=== PATIENT | female | born 2000 | race Caucasian/White ===

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

== ENCOUNTER 2021-07-06 13:29 | Emergency (ER) | payer MEDICAID ==
[2021-07-06 13:40] VITALS: BP 142/86
[2021-07-06 13:57] LABS: RAPID STREP SCREEN Negative (Negative)
--- OUTSIDE RECORDS SUMMARY | 2021-07-06 14:34 | EXTERNAL MEDICAL SUMMARY RPT | Continuity of Care Document ---
:2000 Author Organization [facility] Address [address] [place] [address] Phone Care Team Providers Name Role Phone Lanker Unavailable Unavailable Botnick Unavailable Unavailable Anushka Unavailable Unavailable Crew Unavailable Unavailable Allergies No information. Encounters No information. Medications date description facility 20210420 Metronidazole 500 MG Oral Tablet [facility] 20210420 Sulfamethoxazole 800 MG / Trimethoprim 160 MG [facility] Tablet 20210420 Metronidazole 500 MG Oral Tablet [facility] 20210420 Sulfamethoxazole 800 MG / Trimethoprim 160 MG [facility] Tablet 20210420 Metronidazole 500 MG Oral Tablet [facility] 20210420 Sulfamethoxazole 800 MG / Trimethoprim 160 MG [facility] Tablet [id number] Metronidazole 500 MG Oral Tablet [facility] [id number] Sulfamethoxazole 800 MG / Trimethoprim 160 MG Oral [facility] Tablet Problems Procedures date description facility [id number] [facility] [id number] [facility] [id number] [facility] [id number] [facility] [id number] [facility] [id number] [facility] [id number] [facility] [id number] [facility] [id number] [facility] [id number] [facility] [id number] [facility] [id number] [facility] [id number] [facility] Results No information. Vital Signs date measurement value source 20210420 BP_systolic 165 mm[Hg] 20210420 BP_diastolic 106 mm[Hg] 20210420 weight_standard 113.4 lb 20210420 weight_metric 51.44 kg 20210420 temperature_standard 98.3 F 20210420 temperature_metric 36.83 C 20210420 respiration_rate 16 /min 20210420 height_standard 66 in 20210420 height_metric 167.64 cm 20210420 heart_rate 72 /min 20210420 BP_systolic 165 mm[Hg] 20210420 BP_diastolic 106 mm[Hg] 20210420 BMI 40.3 kg/m2 20210529 weight_standard 108.86 lb 20210529 weight_metric 49.38 kg 20210529 temperature_standard 97.6 F 20210529 temperature_metric 36.44 C 20210529 respiration_rate 24 /min 20210529 height_standard 66 in 20210529 height_metric 167.64 cm 20210529 heart_rate 90 /min 20210529 BMI 38.7 kg/m2 20210619 weight_standard 113.4 lb 20210619 weight_metric 51.44 kg 20210619 temperature_standard 100 F 20210619 temperature_metric 37.78 C 20210619 respiration_rate 16 /min 20210619 height_standard 66 in 20210619 height_metric 167.64 cm 20210619 heart_rate 110 /min 20210619 BP_systolic 195 mm[Hg] 20210619 BP_diastolic 87 mm[Hg] 20210619 BMI 40.3 kg/m2 20210621 weight_standard 113.4 lb 20210621 weight_metric 51.44 kg 20210621 temperature_standard 98.1 F 20210621 temperature_metric 36.72 C 20210621 respiration_rate 20 /min 20210621 height_standard 66 in 20210621 height_metric 167.64 cm 20210621 heart_rate 110 /min 20210621 BP_systolic 155 mm[Hg] 20210621 BP_diastolic 94 mm[Hg] 20210621 BMI 40.3 kg/m2 20210628 weight_standard 113.4 lb 20210628 weight_metric 51.44 kg 20210628 temperature_standard 97 F 20210628 temperature_metric 36.11 C 20210628 respiration_rate 18 /min 20210628 height_standard 66 in 20210628 height_metric 167.64 cm 20210628 heart_rate 70 /min 20210628 BP_systolic 161 mm[Hg] 20210628 BP_diastolic 89 mm[Hg] 20210628 BMI 40.3 kg/m2
--- NOTE | 2021-07-06 16:05 | ED Physician Documentation ---
PD HPI HEENT - Stated complaint Stated Complaint: white spots in mouth - Chief complaint Chief Complaint: Heent - History obtained from History obtained from: Patient - Additional information Additional information: The patient comes to the emergency department chief complaint of sores in her mouth. They have been going on for about the last 3 days with no obvious trigger. The patient states she is had issues with development of these previously. She denies any recent URI. She had COVID about 3 weeks ago and states she has a very slight residual cough from this but otherwise, has no symptoms. The patient has no other complaints at this time. Review of Systems Ten Systems: 10 systems reviewed and negative Constitutional: reports: Reviewed and negative Eyes: reports: Reviewed and negative Ears: reports: Reviewed and negative Nose: reports: Reviewed and negative Throat: reports: Oral lesions / sores Cardiac: reports: Reviewed and negative Respiratory: reports: Reviewed and negative GI: reports: Reviewed and negative : reports: Reviewed and negative Skin: reports: Reviewed and negative Musculoskeletal: reports: Reviewed and negative Neurologic: reports: Reviewed and negative Psychiatric: reports: Reviewed and negative Endocrine: reports: Reviewed and negative Immunocompromised: reports: Reviewed and negative PD PAST MEDICAL HISTORY - Past Medical History Cardiovascular: None Respiratory: None Neuro: None - Past Surgical History Past Surgical History: No - Present Medications Home Medications: Ambulatory Orders Medication Instructions Recorded Confirmed Albuterol Sulfate [Proair Hfa 1 - 2 puffs INH Q4H PRN 07/06/21 07/06/21 Inhaler] Chlorhexidine [Peridex] 15 ml PO BID #150 ml 07/06/21 - Allergies Allergies/Adverse Reactions: Allergies Allergy/AdvReac Type Severity Reaction Status Date / Time Penicillins Allergy Respiratory Verified 07/06/21 13:36 - Social History Does the pt smoke?: No Smoking Status: Never smoker Does the pt drink ETOH?: No Does the pt have substance abuse?: No - Immunizations Immunizations are current?: Yes - POLST Patient has POLST: No PD ED PE NORMAL - Vitals Vital signs reviewed: Yes - General General: Alert and oriented X 3, No acute distress, Well developed/nourished - HEENT HEENT: Atraumatic, PERRL, EOMI, Moist mucous membranes, Other (Multiple aphthous ulcers on upper and lower lip mucosa, as well as bilateral buccal mucosa. No swelling. No drainage.) - Neck Neck: Supple, no meningeal sign - Respiratory Respiratory: No respiratory distress - Derm Derm: Warm and dry - Extremities Extremities: No deformity - Neuro Neuro: Alert and oriented X 3 - Psych Psych: Normal mood, Normal affect Results - Vitals Vitals: Vital Signs - 24 hr 07/06/21 13:37 Temperature 37.1 C Heart Rate 81 Respiratory 16 Rate Blood Pressure 142/86 H O2 Saturation 97 Oxygen O2 Source Room air - Labs Labs: Laboratory Tests 07/06/21 13:40 Group A Strep Rapid Negative PD MEDICAL DECISION MAKING - ED course Complexity details: considered differential, d/w patient ED course: We have discussed symptomatic management of aphthous ulcers at home. We discussed the usual indications for return. Departure - Departure Disposition: Home, Self Care Clinical Impression: Aphthous stomatitis Condition: Stable Instructions: ED Canker Sore Prescriptions: Chlorhexidine [Peridex] 15 ml PO BID #150 ml Comments: You may ask the pharmacy to direct you to Orajel, and [id number] numbing gel that can be applied to the sores in your mouth just before eating, to decrease the level of discomfort. This should not be used in between meals, as he is in too much can be harmful. You may just put a little on a Q-tip and apply it to the painful sore areas. In general, aphthous ulcers or "canker sores" will go away on their own, given time. Please avoid any substances that are irritating to the mouth, such as anything very acidic or spicy, or any hard or rough foods that might further traumatize the inside your mouth.
--- NOTE | 2021-07-09 05:59 | ED Physician Documentation ---
ED Addendum - Addendum Addendum: 07/09/21 05:57 Throat culture results reviewed which is positive for group G strep. Given patient's symptoms, I am inclined to treat. Patient has allergy listed to penicillin with respiratory Effects. We will avoid penicillin and cephalosporins. I have prescribed azithromycin and send the prescription to [facility] in [place]. Will have charge nurse and morning call patient to notify of results and prescription.
== END 2021-07-06 16:12 | disposition home or self-care (01) ==
LOC: ED 13:29
DX: K12.0 Recurrent oral aphthae (principal)
CPT/HCPCS: 87070; 87077; 87430; 99282; 99283

== ENCOUNTER 2021-08-31 20:47 | Emergency (ER) | payer MEDICAID ==
--- OUTSIDE RECORDS SUMMARY | 2021-08-31 20:56 | EXTERNAL MEDICAL SUMMARY RPT | Continuity of Care Document ---
:2000 Author Organization [place] Address [address] [place] [address] Phone Allergies and Intolerances date description facility type (no date) [facility] (unknown) Encounters No information. Functional Status No information. Immunizations No information. Medications No information. Problems No information. Procedures date description facility [id number] [facility] [id number] [facility] [id number] [facility] [id number] [facility] [id number] [facility] [id number] [facility] Results/Labs test date author facility value unit interpret ation Result panel 1 (unknown) (no (unknown) (unknown) (no value) (units (unk nown) date) unknown) (unknown) (no (unknown) (unknown) Date of Service: (units (unknown) date) 06/19/21 unknown) (unknown) (no (unknown) (unknown) (no value) (units (unk nown) date) unknown) (unknown) (no (unknown) (unknown) 100 mg PO BID (units ( unknown) date) Qty: 14 0RF unknown) (unknown) (no (unknown) (unknown) 4 mg PO Q6-8H (units ( unknown) date) Qty: 7 0RF unknown) (unknown) (no (unknown) (unknown) Allergies (units (unkn own) date) unknown) (unknown) (no (unknown) (unknown) Documented by: (units (unknown) date) KBRYERS unknown) (unknown) (no (unknown) (unknown) ED Orders (units (unkn own) date) unknown) (unknown) (no (unknown) (unknown) Emergency Report (units (unknown) date) unknown) (unknown) (no (unknown) (unknown) Merged With [facility] (units (unknown) date) [address] unknown) [place] [address] (unknown) (no (unknown) (unknown) Last Admin: (units (un known) date) 06/19/21 09:01 unknown) Dose: 1,000 mls/hr (unknown) (no (unknown) (unknown) Point of Care (units ( unknown) date) Testing unknown) (unknown) (no (unknown) (unknown) Previous Rx's (units ( unknown) date) unknown) (unknown) (no (unknown) (unknown) Rx Instructions: (units (unknown) date) unknown) (unknown) (no (unknown) (unknown) Stop: 06/19/21 (units (unknown) date) 09:09 unknown) (unknown) (no (unknown) (unknown) Stop: 06/19/21 (units (unknown) date) 09:51 unknown) (unknown) (no (unknown) (unknown) Urine Dip (units (unkn own) date) unknown) (unknown) (no (unknown) (unknown) Vital Signs - 8 (units (unknown) date) hr unknown) (unknown) (no (unknown) (unknown) must administer (units (unknown) date) with a meal/food unknown) (unknown) (no (unknown) (unknown) (no value) (units (unk nown) date) unknown) (unknown) (no (unknown) (unknown) nitrofurantoin (units (unknown) date) monohyd/m-cryst unknown) [Macrobid] 100 mg capsule (unknown) (no (unknown) (unknown) ondansetron HCl (units (unknown) date) [Zofran] 4 mg unknown) tablet (unknown) (no (unknown) (unknown) 06/19/21 (units (unkno wn) date) unknown) (unknown) (no (unknown) (unknown) Medication (units (unk nown) date) Instructions unknown) Recorded (unknown) (no (unknown) (unknown) 'CILLINS' Allergy (units (unknown) date) Unknown Cough unknown) Uncoded 03/01/21 02:28 (unknown) (no (unknown) (unknown) (Zofran) (units (unkno wn) date) unknown) (unknown) (no (unknown) (unknown) 06/19/21 08:31 (units (unknown) date) unknown) (unknown) (no (unknown) (unknown) 06/19/21 08:51 (units (unknown) date) unknown) (unknown) (no (unknown) (unknown) 06/19/21 09:07 (units (unknown) date) unknown) (unknown) (no (unknown) (unknown) 08:20 (units (unkno wn) date) unknown) (unknown) (no (unknown) (unknown) [id number] (units (unkno wn) date) unknown) (unknown) (no (unknown) (unknown) Age/Sex: 21 / F (units (unknown) date) unknown) (unknown) (no (unknown) (unknown) Allergy/AdvReac (units (unknown) date) Type Severity unknown) Reaction Status Date / Time (unknown) (no (unknown) (unknown) Bedside Urine (units ( unknown) date) Bilirubin - unknown) Negative (unknown) (no (unknown) (unknown) Bedside Urine (units ( unknown) date) Glucose unknown) Negative (unknown) (no (unknown) (unknown) Bedside Urine (units ( unknown) date) Ketone - unknown) Negative (unknown) (no (unknown) (unknown) Bedside Urine (units ( unknown) date) Leukocytes + unknown) 70 (unknown) (no (unknown) (unknown) Bedside Urine (units ( unknown) date) Nitrite - unknown) Negative (unknown) (no (unknown) (unknown) Bedside Urine (units ( unknown) date) Occult Blood - unknown) Negative (unknown) (no (unknown) (unknown) Bedside Urine (units ( unknown) date) Protein - unknown) Negative (unknown) (no (unknown) (unknown) Bedside Urine (units ( unknown) date) Urobilinogen - unknown) Negative (unknown) (no (unknown) (unknown) Bedside Urine pH (units (unknown) date) 6 unknown) (unknown) (no (unknown) (unknown) Blood Pressure (units (unknown) date) 181/107 H unknown) 06/19/21 08:20 (unknown) (no (unknown) (unknown) Blood Pressure (units (unknown) date) 181/107 H unknown) (unknown) (no (unknown) (unknown) COVID19 -Nasal (units (unknown) date) RAPID/Pre-Proc unknown) Stat (unknown) (no (unknown) (unknown) Chief complaint: (units (unknown) date) Upper Respiratory unknown) Symptoms (unknown) (no (unknown) (unknown) Course (units (unkno wn) date) unknown) (unknown) (no (unknown) (unknown) : 2000 (units (unknown) date) Acct:[id number] unknown) (unknown) (no (unknown) (unknown) Departure (units (unkn own) date) unknown) (unknown) (no (unknown) (unknown) Discharge Plan (units (unknown) date) unknown) (unknown) (no (unknown) (unknown) Discontinued (units (u nknown) date) Medications unknown) (unknown) (no (unknown) (unknown) ER Physician: (units ( unknown) date) Manjit Dale unknown) D.O. (unknown) (no (unknown) (unknown) Esterase (units (unkno wn) date) unknown) (unknown) (no (unknown) (unknown) Exam (units (unkno wn) date) unknown) (unknown) (no (unknown) (unknown) General (units (unkno wn) date) unknown) (unknown) (no (unknown) (unknown) HPI - General (units ( unknown) date) Adult unknown) (unknown) (no (unknown) (unknown) Healthy (units (unkno wn) date) adolescent unknown) (unknown) (no (unknown) (unknown) Initial Vital (units ( unknown) date) Signs unknown) (unknown) (no (unknown) (unknown) Initial Vital (units ( unknown) date) Signs: unknown) (unknown) (no (unknown) (unknown) Lab Data (units (unkno wn) date) unknown) (unknown) (no (unknown) (unknown) Labs: (units (unkno wn) date) unknown) (unknown) (no (unknown) (unknown) Medical Decision (units (unknown) date) Making unknown) (unknown) (no (unknown) (unknown) Medical History (units (unknown) date) (Updated 06/14/21 unknown) @ 00:01 by ) (unknown) (no (unknown) (unknown) Mode of arrival: (units (unknown) date) Ambulatory unknown) (unknown) (no (unknown) (unknown) Nephrolithiasis (units (unknown) date) unknown) (unknown) (no (unknown) (unknown) No Action (units (unkn own) date) unknown) (unknown) (no (unknown) (unknown) No history of (units ( unknown) date) previous surgery unknown) (unknown) (no (unknown) (unknown) Ondansetron HCl (units (unknown) date) (Ondansetron 4 unknown) Mg/2 Ml Inj) 4 mg IV NOW ONE (unknown) (no (unknown) (unknown) Ordered: (units (unkno wn) date) unknown) (unknown) (no (unknown) (unknown) Orders (units (unkno wn) date) unknown) (unknown) (no (unknown) (unknown) Patient History (units (unknown) date) unknown) (unknown) (no (unknown) (unknown) Patient: (units (unkno wn) date) Jenny Cobb unknown) MR#: [id number] (unknown) (no (unknown) (unknown) Penicillins (units (un known) date) [PENICILLINS] unknown) Allergy Unknown Anaphylaxis Verified 03/18/21 19:10 (unknown) (no (unknown) (unknown) Point of care (units ( unknown) date) testing: unknown) (unknown) (no (unknown) (unknown) Test (units (unknown) date) Results unknown) Negative (unknown) (no (unknown) (unknown) Prescriptions: (units (unknown) date) unknown) (unknown) (no (unknown) (unknown) Pulse Oximetry (units (unknown) date) 100 06/19/21 unknown) 08:20 (unknown) (no (unknown) (unknown) Pulse Oximetry (units (unknown) date) 100 unknown) (unknown) (no (unknown) (unknown) Pulse Rate 109 H (units (unknown) date) 06/19/21 08:20 unknown) (unknown) (no (unknown) (unknown) Pulse Rate 109 H (units (unknown) date) unknown) (unknown) (no (unknown) (unknown) Rapid Strep A (units ( unknown) date) Negative unknown) (unknown) (no (unknown) (unknown) Related Data (units (u nknown) date) unknown) (unknown) (no (unknown) (unknown) Respiratory Panel (units (unknown) date) (Film Array) Stat unknown) (unknown) (no (unknown) (unknown) Respiratory Rate (units (unknown) date) 18 06/19/21 unknown) 08:20 (unknown) (no (unknown) (unknown) Respiratory Rate (units (unknown) date) 18 unknown) (unknown) (no (unknown) (unknown) Signed By: (units (unk nown) date) unknown) (unknown) (no (unknown) (unknown) Smoking Status: (units (unknown) date) Current every day unknown) smoker (unknown) (no (unknown) (unknown) Smoking Status: (units (unknown) date) Current every day unknown) smoker (unknown) (no (unknown) (unknown) Social History (units (unknown) date) (Reviewed 05/30/21 unknown) @ 04:48 by Manjit Dale DO) (unknown) (no (unknown) (unknown) Sodium Chloride (units (unknown) date) (Normal Saline unknown) 0.9%) 1,000 mls @ 1,000 mls/hr IV BOLUS ONE (unknown) (no (unknown) (unknown) Source: patient (units (unknown) date) unknown) (unknown) (no (unknown) (unknown) Stated complaint: (units (unknown) date) severe headache, unknown) fever, throwing up (unknown) (no (unknown) (unknown) Substance Use (units ( unknown) date) Type: does not use unknown) (unknown) (no (unknown) (unknown) Surgical History (units (unknown) date) (Reviewed 04/20/21 unknown) @ 20:49 by Leesa Gonzales [facility]) (unknown) (no (unknown) (unknown) Temperature 100 (units (unknown) date) F H 06/19/21 unknown) 08:20 (unknown) (no (unknown) (unknown) Temperature 100 F (units (unknown) date) H unknown) (unknown) (no (unknown) (unknown) Time Seen by (units (u nknown) date) Provider: 06/19/21 unknown) 09:04 (unknown) (no (unknown) (unknown) Urine Microscopic (units (unknown) date) Stat unknown) (unknown) (no (unknown) (unknown) Urine Specific (units (unknown) date) [place] 1.01 unknown) (unknown) (no (unknown) (unknown) Vital Signs (units (un known) date) unknown) (unknown) (no (unknown) (unknown) Vital signs: (units (u nknown) date) unknown) (unknown) (no (unknown) (unknown) alcohol intake (units (unknown) date) frequency: unknown) holidays/special occasions only (unknown) (no (unknown) (unknown) capsule (units (unkno wn) date) (Macrobid) unknown) (unknown) (no (unknown) (unknown) monohydrate/macro (units (unknown) date) crystals 100 mg unknown) (unknown) (no (unknown) (unknown) nitrofurantoin (units (unknown) date) 100 mg PO BID #14 unknown) cap 01/27/21 (unknown) (no (unknown) (unknown) ondansetron HCl 4 (units (unknown) date) mg tablet 4 mg PO unknown) Q6-8H #7 tab 11/08/20 (unknown) (no (unknown) (unknown) tobacco type: (units ( unknown) date) cigarettes and unknown) vaping Result panel 2 (unknown) (no date) (unknown) (unknown) POSITIVE (units (unkn own) unknown) Result panel 3 (unknown) (no (unknown) (unknown) (no value) (units (unk nown) date) unknown) (unknown) (no (unknown) (unknown) Date of Service: (units (unknown) date) 06/19/21 unknown) (unknown) (no (unknown) (unknown) (no value) (units (unk nown) date) unknown) (unknown) (no (unknown) (unknown) 100 mg PO BID Qty: (units (unknown) date) 14 0RF unknown) (unknown) (no (unknown) (unknown) 4 mg PO Q6-8H Qty: (units (unknown) date) 7 0RF unknown) (unknown) (no (unknown) (unknown) Allergies (units (unkn own) date) unknown) (unknown) (no (unknown) (unknown) Documented by: (units (unknown) date) KBRYERS unknown) (unknown) (no (unknown) (unknown) ED Orders (units (unkn own) date) unknown) (unknown) (no (unknown) (unknown) Emergency Report (units (unknown) date) unknown) (unknown) (no (unknown) (unknown) Merged With [facility] (units (unknown) date) [address] unknown) [place] [address] (unknown) (no (unknown) (unknown) Last Admin: (units (un known) date) 06/19/21 09:01 unknown) Dose: 1,000 mls/hr (unknown) (no (unknown) (unknown) Point of Care (units ( unknown) date) Testing unknown) (unknown) (no (unknown) (unknown) Previous Rx's (units ( unknown) date) unknown) (unknown) (no (unknown) (unknown) Rx Instructions: (units (unknown) date) unknown) (unknown) (no (unknown) (unknown) Stop: 06/19/21 (units (unknown) date) 09:09 unknown) (unknown) (no (unknown) (unknown) Stop: 06/19/21 (units (unknown) date) 09:51 unknown) (unknown) (no (unknown) (unknown) Urine Dip (units (unkn own) date) unknown) (unknown) (no (unknown) (unknown) Vital Signs - 8 hr (units (unknown) date) unknown) (unknown) (no (unknown) (unknown) must administer (units (unknown) date) with a meal/food unknown) (unknown) (no (unknown) (unknown) (no value) (units (unk nown) date) unknown) (unknown) (no (unknown) (unknown) nitrofurantoin (units (unknown) date) monohyd/m-cryst unknown) [Macrobid] 100 mg capsule (unknown) (no (unknown) (unknown) ondansetron HCl (units (unknown) date) [Zofran] 4 mg unknown) tablet (unknown) (no (unknown) (unknown) 06/19/21 (units (unkno wn) date) unknown) (unknown) (no (unknown) (unknown) Medication (units (unk nown) date) Instructions unknown) Recorded (unknown) (no (unknown) (unknown) No rashes. No (units (unknown) date) abdominal pain. No unknown) urinary symptoms. No cough. (unknown) (no (unknown) (unknown) 'CILLINS' Allergy (units (unknown) date) Unknown Cough unknown) Uncoded 03/01/21 02:28 (unknown) (no (unknown) (unknown) (Zofran) (units (unkno wn) date) unknown) (unknown) (no (unknown) (unknown) 06/19/21 08:31 (units (unknown) date) unknown) (unknown) (no (unknown) (unknown) 06/19/21 08:51 (units (unknown) date) unknown) (unknown) (no (unknown) (unknown) 06/19/21 09:07 (units (unknown) date) unknown) (unknown) (no (unknown) (unknown) 08:20 (units (unkno wn) date) unknown) (unknown) (no (unknown) (unknown) [id number] (units (unkno wn) date) unknown) (unknown) (no (unknown) (unknown) Age/Sex: 21 / F (units (unknown) date) unknown) (unknown) (no (unknown) (unknown) Allergy/AdvReac (units (unknown) date) Type Severity unknown) Reaction Status Date / Time (unknown) (no (unknown) (unknown) Appearance: (units (un known) date) grossly normal and unknown) well kempt (unknown) (no (unknown) (unknown) Auscultation: (units ( unknown) date) clear to unknown) auscultation bilaterally (unknown) (no (unknown) (unknown) Bedside Urine (units ( unknown) date) Bilirubin - unknown) Negative (unknown) (no (unknown) (unknown) Bedside Urine (units ( unknown) date) Glucose Negative unknown) (unknown) (no (unknown) (unknown) Bedside Urine (units ( unknown) date) Ketone - unknown) Negative (unknown) (no (unknown) (unknown) Bedside Urine (units ( unknown) date) Leukocytes + unknown) 70 (unknown) (no (unknown) (unknown) Bedside Urine (units ( unknown) date) Nitrite - unknown) Negative (unknown) (no (unknown) (unknown) Bedside Urine (units ( unknown) date) Occult Blood - unknown) Negative (unknown) (no (unknown) (unknown) Bedside Urine (units ( unknown) date) Protein - unknown) Negative (unknown) (no (unknown) (unknown) Bedside Urine (units ( unknown) date) Urobilinogen - unknown) Negative (unknown) (no (unknown) (unknown) Bedside Urine pH (units (unknown) date) 6 unknown) (unknown) (no (unknown) (unknown) Blood Pressure (units (unknown) date) 181/107 H 06/19/21 unknown) 08:20 (unknown) (no (unknown) (unknown) Blood Pressure (units (unknown) date) 181/107 H unknown) (unknown) (no (unknown) (unknown) COVID19 -Nasal (units (unknown) date) RAPID/Pre-Proc Stat unknown) (unknown) (no (unknown) (unknown) Cardio (units (unkno wn) date) unknown) (unknown) (no (unknown) (unknown) Cardiovascular (units (unknown) date) unknown) (unknown) (no (unknown) (unknown) Cardiovascular: (units (unknown) date) Reports system unknown) reviewed and no additional complaints, except as (unknown) (no (unknown) (unknown) Chief complaint: (units (unknown) date) Upper Respiratory unknown) Symptoms (unknown) (no (unknown) (unknown) Constitutional (units (unknown) date) unknown) (unknown) (no (unknown) (unknown) Constitutional: (units (unknown) date) Reports system unknown) reviewed and no additional complaints, except as (unknown) (no (unknown) (unknown) Course (units (unkno wn) date) unknown) (unknown) (no (unknown) (unknown) : 2000 (units (unknown) date) Acct:[id number] unknown) (unknown) (no (unknown) (unknown) Departure (units (unkn own) date) unknown) (unknown) (no (unknown) (unknown) Discharge Plan (units (unknown) date) unknown) (unknown) (no (unknown) (unknown) Discontinued (units (u nknown) date) Medications unknown) (unknown) (no (unknown) (unknown) ENT (units (unkno wn) date) unknown) (unknown) (no (unknown) (unknown) ER Physician: (units ( unknown) date) Manjit Dale D.O. unknown) (unknown) (no (unknown) (unknown) Ears, Nose, Mouth, (units (unknown) date) and Throat: Reports unknown) system reviewed and no additional (unknown) (no (unknown) (unknown) Ears: TM's normal (units (unknown) date) bilaterally unknown) (unknown) (no (unknown) (unknown) Effort + (units (unkno wn) date) Inspection: normal unknown) respiratory effort (unknown) (no (unknown) (unknown) Esterase (units (unkno wn) date) unknown) (unknown) (no (unknown) (unknown) Exam (units (unkno wn) date) unknown) (unknown) (no (unknown) (unknown) Extrem (units (unkno wn) date) unknown) (unknown) (no (unknown) (unknown) GI (units (unkno wn) date) unknown) (unknown) (no (unknown) (unknown) Gastrointestinal (units (unknown) date) unknown) (unknown) (no (unknown) (unknown) Gastrointestinal: (units (unknown) date) Reports system unknown) reviewed and no additional complaints, except (unknown) (no (unknown) (unknown) General (units (unkno wn) date) unknown) (unknown) (no (unknown) (unknown) General: no rashes (units (unknown) date) or lesions noted unknown) (unknown) (no (unknown) (unknown) General: normal to (units (unknown) date) inspection and unknown) capillary refill normal (unknown) (no (unknown) (unknown) General: patient (units (unknown) date) alert, patient unknown) awake, patient oriented x3 and moves all (unknown) (no (unknown) (unknown) HENMT (units (unkno wn) date) unknown) (unknown) (no (unknown) (unknown) HPI - General (units ( unknown) date) Adult unknown) (unknown) (no (unknown) (unknown) HPI narrative: (units (unknown) date) unknown) (unknown) (no (unknown) (unknown) Head: normal to (units (unknown) date) inspection and unknown) normocephalic (unknown) (no (unknown) (unknown) Healthy adolescent (units (unknown) date) unknown) (unknown) (no (unknown) (unknown) Hematologic/Lympha (units (unknown) date) tic unknown) (unknown) (no (unknown) (unknown) History of Present (units (unknown) date) Illness unknown) (unknown) (no (unknown) (unknown) Initial Vital (units ( unknown) date) Signs unknown) (unknown) (no (unknown) (unknown) Initial Vital (units ( unknown) date) Signs: unknown) (unknown) (no (unknown) (unknown) Inspection: normal (units (unknown) date) to inspection unknown) (unknown) (no (unknown) (unknown) Integumentary/Leticia (units (unknown) date) sts unknown) (unknown) (no (unknown) (unknown) Lab Data (units (unkno wn) date) unknown) (unknown) (no (unknown) (unknown) Labs: (units (unkno wn) date) unknown) (unknown) (no (unknown) (unknown) Medical Decision (units (unknown) date) Making unknown) (unknown) (no (unknown) (unknown) Medical History (units (unknown) date) (Reviewed 06/19/21 unknown) @ 09:14 by Manjit Dale DO) (unknown) (no (unknown) (unknown) Mode of arrival: (units (unknown) date) Ambulatory unknown) (unknown) (no (unknown) (unknown) Nephrolithiasis (units (unknown) date) unknown) (unknown) (no (unknown) (unknown) Neuro (units (unkno wn) date) unknown) (unknown) (no (unknown) (unknown) Neurologic (units (unk nown) date) unknown) (unknown) (no (unknown) (unknown) Neurologic: (units (un known) date) Reports system unknown) reviewed and no additional complaints, except as (unknown) (no (unknown) (unknown) No Action (units (unkn own) date) unknown) (unknown) (no (unknown) (unknown) No history of (units ( unknown) date) previous surgery unknown) (unknown) (no (unknown) (unknown) On Anticoagulants: (units (unknown) date) No unknown) (unknown) (no (unknown) (unknown) Ondansetron HCl (units (unknown) date) (Ondansetron 4 Mg/2 unknown) Ml Inj) 4 mg IV NOW ONE (unknown) (no (unknown) (unknown) Ordered: (units (unkno wn) date) unknown) (unknown) (no (unknown) (unknown) Orders (units (unkno wn) date) unknown) (unknown) (no (unknown) (unknown) Patient History (units (unknown) date) unknown) (unknown) (no (unknown) (unknown) Patient is an (units ( unknown) date) otherwise healthy unknown) 21-year-old female who is here for multiple (unknown) (no (unknown) (unknown) Patient: (units (unkno wn) date) Jenny Cobb E unknown) MR#: [id number] (unknown) (no (unknown) (unknown) Penicillins (units (un known) date) [PENICILLINS] unknown) Allergy Unknown Anaphylaxis Verified 03/18/21 19:10 (unknown) (no (unknown) (unknown) Point of care (units ( unknown) date) testing: unknown) (unknown) (no (unknown) (unknown) Test (units (unknown) date) Results Negative unknown) (unknown) (no (unknown) (unknown) Prescriptions: (units (unknown) date) unknown) (unknown) (no (unknown) (unknown) Psych (units (unkno wn) date) unknown) (unknown) (no (unknown) (unknown) Pulse Oximetry (units (unknown) date) 100 06/19/21 unknown) 08:20 (unknown) (no (unknown) (unknown) Pulse Oximetry 100 (units (unknown) date) unknown) (unknown) (no (unknown) (unknown) Pulse Rate 109 H (units (unknown) date) 06/19/21 08:20 unknown) (unknown) (no (unknown) (unknown) Pulse Rate 109 H (units (unknown) date) unknown) (unknown) (no (unknown) (unknown) Rapid Strep A (units ( unknown) date) Negative unknown) (unknown) (no (unknown) (unknown) Rate: regular rate (units (unknown) date) unknown) (unknown) (no (unknown) (unknown) Related Data (units (u nknown) date) unknown) (unknown) (no (unknown) (unknown) Resp (units (unkno wn) date) unknown) (unknown) (no (unknown) (unknown) Respiratory (units (un known) date) unknown) (unknown) (no (unknown) (unknown) Respiratory Panel (units (unknown) date) (Film Array) Stat unknown) (unknown) (no (unknown) (unknown) Respiratory Rate (units (unknown) date) 18 06/19/21 08:20 unknown) (unknown) (no (unknown) (unknown) Respiratory Rate (units (unknown) date) 18 unknown) (unknown) (no (unknown) (unknown) Respiratory: (units (u nknown) date) Reports system unknown) reviewed and no additional complaints, except as (unknown) (no (unknown) (unknown) Review of Systems (units (unknown) date) unknown) (unknown) (no (unknown) (unknown) Rhythm: regular (units (unknown) date) rhythm unknown) (unknown) (no (unknown) (unknown) Signed By: (units (unk nown) date) unknown) (unknown) (no (unknown) (unknown) Skin (units (unkno wn) date) unknown) (unknown) (no (unknown) (unknown) Skin/Breast: (units (u nknown) date) Reports system unknown) reviewed and no additional complaints, except as (unknown) (no (unknown) (unknown) Smoking Status: (units (unknown) date) Current every day unknown) smoker (unknown) (no (unknown) (unknown) Smoking Status: (units (unknown) date) Current every day unknown) smoker (unknown) (no (unknown) (unknown) Social History (units (unknown) date) (Reviewed 06/19/21 unknown) @ 09:14 by Manjit Dale DO) (unknown) (no (unknown) (unknown) Sodium Chloride (units (unknown) date) (Normal Saline unknown) 0.9%) 1,000 mls @ 1,000 mls/hr IV BOLUS ONE (unknown) (no (unknown) (unknown) Source: patient (units (unknown) date) unknown) (unknown) (no (unknown) (unknown) Stated complaint: (units (unknown) date) severe headache, unknown) fever, throwing up (unknown) (no (unknown) (unknown) Substance Use (units ( unknown) date) Type: does not use unknown) (unknown) (no (unknown) (unknown) Surgical History (units (unknown) date) (Reviewed 04/20/21 unknown) @ 20:[address]) (unknown) (no (unknown) (unknown) Temperature 100 F (units (unknown) date) H 06/19/21 08:20 unknown) (unknown) (no (unknown) (unknown) Temperature 100 F (units (unknown) date) H unknown) (unknown) (no (unknown) (unknown) Throat: posterior (units (unknown) date) oropharynx normal unknown) (unknown) (no (unknown) (unknown) Time Seen by (units (u nknown) date) Provider: 06/19/21 unknown) 09:04 (unknown) (no (unknown) (unknown) Urine Microscopic (units (unknown) date) Stat unknown) (unknown) (no (unknown) (unknown) Urine Specific (units (unknown) date) [place] 1.01 unknown) (unknown) (no (unknown) (unknown) Vital Signs (units (un known) date) unknown) (unknown) (no (unknown) (unknown) Vital signs: (units (u nknown) date) unknown) (unknown) (no (unknown) (unknown) alcohol intake (units (unknown) date) frequency: unknown) holidays/special occasions only (unknown) (no (unknown) (unknown) as documented (units ( unknown) date) unknown) (unknown) (no (unknown) (unknown) capsule (Macrobid) (units (unknown) date) unknown) (unknown) (no (unknown) (unknown) complaints, except (units (unknown) date) as documented and unknown) Reports as per HPI (unknown) (no (unknown) (unknown) documented (units (unk nown) date) unknown) (unknown) (no (unknown) (unknown) extremities (units (un known) date) unknown) (unknown) (no (unknown) (unknown) injury several (units (unknown) date) weeks ago but has unknown) had no symptoms until now. The body aches (unknown) (no (unknown) (unknown) monohydrate/macroc (units (unknown) date) rystals 100 mg unknown) (unknown) (no (unknown) (unknown) nitrofurantoin 100 (units (unknown) date) mg PO BID #14 cap unknown) 01/27/21 (unknown) (no (unknown) (unknown) not feeling very (units (unknown) date) well. States her unknown) symptoms started last evening. She did try (unknown) (no (unknown) (unknown) ondansetron HCl 4 (units (unknown) date) mg tablet 4 mg PO unknown) Q6-8H #7 tab 11/08/20 (unknown) (no (unknown) (unknown) reasons to include (units (unknown) date) headache and nausea unknown) and vomiting and body aches and generally (unknown) (no (unknown) (unknown) some ibuprofen (units (unknown) date) last night without unknown) much improvement. She did sustain a head (unknown) (no (unknown) (unknown) started in route to (units (unknown) date) the emergency unknown) department. She is also having a sore throat. (unknown) (no (unknown) (unknown) tobacco type: (units ( unknown) date) cigarettes and unknown) vaping Result panel 4 (unknown) (no date) (unknown) (unknown) 0-1/HPF (units (unkn own) unknown) (unknown) (no date) (unknown) (unknown) 1-5 /HPF (units (unkn own) unknown) (unknown) (no date) (unknown) (unknown) 5-10/HPF (units (unkn own) unknown) (unknown) (no date) (unknown) (unknown) Few (2-10) (units (un known) unknown) (unknown) (no date) (unknown) (unknown) Specimen (units (unkn own) Cultured unknown) Result panel 5 (unknown) (no date) (unknown) (unknown) Detected (units (unkn own) unknown) (unknown) (no date) (unknown) (unknown) Not Detected (units ( unknown) unknown) Result panel 6 (unknown) (no (unknown) (unknown) (no value) (units (unk nown) date) unknown) (unknown) (no (unknown) (unknown) Date of Service: (units (unknown) date) 06/19/21 unknown) (unknown) (no (unknown) (unknown) (no value) (units (unk nown) date) unknown) (unknown) (no (unknown) (unknown) <Electronically (units (unknown) date) signed by Manjit Dale D.O.> (unknown) (no (unknown) (unknown) 06/19/21 1018 (units ( unknown) date) unknown) (unknown) (no (unknown) (unknown) 100 mg PO BID Qty: (units (unknown) date) 14 0RF unknown) (unknown) (no (unknown) (unknown) 4 mg PO Q6-8H Qty: (units (unknown) date) 7 0RF unknown) (unknown) (no (unknown) (unknown) Allergies (units (unkn own) date) unknown) (unknown) (no (unknown) (unknown) ED Orders (units (unkn own) date) unknown) (unknown) (no (unknown) (unknown) Emergency Report (units (unknown) date) unknown) (unknown) (no (unknown) (unknown) Merged With [facility] (units (unknown) date) [address] unknown) [place] [address] (unknown) (no (unknown) (unknown) Lab Results (units (un known) date) unknown) (unknown) (no (unknown) (unknown) Point of Care (units ( unknown) date) Testing unknown) (unknown) (no (unknown) (unknown) Previous Rx's (units ( unknown) date) unknown) (unknown) (no (unknown) (unknown) Rx Instructions: (units (unknown) date) unknown) (unknown) (no (unknown) (unknown) Stop: 06/19/21 (units (unknown) date) 09:09 unknown) (unknown) (no (unknown) (unknown) Stop: 06/19/21 (units (unknown) date) 09:51 unknown) (unknown) (no (unknown) (unknown) Urine Dip (units (unkn own) date) unknown) (unknown) (no (unknown) (unknown) Vital Signs - 8 hr (units (unknown) date) unknown) (unknown) (no (unknown) (unknown) must administer (units (unknown) date) with a meal/food unknown) (unknown) (no (unknown) (unknown) (no value) (units (unk nown) date) unknown) (unknown) (no (unknown) (unknown) 06/19/21 06/19/21 (units (unknown) date) 06/19/21 unknown) Range/Units (unknown) (no (unknown) (unknown) 08:31 08:52 09:02 (units (unknown) date) unknown) (unknown) (no (unknown) (unknown) nitrofurantoin (units (unknown) date) monohyd/m-cryst unknown) [Macrobid] 100 mg capsule (unknown) (no (unknown) (unknown) ondansetron HCl (units (unknown) date) [Zofran] 4 mg unknown) tablet (unknown) (no (unknown) (unknown) 06/19/21 (units (unkno wn) date) unknown) (unknown) (no (unknown) (unknown) COVID-19 (units (unkno wn) date) unknown) (unknown) (no (unknown) (unknown) Medication (units (unk nown) date) Instructions unknown) Recorded (unknown) (no (unknown) (unknown) No rashes. No (units (unknown) date) abdominal pain. No unknown) urinary symptoms. No cough. (unknown) (no (unknown) (unknown) vaccine with the (units (unknown) date) 2nd 1 being unknown) approximately 6 months ago. She has not had (unknown) (no (unknown) (unknown) was informed of (units (unknown) date) this. We did unknown) discuss quarantine. She expressed understanding (unknown) (no (unknown) (unknown) 'CILLINS' Allergy (units (unknown) date) Unknown Cough unknown) Uncoded 03/01/21 02:28 (unknown) (no (unknown) (unknown) (Zofran) (units (unkno wn) date) unknown) (unknown) (no (unknown) (unknown) 06/19/21 08:31 (units (unknown) date) unknown) (unknown) (no (unknown) (unknown) 06/19/21 08:52 (units (unknown) date) unknown) (unknown) (no (unknown) (unknown) 06/19/21 09:02 (units (unknown) date) unknown) (unknown) (no (unknown) (unknown) 08:20 06/19/21 (units (unknown) date) unknown) (unknown) (no (unknown) (unknown) 08:33 06/19/21 (units (unknown) date) unknown) (unknown) (no (unknown) (unknown) 08:34 (units (unkno wn) date) unknown) (unknown) (no (unknown) (unknown) [id number] (units (unkno wn) date) unknown) (unknown) (no (unknown) (unknown) Activity (units (unkno wn) date) Restrictions/Additi unknown) onal Instructions: (unknown) (no (unknown) (unknown) Adenovirus (PCR) (units (unknown) date) Not detected (Not unknown) Detect) (unknown) (no (unknown) (unknown) Age/Sex: 21 / F (units (unknown) date) unknown) (unknown) (no (unknown) (unknown) Allergy/AdvReac (units (unknown) date) Type Severity unknown) Reaction Status Date / Time (unknown) (no (unknown) (unknown) Appearance: (units (un known) date) grossly normal and unknown) well kempt (unknown) (no (unknown) (unknown) Auscultation: (units ( unknown) date) clear to unknown) auscultation bilaterally (unknown) (no (unknown) (unknown) B. pertussis DNA (units (unknown) date) (PCR) Not unknown) detected (Not Detecte) (unknown) (no (unknown) (unknown) B.parapertussis (units (unknown) date) DNA PCR Not unknown) detected (Not Detecte) (unknown) (no (unknown) (unknown) Bedside Urine (units ( unknown) date) Bilirubin - unknown) Negative (unknown) (no (unknown) (unknown) Bedside Urine (units ( unknown) date) Glucose Negative unknown) (unknown) (no (unknown) (unknown) Bedside Urine (units ( unknown) date) Ketone - unknown) Negative (unknown) (no (unknown) (unknown) Bedside Urine (units ( unknown) date) Leukocytes + unknown) 70 (unknown) (no (unknown) (unknown) Bedside Urine (units ( unknown) date) Nitrite - unknown) Negative (unknown) (no (unknown) (unknown) Bedside Urine (units ( unknown) date) Occult Blood - unknown) Negative (unknown) (no (unknown) (unknown) Bedside Urine (units ( unknown) date) Protein - unknown) Negative (unknown) (no (unknown) (unknown) Bedside Urine (units ( unknown) date) Urobilinogen - unknown) Negative (unknown) (no (unknown) (unknown) Bedside Urine pH (units (unknown) date) 6 unknown) (unknown) (no (unknown) (unknown) Blood Pressure (units (unknown) date) 181/107 H 06/19/21 unknown) 08:20 (unknown) (no (unknown) (unknown) Blood Pressure (units (unknown) date) 181/107 H 181/107 H unknown) 186/112 H (unknown) (no (unknown) (unknown) COVID19 -Nasal (units (unknown) date) RAPID/Pre-Proc Stat unknown) (unknown) (no (unknown) (unknown) Cardio (units (unkno wn) date) unknown) (unknown) (no (unknown) (unknown) Cardiovascular (units (unknown) date) unknown) (unknown) (no (unknown) (unknown) Cardiovascular: (units (unknown) date) Reports system unknown) reviewed and no additional complaints, except as (unknown) (no (unknown) (unknown) Chief complaint: (units (unknown) date) Upper Respiratory unknown) Symptoms (unknown) (no (unknown) (unknown) Chlamy pneumoniae (units (unknown) date) PCR Not detected unknown) (Not Detect) (unknown) (no (unknown) (unknown) Clinical (units (unkno wn) date) Impression: unknown) (unknown) (no (unknown) (unknown) Constitutional (units (unknown) date) unknown) (unknown) (no (unknown) (unknown) Constitutional: (units (unknown) date) Reports system unknown) reviewed and no additional complaints, except as (unknown) (no (unknown) (unknown) Coronavirus 229E (units (unknown) date) (PCR) Not unknown) detected (Not Detect) (unknown) (no (unknown) (unknown) Coronavirus HKU1 (units (unknown) date) (PCR) Not unknown) detected (Not Detect) (unknown) (no (unknown) (unknown) Coronavirus NL63 (units (unknown) date) (PCR) Not unknown) detected (Not Detect) (unknown) (no (unknown) (unknown) Coronavirus OC43 (units (unknown) date) (PCR) Not unknown) detected (Not Detect) (unknown) (no (unknown) (unknown) Course (units (unkno wn) date) unknown) (unknown) (no (unknown) (unknown) : 2000 (units (unknown) date) Acct:[id number] unknown) (unknown) (no (unknown) (unknown) Departure (units (unkn own) date) unknown) (unknown) (no (unknown) (unknown) Discharge Plan (units (unknown) date) unknown) (unknown) (no (unknown) (unknown) Discontinued (units (u nknown) date) Medications unknown) (unknown) (no (unknown) (unknown) ENT (units (unkno wn) date) unknown) (unknown) (no (unknown) (unknown) ER Physician: (units ( unknown) date) Manjit Dale D.O. unknown) (unknown) (no (unknown) (unknown) Ears, Nose, Mouth, (units (unknown) date) and Throat: Reports unknown) system reviewed and no additional (unknown) (no (unknown) (unknown) Ears: TM's normal (units (unknown) date) bilaterally unknown) (unknown) (no (unknown) (unknown) Effort + (units (unkno wn) date) Inspection: normal unknown) respiratory effort (unknown) (no (unknown) (unknown) Entero/Rhino (PCR) (units (unknown) date) Not detected unknown) (Not Detect) (unknown) (no (unknown) (unknown) Esterase (units (unkno wn) date) unknown) (unknown) (no (unknown) (unknown) Exam (units (unkno wn) date) unknown) (unknown) (no (unknown) (unknown) Extrem (units (unkno wn) date) unknown) (unknown) (no (unknown) (unknown) GI (units (unkno wn) date) unknown) (unknown) (no (unknown) (unknown) Gastrointestinal (units (unknown) date) unknown) (unknown) (no (unknown) (unknown) Gastrointestinal: (units (unknown) date) Reports system unknown) reviewed and no additional complaints, except (unknown) (no (unknown) (unknown) General (units (unkno wn) date) unknown) (unknown) (no (unknown) (unknown) General: no rashes (units (unknown) date) or lesions noted unknown) (unknown) (no (unknown) (unknown) General: normal to (units (unknown) date) inspection and unknown) capillary refill normal (unknown) (no (unknown) (unknown) General: patient (units (unknown) date) alert, patient unknown) awake, patient oriented x3 and moves all (unknown) (no (unknown) (unknown) HENMT (units (unkno wn) date) unknown) (unknown) (no (unknown) (unknown) HPI - General (units ( unknown) date) Adult unknown) (unknown) (no (unknown) (unknown) HPI narrative: (units (unknown) date) unknown) (unknown) (no (unknown) (unknown) Head: normal to (units (unknown) date) inspection and unknown) normocephalic (unknown) (no (unknown) (unknown) Healthy adolescent (units (unknown) date) unknown) (unknown) (no (unknown) (unknown) Hematologic/Lympha (units (unknown) date) tic unknown) (unknown) (no (unknown) (unknown) History of Present (units (unknown) date) Illness unknown) (unknown) (no (unknown) (unknown) Human (units (unkno wn) date) Metapneumovir PCR unknown) Not detected (Not Detect) (unknown) (no (unknown) (unknown) Influenza Type A (units (unknown) date) (PCR) Not unknown) detected (Not Detect) (unknown) (no (unknown) (unknown) Influenza Type B (units (unknown) date) (PCR) Not unknown) detected (Not Detect) (unknown) (no (unknown) (unknown) Initial Vital (units ( unknown) date) Signs unknown) (unknown) (no (unknown) (unknown) Initial Vital (units ( unknown) date) Signs: unknown) (unknown) (no (unknown) (unknown) Inspection: normal (units (unknown) date) to inspection unknown) (unknown) (no (unknown) (unknown) Instructions: DI (units (unknown) date) for COVID-19 unknown) (Suspected or Confirmed ) (unknown) (no (unknown) (unknown) Integumentary/[place] (units (unknown) date) sts unknown) (unknown) (no (unknown) (unknown) Lab Data (units (unkno wn) date) unknown) (unknown) (no (unknown) (unknown) Labs: (units (unkno wn) date) unknown) (unknown) (no (unknown) (unknown) M. pneumoniae (units ( unknown) date) (PCR) Not unknown) detected (Not Detect) (unknown) (no (unknown) (unknown) MDM Narrative (units ( unknown) date) unknown) (unknown) (no (unknown) (unknown) Medical Decision (units (unknown) date) Making unknown) (unknown) (no (unknown) (unknown) Medical History (units (unknown) date) (Updated 06/19/21 @ unknown) 10:17 by Manjit Dale DO) (unknown) (no (unknown) (unknown) Medical decision (units (unknown) date) making narrative: unknown) (unknown) (no (unknown) (unknown) Mode of arrival: (units (unknown) date) Ambulatory unknown) (unknown) (no (unknown) (unknown) Nephrolithiasis (units (unknown) date) unknown) (unknown) (no (unknown) (unknown) Neuro (units (unkno wn) date) unknown) (unknown) (no (unknown) (unknown) Neurologic (units (unk nown) date) unknown) (unknown) (no (unknown) (unknown) Neurologic: (units (un known) date) Reports system unknown) reviewed and no additional complaints, except as (unknown) (no (unknown) (unknown) No Action (units (unkn own) date) unknown) (unknown) (no (unknown) (unknown) No history of (units ( unknown) date) previous surgery unknown) (unknown) (no (unknown) (unknown) No respiratory (units ( unknown) date) distress. COVID is unknown) positive. She is vaccinated with the Moderna (unknown) (no (unknown) (unknown) On Anticoagulants: (units (unknown) date) No unknown) (unknown) (no (unknown) (unknown) Ondansetron HCl (units (unknown) date) (Ondansetron 4 Mg/2 unknown) Ml Inj) 4 mg IV NOW ONE (unknown) (no (unknown) (unknown) Ordered: (units (unkno wn) date) unknown) (unknown) (no (unknown) (unknown) Orders (units (unkno wn) date) unknown) (unknown) (no (unknown) (unknown) Parainfluenza 1 (units (unknown) date) (PCR) Not unknown) detected (Not Detect) (unknown) (no (unknown) (unknown) Parainfluenza 2 (units (unknown) date) (PCR) Not unknown) detected (Not Detect) (unknown) (no (unknown) (unknown) Parainfluenza 3 (units (unknown) date) (PCR) Not unknown) detected (Not Detect) (unknown) (no (unknown) (unknown) Parainfluenza 4 (units (unknown) date) (PCR) Not unknown) detected (Not Detect) (unknown) (no (unknown) (unknown) Patient (units (unkno wn) date) Disposition: Home unknown) (unknown) (no (unknown) (unknown) Patient History (units (unknown) date) unknown) (unknown) (no (unknown) (unknown) Patient is an (units ( unknown) date) otherwise healthy unknown) 21-year-old female who is here for multiple (unknown) (no (unknown) (unknown) Patient: (units (unkno wn) date) Jenny Cobb unknown) MR#: [id number] (unknown) (no (unknown) (unknown) Penicillins (units (un known) date) [PENICILLINS] unknown) Allergy Unknown Anaphylaxis Verified 03/18/21 19:10 (unknown) (no (unknown) (unknown) Point of care (units ( unknown) date) testing: unknown) (unknown) (no (unknown) (unknown) Test (units (unknown) date) Results Negative unknown) (unknown) (no (unknown) (unknown) Prescriptions: (units (unknown) date) unknown) (unknown) (no (unknown) (unknown) Psych (units (unkno wn) date) unknown) (unknown) (no (unknown) (unknown) Pulse Oximetry (units (unknown) date) 100 06/19/21 unknown) 08:20 (unknown) (no (unknown) (unknown) Pulse Oximetry 100 (units (unknown) date) 100 unknown) (unknown) (no (unknown) (unknown) Pulse Rate 109 H (units (unknown) date) 06/19/21 08:20 unknown) (unknown) (no (unknown) (unknown) Pulse Rate 109 H (units (unknown) date) 108 H unknown) (unknown) (no (unknown) (unknown) RSV (PCR) Not (units (unknown) date) detected (Not unknown) Detect) (unknown) (no (unknown) (unknown) Rapid Strep A (units ( unknown) date) Negative unknown) (unknown) (no (unknown) (unknown) Rate: regular rate (units (unknown) date) unknown) (unknown) (no (unknown) (unknown) Related Data (units (u nknown) date) unknown) (unknown) (no (unknown) (unknown) Resp (units (unkno wn) date) unknown) (unknown) (no (unknown) (unknown) Respiratory (units (un known) date) unknown) (unknown) (no (unknown) (unknown) Respiratory Panel (units (unknown) date) (Film Array) Stat unknown) (unknown) (no (unknown) (unknown) Respiratory Rate (units (unknown) date) 18 06/19/21 08:20 unknown) (unknown) (no (unknown) (unknown) Respiratory Rate (units (unknown) date) 18 unknown) (unknown) (no (unknown) (unknown) Respiratory: (units (u nknown) date) Reports system unknown) reviewed and no additional complaints, except as (unknown) (no (unknown) (unknown) Review of Systems (units (unknown) date) unknown) (unknown) (no (unknown) (unknown) Rhythm: regular (units (unknown) date) rhythm unknown) (unknown) (no (unknown) (unknown) SARS-CoV-2 (PCR) (units (unknown) date) Positive H unknown) Detected H (Negative) (unknown) (no (unknown) (unknown) Signed By: (units (unk nown) date) unknown) (unknown) (no (unknown) (unknown) Skin (units (unkno wn) date) unknown) (unknown) (no (unknown) (unknown) Skin/Breast: (units (u nknown) date) Reports system unknown) reviewed and no additional complaints, except as (unknown) (no (unknown) (unknown) Smoking Status: (units (unknown) date) Current every day unknown) smoker (unknown) (no (unknown) (unknown) Smoking Status: (units (unknown) date) Current every day unknown) smoker (unknown) (no (unknown) (unknown) Social History (units (unknown) date) (Reviewed 06/19/21 unknown) @ 09:14 by Manjit Dale DO) (unknown) (no (unknown) (unknown) Sodium Chloride (units (unknown) date) (Normal Saline unknown) 0.9%) 1,000 mls @ 1,000 mls/hr IV BOLUS ONE (unknown) (no (unknown) (unknown) Source: patient (units (unknown) date) unknown) (unknown) (no (unknown) (unknown) Stated complaint: (units (unknown) date) severe headache, unknown) fever, throwing up (unknown) (no (unknown) (unknown) Substance Use (units ( unknown) date) Type: does not use unknown) (unknown) (no (unknown) (unknown) Surgical History (units (unknown) date) (Reviewed 04/20/21 unknown) @ 20:49 by Leesa Gonzales [facility]) (unknown) (no (unknown) (unknown) Temperature 100 F (units (unknown) date) H 06/19/21 08:20 unknown) (unknown) (no (unknown) (unknown) Temperature 100 F (units (unknown) date) H unknown) (unknown) (no (unknown) (unknown) Throat: posterior (units (unknown) date) oropharynx normal unknown) (unknown) (no (unknown) (unknown) Time Seen by (units (u nknown) date) Provider: 06/19/21 unknown) 09:04 (unknown) (no (unknown) (unknown) Ur Culture (units (unk nown) date) Indicated? unknown) Specimen cultured (unknown) (no (unknown) (unknown) Ur Squamous Epith (units (unknown) date) Cells 1-5 /hpf unknown) (0-5/HPF) (unknown) (no (unknown) (unknown) Urine Bacteria (units (unknown) date) Few (2-10) H unknown) (None) (unknown) (no (unknown) (unknown) Urine Culture Stat (units (unknown) date) unknown) (unknown) (no (unknown) (unknown) Urine Microscopic (units (unknown) date) Stat unknown) (unknown) (no (unknown) (unknown) Urine RBC (units (unkn own) date) 0-1/hpf (0-5/HPF) unknown) (unknown) (no (unknown) (unknown) Urine Specific (units (unknown) date) [place] 1.01 unknown) (unknown) (no (unknown) (unknown) Urine WBC (units (unkn own) date) 5-10/hpf H unknown) (0-5/HPF) (unknown) (no (unknown) (unknown) Vital Signs (units (un known) date) unknown) (unknown) (no (unknown) (unknown) Vital signs: (units (u nknown) date) unknown) (unknown) (no (unknown) (unknown) Your testing today (units (unknown) date) was positive for unknown) COVID-19. Please follow all CDC guidelines (unknown) (no (unknown) (unknown) agreement with (units (unknown) date) plan and return unknown) precautions. (unknown) (no (unknown) (unknown) alcohol intake (units (unknown) date) frequency: unknown) holidays/special occasions only (unknown) (no (unknown) (unknown) as documented (units ( unknown) date) unknown) (unknown) (no (unknown) (unknown) body aches. Be (units (unknown) date) sure to increase unknown) your fluid intake. Return to the emergency (unknown) (no (unknown) (unknown) booster shot. (units (u nknown) date) Patient is not unknown) hypoxic. COVID-19 does explain her symptoms. She (unknown) (no (unknown) (unknown) capsule (Macrobid) (units (unknown) date) unknown) (unknown) (no (unknown) (unknown) complaints, except (units (unknown) date) as documented and unknown) Reports as per HPI (unknown) (no (unknown) (unknown) department for any (units (unknown) date) new or worsening unknown) symptoms. (unknown) (no (unknown) (unknown) documented (units (unk nown) date) unknown) (unknown) (no (unknown) (unknown) extremities (units (un known) date) unknown) (unknown) (no (unknown) (unknown) injury several (units (unknown) date) weeks ago but has unknown) had no symptoms until now. The body aches (unknown) (no (unknown) (unknown) monohydrate/macroc (units (unknown) date) rystals 100 mg unknown) (unknown) (no (unknown) (unknown) nitrofurantoin 100 (units (unknown) date) mg PO BID #14 cap unknown) 01/27/21 (unknown) (no (unknown) (unknown) not feeling very (units (unknown) date) well. States her unknown) symptoms started last evening. She did try (unknown) (no (unknown) (unknown) ondansetron HCl 4 (units (unknown) date) mg tablet 4 mg PO unknown) Q6-8H #7 tab 11/08/20 (unknown) (no (unknown) (unknown) reasons to include (units (unknown) date) headache and nausea unknown) and vomiting and body aches and generally (unknown) (no (unknown) (unknown) some ibuprofen (units (unknown) date) last night without unknown) much improvement. She did sustain a head (unknown) (no (unknown) (unknown) started in route to (units (unknown) date) the emergency unknown) department. She is also having a sore throat. (unknown) (no (unknown) (unknown) tobacco type: (units ( unknown) date) cigarettes and unknown) vaping (unknown) (no (unknown) (unknown) with regard to (units (unknown) date) quarantine. You unknown) can take Tylenol for headaches and fevers and Result panel 7 (unknown) (no date) (unknown) (unknown) No growth. 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 Deemed unknown) unsuitable for further studies. Result panel 9 (unknown) (no (unknown) (unknown) (no value) (units (unk nown) date) unknown) (unknown) (no (unknown) (unknown) Date of Service: (units (unknown) date) 06/21/21 unknown) (unknown) (no (unknown) (unknown) (no value) (units (unk nown) date) unknown) (unknown) (no (unknown) (unknown) 100 mg PO BID (units ( unknown) date) Qty: 14 0RF unknown) (unknown) (no (unknown) (unknown) 4 mg PO Q6-8H (units ( unknown) date) Qty: 7 0RF unknown) (unknown) (no (unknown) (unknown) Allergies (units (unkn own) date) unknown) (unknown) (no (unknown) (unknown) Emergency Report (units (unknown) date) unknown) (unknown) (no (unknown) (unknown) Merged With [facility] (units (unknown) date) [address] unknown) [place] [address] (unknown) (no (unknown) (unknown) Previous Rx's (units ( unknown) date) unknown) (unknown) (no (unknown) (unknown) Rx Instructions: (units (unknown) date) unknown) (unknown) (no (unknown) (unknown) Stop: 06/21/21 (units (unknown) date) 11:23 unknown) (unknown) (no (unknown) (unknown) Vital Signs - 8 (units (unknown) date) hr unknown) (unknown) (no (unknown) (unknown) must administer (units (unknown) date) with a meal/food unknown) (unknown) (no (unknown) (unknown) (no value) (units (unk nown) date) unknown) (unknown) (no (unknown) (unknown) nitrofurantoin (units (unknown) date) monohyd/m-cryst unknown) [Macrobid] 100 mg capsule (unknown) (no (unknown) (unknown) ondansetron HCl (units (unknown) date) [Zofran] 4 mg unknown) tablet (unknown) (no (unknown) (unknown) 06/21/21 (units (unkno wn) date) unknown) (unknown) (no (unknown) (unknown) COVID-19 (units (unkno wn) date) unknown) (unknown) (no (unknown) (unknown) Medication (units (unk nown) date) Instructions unknown) Recorded (unknown) (no (unknown) (unknown) pain. (units (unkno wn) date) unknown) (unknown) (no (unknown) (unknown) (Zofran) (units (unkno wn) date) unknown) (unknown) (no (unknown) (unknown) *Continue to take (units (unknown) date) medications as unknown) directed (unknown) (no (unknown) (unknown) *Follow up with (units (unknown) date) your primary care unknown) provider in 2-3 days or call [phone] (unknown) (no (unknown) (unknown) *Return to ER if (units (unknown) date) you should have unknown) increasing shortness of breath, worsening (unknown) (no (unknown) (unknown) *What to do: (units (u nknown) date) Monitor oxygen at. unknown) If oxygen decreases did not 89 or 90% please (unknown) (no (unknown) (unknown) *You have been (units (unknown) date) diagnosed with unknown) COVID-19 (unknown) (no (unknown) (unknown) 10:20 06/21/21 (units (unknown) date) unknown) (unknown) (no (unknown) (unknown) 10:23 06/21/21 (units (unknown) date) unknown) (unknown) (no (unknown) (unknown) 10:30 (units (unkno wn) date) unknown) (unknown) (no (unknown) (unknown) 11:00 (units (unkno wn) date) unknown) (unknown) (no (unknown) (unknown) 12 point review (units (unknown) date) of systems is unknown) negative except for those stated above and HPI (unknown) (no (unknown) (unknown) 1st day she had a (units (unknown) date) severe headache he unknown) took Tylenol ibuprofen for. She has had (unknown) (no (unknown) (unknown) [id number] (units (unkno wn) date) unknown) (unknown) (no (unknown) (unknown) ABDOMEN: Soft, (units (unknown) date) nontender. unknown) Normoactive bowel sounds all 4 quadrants. No (unknown) (no (unknown) (unknown) Activity (units (unkno wn) date) Restrictions/Addit unknown) ional Instructions: (unknown) (no (unknown) (unknown) Age/Sex: 21 / F (units (unknown) date) unknown) (unknown) (no (unknown) (unknown) Albuterol (units (unkn own) date) (Albuterol 2.5 unknown) Mg/3 Ml Neb (Adult)) 2.5 mg INH NOW ONE (unknown) (no (unknown) (unknown) Albuterol inhaler (units (unknown) date) 1-2 puffs every 4 unknown) hours if needed for shortness of breath or (unknown) (no (unknown) (unknown) Allergy/AdvReac (units (unknown) date) Type Severity unknown) Reaction Status Date / Time (unknown) (no (unknown) (unknown) Blood Pressure (units (unknown) date) unknown) (unknown) (no (unknown) (unknown) Blood Pressure (units (unknown) date) 151/89 H 06/21/21 unknown) 10:20 (unknown) (no (unknown) (unknown) Blood Pressure (units (unknown) date) 151/89 H 151/89 H unknown) 163/74 H (unknown) (no (unknown) (unknown) CARDIOVASCULAR: (units (unknown) date) Denies chest pain, unknown) palpitations, orthopnea, edema (unknown) (no (unknown) (unknown) CARDIOVASCULAR: (units (unknown) date) Regular rate and unknown) rhythm without murmurs, rubs or gallops. (unknown) (no (unknown) (unknown) Chief Complaint: (units (unknown) date) Upper Respiratory unknown) Symptoms (unknown) (no (unknown) (unknown) Clinical (units (unkno wn) date) Impression: unknown) (unknown) (no (unknown) (unknown) Course (units (unkno wn) date) unknown) (unknown) (no (unknown) (unknown) : 2000 (units (unknown) date) Acct:[id number] unknown) (unknown) (no (unknown) (unknown) Departure (units (unkn own) date) unknown) (unknown) (no (unknown) (unknown) Discharge Plan (units (unknown) date) unknown) (unknown) (no (unknown) (unknown) Discontinued (units (u nknown) date) Medications unknown) (unknown) (no (unknown) (unknown) ER Physician: (units ( unknown) date) Lissett Layne unknown) D.O. (unknown) (no (unknown) (unknown) EXTREMITIES: (units (u nknown) date) Normal range of unknown) motion, no clubbing or edema. Neurovascularly (unknown) (no (unknown) (unknown) Exam (units (unkno wn) date) unknown) (unknown) (no (unknown) (unknown) GASTROINTESTINAL: (units (unknown) date) Denies nausea, unknown) vomiting, abdominal pain, diarrhea, (unknown) (no (unknown) (unknown) GENERAL: Alert (units (unknown) date) 21-year-old female unknown) appears to not feel well (unknown) (no (unknown) (unknown) GENERAL: See HPI (units (unknown) date) unknown) (unknown) (no (unknown) (unknown) : Denies (units (unkn own) date) dysuria, unknown) frequency, incontinence, hematuria, urinary retention, flank (unknown) (no (unknown) (unknown) General (units (unkno wn) date) unknown) (unknown) (no (unknown) (unknown) HEENT: Denies (units ( unknown) date) sinus pain, ear unknown) pain, sore throat, difficulty swallowing, neck (unknown) (no (unknown) (unknown) HEENT: Head (units (un known) date) atraumatic,EOMI, unknown) pupils reactive, face symmetric, moist mucous (unknown) (no (unknown) (unknown) HPI - URI/Sore (units (unknown) date) Throat unknown) (unknown) (no (unknown) (unknown) HPI Narrative: (units (unknown) date) unknown) (unknown) (no (unknown) (unknown) Healthy (units (unkno wn) date) adolescent unknown) (unknown) (no (unknown) (unknown) History of (units (unk nown) date) Present Illness unknown) (unknown) (no (unknown) (unknown) Initial Vital (units ( unknown) date) Signs unknown) (unknown) (no (unknown) (unknown) Initial Vital (units ( unknown) date) Signs: unknown) (unknown) (no (unknown) (unknown) Instructions: DI (units (unknown) date) for COVID-19 unknown) (Suspected or Confirmed ) (unknown) (no (unknown) (unknown) MDM - URI/Sore (units (unknown) date) Throat unknown) (unknown) (no (unknown) (unknown) MDM Narrative (units ( unknown) date) unknown) (unknown) (no (unknown) (unknown) MUSCULOSKELETAL: (units (unknown) date) Denies weakness, unknown) joint pain, or bony pain (unknown) (no (unknown) (unknown) Medical History (units (unknown) date) (Updated 06/21/21 unknown) @ 11:31 by Lissett Layne DO) (unknown) (no (unknown) (unknown) Medical decision (units (unknown) date) making narrative: unknown) (unknown) (no (unknown) (unknown) Mode of arrival: (units (unknown) date) Ambulatory unknown) (unknown) (no (unknown) (unknown) NEUROLOGIC: (units (un known) date) Denies weakness, unknown) dizziness, headache, numbness, change in speech, (unknown) (no (unknown) (unknown) NEUROLOGICAL: (units ( unknown) date) Alert and oriented unknown) x4.Normal gait and speech. (unknown) (no (unknown) (unknown) Narrative: (units (unk nown) date) unknown) (unknown) (no (unknown) (unknown) Nephrolithiasis (units (unknown) date) unknown) (unknown) (no (unknown) (unknown) No Action (units (unkn own) date) unknown) (unknown) (no (unknown) (unknown) No history of (units ( unknown) date) previous surgery unknown) (unknown) (no (unknown) (unknown) Ordered: (units (unkno wn) date) unknown) (unknown) (no (unknown) (unknown) Orders (units (unkno wn) date) unknown) (unknown) (no (unknown) (unknown) PSYCHIATRIC: No (units (unknown) date) concerning unknown) psychosocial issues. (unknown) (no (unknown) (unknown) Patient (units (unkno wn) date) Disposition: Home unknown) (unknown) (no (unknown) (unknown) Patient History (units (unknown) date) unknown) (unknown) (no (unknown) (unknown) Patient diagnosis (units (unknown) date) of COVID she has unknown) clear breath sounds oxygenating (unknown) (no (unknown) (unknown) Patient is a (units (u nknown) date) 21-year-old unknown) healthy female who was diagnosed with COVID 3 days ago (unknown) (no (unknown) (unknown) Patient: (units (unkno wn) date) Jenny Cobb unknown) MR#: [id number] (unknown) (no (unknown) (unknown) Penicillins (units (un known) date) [PENICILLINS] unknown) Allergy Unknown Anaphylaxis Verified 06/21/21 10:30 (unknown) (no (unknown) (unknown) Prescriptions: (units (unknown) date) unknown) (unknown) (no (unknown) (unknown) Pulse Oximetry (units (unknown) date) 99 06/21/21 unknown) 10:20 (unknown) (no (unknown) (unknown) Pulse Oximetry 97 (units (unknown) date) unknown) (unknown) (no (unknown) (unknown) Pulse Oximetry 99 (units (unknown) date) 97 98 unknown) (unknown) (no (unknown) (unknown) Pulse Rate (units (unk nown) date) unknown) (unknown) (no (unknown) (unknown) Pulse Rate 96 H (units (unknown) date) 06/21/21 10:20 unknown) (unknown) (no (unknown) (unknown) Pulse Rate 96 H (units (unknown) date) 95 H 84 unknown) (unknown) (no (unknown) (unknown) RESPIRATORY: See (units (unknown) date) HPI unknown) (unknown) (no (unknown) (unknown) RESPIRATORY: (units (u nknown) date) Breath sounds unknown) equal bilaterally, no wheezes rales or rhonchi. (unknown) (no (unknown) (unknown) Related Data (units (u nknown) date) unknown) (unknown) (no (unknown) (unknown) Respiratory Rate (units (unknown) date) unknown) (unknown) (no (unknown) (unknown) Respiratory Rate (units (unknown) date) 22 06/21/21 unknown) 10:20 (unknown) (no (unknown) (unknown) Respiratory Rate (units (unknown) date) 22 unknown) (unknown) (no (unknown) (unknown) Review of Systems (units (unknown) date) unknown) (unknown) (no (unknown) (unknown) SKIN: No rash, no (units (unknown) date) erythema, no unknown) pruritus (unknown) (no (unknown) (unknown) SKIN: Warm, dry, (units (unknown) date) no laceration, no unknown) petechiae, no rashes or lesions. (unknown) (no (unknown) (unknown) Signed By: (units (unk nown) date) unknown) (unknown) (no (unknown) (unknown) Smoking Status: (units (unknown) date) Current every day unknown) smoker (unknown) (no (unknown) (unknown) Smoking Status: (units (unknown) date) Current every day unknown) smoker (unknown) (no (unknown) (unknown) Social History (units (unknown) date) (Reviewed 06/21/21 unknown) @ 11:28 by Lissett Layne DO) (unknown) (no (unknown) (unknown) Source: patient (units (unknown) date) unknown) (unknown) (no (unknown) (unknown) Stated Complaint: (units (unknown) date) covid + sob unknown) (unknown) (no (unknown) (unknown) Substance Use (units ( unknown) date) Type: does not use unknown) (unknown) (no (unknown) (unknown) Surgical History (units (unknown) date) (Reviewed 06/21/21 unknown) @ 11:28 by Lissett Layne DO) (unknown) (no (unknown) (unknown) Temperature (units (un known) date) unknown) (unknown) (no (unknown) (unknown) Temperature 98.1 (units (unknown) date) F 06/21/21 10:20 unknown) (unknown) (no (unknown) (unknown) Temperature 98.1 (units (unknown) date) F unknown) (unknown) (no (unknown) (unknown) Time Seen by (units (u nknown) date) Provider: 06/21/21 unknown) 11:15 (unknown) (no (unknown) (unknown) Tylenol 1000 mg (units (unknown) date) every 6 hours if unknown) needed for [id number] (unknown) (no (unknown) (unknown) Vital Signs (units (un known) date) unknown) (unknown) (no (unknown) (unknown) Vital signs: (units (u nknown) date) unknown) (unknown) (no (unknown) (unknown) albuterol here in (units (unknown) date) the ED. Recommend unknown) supportive care at home. (unknown) (no (unknown) (unknown) alcohol intake (units (unknown) date) frequency: unknown) holidays/special occasions only (unknown) (no (unknown) (unknown) appropriately. (units (unknown) date) She has a tight unknown) nonproductive is the cough. She is given (unknown) (no (unknown) (unknown) body aches (units (unk nown) date) fevers. Now she unknown) has a nonproductive cough with some worsening (unknown) (no (unknown) (unknown) capsule (units (unkno wn) date) (Macrobid) unknown) (unknown) (no (unknown) (unknown) confusion (units (unkn own) date) unknown) (unknown) (no (unknown) (unknown) constipation, (units ( unknown) date) melena. unknown) (unknown) (no (unknown) (unknown) cough (units (unkno wn) date) unknown) (unknown) (no (unknown) (unknown) guarding or (units (un known) date) rebound. unknown) (unknown) (no (unknown) (unknown) headaches despite (units (unknown) date) medicines or any unknown) new, worsening or concerning symptoms (unknown) (no (unknown) (unknown) intact (units (unkno wn) date) unknown) (unknown) (no (unknown) (unknown) membranes, no (units ( unknown) date) meningeal signs unknown) (unknown) (no (unknown) (unknown) monohydrate/macro (units (unknown) date) crystals 100 mg unknown) (unknown) (no (unknown) (unknown) nitrofurantoin (units (unknown) date) 100 mg PO BID #14 unknown) cap 01/27/21 (unknown) (no (unknown) (unknown) on room air. She (units (unknown) date) is vaccinated for unknown) COVID. She was taking Tylenol and ibuprofen (unknown) (no (unknown) (unknown) ondansetron HCl 4 (units (unknown) date) mg tablet 4 mg PO unknown) Q6-8H #7 tab 11/08/20 (unknown) (no (unknown) (unknown) pain (units (unkno wn) date) unknown) (unknown) (no (unknown) (unknown) presenting today (units (unknown) date) with cough and unknown) increasing shortness of breath. She says the (unknown) (no (unknown) (unknown) return to (units (unkn own) date) emergency unknown) department. Increase fluid intake as tolerated (unknown) (no (unknown) (unknown) she was going to (units (unknown) date) start NyQuil and unknown) DayQuil today but has not taken anything yet (unknown) (no (unknown) (unknown) shortness of (units (u nknown) date) breath. In the ED unknown) she is afebrile with an oxygen level of 97-99% (unknown) (no (unknown) (unknown) so far. (units (unkno wn) date) unknown) (unknown) (no (unknown) (unknown) tobacco type: (units ( unknown) date) cigarettes and unknown) vaping Result panel 10 (unknown) (no (unknown) (unknown) (no value) (units (unk nown) date) unknown) (unknown) (no (unknown) (unknown) Date of Service: (units (unknown) date) 06/21/21 unknown) (unknown) (no (unknown) (unknown) (no value) (units (unk nown) date) unknown) (unknown) (no (unknown) (unknown) <Electronically (units (unknown) date) signed by Lissett Layne D.O.> (unknown) (no (unknown) (unknown) 06/21/21 1243 (units ( unknown) date) unknown) (unknown) (no (unknown) (unknown) 100 mg PO BID (units ( unknown) date) Qty: 14 0RF unknown) (unknown) (no (unknown) (unknown) 2 puff INHALATION (units (unknown) date) Q4-6H PRN (Reason: unknown) shortness of breath or wheezing) Qty: (unknown) (no (unknown) (unknown) 4 mg PO Q6-8H (units ( unknown) date) Qty: 7 0RF unknown) (unknown) (no (unknown) (unknown) Allergies (units (unkn own) date) unknown) (unknown) (no (unknown) (unknown) Documented by: (units (unknown) date) STHOM unknown) (unknown) (no (unknown) (unknown) Emergency Report (units (unknown) date) unknown) (unknown) (no (unknown) (unknown) Merged With [facility] (units (unknown) date) [address] unknown) [place] [address] (unknown) (no (unknown) (unknown) Last Admin: (units (un known) date) 06/21/21 11:44 unknown) Dose: 2.5 mg (unknown) (no (unknown) (unknown) Previous Rx's (units ( unknown) date) unknown) (unknown) (no (unknown) (unknown) Rx Instructions: (units (unknown) date) unknown) (unknown) (no (unknown) (unknown) Stop: 06/21/21 (units (unknown) date) 11:23 unknown) (unknown) (no (unknown) (unknown) Vital Signs - 8 (units (unknown) date) hr unknown) (unknown) (no (unknown) (unknown) must administer (units (unknown) date) with a meal/food unknown) (unknown) (no (unknown) (unknown) (no value) (units (unk nown) date) unknown) (unknown) (no (unknown) (unknown) albuterol sulfate (units (unknown) date) 90 mcg/actuation unknown) HFA aerosol inhaler (unknown) (no (unknown) (unknown) nitrofurantoin (units (unknown) date) monohyd/m-cryst unknown) [Macrobid] 100 mg capsule (unknown) (no (unknown) (unknown) ondansetron HCl (units (unknown) date) [Zofran] 4 mg unknown) tablet (unknown) (no (unknown) (unknown) 06/21/21 (units (unkno wn) date) unknown) (unknown) (no (unknown) (unknown) COVID-19 (units (unkno wn) date) unknown) (unknown) (no (unknown) (unknown) Medication (units (unk nown) date) Instructions unknown) Recorded (unknown) (no (unknown) (unknown) pain. (units (unkno wn) date) unknown) (unknown) (no (unknown) (unknown) (Zofran) (units (unkno wn) date) unknown) (unknown) (no (unknown) (unknown) *Continue to take (units (unknown) date) medications as unknown) directed (unknown) (no (unknown) (unknown) *Follow up with (units (unknown) date) your primary care unknown) provider in 2-3 days or call [phone] (unknown) (no (unknown) (unknown) *Return to ER if (units (unknown) date) you should have unknown) increasing shortness of breath, worsening (unknown) (no (unknown) (unknown) *What to do: (units (u nknown) date) Monitor oxygen at. unknown) If oxygen decreases did not 89 or 90% please (unknown) (no (unknown) (unknown) *You have been (units (unknown) date) diagnosed with unknown) COVID-19 (unknown) (no (unknown) (unknown) 10:20 06/21/21 (units (unknown) date) unknown) (unknown) (no (unknown) (unknown) 10:23 06/21/21 (units (unknown) date) unknown) (unknown) (no (unknown) (unknown) 10:30 (units (unkno wn) date) unknown) (unknown) (no (unknown) (unknown) 11:00 06/21/21 (units (unknown) date) unknown) (unknown) (no (unknown) (unknown) 11:30 06/21/21 (units (unknown) date) unknown) (unknown) (no (unknown) (unknown) 11:57 (units (unkno wn) date) unknown) (unknown) (no (unknown) (unknown) 12 point review (units (unknown) date) of systems is unknown) negative except for those stated above and HPI (unknown) (no (unknown) (unknown) 12:00 (units (unkno wn) date) unknown) (unknown) (no (unknown) (unknown) 1st day she had a (units (unknown) date) severe headache he unknown) took Tylenol ibuprofen for. She has had (unknown) (no (unknown) (unknown) [id number] (units (unkno wn) date) unknown) (unknown) (no (unknown) (unknown) 8.5 0RF (units (unkno wn) date) unknown) (unknown) (no (unknown) (unknown) ABDOMEN: Soft, (units (unknown) date) nontender. unknown) Normoactive bowel sounds all 4 quadrants. No (unknown) (no (unknown) (unknown) Activity (units (unkno wn) date) Restrictions/Addit unknown) ional Instructions: (unknown) (no (unknown) (unknown) Age/Sex: 21 / F (units (unknown) date) unknown) (unknown) (no (unknown) (unknown) Albuterol (units (unkn own) date) (Albuterol 2.5 unknown) Mg/3 Ml Neb (Adult)) 2.5 mg INH NOW ONE (unknown) (no (unknown) (unknown) Albuterol inhaler (units (unknown) date) 1-2 puffs every 4 unknown) hours if needed for shortness of breath or (unknown) (no (unknown) (unknown) Allergy/AdvReac (units (unknown) date) Type Severity unknown) Reaction Status Date / Time (unknown) (no (unknown) (unknown) Blood Pressure (units (unknown) date) 138/94 H unknown) (unknown) (no (unknown) (unknown) Blood Pressure (units (unknown) date) 151/89 H 06/21/21 unknown) 10:20 (unknown) (no (unknown) (unknown) Blood Pressure (units (unknown) date) 151/89 H 151/89 H unknown) 163/74 H (unknown) (no (unknown) (unknown) Blood Pressure (units (unknown) date) 155/94 H unknown) (unknown) (no (unknown) (unknown) CARDIOVASCULAR: (units (unknown) date) Denies chest pain, unknown) palpitations, orthopnea, edema (unknown) (no (unknown) (unknown) CARDIOVASCULAR: (units (unknown) date) Regular rate and unknown) rhythm without murmurs, rubs or gallops. (unknown) (no (unknown) (unknown) Chief Complaint: (units (unknown) date) Upper Respiratory unknown) Symptoms (unknown) (no (unknown) (unknown) Clinical (units (unkno wn) date) Impression: unknown) (unknown) (no (unknown) (unknown) Course (units (unkno wn) date) unknown) (unknown) (no (unknown) (unknown) : 2000 (units (unknown) date) Acct:[id number] unknown) (unknown) (no (unknown) (unknown) Departure (units (unkn own) date) unknown) (unknown) (no (unknown) (unknown) Discharge Plan (units (unknown) date) unknown) (unknown) (no (unknown) (unknown) Discontinued (units (u nknown) date) Medications unknown) (unknown) (no (unknown) (unknown) ER Physician: (units ( unknown) date) Lissett Layne unknown) D.O. (unknown) (no (unknown) (unknown) EXTREMITIES: (units (u nknown) date) Normal range of unknown) motion, no clubbing or edema. Neurovascularly (unknown) (no (unknown) (unknown) Exam (units (unkno wn) date) unknown) (unknown) (no (unknown) (unknown) GASTROINTESTINAL: (units (unknown) date) Denies nausea, unknown) vomiting, abdominal pain, diarrhea, (unknown) (no (unknown) (unknown) GENERAL: Alert (units (unknown) date) 21-year-old female unknown) appears to not feel well (unknown) (no (unknown) (unknown) GENERAL: See HPI (units (unknown) date) unknown) (unknown) (no (unknown) (unknown) : Denies (units (unkn own) date) dysuria, unknown) frequency, incontinence, hematuria, urinary retention, flank (unknown) (no (unknown) (unknown) General (units (unkno wn) date) unknown) (unknown) (no (unknown) (unknown) HEENT: Denies (units ( unknown) date) sinus pain, ear unknown) pain, sore throat, difficulty swallowing, neck (unknown) (no (unknown) (unknown) HEENT: Head (units (un known) date) atraumatic,EOMI, unknown) pupils reactive, face symmetric, moist mucous (unknown) (no (unknown) (unknown) HPI - URI/Sore (units (unknown) date) Throat unknown) (unknown) (no (unknown) (unknown) HPI Narrative: (units (unknown) date) unknown) (unknown) (no (unknown) (unknown) Healthy (units (unkno wn) date) adolescent unknown) (unknown) (no (unknown) (unknown) History of (units (unk nown) date) Present Illness unknown) (unknown) (no (unknown) (unknown) Initial Vital (units ( unknown) date) Signs unknown) (unknown) (no (unknown) (unknown) Initial Vital (units ( unknown) date) Signs: unknown) (unknown) (no (unknown) (unknown) Instructions: DI (units (unknown) date) for COVID-19 unknown) (Suspected or Confirmed ) (unknown) (no (unknown) (unknown) MDM - URI/Sore (units (unknown) date) Throat unknown) (unknown) (no (unknown) (unknown) MDM Narrative (units ( unknown) date) unknown) (unknown) (no (unknown) (unknown) MUSCULOSKELETAL: (units (unknown) date) Denies weakness, unknown) joint pain, or bony pain (unknown) (no (unknown) (unknown) Medical History (units (unknown) date) (Updated 06/21/21 unknown) @ 11:31 by Lissett Layne DO) (unknown) (no (unknown) (unknown) Medical decision (units (unknown) date) making narrative: unknown) (unknown) (no (unknown) (unknown) Mode of arrival: (units (unknown) date) Ambulatory unknown) (unknown) (no (unknown) (unknown) NEUROLOGIC: (units (un known) date) Denies weakness, unknown) dizziness, headache, numbness, change in speech, (unknown) (no (unknown) (unknown) NEUROLOGICAL: (units ( unknown) date) Alert and oriented unknown) x4.Normal gait and speech. (unknown) (no (unknown) (unknown) Narrative: (units (unk nown) date) unknown) (unknown) (no (unknown) (unknown) Nephrolithiasis (units (unknown) date) unknown) (unknown) (no (unknown) (unknown) New (units (unkno wn) date) unknown) (unknown) (no (unknown) (unknown) No Action (units (unkn own) date) unknown) (unknown) (no (unknown) (unknown) No history of (units ( unknown) date) previous surgery unknown) (unknown) (no (unknown) (unknown) Ordered: (units (unkno wn) date) unknown) (unknown) (no (unknown) (unknown) Orders (units (unkno wn) date) unknown) (unknown) (no (unknown) (unknown) PSYCHIATRIC: No (units (unknown) date) concerning unknown) psychosocial issues. (unknown) (no (unknown) (unknown) Patient (units (unkno wn) date) Disposition: Home unknown) (unknown) (no (unknown) (unknown) Patient History (units (unknown) date) unknown) (unknown) (no (unknown) (unknown) Patient diagnosis (units (unknown) date) of COVID she has unknown) clear breath sounds oxygenating (unknown) (no (unknown) (unknown) Patient is a (units (u nknown) date) 21-year-old unknown) healthy female who was diagnosed with COVID 3 days ago (unknown) (no (unknown) (unknown) Patient: (units (unkno wn) date) Jenny Cobb E unknown) MR#: [id number] (unknown) (no (unknown) (unknown) Penicillins (units (un known) date) [PENICILLINS] unknown) Allergy Unknown Anaphylaxis Verified 06/21/21 10:30 (unknown) (no (unknown) (unknown) Prescriptions: (units (unknown) date) unknown) (unknown) (no (unknown) (unknown) Pulse Oximetry (units (unknown) date) 99 06/21/21 unknown) 10:20 (unknown) (no (unknown) (unknown) Pulse Oximetry 97 (units (unknown) date) unknown) (unknown) (no (unknown) (unknown) Pulse Oximetry 97 (units (unknown) date) 97 98 unknown) (unknown) (no (unknown) (unknown) Pulse Oximetry 99 (units (unknown) date) 97 98 unknown) (unknown) (no (unknown) (unknown) Pulse Rate (units (unk nown) date) unknown) (unknown) (no (unknown) (unknown) Pulse Rate 96 H (units (unknown) date) 06/21/21 10:20 unknown) (unknown) (no (unknown) (unknown) Pulse Rate 97 H (units (unknown) date) 110 H unknown) (unknown) (no (unknown) (unknown) Pulse Rate 96 H (units (unknown) date) 95 H 84 unknown) (unknown) (no (unknown) (unknown) RESPIRATORY: See (units (unknown) date) HPI unknown) (unknown) (no (unknown) (unknown) RESPIRATORY: (units (u nknown) date) Breath sounds unknown) equal bilaterally, no wheezes rales or rhonchi. (unknown) (no (unknown) (unknown) Related Data (units (u nknown) date) unknown) (unknown) (no (unknown) (unknown) Respiratory Rate (units (unknown) date) unknown) (unknown) (no (unknown) (unknown) Respiratory Rate (units (unknown) date) 20 unknown) (unknown) (no (unknown) (unknown) Respiratory Rate (units (unknown) date) 22 06/21/21 unknown) 10:20 (unknown) (no (unknown) (unknown) Respiratory Rate (units (unknown) date) 22 unknown) (unknown) (no (unknown) (unknown) Review of Systems (units (unknown) date) unknown) (unknown) (no (unknown) (unknown) SKIN: No rash, no (units (unknown) date) erythema, no unknown) pruritus (unknown) (no (unknown) (unknown) SKIN: Warm, dry, (units (unknown) date) no laceration, no unknown) petechiae, no rashes or lesions. (unknown) (no (unknown) (unknown) Signed By: (units (unk nown) date) unknown) (unknown) (no (unknown) (unknown) Smoking Status: (units (unknown) date) Current every day unknown) smoker (unknown) (no (unknown) (unknown) Smoking Status: (units (unknown) date) Current every day unknown) smoker (unknown) (no (unknown) (unknown) Social History (units (unknown) date) (Reviewed 06/21/21 unknown) @ 11:28 by Lissett Layne DO) (unknown) (no (unknown) (unknown) Source: patient (units (unknown) date) unknown) (unknown) (no (unknown) (unknown) Stated Complaint: (units (unknown) date) covid + sob unknown) (unknown) (no (unknown) (unknown) Substance Use (units ( unknown) date) Type: does not use unknown) (unknown) (no (unknown) (unknown) Surgical History (units (unknown) date) (Reviewed 06/21/21 unknown) @ 11:28 by Lissett Layne DO) (unknown) (no (unknown) (unknown) Temperature (units (un known) date) unknown) (unknown) (no (unknown) (unknown) Temperature (units (un known) date) unknown) (unknown) (no (unknown) (unknown) Temperature 98.1 (units (unknown) date) F 06/21/21 10:20 unknown) (unknown) (no (unknown) (unknown) Temperature 98.1 (units (unknown) date) F unknown) (unknown) (no (unknown) (unknown) Time Seen by (units (u nknown) date) Provider: 06/21/21 unknown) 11:15 (unknown) (no (unknown) (unknown) Tylenol 1000 mg (units (unknown) date) every 6 hours if unknown) needed for [id number] (unknown) (no (unknown) (unknown) Vital Signs (units (un known) date) unknown) (unknown) (no (unknown) (unknown) Vital signs: (units (u nknown) date) unknown) (unknown) (no (unknown) (unknown) aerosol inhaler (units (unknown) date) gram unknown) (unknown) (no (unknown) (unknown) albuterol here in (units (unknown) date) the ED. Recommend unknown) supportive care at home. (unknown) (no (unknown) (unknown) albuterol sulfate (units (unknown) date) 90 mcg/actuation 2 unknown) puff INHALATION Q4-6H PRN #8.5 06/21/21 (unknown) (no (unknown) (unknown) alcohol intake (units (unknown) date) frequency: unknown) holidays/special occasions only (unknown) (no (unknown) (unknown) appropriately. (units (unknown) date) She has a tight unknown) nonproductive is the cough. She is given (unknown) (no (unknown) (unknown) body aches (units (unk nown) date) fevers. Now she unknown) has a nonproductive cough with some worsening (unknown) (no (unknown) (unknown) capsule (units (unkno wn) date) (Macrobid) unknown) (unknown) (no (unknown) (unknown) confusion (units (unkn own) date) unknown) (unknown) (no (unknown) (unknown) constipation, (units ( unknown) date) melena. unknown) (unknown) (no (unknown) (unknown) cough (units (unkno wn) date) unknown) (unknown) (no (unknown) (unknown) guarding or (units (un known) date) rebound. unknown) (unknown) (no (unknown) (unknown) headaches despite (units (unknown) date) medicines or any unknown) new, worsening or concerning symptoms (unknown) (no (unknown) (unknown) intact (units (unkno wn) date) unknown) (unknown) (no (unknown) (unknown) membranes, no (units ( unknown) date) meningeal signs unknown) (unknown) (no (unknown) (unknown) monohydrate/macro (units (unknown) date) crystals 100 mg unknown) (unknown) (no (unknown) (unknown) nitrofurantoin (units (unknown) date) 100 mg PO BID #14 unknown) cap 01/27/21 (unknown) (no (unknown) (unknown) on room air. She (units (unknown) date) is vaccinated for unknown) COVID. She was taking Tylenol and ibuprofen (unknown) (no (unknown) (unknown) ondansetron HCl 4 (units (unknown) date) mg tablet 4 mg PO unknown) Q6-8H #7 tab 11/08/20 (unknown) (no (unknown) (unknown) pain (units (unkno wn) date) unknown) (unknown) (no (unknown) (unknown) presenting today (units (unknown) date) with cough and unknown) increasing shortness of breath. She says the (unknown) (no (unknown) (unknown) return to (units (unkn own) date) emergency unknown) department. Increase fluid intake as tolerated (unknown) (no (unknown) (unknown) she was going to (units (unknown) date) start NyQuil and unknown) DayQuil today but has not taken anything yet (unknown) (no (unknown) (unknown) shortness of (units (u nknown) date) breath. In the ED unknown) she is afebrile with an oxygen level of 97-99% (unknown) (no (unknown) (unknown) so far. (units (unkno wn) date) unknown) (unknown) (no (unknown) (unknown) tobacco type: (units ( unknown) date) cigarettes and unknown) vaping Result panel 11 (unknown) (no date) (unknown) (unknown) (no value) (units (un known) unknown) (unknown) (no date) (unknown) (unknown) [address]units ([address] n[address]) [address] unknown) (unknown) (no date) (unknown) (unknown) [place]units (unknown) [address] unknown) (unknown) (no date) (unknown) (unknown) [facility]) (unknown) (no date) (unknown) (unknown) Signed (units (unkn own) unknown) (unknown) (no date) (unknown) (unknown) XRay Report (units (u nknown) unknown) (unknown) (no date) (unknown) (unknown) (no value) (units (un known) unknown) (unknown) (no date) (unknown) (unknown) 06/28/21 (units (unkn own) unknown) (unknown) (no date) (unknown) (unknown) Approved by: (units ( unknown) monique Castillo) [place] on 06/28/2021 at 10:57 (unknown) (no date) (unknown) (unknown) Bones and (units (unk nown) chest wall: No unknown) suspicious bony abnormalities. Soft tissues appear (unknown) (no date) (unknown) (unknown) [facility], [facility], XR CHEST 2V, 03/03/2021, 15:32. (unknown) (no date) (unknown) (unknown) FINDINGS: (units (unk nown) unknown) (unknown) (no date) (unknown) (unknown) IMPRESSION: (units (u nknown) Normal two view unknown) chest x-ray (unknown) (no date) (unknown) (unknown) INDICATIONS: (units ( unknown) SOB, chest pain unknown) COVID 1.5weeks ago (unknown) (no date) (unknown) (unknown) Lungs and (units (unk nown) pleura: Lungs unknown) are clear. No pleural effusions or pneumothorax. (unknown) (no date) (unknown) (unknown) Mediastinum: (units ( unknown) Mediastinal unknown) contours are normal. Heart size is normal. (unknown) (no date) (unknown) (unknown) Surgical (units (unkn own) changes and unknown) devices: None. (unknown) (no date) (unknown) (unknown) TECHNIQUE: 2 (units (unknown) views of the unknown) chest were acquired. (unknown) (no date) (unknown) (unknown) unremarkable. (units (unknown) unknown) (unknown) (no date) (unknown) (unknown) [id number] (units (unkn own) unknown) (unknown) (no date) (unknown) (unknown) Accession (units (unk nown) Number: unknown) [id number] (unknown) (no date) (unknown) (unknown) Age/Sex: 21 (units (unknown) F Date of unknown) Service: (unknown) (no date) (unknown) (unknown) : (units (unkn own) 2000 unknown) Acct:[id number] (unknown) (no date) (unknown) (unknown) Loc: ED (units (unkn own) unknown) (unknown) (no date) (unknown) (unknown) Ordering (units (unkn own) Provider: unknown) Lissett Layne D.O. (unknown) (no date) (unknown) (unknown) PROCEDURE: XR (units (unknown) CHEST 2V unknown) (unknown) (no date) (unknown) (unknown) Patient: (units (unkn own) Jenny Cobb unknown) MR#: [id number] (unknown) (no date) (unknown) (unknown) Procedure: XR (units (unknown) chest 2V unknown) Result panel 12 (unknown) (no (unknown) (unknown) (no value) (units (unk nown) date) unknown) (unknown) (no (unknown) (unknown) *Please continue (units (unknown) date) to take your unknown) regular medications as directed. (unknown) (no (unknown) (unknown) Date of Service: (units (unknown) date) 06/28/21 unknown) (unknown) (no (unknown) (unknown) (no value) (units (unk nown) date) unknown) (unknown) (no (unknown) (unknown) 100 mg PO BID (units ( unknown) date) Qty: 14 0RF unknown) (unknown) (no (unknown) (unknown) 2 puff INHALATION (units (unknown) date) Q4-6H PRN (Reason: unknown) shortness of breath or wheezing) Qty: (unknown) (no (unknown) (unknown) 4 mg PO Q6-8H (units ( unknown) date) Qty: 7 0RF unknown) (unknown) (no (unknown) (unknown) Allergies (units (unkn own) date) unknown) (unknown) (no (unknown) (unknown) ED Orders (units (unkn own) date) unknown) (unknown) (no (unknown) (unknown) Emergency Report (units (unknown) date) unknown) (unknown) (no (unknown) (unknown) Merged With [facility] (units (unknown) date) [address] [place] [address] unknown) [place] [address] (unknown) (no (unknown) (unknown) Previous Rx's (units ( unknown) date) unknown) (unknown) (no (unknown) (unknown) Rx Instructions: (units (unknown) date) unknown) (unknown) (no (unknown) (unknown) Vital Signs - 8 (units (unknown) date) hr unknown) (unknown) (no (unknown) (unknown) [ ] New (units (unkno wn) date) medication unknown) prescriptions sent to your pharmacy: [ ] (unknown) (no (unknown) (unknown) [ ] New (units (unkno wn) date) medication written unknown) as a paper prescription (unknown) (no (unknown) (unknown) [X] No new (units (unk nown) date) medications given unknown) (unknown) (no (unknown) (unknown) must administer (units (unknown) date) with a meal/food unknown) (unknown) (no (unknown) (unknown) (no value) (units (unk nown) date) unknown) (unknown) (no (unknown) (unknown) albuterol sulfate (units (unknown) date) 90 mcg/actuation unknown) HFA aerosol inhaler (unknown) (no (unknown) (unknown) nitrofurantoin (units (unknown) date) monohyd/m-cryst unknown) [Macrobid] 100 mg capsule (unknown) (no (unknown) (unknown) ondansetron HCl (units (unknown) date) [Zofran] 4 mg unknown) tablet (unknown) (no (unknown) (unknown) 06/28/21 (units (unkno wn) date) unknown) (unknown) (no (unknown) (unknown) COVID-19 (units (unkno wn) date) unknown) (unknown) (no (unknown) (unknown) Medication (units (unk n) date) Instructions unknown) Recorded (unknown) (no (unknown) (unknown) You should drink (units (unknown) date) plenty of fluids, unknown) use a humidifier or steam shower, and (unknown) (no (unknown) (unknown) bilateral breath (units (unknown) date) sounds with no unknown) wheezing present and moves air well. Based on (unknown) (no (unknown) (unknown) chest pain or (units ( unknown) date) shortness of unknown) breath please return back to the ER. I hope you (unknown) (no (unknown) (unknown) rales, or (units (unkn own) date) rhonchi. unknown) (unknown) (no (unknown) (unknown) (Zofran) (units (unkno wn) date) unknown) (unknown) (no (unknown) (unknown) *If you do not (units (unknown) date) have a primary unknown) care provider please contact the Merged With [facility] (unknown) (no (unknown) (unknown) *Return to (units (unk nown) date) Emergency unknown) Department if you should have any new, worsening or (unknown) (no (unknown) (unknown) *What to do: (units (u nknown) date) unknown) (unknown) (no (unknown) (unknown) *You have been (units (unknown) date) diagnosed with unknown) COVID-19 viral illness. You should continue to (unknown) (no (unknown) (unknown) 06/28/21 11:17 (units (unknown) date) unknown) (unknown) (no (unknown) (unknown) 11:14 (units (unkno wn) date) unknown) (unknown) (no (unknown) (unknown) [id number] (units (unkno wn) date) unknown) (unknown) (no (unknown) (unknown) 8.5 0RF (units (unkno wn) date) unknown) (unknown) (no (unknown) (unknown) Activity (units (unkno wn) date) Restrictions/Addit unknown) ional Instructions: (unknown) (no (unknown) (unknown) Age/Sex: 21 / F (units (unknown) date) unknown) (unknown) (no (unknown) (unknown) Allergy/AdvReac (units (unknown) date) Type Severity unknown) Reaction Status Date / Time (unknown) (no (unknown) (unknown) BACK: Nontender (units (unknown) date) without deformity unknown) or crepitance. No flank tenderness. (unknown) (no (unknown) (unknown) Blood Pressure (units (unknown) date) 161/89 H 06/28/21 unknown) 11:14 (unknown) (no (unknown) (unknown) Blood Pressure (units (unknown) date) 161/89 H unknown) (unknown) (no (unknown) (unknown) CARDIOVASCULAR: (units (unknown) date) Regular rate and unknown) rhythm without murmurs, gallops, or rubs. (unknown) (no (unknown) (unknown) Call Center at (units (unknown) date) [phone] and unknown) they can help get you set up with a doctor in (unknown) (no (unknown) (unknown) Chief Complaint: (units (unknown) date) Upper Respiratory unknown) Symptoms (unknown) (no (unknown) (unknown) Clinical (units (unkno wn) date) Impression: unknown) (unknown) (no (unknown) (unknown) Course (units (unkno wn) date) unknown) (unknown) (no (unknown) (unknown) : 2000 (units (unknown) date) Acct:[id number] unknown) (unknown) (no (unknown) (unknown) Departure (units (unkn own) date) unknown) (unknown) (no (unknown) (unknown) Discharge Plan (units (unknown) date) unknown) (unknown) (no (unknown) (unknown) ENT: Nose without (units (unknown) date) bleeding, purulent unknown) drainage. Throat without erythema, (unknown) (no (unknown) (unknown) ER Physician: (units ( unknown) date) Anabel Reveles unknown) PYoan (unknown) (no (unknown) (unknown) EXTREMITIES: No (units (unknown) date) edema or joint unknown) tenderness. (unknown) (no (unknown) (unknown) EYES: Pupils (units (u nknown) date) equal round and unknown) reactive. Extraocular motions intact. No scleral (unknown) (no (unknown) (unknown) Exam (units (unkno wn) date) unknown) (unknown) (no (unknown) (unknown) Exam Narrative: (units (unknown) date) unknown) (unknown) (no (unknown) (unknown) Findings and (units (u nknown) date) discharge unknown) diagnosis discussed with patient/family followed by (unknown) (no (unknown) (unknown) GASTROINTESTINAL: (units (unknown) date) Abdomen soft, unknown) non-tender, nondistended. (unknown) (no (unknown) (unknown) GENERAL: 21 year (units (unknown) date) old patient unknown) appears stated age. Well-developed patient, in no (unknown) (no (unknown) (unknown) General (units (unkno wn) date) unknown) (unknown) (no (unknown) (unknown) HEAD: Atraumatic. (units (unknown) date) Normocephalic. unknown) (unknown) (no (unknown) (unknown) HPI - URI/Sore (units (unknown) date) Throat unknown) (unknown) (no (unknown) (unknown) HPI Narrative: (units (unknown) date) unknown) (unknown) (no (unknown) (unknown) Healthy (units (unkno wn) date) adolescent unknown) (unknown) (no (unknown) (unknown) History of (units (unk nown) date) Present Illness unknown) (unknown) (no (unknown) (unknown) Initial Vital (units ( unknown) date) Signs unknown) (unknown) (no (unknown) (unknown) Initial Vital (units ( unknown) date) Signs: unknown) (unknown) (no (unknown) (unknown) Instructions: DI (units (unknown) date) for Viral unknown) Syndrome, DI for COVID-19 (Suspected or Confirmed ) (unknown) (no (unknown) (unknown) MDM - URI/Sore (units (unknown) date) Throat unknown) (unknown) (no (unknown) (unknown) MDM Narrative (units ( unknown) date) unknown) (unknown) (no (unknown) (unknown) Medical History (units (unknown) date) (Updated 06/28/21 unknown) @ 12:43 by Anabel Reveles PA-C) (unknown) (no (unknown) (unknown) Medical decision (units (unknown) date) making narrative: unknown) (unknown) (no (unknown) (unknown) NECK: Trachea (units ( unknown) date) midline. Non unknown) tender (unknown) (no (unknown) (unknown) NEURO: AOx3. (units (u nknown) date) unknown) (unknown) (no (unknown) (unknown) Narrative (units (unkn own) date) unknown) (unknown) (no (unknown) (unknown) Nephrolithiasis (units (unknown) date) unknown) (unknown) (no (unknown) (unknown) No Action (units (unkn own) date) unknown) (unknown) (no (unknown) (unknown) No history of (units ( unknown) date) previous surgery unknown) (unknown) (no (unknown) (unknown) Ordered: (units (unkno wn) date) unknown) (unknown) (no (unknown) (unknown) Orders (units (unkno wn) date) unknown) (unknown) (no (unknown) (unknown) Patient (units (unkno wn) date) Disposition: Home unknown) (unknown) (no (unknown) (unknown) Patient History (units (unknown) date) unknown) (unknown) (no (unknown) (unknown) Patient is a (units (u nknown) date) 21-year-old female unknown) presenting today with persistent shortness of (unknown) (no (unknown) (unknown) Patient: (units (unkno wn) date) Jenny Cobb E unknown) MR#: [id number] (unknown) (no (unknown) (unknown) Penicillins (units (un known) date) [PENICILLINS] unknown) Allergy Unknown Anaphylaxis Verified 06/28/21 11:17 (unknown) (no (unknown) (unknown) Prescriptions: (units (unknown) date) unknown) (unknown) (no (unknown) (unknown) Pulse Oximetry (units (unknown) date) 100 06/28/21 unknown) 11:14 (unknown) (no (unknown) (unknown) Pulse Oximetry (units (unknown) date) 100 unknown) (unknown) (no (unknown) (unknown) Pulse Rate 70 (units (unknown) date) 06/28/21 11:14 unknown) (unknown) (no (unknown) (unknown) Pulse Rate 70 (units ( unknown) date) unknown) (unknown) (no (unknown) (unknown) RESPIRATORY: Clear (units (unknown) date) to auscultation. unknown) Breath sounds equal bilaterally. No wheezes, (unknown) (no (unknown) (unknown) Related Data (units (u nknown) date) unknown) (unknown) (no (unknown) (unknown) Respiratory Rate (units (unknown) date) 18 06/28/21 unknown) 11:14 (unknown) (no (unknown) (unknown) Respiratory Rate (units (unknown) date) 18 unknown) (unknown) (no (unknown) (unknown) Return (units (unkno wn) date) precautions unknown) discussed with patient/family whom verbalize understanding. (unknown) (no (unknown) (unknown) SKIN: No rash or (units (unknown) date) erythema of unknown) visible areas (unknown) (no (unknown) (unknown) Signed By: (units (unk nown) date) unknown) (unknown) (no (unknown) (unknown) Smoking Status: (units (unknown) date) Current every day unknown) smoker (unknown) (no (unknown) (unknown) Smoking Status: (units (unknown) date) Current every day unknown) smoker (unknown) (no (unknown) (unknown) Social History (units (unknown) date) (Reviewed 06/21/21 unknown) @ 11:28 by Lissett Layne DO) (unknown) (no (unknown) (unknown) Stated Complaint: (units (unknown) date) SOB, chest heavy unknown) post COVID (unknown) (no (unknown) (unknown) Substance Use (units ( unknown) date) Type: does not use unknown) (unknown) (no (unknown) (unknown) Surgical History (units (unknown) date) (Reviewed 06/21/21 unknown) @ 11:28 by Lissett Layne DO) (unknown) (no (unknown) (unknown) Temperature 97.0 (units (unknown) date) F L 06/28/21 unknown) 11:14 (unknown) (no (unknown) (unknown) Temperature 97.0 (units (unknown) date) F L unknown) (unknown) (no (unknown) (unknown) Time Seen by (units (u nknown) date) Provider: 06/28/21 unknown) 12:04 (unknown) (no (unknown) (unknown) Vital Signs (units (un known) date) unknown) (unknown) (no (unknown) (unknown) Vital signs: (units (u nknown) date) unknown) (unknown) (no (unknown) (unknown) XR chest 2V Stat (units (unknown) date) unknown) (unknown) (no (unknown) (unknown) aerosol inhaler (units (unknown) date) gram unknown) (unknown) (no (unknown) (unknown) albuterol sulfate (units (unknown) date) 90 mcg/actuation 2 unknown) puff INHALATION Q4-6H PRN #8.5 06/21/21 (unknown) (no (unknown) (unknown) alcohol intake (units (unknown) date) frequency: unknown) holidays/special occasions only (unknown) (no (unknown) (unknown) and her oxygen (units ( unknown) date) saturation is 100 unknown) on room air. Upon physical exam, she has clear (unknown) (no (unknown) (unknown) and should (units (unk nown) date) continue to get unknown) better as her body continues to heal. I also (unknown) (no (unknown) (unknown) breath and chest (units (unknown) date) pain following a unknown) COVID-19 diagnosis 1.5 weeks ago. She reports (unknown) (no (unknown) (unknown) breath and chest (units (unknown) date) pain following a unknown) COVID-19 diagnosis 1.5 weeks ago. We (unknown) (no (unknown) (unknown) capsule (units (unkno wn) date) (Macrobid) unknown) (unknown) (no (unknown) (unknown) concerning (units (unk nown) date) symptoms, such as unknown) [fever greater than 101 F, shaking chills, (unknown) (no (unknown) (unknown) distress. (units (unkn own) date) unknown) (unknown) (no (unknown) (unknown) encouraged her to (units (unknown) date) take her albuterol unknown) inhaler regularly every 4-6 hours as the (unknown) (no (unknown) (unknown) feel better soon! (units (unknown) date) unknown) (unknown) (no (unknown) (unknown) feels like she has (units (unknown) date) difficulty taking unknown) a full deep breath. She feels that all her (unknown) (no (unknown) (unknown) headache, ear (units ( unknown) date) pain, fever, unknown) nausea, or vomiting. She does report an occasional (unknown) (no (unknown) (unknown) ibuprofen as (units (u nknown) date) needed. unknown) (unknown) (no (unknown) (unknown) icterus. No (units (un known) date) injection or unknown) drainage. (unknown) (no (unknown) (unknown) loosen up any (units ( unknown) date) lingering phlegm unknown) as needed. I also told her she can take (unknown) (no (unknown) (unknown) minutes after (units ( unknown) date) taking an inhaler unknown) but then will reappear a few hours later. She (unknown) (no (unknown) (unknown) monohydrate/macro (units (unknown) date) crystals 100 mg unknown) (unknown) (no (unknown) (unknown) nitrofurantoin (units (unknown) date) 100 mg PO BID #14 unknown) cap 01/27/21 (unknown) (no (unknown) (unknown) once throughout (units (unknown) date) the day if she unknown) feels she needs it. She denies any dizziness, (unknown) (no (unknown) (unknown) ondansetron HCl 4 (units (unknown) date) mg tablet 4 mg PO unknown) Q6-8H #7 tab 11/08/20 (unknown) (no (unknown) (unknown) other COVID-19 (units (unknown) date) symptoms have unknown) gotten better but her shortness of breath has (unknown) (no (unknown) (unknown) performed a chest (units (unknown) date) x-ray today which unknown) came back as normal. Her vitals are stable (unknown) (no (unknown) (unknown) persisted. She (units (unknown) date) was prescribed an unknown) albuterol inhaler during her prior visit when (unknown) (no (unknown) (unknown) productive cough (units (unknown) date) that she did not unknown) originally have when she was first diagnosed (unknown) (no (unknown) (unknown) refrain from (units (u nknown) date) smoking whenever unknown) possible as your body continues to heal from the (unknown) (no (unknown) (unknown) says that she (units ( unknown) date) takes her inhaler unknown) upon waking up, before going to bed, and maybe (unknown) (no (unknown) (unknown) she was diagnosed (units (unknown) date) with COVID-19, and unknown) states that her symptoms resolve about 30 (unknown) (no (unknown) (unknown) shortness of (units (u nknown) date) breath persists, unknown) and to use a humidifier or a steam shower to help (unknown) (no (unknown) (unknown) take 2 puffs of (units (unknown) date) your albuterol unknown) inhaler every 4-6 hours as needed to help with (unknown) (no (unknown) (unknown) that her (units (unkno wn) date) shortness of unknown) breath primarily occurs when waking up in the morning and (unknown) (no (unknown) (unknown) the community. (units (unknown) date) unknown) (unknown) (no (unknown) (unknown) the following, it (units (unknown) date) is likely her unknown) symptoms are persisting from her COVID-19 virus (unknown) (no (unknown) (unknown) tobacco type: (units ( unknown) date) cigarettes and unknown) vaping (unknown) (no (unknown) (unknown) tonsillar (units (unkn own) date) hypertrophy or unknown) exudate. Airway patent. (unknown) (no (unknown) (unknown) verbalization of (units (unknown) date) understanding unknown) (unknown) (no (unknown) (unknown) virus. If you (units ( unknown) date) develop a high unknown) fever, chills, or continue to experience worsening (unknown) (no (unknown) (unknown) with COVID-19. (units (unknown) date) unknown) (unknown) (no (unknown) (unknown) worsening pain, (units (unknown) date) persistent unknown) vomiting or other bothersome symptoms] (unknown) (no (unknown) (unknown) your shortness of (units (unknown) date) breath. You can unknown) also take Tylenol or ibuprofen as necessary. Result panel 13 (unknown) (no (unknown) (unknown) (no value) (units (unk nown) date) unknown) (unknown) (no (unknown) (unknown) *Please continue (units (unknown) date) to take your unknown) regular medications as directed. (unknown) (no (unknown) (unknown) Date of Service: (units (unknown) date) 06/28/21 unknown) (unknown) (no (unknown) (unknown) (no value) (units (unk nown) date) unknown) (unknown) (no (unknown) (unknown) 100 mg PO BID Qty: (units (unknown) date) 14 0RF unknown) (unknown) (no (unknown) (unknown) 2 puff INHALATION (units (unknown) date) Q4-6H PRN (Reason: unknown) shortness of breath or wheezing) Qty: (unknown) (no (unknown) (unknown) 4 mg PO Q6-8H Qty: (units (unknown) date) 7 0RF unknown) (unknown) (no (unknown) (unknown) Allergies (units (unkn own) date) unknown) (unknown) (no (unknown) (unknown) ED Orders (units (unkn own) date) unknown) (unknown) (no (unknown) (unknown) Emergency Report (units (unknown) date) unknown) (unknown) (no (unknown) (unknown) Merged With [facility] (units (unknown) date) [address] unknown) [place] [address] (unknown) (no (unknown) (unknown) Previous Rx's (units ( unknown) date) unknown) (unknown) (no (unknown) (unknown) Rx Instructions: (units (unknown) date) unknown) (unknown) (no (unknown) (unknown) Vital Signs - 8 hr (units (unknown) date) unknown) (unknown) (no (unknown) (unknown) [ ] New medication (units (unknown) date) prescriptions sent unknown) to your pharmacy: [ ] (unknown) (no (unknown) (unknown) [ ] New medication (units (unknown) date) written as a paper unknown) prescription (unknown) (no (unknown) (unknown) [X] No new (units (unk nown) date) medications given unknown) (unknown) (no (unknown) (unknown) must administer (units (unknown) date) with a meal/food unknown) (unknown) (no (unknown) (unknown) (no value) (units (unk nown) date) unknown) (unknown) (no (unknown) (unknown) albuterol sulfate (units (unknown) date) 90 mcg/actuation unknown) HFA aerosol inhaler (unknown) (no (unknown) (unknown) nitrofurantoin (units (unknown) date) monohyd/m-cryst unknown) [Macrobid] 100 mg capsule (unknown) (no (unknown) (unknown) ondansetron HCl (units (unknown) date) [Zofran] 4 mg unknown) tablet (unknown) (no (unknown) (unknown) 06/28/21 (units (unkno wn) date) unknown) (unknown) (no (unknown) (unknown) COVID-19 (units (unkno wn) date) unknown) (unknown) (no (unknown) (unknown) Medication (units (unk nown) date) Instructions unknown) Recorded (unknown) (no (unknown) (unknown) You should drink (units (unknown) date) plenty of fluids, unknown) use a humidifier or steam shower, and (unknown) (no (unknown) (unknown) bilateral breath (units (unknown) date) sounds with no unknown) wheezing present and moves air well. Based on (unknown) (no (unknown) (unknown) chest pain or (units ( unknown) date) shortness of breath unknown) please return back to the ER. I hope you (unknown) (no (unknown) (unknown) documented, Denies (units (unknown) date) myalgias, Denies unknown) numbness and Denies tingling (unknown) (no (unknown) (unknown) rales, or rhonchi. (units (unknown) date) unknown) (unknown) (no (unknown) (unknown) vomiting (units (unkno wn) date) unknown) (unknown) (no (unknown) (unknown) (Zofran) (units (unkno wn) date) unknown) (unknown) (no (unknown) (unknown) *If you do not (units (unknown) date) have a primary care unknown) provider please contact the Merged With [facility] (unknown) (no (unknown) (unknown) *Return to (units (unk nown) date) Emergency unknown) Department if you should have any new, worsening or (unknown) (no (unknown) (unknown) *What to do: (units (u nknown) date) unknown) (unknown) (no (unknown) (unknown) *You have been (units (unknown) date) diagnosed with unknown) COVID-19 viral illness. You should continue to (unknown) (no (unknown) (unknown) 06/28/21 11:17 (units (unknown) date) unknown) (unknown) (no (unknown) (unknown) 11:14 (units (unkno wn) date) unknown) (unknown) (no (unknown) (unknown) [id number] (units (unkno wn) date) unknown) (unknown) (no (unknown) (unknown) 8.5 0RF (units (unkno wn) date) unknown) (unknown) (no (unknown) (unknown) Activity (units (unkno wn) date) Restrictions/Additi unknown) onal Instructions: (unknown) (no (unknown) (unknown) Age/Sex: 21 / F (units (unknown) date) unknown) (unknown) (no (unknown) (unknown) Allergic/Immunolog (units (unknown) date) ic unknown) (unknown) (no (unknown) (unknown) Allergic/Immunolog (units (unknown) date) ic: Reports system unknown) reviewed and no additional complaints, (unknown) (no (unknown) (unknown) Allergy/AdvReac (units (unknown) date) Type Severity unknown) Reaction Status Date / Time (unknown) (no (unknown) (unknown) BACK: Nontender (units (unknown) date) without deformity unknown) or crepitance. No flank tenderness. (unknown) (no (unknown) (unknown) Blood Pressure (units (unknown) date) 161/89 H 06/28/21 unknown) 11:14 (unknown) (no (unknown) (unknown) Blood Pressure (units (unknown) date) 161/89 H unknown) (unknown) (no (unknown) (unknown) CARDIOVASCULAR: (units (unknown) date) Regular rate and unknown) rhythm without murmurs, gallops, or rubs. (unknown) (no (unknown) (unknown) Call Center at (units (unknown) date) [phone] and unknown) they can help get you set up with a doctor in (unknown) (no (unknown) (unknown) Cardiovascular (units (unknown) date) unknown) (unknown) (no (unknown) (unknown) Cardiovascular: (units (unknown) date) Reports chest pain, unknown) Denies chest pain at rest, Denies syncope, (unknown) (no (unknown) (unknown) Chief Complaint: (units (unknown) date) Upper Respiratory unknown) Symptoms (unknown) (no (unknown) (unknown) Clinical (units (unkno wn) date) Impression: unknown) (unknown) (no (unknown) (unknown) Constitutional (units (unknown) date) unknown) (unknown) (no (unknown) (unknown) Constitutional: (units (unknown) date) Denies chills, unknown) Reports difficulty sleeping, Denies fatigue, (unknown) (no (unknown) (unknown) Course (units (unkno wn) date) unknown) (unknown) (no (unknown) (unknown) : 2000 (units (unknown) date) Acct:[id number] unknown) (unknown) (no (unknown) (unknown) Denies fever(s), (units (unknown) date) Denies headache(s) unknown) and Denies weakness (unknown) (no (unknown) (unknown) Denies (units (unkno wn) date) palpitations, unknown) Reports dyspnea and Reports dyspnea on exertion (unknown) (no (unknown) (unknown) Denies sinus (units (u nknown) date) pressure unknown) (unknown) (no (unknown) (unknown) Departure (units (unkn own) date) unknown) (unknown) (no (unknown) (unknown) Discharge Plan (units (unknown) date) unknown) (unknown) (no (unknown) (unknown) ENT (units (unkno wn) date) unknown) (unknown) (no (unknown) (unknown) ENT: Nose without (units (unknown) date) bleeding, purulent unknown) drainage. Throat without erythema, (unknown) (no (unknown) (unknown) ER Physician: (units ( unknown) date) Anabel Reveles unknown) P.A-C (unknown) (no (unknown) (unknown) EXTREMITIES: No (units (unknown) date) edema or joint unknown) tenderness. (unknown) (no (unknown) (unknown) EYES: Pupils equal (units (unknown) date) round and reactive. unknown) Extraocular motions intact. No scleral (unknown) (no (unknown) (unknown) Ears, Nose, Mouth, (units (unknown) date) and Throat: Denies unknown) dizziness, Denies otalgia, Denies facial (unknown) (no (unknown) (unknown) Endocrine (units (unkn own) date) unknown) (unknown) (no (unknown) (unknown) Endocrine: Reports (units (unknown) date) system reviewed and unknown) no additional complaints, except as (unknown) (no (unknown) (unknown) Exam (units (unkno wn) date) unknown) (unknown) (no (unknown) (unknown) Exam Narrative: (units (unknown) date) unknown) (unknown) (no (unknown) (unknown) Eyes (units (unkno wn) date) unknown) (unknown) (no (unknown) (unknown) Eyes: Denies (units (u nknown) date) change in vision, unknown) Denies itchy eyes and Denies eye pain (unknown) (no (unknown) (unknown) Findings and (units (u nknown) date) discharge diagnosis unknown) discussed with patient/family followed by (unknown) (no (unknown) (unknown) GASTROINTESTINAL: (units (unknown) date) Abdomen soft, unknown) non-tender, nondistended. (unknown) (no (unknown) (unknown) GENERAL: 21 year (units (unknown) date) old patient appears unknown) stated age. Well-developed patient, in no (unknown) (no (unknown) (unknown) Gastrointestinal (units (unknown) date) unknown) (unknown) (no (unknown) (unknown) Gastrointestinal: (units (unknown) date) Denies unknown) constipation, Denies diarrhea, Denies nausea and Denies (unknown) (no (unknown) (unknown) General (units (unkno wn) date) unknown) (unknown) (no (unknown) (unknown) Genitourinary (units ( unknown) date) unknown) (unknown) (no (unknown) (unknown) Genitourinary: (units (unknown) date) Reports system unknown) reviewed and no additional complaints, except as (unknown) (no (unknown) (unknown) HEAD: Atraumatic. (units (unknown) date) Normocephalic. unknown) (unknown) (no (unknown) (unknown) HPI - URI/Sore (units (unknown) date) Throat unknown) (unknown) (no (unknown) (unknown) HPI Narrative: (units (unknown) date) unknown) (unknown) (no (unknown) (unknown) Healthy adolescent (units (unknown) date) unknown) (unknown) (no (unknown) (unknown) Hematologic/Lympha (units (unknown) date) tic unknown) (unknown) (no (unknown) (unknown) Hematologic/Lympha (units (unknown) date) tic: Reports system unknown) reviewed and no additional complaints, (unknown) (no (unknown) (unknown) History of Present (units (unknown) date) Illness unknown) (unknown) (no (unknown) (unknown) Initial Vital (units ( unknown) date) Signs unknown) (unknown) (no (unknown) (unknown) Initial Vital (units ( unknown) date) Signs: unknown) (unknown) (no (unknown) (unknown) Instructions: DI (units (unknown) date) for Viral Syndrome, unknown) DI for COVID-19 (Suspected or Confirmed ) (unknown) (no (unknown) (unknown) Integumentary/Leticia (units (unknown) date) sts unknown) (unknown) (no (unknown) (unknown) MDM - URI/Sore (units (unknown) date) Throat unknown) (unknown) (no (unknown) (unknown) MDM Narrative (units ( unknown) date) unknown) (unknown) (no (unknown) (unknown) Medical History (units (unknown) date) (Updated 06/28/21 @ unknown) 12:43 by Anabel Reveles PA-C) (unknown) (no (unknown) (unknown) Medical decision (units (unknown) date) making narrative: unknown) (unknown) (no (unknown) (unknown) Musculoskeletal (units (unknown) date) unknown) (unknown) (no (unknown) (unknown) Musculoskeletal: (units (unknown) date) Reports system unknown) reviewed and no additional complaints, except as (unknown) (no (unknown) (unknown) NECK: Trachea (units ( unknown) date) midline. Non tender unknown) (unknown) (no (unknown) (unknown) NEURO: AOx3. (units (u nknown) date) unknown) (unknown) (no (unknown) (unknown) Narrative (units (unkn own) date) unknown) (unknown) (no (unknown) (unknown) Nephrolithiasis (units (unknown) date) unknown) (unknown) (no (unknown) (unknown) Neurologic (units (unk nown) date) unknown) (unknown) (no (unknown) (unknown) Neurologic: (units (un known) date) Reports system unknown) reviewed and no additional complaints, except as (unknown) (no (unknown) (unknown) No Action (units (unkn own) date) unknown) (unknown) (no (unknown) (unknown) No history of (units ( unknown) date) previous surgery unknown) (unknown) (no (unknown) (unknown) Ordered: (units (unkno wn) date) unknown) (unknown) (no (unknown) (unknown) Orders (units (unkno wn) date) unknown) (unknown) (no (unknown) (unknown) Patient (units (unkno wn) date) Disposition: Home unknown) (unknown) (no (unknown) (unknown) Patient History (units (unknown) date) unknown) (unknown) (no (unknown) (unknown) Patient is a (units (u nknown) date) 21-year-old female unknown) presenting today with persistent shortness of (unknown) (no (unknown) (unknown) Patient: (units (unkno wn) date) Jenny Cobb E unknown) MR#: [id number] (unknown) (no (unknown) (unknown) Penicillins (units (un known) date) [PENICILLINS] unknown) Allergy Unknown Anaphylaxis Verified 06/28/21 11:17 (unknown) (no (unknown) (unknown) Prescriptions: (units (unknown) date) unknown) (unknown) (no (unknown) (unknown) Psychiatric (units (un known) date) unknown) (unknown) (no (unknown) (unknown) Psychiatric: (units (u nknown) date) Reports system unknown) reviewed and no additional complaints, except as (unknown) (no (unknown) (unknown) Pulse Oximetry (units (unknown) date) 100 06/28/21 unknown) 11:14 (unknown) (no (unknown) (unknown) Pulse Oximetry 100 (units (unknown) date) unknown) (unknown) (no (unknown) (unknown) Pulse Rate 70 (units (unknown) date) 06/28/21 11:14 unknown) (unknown) (no (unknown) (unknown) Pulse Rate 70 (units ( unknown) date) unknown) (unknown) (no (unknown) (unknown) RESPIRATORY: Clear (units (unknown) date) to auscultation. unknown) Breath sounds equal bilaterally. No wheezes, (unknown) (no (unknown) (unknown) Related Data (units (u nknown) date) unknown) (unknown) (no (unknown) (unknown) Reports dyspnea (units (unknown) date) and Reports dyspnea unknown) on exertion (unknown) (no (unknown) (unknown) Respiratory (units (un known) date) unknown) (unknown) (no (unknown) (unknown) Respiratory Rate (units (unknown) date) 18 06/28/21 11:14 unknown) (unknown) (no (unknown) (unknown) Respiratory Rate (units (unknown) date) 18 unknown) (unknown) (no (unknown) (unknown) Respiratory: (units (u nknown) date) Reports change in unknown) phlegm color, Reports cough, Denies hemoptysis, (unknown) (no (unknown) (unknown) Return precautions (units (unknown) date) discussed with unknown) patient/family whom verbalize understanding. (unknown) (no (unknown) (unknown) Review of Systems (units (unknown) date) unknown) (unknown) (no (unknown) (unknown) SKIN: No rash or (units (unknown) date) erythema of visible unknown) areas (unknown) (no (unknown) (unknown) Signed By: (units (unk nown) date) unknown) (unknown) (no (unknown) (unknown) Skin/Breast: (units (u nknown) date) Reports system unknown) reviewed and no additional complaints, except as (unknown) (no (unknown) (unknown) Smoking Status: (units (unknown) date) Current every day unknown) smoker (unknown) (no (unknown) (unknown) Smoking Status: (units (unknown) date) Current every day unknown) smoker (unknown) (no (unknown) (unknown) Social History (units (unknown) date) (Reviewed 06/21/21 unknown) @ 11:28 by Lissett Layne DO) (unknown) (no (unknown) (unknown) Stated Complaint: (units (unknown) date) SOB, chest heavy unknown) post COVID (unknown) (no (unknown) (unknown) Substance Use (units ( unknown) date) Type: does not use unknown) (unknown) (no (unknown) (unknown) Surgical History (units (unknown) date) (Reviewed 06/21/21 unknown) @ 11:28 by Lissett Layne DO) (unknown) (no (unknown) (unknown) Temperature 97.0 (units (unknown) date) F L 06/28/21 11:14 unknown) (unknown) (no (unknown) (unknown) Temperature 97.0 F (units (unknown) date) L unknown) (unknown) (no (unknown) (unknown) Time Seen by (units (u nknown) date) Provider: 06/28/21 unknown) 12:04 (unknown) (no (unknown) (unknown) Vital Signs (units (un known) date) unknown) (unknown) (no (unknown) (unknown) Vital signs: (units (u nknown) date) unknown) (unknown) (no (unknown) (unknown) XR chest 2V Stat (units (unknown) date) unknown) (unknown) (no (unknown) (unknown) aerosol inhaler (units (unknown) date) gram unknown) (unknown) (no (unknown) (unknown) albuterol sulfate (units (unknown) date) 90 mcg/actuation 2 unknown) puff INHALATION Q4-6H PRN #8.5 06/21/21 (unknown) (no (unknown) (unknown) alcohol intake (units (unknown) date) frequency: unknown) holidays/special occasions only (unknown) (no (unknown) (unknown) and her oxygen (units ( unknown) date) saturation is 100 unknown) on room air. Upon physical exam, she has clear (unknown) (no (unknown) (unknown) and should (units (unk nown) date) continue to get unknown) better as her body continues to heal. I also (unknown) (no (unknown) (unknown) breath and chest (units (unknown) date) pain following a unknown) COVID-19 diagnosis 1.5 weeks ago. She reports (unknown) (no (unknown) (unknown) breath and chest (units (unknown) date) pain following a unknown) COVID-19 diagnosis 1.5 weeks ago. We (unknown) (no (unknown) (unknown) capsule (Macrobid) (units (unknown) date) unknown) (unknown) (no (unknown) (unknown) concerning (units (unk nown) date) symptoms, such as unknown) [fever greater than 101 F, shaking chills, (unknown) (no (unknown) (unknown) distress. (units (unkn own) date) unknown) (unknown) (no (unknown) (unknown) documented (units (unk nown) date) unknown) (unknown) (no (unknown) (unknown) documented, Denies (units (unknown) date) dizziness, Denies unknown) syncope, Denies headache(s), Denies (unknown) (no (unknown) (unknown) documented, Denies (units (unknown) date) fatigue and Denies unknown) palpitations (unknown) (no (unknown) (unknown) documented, Denies (units (unknown) date) pruritus, Denies unknown) erythema and Denies rash (unknown) (no (unknown) (unknown) encouraged her to (units (unknown) date) take her albuterol unknown) inhaler regularly every 4-6 hours as the (unknown) (no (unknown) (unknown) except as (units (unkn own) date) documented unknown) (unknown) (no (unknown) (unknown) except as (units (unkn own) date) documented and unknown) Denies itchy eyes (unknown) (no (unknown) (unknown) feel better soon! (units (unknown) date) unknown) (unknown) (no (unknown) (unknown) feels like she has (units (unknown) date) difficulty taking a unknown) full deep breath. She feels that all her (unknown) (no (unknown) (unknown) headache, ear (units ( unknown) date) pain, fever, unknown) nausea, or vomiting. She does report an occasional (unknown) (no (unknown) (unknown) ibuprofen as (units (u nknown) date) needed. unknown) (unknown) (no (unknown) (unknown) icterus. No (units (un known) date) injection or unknown) drainage. (unknown) (no (unknown) (unknown) loosen up any (units ( unknown) date) lingering phlegm as unknown) needed. I also told her she can take (unknown) (no (unknown) (unknown) minutes after (units ( unknown) date) taking an inhaler unknown) but then will reappear a few hours later. She (unknown) (no (unknown) (unknown) monohydrate/macroc (units (unknown) date) rystals 100 mg unknown) (unknown) (no (unknown) (unknown) nitrofurantoin 100 (units (unknown) date) mg PO BID #14 cap unknown) 01/27/21 (unknown) (no (unknown) (unknown) numbness, Denies (units (unknown) date) tingling and Denies unknown) weakness (unknown) (no (unknown) (unknown) once throughout (units (unknown) date) the day if she unknown) feels she needs it. She denies any dizziness, (unknown) (no (unknown) (unknown) ondansetron HCl 4 (units (unknown) date) mg tablet 4 mg PO unknown) Q6-8H #7 tab 11/08/20 (unknown) (no (unknown) (unknown) other COVID-19 (units (unknown) date) symptoms have unknown) gotten better but her shortness of breath has (unknown) (no (unknown) (unknown) pain, Denies (units (u nknown) date) headache(s), Denies unknown) nasal congestion, Reports nasal discharge and (unknown) (no (unknown) (unknown) performed a chest (units (unknown) date) x-ray today which unknown) came back as normal. Her vitals are stable (unknown) (no (unknown) (unknown) persisted. She (units (unknown) date) was prescribed an unknown) albuterol inhaler during her prior visit when (unknown) (no (unknown) (unknown) productive cough (units (unknown) date) that she did not unknown) originally have when she was first diagnosed (unknown) (no (unknown) (unknown) refrain from (units (u nknown) date) smoking whenever unknown) possible as your body continues to heal from the (unknown) (no (unknown) (unknown) says that she (units ( unknown) date) takes her inhaler unknown) upon waking up, before going to bed, and maybe (unknown) (no (unknown) (unknown) she was diagnosed (units (unknown) date) with COVID-19, and unknown) states that her symptoms resolve about 30 (unknown) (no (unknown) (unknown) shortness of (units (u nknown) date) breath persists, unknown) and to use a humidifier or a steam shower to help (unknown) (no (unknown) (unknown) take 2 puffs of (units (unknown) date) your albuterol unknown) inhaler every 4-6 hours as needed to help with (unknown) (no (unknown) (unknown) that her shortness (units (unknown) date) of breath primarily unknown) occurs when waking up in the morning and (unknown) (no (unknown) (unknown) the community. (units (unknown) date) unknown) (unknown) (no (unknown) (unknown) the following, it (units (unknown) date) is likely her unknown) symptoms are persisting from her COVID-19 virus (unknown) (no (unknown) (unknown) tobacco type: (units ( unknown) date) cigarettes and unknown) vaping (unknown) (no (unknown) (unknown) tonsillar (units (unkn own) date) hypertrophy or unknown) exudate. Airway patent. (unknown) (no (unknown) (unknown) verbalization of (units (unknown) date) understanding unknown) (unknown) (no (unknown) (unknown) virus. If you (units ( unknown) date) develop a high unknown) fever, chills, or continue to experience worsening (unknown) (no (unknown) (unknown) with COVID-19. (units (unknown) date) unknown) (unknown) (no (unknown) (unknown) worsening pain, (units (unknown) date) persistent vomiting unknown) or other bothersome symptoms] (unknown) (no (unknown) (unknown) your shortness of (units (unknown) date) breath. You can unknown) also take Tylenol or ibuprofen as necessary. Result panel 14 (unknown) (no (unknown) (unknown) (no value) (units (unk nown) date) unknown) (unknown) (no (unknown) (unknown) Radiologist's (units ( unknown) date) Impression: unknown) (unknown) (no (unknown) (unknown) (no value) (units (unk nown) date) unknown) (unknown) (no (unknown) (unknown) *Please continue (units (unknown) date) to take your unknown) regular medications as directed. (unknown) (no (unknown) (unknown) Date of Service: (units (unknown) date) 06/28/21 unknown) (unknown) (no (unknown) (unknown) (no value) (units (unk nown) date) unknown) (unknown) (no (unknown) (unknown) <Electronically (units (unknown) date) signed by Anabel Mayorga unknown) Liliane Reveles> (unknown) (no (unknown) (unknown) 06/28/21 1310 (units ( unknown) date) unknown) (unknown) (no (unknown) (unknown) 100 mg PO BID Qty: (units (unknown) date) 14 0RF unknown) (unknown) (no (unknown) (unknown) [address] [place] [place] [address] (units (unknown) date) unknown) (unknown) (no (unknown) (unknown) 2 puff INHALATION (units (unknown) date) Q4-6H PRN (Reason: unknown) shortness of breath or wheezing) Qty: (unknown) (no (unknown) (unknown) 4 mg PO Q6-8H Qty: (units (unknown) date) 7 0RF unknown) (unknown) (no (unknown) (unknown) Allergies (units (unkn own) date) unknown) (unknown) (no (unknown) (unknown) [place], [place] (units ( unknown) date) [id number] unknown) (unknown) (no (unknown) (unknown) ED Orders (units (unkn own) date) unknown) (unknown) (no (unknown) (unknown) Emergency Report (units (unknown) date) unknown) (unknown) (no (unknown) (unknown) Merged With [facility] (units (unknown) date) unknown) (unknown) (no (unknown) (unknown) Merged With [facility] (units (unknown) date) [address] unknown) [place] [address] (unknown) (no (unknown) (unknown) Previous Rx's (units ( unknown) date) unknown) (unknown) (no (unknown) (unknown) Rx Instructions: (units (unknown) date) unknown) (unknown) (no (unknown) (unknown) Signed (units (unkno wn) date) unknown) (unknown) (no (unknown) (unknown) Vital Signs - 8 hr (units (unknown) date) unknown) (unknown) (no (unknown) (unknown) XRay Report (units (un known) date) unknown) (unknown) (no (unknown) (unknown) [ ] New medication (units (unknown) date) prescriptions sent unknown) to your pharmacy: [ ] (unknown) (no (unknown) (unknown) [ ] New medication (units (unknown) date) written as a paper unknown) prescription (unknown) (no (unknown) (unknown) [X] No new (units (unk nown) date) medications given unknown) (unknown) (no (unknown) (unknown) must administer (units (unknown) date) with a meal/food unknown) (unknown) (no (unknown) (unknown) (no value) (units (unk nown) date) unknown) (unknown) (no (unknown) (unknown) albuterol sulfate (units (unknown) date) 90 mcg/actuation unknown) HFA aerosol inhaler (unknown) (no (unknown) (unknown) nitrofurantoin (units (unknown) date) monohyd/m-cryst unknown) [Macrobid] 100 mg capsule (unknown) (no (unknown) (unknown) ondansetron HCl (units (unknown) date) [Zofran] 4 mg unknown) tablet (unknown) (no (unknown) (unknown) 06/28/21 (units (unkno wn) date) unknown) (unknown) (no (unknown) (unknown) COVID-19 (units (o wn) date) unknown) (unknown) (no (unknown) (unknown) Medication (units (unk n) date) Instructions unknown) Recorded (unknown) (no (unknown) (unknown) You should drink (units (unknown) date) plenty of fluids, unknown) use a humidifier or steam shower, and (unknown) (no (unknown) (unknown) bilateral breath (units (unknown) date) sounds with no unknown) wheezing present and moves air well. Based on (unknown) (no (unknown) (unknown) chest pain or (units ( unknown) date) shortness of breath unknown) please return back to the ER. I hope you (unknown) (no (unknown) (unknown) documented, Denies (units (unknown) date) myalgias, Denies unknown) numbness and Denies tingling (unknown) (no (unknown) (unknown) her COVID-19 virus (units (unknown) date) and should continue unknown) to get better as her body continues to (unknown) (no (unknown) (unknown) rales, or rhonchi. (units (unknown) date) unknown) (unknown) (no (unknown) (unknown) vomiting (units (unkno wn) date) unknown) (unknown) (no (unknown) (unknown) (Zofran) (units (o wn) date) unknown) (unknown) (no (unknown) (unknown) *If you do not (units (unknown) date) have a primary care unknown) provider please contact the Merged With [facility] (unknown) (no (unknown) (unknown) *Return to (units (k n) date) Emergency unknown) Department if you should have any new, worsening or (unknown) (no (unknown) (unknown) *What to do: (units (u nknown) date) unknown) (unknown) (no (unknown) (unknown) *You have been (units (unknown) date) diagnosed with unknown) COVID-19 viral illness. You should continue to (unknown) (no (unknown) (unknown) 06/28/21 11:17 (units (unknown) date) unknown) (unknown) (no (unknown) (unknown) 11:14 (units (unkno wn) date) unknown) (unknown) (no (unknown) (unknown) [id number] (units (unkno wn) date) unknown) (unknown) (no (unknown) (unknown) 8.5 0RF (units (unkno wn) date) unknown) (unknown) (no (unknown) (unknown) ? (units (unkno wn) date) unknown) (unknown) (no (unknown) (unknown) Accession Number: (units (unknown) date) [id number] ?? unknown) (unknown) (no (unknown) (unknown) Acct:[id number] (units (unknown) date) unknown) (unknown) (no (unknown) (unknown) Activity (units (unkno wn) date) Restrictions/Additi unknown) onal Instructions: (unknown) (no (unknown) (unknown) Age/Sex: 21 / F (units (unknown) date) unknown) (unknown) (no (unknown) (unknown) Age/Sex: 21 / F (units (unknown) date) unknown) (unknown) (no (unknown) (unknown) Allergic/Immunolog (units (unknown) date) ic unknown) (unknown) (no (unknown) (unknown) Allergic/Immunolog (units (unknown) date) ic: Reports system unknown) reviewed and no additional complaints, (unknown) (no (unknown) (unknown) Allergy/AdvReac (units (unknown) date) Type Severity unknown) Reaction Status Date / Time (unknown) (no (unknown) (unknown) Approved by: Conrado (units (unknown) date) Marbella Rodarte on unknown) 06/28/2021 at 10:57? (unknown) (no (unknown) (unknown) BACK: Nontender (units (unknown) date) without deformity unknown) or crepitance. No flank tenderness. (unknown) (no (unknown) (unknown) Blood Pressure (units (unknown) date) 161/89 H 06/28/21 unknown) 11:14 (unknown) (no (unknown) (unknown) Blood Pressure (units (unknown) date) 161/89 H unknown) (unknown) (no (unknown) (unknown) Bones and chest (units (unknown) date) wall:? No unknown) suspicious bony abnormalities.? Soft tissues appear (unknown) (no (unknown) (unknown) CARDIOVASCULAR: (units (unknown) date) Regular rate and unknown) rhythm without murmurs, gallops, or rubs. (unknown) (no (unknown) (unknown) COMPARISON:? (units (u nknown) date) Merged With [facility], unknown) CR, XR CHEST 2V, 03/03/2021, 15:32. (unknown) (no (unknown) (unknown) Call Center at (units (unknown) date) [phone] and unknown) they can help get you set up with a doctor in (unknown) (no (unknown) (unknown) Cardiovascular (units (unknown) date) unknown) (unknown) (no (unknown) (unknown) Cardiovascular: (units (unknown) date) Reports chest pain, unknown) Denies chest pain at rest, Denies syncope, (unknown) (no (unknown) (unknown) Chest x-ray: (units (u nknown) date) unknown) (unknown) (no (unknown) (unknown) Chief Complaint: (units (unknown) date) Upper Respiratory unknown) Symptoms (unknown) (no (unknown) (unknown) Clinical (units (unkno wn) date) Impression: unknown) (unknown) (no (unknown) (unknown) Constitutional (units (unknown) date) unknown) (unknown) (no (unknown) (unknown) Constitutional: (units (unknown) date) Denies chills, unknown) Reports difficulty sleeping, Denies fatigue, (unknown) (no (unknown) (unknown) Course (units (unkno wn) date) unknown) (unknown) (no (unknown) (unknown) : 2000 (units (unknown) date) Acct:[id number] unknown) (unknown) (no (unknown) (unknown) : 2000 (units (unknown) date) unknown) (unknown) (no (unknown) (unknown) Date of Service: (units (unknown) date) 06/28/21 unknown) (unknown) (no (unknown) (unknown) Denies fever(s), (units (unknown) date) Denies headache(s) unknown) and Denies weakness (unknown) (no (unknown) (unknown) Denies (units (unkno wn) date) palpitations, unknown) Reports dyspnea and Reports dyspnea on exertion (unknown) (no (unknown) (unknown) Denies sinus (units (u nknown) date) pressure unknown) (unknown) (no (unknown) (unknown) Departure (units (unkn own) date) unknown) (unknown) (no (unknown) (unknown) Discharge Plan (units (unknown) date) unknown) (unknown) (no (unknown) (unknown) ENT (units (unkno wn) date) unknown) (unknown) (no (unknown) (unknown) ENT: Nose without (units (unknown) date) bleeding, purulent unknown) drainage. Throat without erythema, (unknown) (no (unknown) (unknown) ER Physician: (units ( unknown) date) Anabel Reveles unknown) P.A-C (unknown) (no (unknown) (unknown) EXTREMITIES: No (units (unknown) date) edema or joint unknown) tenderness. (unknown) (no (unknown) (unknown) EYES: Pupils equal (units (unknown) date) round and reactive. unknown) Extraocular motions intact. No scleral (unknown) (no (unknown) (unknown) Ears, Nose, Mouth, (units (unknown) date) and Throat: Denies unknown) dizziness, Denies otalgia, Denies facial (unknown) (no (unknown) (unknown) Endocrine (units (unkn own) date) unknown) (unknown) (no (unknown) (unknown) Endocrine: Reports (units (unknown) date) system reviewed and unknown) no additional complaints, except as (unknown) (no (unknown) (unknown) Exam (units (unkno wn) date) unknown) (unknown) (no (unknown) (unknown) Exam Narrative: (units (unknown) date) unknown) (unknown) (no (unknown) (unknown) Eyes (units (unkno wn) date) unknown) (unknown) (no (unknown) (unknown) Eyes: Denies (units (u nknown) date) change in vision, unknown) Denies itchy eyes and Denies eye pain (unknown) (no (unknown) (unknown) FINDINGS:? (units (unk nown) date) unknown) (unknown) (no (unknown) (unknown) Findings and (units (u nknown) date) discharge diagnosis unknown) discussed with patient/family followed by (unknown) (no (unknown) (unknown) GASTROINTESTINAL: (units (unknown) date) Abdomen soft, unknown) non-tender, nondistended. (unknown) (no (unknown) (unknown) GENERAL: 21 year (units (unknown) date) old patient appears unknown) stated age. Well-developed patient, in no (unknown) (no (unknown) (unknown) Gastrointestinal (units (unknown) date) unknown) (unknown) (no (unknown) (unknown) Gastrointestinal: (units (unknown) date) Denies unknown) constipation, Denies diarrhea, Denies nausea and Denies (unknown) (no (unknown) (unknown) General (units (unkno wn) date) unknown) (unknown) (no (unknown) (unknown) Genitourinary (units ( unknown) date) unknown) (unknown) (no (unknown) (unknown) Genitourinary: (units (unknown) date) Reports system unknown) reviewed and no additional complaints, except as (unknown) (no (unknown) (unknown) HEAD: Atraumatic. (units (unknown) date) Normocephalic. unknown) (unknown) (no (unknown) (unknown) HPI - URI/Sore (units (unknown) date) Throat unknown) (unknown) (no (unknown) (unknown) HPI Narrative: (units (unknown) date) unknown) (unknown) (no (unknown) (unknown) Healthy adolescent (units (unknown) date) unknown) (unknown) (no (unknown) (unknown) Hematologic/Lympha (units (unknown) date) tic unknown) (unknown) (no (unknown) (unknown) Hematologic/Lympha (units (unknown) date) tic: Reports system unknown) reviewed and no additional complaints, (unknown) (no (unknown) (unknown) History of Present (units (unknown) date) Illness unknown) (unknown) (no (unknown) (unknown) IMPRESSION:? (units (u nknown) date) Normal two view unknown) chest x-ray (unknown) (no (unknown) (unknown) INDICATIONS:? SOB, (units (unknown) date) chest pain COVID unknown) 1.5weeks ago (unknown) (no (unknown) (unknown) Imaging Data (units (u nknown) date) unknown) (unknown) (no (unknown) (unknown) Initial Vital (units ( unknown) date) Signs unknown) (unknown) (no (unknown) (unknown) Initial Vital (units ( unknown) date) Signs: unknown) (unknown) (no (unknown) (unknown) Instructions: DI (units (unknown) date) for Viral Syndrome, unknown) DI for COVID-19 (Suspected or Confirmed ) (unknown) (no (unknown) (unknown) Integumentary/[place] (units (unknown) date) sts unknown) (unknown) (no (unknown) (unknown) Loc: ED (units (unkno wn) date) unknown) (unknown) (no (unknown) (unknown) Lungs and pleura:? (units (unknown) date) Lungs are clear.? unknown) No pleural effusions or pneumothorax.? (unknown) (no (unknown) (unknown) MDM - URI/Sore (units (unknown) date) Throat unknown) (unknown) (no (unknown) (unknown) MDM Narrative (units ( unknown) date) unknown) (unknown) (no (unknown) (unknown) MR#: [id number] (units (unknown) date) unknown) (unknown) (no (unknown) (unknown) Mediastinum:? (units ( unknown) date) Mediastinal unknown) contours are normal.? Heart size is normal.? (unknown) (no (unknown) (unknown) Medical History (units (unknown) date) (Reviewed 06/28/21 unknown) @ 13:06 by Anabel Reveles PA-C) (unknown) (no (unknown) (unknown) Medical decision (units (unknown) date) making narrative: unknown) (unknown) (no (unknown) (unknown) Musculoskeletal (units (unknown) date) unknown) (unknown) (no (unknown) (unknown) Musculoskeletal: (units (unknown) date) Reports system unknown) reviewed and no additional complaints, except as (unknown) (no (unknown) (unknown) NECK: Trachea (units ( unknown) date) midline. Non tender unknown) (unknown) (no (unknown) (unknown) NEURO: AOx3. (units (u nknown) date) unknown) (unknown) (no (unknown) (unknown) Narrative (units (unkn own) date) unknown) (unknown) (no (unknown) (unknown) Nephrolithiasis (units (unknown) date) unknown) (unknown) (no (unknown) (unknown) Neurologic (units (unk nown) date) unknown) (unknown) (no (unknown) (unknown) Neurologic: (units (un known) date) Reports system unknown) reviewed and no additional complaints, except as (unknown) (no (unknown) (unknown) No Action (units (unkn own) date) unknown) (unknown) (no (unknown) (unknown) No history of (units ( unknown) date) previous surgery unknown) (unknown) (no (unknown) (unknown) Ordered: (units (unkno wn) date) unknown) (unknown) (no (unknown) (unknown) Ordering Provider: (units (unknown) date) Lissett Layne D.O. unknown) (unknown) (no (unknown) (unknown) Orders (units (unkno wn) date) unknown) (unknown) (no (unknown) (unknown) PROCEDURE:? XR (units (unknown) date) CHEST 2V unknown) (unknown) (no (unknown) (unknown) Patient (units (unkno wn) date) Disposition: Home unknown) (unknown) (no (unknown) (unknown) Patient History (units (unknown) date) unknown) (unknown) (no (unknown) (unknown) Patient is a (units (u nknown) date) 21-year-old female unknown) presenting today with persistent shortness of (unknown) (no (unknown) (unknown) Patient: (units (unkno wn) date) Jenny Cobb unknown) MR#: [id number] (unknown) (no (unknown) (unknown) Patient: (units (unkno wn) date) Jenny Cobb unknown) (unknown) (no (unknown) (unknown) Penicillins (units (un known) date) [PENICILLINS] unknown) Allergy Unknown Anaphylaxis Verified 05/22/22 11:17 (unknown) (no (unknown) (unknown) Prescriptions: (units (unknown) date) unknown) (unknown) (no (unknown) (unknown) Procedure: XR (units ( unknown) date) chest 2V unknown) (unknown) (no (unknown) (unknown) Psychiatric (units (un known) date) unknown) (unknown) (no (unknown) (unknown) Psychiatric: (units (u nknown) date) Reports system unknown) reviewed and no additional complaints, except as (unknown) (no (unknown) (unknown) Pulse Oximetry (units (unknown) date) 100 06/28/21 unknown) 11:14 (unknown) (no (unknown) (unknown) Pulse Oximetry 100 (units (unknown) date) unknown) (unknown) (no (unknown) (unknown) Pulse Rate 70 (units (unknown) date) 06/28/21 11:14 unknown) (unknown) (no (unknown) (unknown) Pulse Rate 70 (units ( unknown) date) unknown) (unknown) (no (unknown) (unknown) RESPIRATORY: Clear (units (unknown) date) to auscultation. unknown) Breath sounds equal bilaterally. No wheezes, (unknown) (no (unknown) (unknown) Related Data (units (u nknown) date) unknown) (unknown) (no (unknown) (unknown) Reports dyspnea (units (unknown) date) and Reports dyspnea unknown) on exertion (unknown) (no (unknown) (unknown) Respiratory (units (un known) date) unknown) (unknown) (no (unknown) (unknown) Respiratory Rate (units (unknown) date) 18 06/28/21 11:14 unknown) (unknown) (no (unknown) (unknown) Respiratory Rate (units (unknown) date) 18 unknown) (unknown) (no (unknown) (unknown) Respiratory: (units (u nknown) date) Reports change in unknown) phlegm color, Reports cough, Denies hemoptysis, (unknown) (no (unknown) (unknown) Return precautions (units (unknown) date) discussed with unknown) patient/family whom verbalize understanding. (unknown) (no (unknown) (unknown) Review of Systems (units (unknown) date) unknown) (unknown) (no (unknown) (unknown) SKIN: No rash or (units (unknown) date) erythema of visible unknown) areas (unknown) (no (unknown) (unknown) Signed By: (units (unk nown) date) unknown) (unknown) (no (unknown) (unknown) Skin/Breast: (units (u nknown) date) Reports system unknown) reviewed and no additional complaints, except as (unknown) (no (unknown) (unknown) Smoking Status: (units (unknown) date) Current every day unknown) smoker (unknown) (no (unknown) (unknown) Smoking Status: (units (unknown) date) Current every day unknown) smoker (unknown) (no (unknown) (unknown) Social History (units (unknown) date) (Reviewed 06/28/21 unknown) @ 13:06 by Anabel Reveles PA-C) (unknown) (no (unknown) (unknown) Stated Complaint: (units (unknown) date) SOB, chest heavy unknown) post COVID (unknown) (no (unknown) (unknown) Substance Use (units ( unknown) date) Type: does not use unknown) (unknown) (no (unknown) (unknown) Surgical History (units (unknown) date) (Reviewed 06/28/21 unknown) @ 13:06 by Anabel Reveles PA-C) (unknown) (no (unknown) (unknown) Surgical changes (units (unknown) date) and devices:? unknown) None.? (unknown) (no (unknown) (unknown) TECHNIQUE:? 2 (units ( unknown) date) views of the chest unknown) were acquired.? (unknown) (no (unknown) (unknown) Temperature 97.0 (units (unknown) date) F L 06/28/21 11:14 unknown) (unknown) (no (unknown) (unknown) Temperature 97.0 F (units (unknown) date) L unknown) (unknown) (no (unknown) (unknown) Time Seen by (units (u nknown) date) Provider: 06/28/21 unknown) 12:04 (unknown) (no (unknown) (unknown) Vital Signs (units (un known) date) unknown) (unknown) (no (unknown) (unknown) Vital signs: (units (u nknown) date) unknown) (unknown) (no (unknown) (unknown) XR chest 2V Stat (units (unknown) date) unknown) (unknown) (no (unknown) (unknown) aerosol inhaler (units (unknown) date) gram unknown) (unknown) (no (unknown) (unknown) albuterol sulfate (units (unknown) date) 90 mcg/actuation 2 unknown) puff INHALATION Q4-6H PRN #8.5 06/21/21 (unknown) (no (unknown) (unknown) alcohol intake (units (unknown) date) frequency: unknown) holidays/special occasions only (unknown) (no (unknown) (unknown) and her oxygen (units ( unknown) date) saturation is 100 unknown) on room air. Upon physical exam, she has clear (unknown) (no (unknown) (unknown) breath and chest (units (unknown) date) pain following a unknown) COVID-19 diagnosis 1.5 weeks ago. She reports (unknown) (no (unknown) (unknown) breath and chest (units (unknown) date) pain following a unknown) COVID-19 diagnosis 1.5 weeks ago. We (unknown) (no (unknown) (unknown) can take ibuprofen (units (unknown) date) as needed. unknown) (unknown) (no (unknown) (unknown) capsule (Macrobid) (units (unknown) date) unknown) (unknown) (no (unknown) (unknown) concerning (units (unk nown) date) symptoms, such as unknown) [fever greater than 101 F, shaking chills, (unknown) (no (unknown) (unknown) distress. (units (unkn own) date) unknown) (unknown) (no (unknown) (unknown) documented (units (unk nown) date) unknown) (unknown) (no (unknown) (unknown) documented, Denies (units (unknown) date) dizziness, Denies unknown) syncope, Denies headache(s), Denies (unknown) (no (unknown) (unknown) documented, Denies (units (unknown) date) fatigue and Denies unknown) palpitations (unknown) (no (unknown) (unknown) documented, Denies (units (unknown) date) pruritus, Denies unknown) erythema and Denies rash (unknown) (no (unknown) (unknown) except as (units (unkn own) date) documented unknown) (unknown) (no (unknown) (unknown) except as (units (unkn own) date) documented and unknown) Denies itchy eyes (unknown) (no (unknown) (unknown) feel better soon! (units (unknown) date) unknown) (unknown) (no (unknown) (unknown) feels like she has (units (unknown) date) difficulty taking a unknown) full deep breath. She feels that all her (unknown) (no (unknown) (unknown) headache, ear (units ( unknown) date) pain, fever, unknown) nausea, or vomiting. She does report an occasional (unknown) (no (unknown) (unknown) heal. I also (units ( unknown) date) encouraged her to unknown) take her albuterol inhaler regularly every 4-6 (unknown) (no (unknown) (unknown) hours as the (units (u nknown) date) shortness of breath unknown) persists, and to use a humidifier or a steam (unknown) (no (unknown) (unknown) icterus. No (units (un known) date) injection or unknown) drainage. (unknown) (no (unknown) (unknown) minutes after (units ( unknown) date) taking an inhaler unknown) but then will reappear a few hours later. She (unknown) (no (unknown) (unknown) monohydrate/macroc (units (unknown) date) rystals 100 mg unknown) (unknown) (no (unknown) (unknown) nitrofurantoin 100 (units (unknown) date) mg PO BID #14 cap unknown) 01/27/21 (unknown) (no (unknown) (unknown) numbness, Denies (units (unknown) date) tingling and Denies unknown) weakness (unknown) (no (unknown) (unknown) once throughout (units (unknown) date) the day if she unknown) feels she needs it. She denies any dizziness, (unknown) (no (unknown) (unknown) ondansetron HCl 4 (units (unknown) date) mg tablet 4 mg PO unknown) Q6-8H #7 tab 11/08/20 (unknown) (no (unknown) (unknown) other COVID-19 (units (unknown) date) symptoms have unknown) gotten better but her shortness of breath has (unknown) (no (unknown) (unknown) pain, Denies (units (u nknown) date) headache(s), Denies unknown) nasal congestion, Reports nasal discharge and (unknown) (no (unknown) (unknown) performed a chest (units (unknown) date) x-ray today which unknown) came back as normal. Her vitals are stable (unknown) (no (unknown) (unknown) persisted. She (units (unknown) date) was prescribed an unknown) albuterol inhaler during her prior visit when (unknown) (no (unknown) (unknown) productive cough (units (unknown) date) that she did not unknown) originally have when she was first diagnosed (unknown) (no (unknown) (unknown) refrain from (units (u nknown) date) smoking whenever unknown) possible as your body continues to heal from the (unknown) (no (unknown) (unknown) says that she (units ( unknown) date) takes her inhaler unknown) upon waking up, before going to bed, and maybe (unknown) (no (unknown) (unknown) she was diagnosed (units (unknown) date) with COVID-19, and unknown) states that her symptoms resolve about 30 (unknown) (no (unknown) (unknown) shower to help (units (unknown) date) loosen up any unknown) lingering phlegm as needed. I also told her she (unknown) (no (unknown) (unknown) take 2 puffs of (units (unknown) date) your albuterol unknown) inhaler every 4-6 hours as needed to help with (unknown) (no (unknown) (unknown) that her shortness (units (unknown) date) of breath primarily unknown) occurs when waking up in the morning and (unknown) (no (unknown) (unknown) the community. (units (unknown) date) unknown) (unknown) (no (unknown) (unknown) the following, it (units (unknown) date) is likely her unknown) symptoms are due to inflammation persisting from (unknown) (no (unknown) (unknown) tobacco type: (units ( unknown) date) cigarettes and unknown) vaping (unknown) (no (unknown) (unknown) tonsillar (units (unkn own) date) hypertrophy or unknown) exudate. Airway patent. (unknown) (no (unknown) (unknown) unremarkable.? (units (unknown) date) unknown) (unknown) (no (unknown) (unknown) verbalization of (units (unknown) date) understanding unknown) (unknown) (no (unknown) (unknown) virus. If you (units ( unknown) date) develop a high unknown) fever, chills, or continue to experience worsening (unknown) (no (unknown) (unknown) with COVID-19. (units (unknown) date) unknown) (unknown) (no (unknown) (unknown) worsening pain, (units (unknown) date) persistent vomiting unknown) or other bothersome symptoms] (unknown) (no (unknown) (unknown) your shortness of (units (unknown) date) breath. You can unknown) also take Tylenol or ibuprofen as necessary. Result panel 15 (unknown) (no (unknown) (unknown) (no value) (units (unk nown) date) unknown) (unknown) (no (unknown) (unknown) Radiologist's (units ( unknown) date) Impression: unknown) (unknown) (no (unknown) (unknown) (no value) (units (unk nown) date) unknown) (unknown) (no (unknown) (unknown) *Please continue (units (unknown) date) to take your unknown) regular medications as directed. (unknown) (no (unknown) (unknown) Date of Service: (units (unknown) date) 06/28/21 unknown) (unknown) (no (unknown) (unknown) (no value) (units (unk nown) date) unknown) (unknown) (no (unknown) (unknown) <Electronically (units (unknown) date) signed by Lissett unknown) Roverto Bhakta.OJoyce> (unknown) (no (unknown) (unknown) <Electronically (units (unknown) date) signed by Lissett unknown) Js LayneOJoyce> (unknown) (no (unknown) (unknown) <Electronically (units (unknown) date) signed by Anabel Mayorga unknown) Liliane eRveles> (unknown) (no (unknown) (unknown) 06/28/21 1310 (units ( unknown) date) unknown) (unknown) (no (unknown) (unknown) 07/10/21 0159 (units ( unknown) date) unknown) (unknown) (no (unknown) (unknown) 100 mg PO BID Qty: (units (unknown) date) 14 0RF unknown) (unknown) (no (unknown) (unknown) [address] [place] [address] (units (unknown) date) unknown) (unknown) (no (unknown) (unknown) 2 puff INHALATION (units (unknown) date) Q4-6H PRN (Reason: unknown) shortness of breath or wheezing) Qty: (unknown) (no (unknown) (unknown) 4 mg PO Q6-8H Qty: (units (unknown) date) 7 0RF unknown) (unknown) (no (unknown) (unknown) Allergies (units (unkn own) date) unknown) (unknown) (no (unknown) (unknown) [place] (units ( unknown) date) [id number] unknown) (unknown) (no (unknown) (unknown) ED Orders (units (unkn own) date) unknown) (unknown) (no (unknown) (unknown) Emergency Report (units (unknown) date) unknown) (unknown) (no (unknown) (unknown) Merged With [facility] (units (unknown) date) unknown) (unknown) (no (unknown) (unknown) Merged With [facility] (units (unknown) date) [address] [place] [address] unknown) [place] [address] (unknown) (no (unknown) (unknown) Previous Rx's (units ( unknown) date) unknown) (unknown) (no (unknown) (unknown) Rx Instructions: (units (unknown) date) unknown) (unknown) (no (unknown) (unknown) Signed (units (unkno wn) date) unknown) (unknown) (no (unknown) (unknown) Vital Signs - 8 hr (units (unknown) date) unknown) (unknown) (no (unknown) (unknown) XRay Report (units (un known) date) unknown) (unknown) (no (unknown) (unknown) [ ] New medication (units (unknown) date) prescriptions sent unknown) to your pharmacy: [ ] (unknown) (no (unknown) (unknown) [ ] New medication (units (unknown) date) written as a paper unknown) prescription (unknown) (no (unknown) (unknown) [X] No new (units (unk nown) date) medications given unknown) (unknown) (no (unknown) (unknown) must administer (units (unknown) date) with a meal/food unknown) (unknown) (no (unknown) (unknown) (no value) (units (unk nown) date) unknown) (unknown) (no (unknown) (unknown) albuterol sulfate (units (unknown) date) 90 mcg/actuation unknown) HFA aerosol inhaler (unknown) (no (unknown) (unknown) nitrofurantoin (units (unknown) date) monohyd/m-cryst unknown) [Macrobid] 100 mg capsule (unknown) (no (unknown) (unknown) ondansetron HCl (units (unknown) date) [Zofran] 4 mg unknown) tablet (unknown) (no (unknown) (unknown) 06/28/21 (units (unkno wn) date) unknown) (unknown) (no (unknown) (unknown) COVID-19 (units (unkno wn) date) unknown) (unknown) (no (unknown) (unknown) Medication (units (unk nown) date) Instructions unknown) Recorded (unknown) (no (unknown) (unknown) You should drink (units (unknown) date) plenty of fluids, unknown) use a humidifier or steam shower, and (unknown) (no (unknown) (unknown) bilateral breath (units (unknown) date) sounds with no unknown) wheezing present and moves air well. Based on (unknown) (no (unknown) (unknown) chest pain or (units ( unknown) date) shortness of breath unknown) please return back to the ER. I hope you (unknown) (no (unknown) (unknown) documented, Denies (units (unknown) date) myalgias, Denies unknown) numbness and Denies tingling (unknown) (no (unknown) (unknown) her COVID-19 virus (units (unknown) date) and should continue unknown) to get better as her body continues to (unknown) (no (unknown) (unknown) rales, or rhonchi. (units (unknown) date) unknown) (unknown) (no (unknown) (unknown) vomiting (units (unkno wn) date) unknown) (unknown) (no (unknown) (unknown) <Lissett Layne, (units (unknown) date) DO - Last Filed: unknown) 07/10/21 01:59> (unknown) (no (unknown) (unknown) <Anabel L (units (unkno wn) date) KIANNA Reveles - unknown) Last Filed: 06/28/21 13:10> (unknown) (no (unknown) (unknown) <cosigner> (units (unk nown) date) unknown) (unknown) (no (unknown) (unknown) (Zofran) (units (unkno wn) date) unknown) (unknown) (no (unknown) (unknown) *If you do not (units (unknown) date) have a primary care unknown) provider please contact the Merged With [facility] (unknown) (no (unknown) (unknown) *Return to (units (unk nown) date) Emergency unknown) Department if you should have any new, worsening or (unknown) (no (unknown) (unknown) *What to do: (units (u nknown) date) unknown) (unknown) (no (unknown) (unknown) *You have been (units (unknown) date) diagnosed with unknown) COVID-19 viral illness. You should continue to (unknown) (no (unknown) (unknown) 06/28/21 11:17 (units (unknown) date) unknown) (unknown) (no (unknown) (unknown) 11:14 (units (unkno wn) date) unknown) (unknown) (no (unknown) (unknown) [id number] (units (unkno wn) date) unknown) (unknown) (no (unknown) (unknown) 8.5 0RF (units (unkno wn) date) unknown) (unknown) (no (unknown) (unknown) ? (units (unkno wn) date) unknown) (unknown) (no (unknown) (unknown) Accession Number: (units (unknown) date) [id number] ?? unknown) (unknown) (no (unknown) (unknown) Acct:[id number] (units (unknown) date) unknown) (unknown) (no (unknown) (unknown) Activity (units (unkno wn) date) Restrictions/Additi unknown) onal Instructions: (unknown) (no (unknown) (unknown) Age/Sex: 21 / F (units (unknown) date) unknown) (unknown) (no (unknown) (unknown) Age/Sex: 21 / F (units (unknown) date) unknown) (unknown) (no (unknown) (unknown) Allergic/Immunolog (units (unknown) date) ic unknown) (unknown) (no (unknown) (unknown) Allergic/Immunolog (units (unknown) date) ic: Reports system unknown) reviewed and no additional complaints, (unknown) (no (unknown) (unknown) Allergy/AdvReac (units (unknown) date) Type Severity unknown) Reaction Status Date / Time (unknown) (no (unknown) (unknown) Approved by: Conrado (units (unknown) date) Marbella Rodarte on unknown) 06/28/2021 at 10:57? (unknown) (no (unknown) (unknown) BACK: Nontender (units (unknown) date) without deformity unknown) or crepitance. No flank tenderness. (unknown) (no (unknown) (unknown) Blood Pressure (units (unknown) date) 161/89 H 06/28/21 unknown) 11:14 (unknown) (no (unknown) (unknown) Blood Pressure (units (unknown) date) 161/89 H unknown) (unknown) (no (unknown) (unknown) Bones and chest (units (unknown) date) wall:? No unknown) suspicious bony abnormalities.? Soft tissues appear (unknown) (no (unknown) (unknown) CARDIOVASCULAR: (units (unknown) date) Regular rate and unknown) rhythm without murmurs, gallops, or rubs. (unknown) (no (unknown) (unknown) COMPARISON:? (units (u nknown) date) Merged With [facility], unknown) CR, XR CHEST 2V, 03/03/2021, 15:32. (unknown) (no (unknown) (unknown) Call Center at (units (unknown) date) [phone] and unknown) they can help get you set up with a doctor in (unknown) (no (unknown) (unknown) Cardiovascular (units (unknown) date) unknown) (unknown) (no (unknown) (unknown) Cardiovascular: (units (unknown) date) Reports chest pain, unknown) Denies chest pain at rest, Denies syncope, (unknown) (no (unknown) (unknown) Chest x-ray: (units (u nknown) date) unknown) (unknown) (no (unknown) (unknown) Chief Complaint: (units (unknown) date) Upper Respiratory unknown) Symptoms (unknown) (no (unknown) (unknown) Clinical (units (unkno wn) date) Impression: unknown) (unknown) (no (unknown) (unknown) Constitutional (units (unknown) date) unknown) (unknown) (no (unknown) (unknown) Constitutional: (units (unknown) date) Denies chills, unknown) Reports difficulty sleeping, Denies fatigue, (unknown) (no (unknown) (unknown) Cosign (units (unkno wn) date) unknown) (unknown) (no (unknown) (unknown) Course (units (unkno wn) date) unknown) (unknown) (no (unknown) (unknown) : 2000 (units (unknown) date) Acct:[id number] unknown) (unknown) (no (unknown) (unknown) : 2000 (units (unknown) date) unknown) (unknown) (no (unknown) (unknown) Date of Service: (units (unknown) date) 06/28/21 unknown) (unknown) (no (unknown) (unknown) Denies fever(s), (units (unknown) date) Denies headache(s) unknown) and Denies weakness (unknown) (no (unknown) (unknown) Denies (units (unkno wn) date) palpitations, unknown) Reports dyspnea and Reports dyspnea on exertion (unknown) (no (unknown) (unknown) Denies sinus (units (u nknown) date) pressure unknown) (unknown) (no (unknown) (unknown) Departure (units (unkn own) date) unknown) (unknown) (no (unknown) (unknown) Discharge Plan (units (unknown) date) unknown) (unknown) (no (unknown) (unknown) ED Attending (units (u nknown) date) Cosignature unknown) Attestation: (unknown) (no (unknown) (unknown) ENT (units (unkno wn) date) unknown) (unknown) (no (unknown) (unknown) ENT: Nose without (units (unknown) date) bleeding, purulent unknown) drainage. Throat without erythema, (unknown) (no (unknown) (unknown) ER Physician: (units ( unknown) date) Anushka,Anabel L unknown) P.A-C (unknown) (no (unknown) (unknown) EXTREMITIES: No (units (unknown) date) edema or joint unknown) tenderness. (unknown) (no (unknown) (unknown) EYES: Pupils equal (units (unknown) date) round and reactive. unknown) Extraocular motions intact. No scleral (unknown) (no (unknown) (unknown) Ears, Nose, Mouth, (units (unknown) date) and Throat: Denies unknown) dizziness, Denies otalgia, Denies facial (unknown) (no (unknown) (unknown) Endocrine (units (unkn own) date) unknown) (unknown) (no (unknown) (unknown) Endocrine: Reports (units (unknown) date) system reviewed and unknown) no additional complaints, except as (unknown) (no (unknown) (unknown) Exam (units (unkno wn) date) unknown) (unknown) (no (unknown) (unknown) Exam Narrative: (units (unknown) date) unknown) (unknown) (no (unknown) (unknown) Eyes (units (unkno wn) date) unknown) (unknown) (no (unknown) (unknown) Eyes: Denies (units (u nknown) date) change in vision, unknown) Denies itchy eyes and Denies eye pain (unknown) (no (unknown) (unknown) FINDINGS:? (units (unk nown) date) unknown) (unknown) (no (unknown) (unknown) Findings and (units (u nknown) date) discharge diagnosis unknown) discussed with patient/family followed by (unknown) (no (unknown) (unknown) GASTROINTESTINAL: (units (unknown) date) Abdomen soft, unknown) non-tender, nondistended. (unknown) (no (unknown) (unknown) GENERAL: 21 year (units (unknown) date) old patient appears unknown) stated age. Well-developed patient, in no (unknown) (no (unknown) (unknown) Gastrointestinal (units (unknown) date) unknown) (unknown) (no (unknown) (unknown) Gastrointestinal: (units (unknown) date) Denies unknown) constipation, Denies diarrhea, Denies nausea and Denies (unknown) (no (unknown) (unknown) General (units (unkno wn) date) unknown) (unknown) (no (unknown) (unknown) Genitourinary (units ( unknown) date) unknown) (unknown) (no (unknown) (unknown) Genitourinary: (units (unknown) date) Reports system unknown) reviewed and no additional complaints, except as (unknown) (no (unknown) (unknown) HEAD: Atraumatic. (units (unknown) date) Normocephalic. unknown) (unknown) (no (unknown) (unknown) HPI - URI/Sore (units (unknown) date) Throat unknown) (unknown) (no (unknown) (unknown) HPI Narrative: (units (unknown) date) unknown) (unknown) (no (unknown) (unknown) Healthy adolescent (units (unknown) date) unknown) (unknown) (no (unknown) (unknown) Hematologic/Lympha (units (unknown) date) tic unknown) (unknown) (no (unknown) (unknown) Hematologic/Lympha (units (unknown) date) tic: Reports system unknown) reviewed and no additional complaints, (unknown) (no (unknown) (unknown) History of Present (units (unknown) date) Illness unknown) (unknown) (no (unknown) (unknown) I was immediately (units (unknown) date) available in the unknown) department for consultation. Documentation (unknown) (no (unknown) (unknown) IMPRESSION:? (units (u nknown) date) Normal two view unknown) chest x-ray (unknown) (no (unknown) (unknown) INDICATIONS:? SOB, (units (unknown) date) chest pain COVID unknown) 1.5weeks ago (unknown) (no (unknown) (unknown) Imaging Data (units (u nknown) date) unknown) (unknown) (no (unknown) (unknown) Initial Vital (units ( unknown) date) Signs unknown) (unknown) (no (unknown) (unknown) Initial Vital (units ( unknown) date) Signs: unknown) (unknown) (no (unknown) (unknown) Instructions: DI (units (unknown) date) for Viral Syndrome, unknown) DI for COVID-19 (Suspected or Confirmed ) (unknown) (no (unknown) (unknown) Integumentary/Leticia (units (unknown) date) sts unknown) (unknown) (no (unknown) (unknown) Loc: ED (units (unkno wn) date) unknown) (unknown) (no (unknown) (unknown) Lungs and pleura:? (units (unknown) date) Lungs are clear.? unknown) No pleural effusions or pneumothorax.? (unknown) (no (unknown) (unknown) MDM - URI/Sore (units (unknown) date) Throat unknown) (unknown) (no (unknown) (unknown) MDM Narrative (units ( unknown) date) unknown) (unknown) (no (unknown) (unknown) MR#: [id number] (units (unknown) date) unknown) (unknown) (no (unknown) (unknown) Mediastinum:? (units ( unknown) date) Mediastinal unknown) contours are normal.? Heart size is normal.? (unknown) (no (unknown) (unknown) Medical History (units (unknown) date) (Updated 07/04/21 @ unknown) 00:01 by ) (unknown) (no (unknown) (unknown) Medical decision (units (unknown) date) making narrative: unknown) (unknown) (no (unknown) (unknown) Musculoskeletal (units (unknown) date) unknown) (unknown) (no (unknown) (unknown) Musculoskeletal: (units (unknown) date) Reports system unknown) reviewed and no additional complaints, except as (unknown) (no (unknown) (unknown) NECK: Trachea (units ( unknown) date) midline. Non tender unknown) (unknown) (no (unknown) (unknown) NEURO: AOx3. (units (u nknown) date) unknown) (unknown) (no (unknown) (unknown) Narrative (units (unkn own) date) unknown) (unknown) (no (unknown) (unknown) Nephrolithiasis (units (unknown) date) unknown) (unknown) (no (unknown) (unknown) Neurologic (units (unk nown) date) unknown) (unknown) (no (unknown) (unknown) Neurologic: (units (un known) date) Reports system unknown) reviewed and no additional complaints, except as (unknown) (no (unknown) (unknown) No Action (units (unkn own) date) unknown) (unknown) (no (unknown) (unknown) No history of (units ( unknown) date) previous surgery unknown) (unknown) (no (unknown) (unknown) Ordered: (units (unkno wn) date) unknown) (unknown) (no (unknown) (unknown) Ordering Provider: (units (unknown) date) Lissett Layne D.O. unknown) (unknown) (no (unknown) (unknown) Orders (units (unkno wn) date) unknown) (unknown) (no (unknown) (unknown) PROCEDURE:? XR (units (unknown) date) CHEST 2V unknown) (unknown) (no (unknown) (unknown) Patient (units (unkno wn) date) Disposition: Home unknown) (unknown) (no (unknown) (unknown) Patient History (units (unknown) date) unknown) (unknown) (no (unknown) (unknown) Patient is a (units (u nknown) date) 21-year-old female unknown) presenting today with persistent shortness of (unknown) (no (unknown) (unknown) Patient: (units (unkno wn) date) Jenny Cobb unknown) MR#: [id number] (unknown) (no (unknown) (unknown) Patient: (units (unkno wn) date) Jenny Cobb unknown) (unknown) (no (unknown) (unknown) Penicillins (units (un known) date) [PENICILLINS] unknown) Allergy Unknown Anaphylaxis Verified 06/28/21 11:17 (unknown) (no (unknown) (unknown) Prescriptions: (units (unknown) date) unknown) (unknown) (no (unknown) (unknown) Procedure: XR (units ( unknown) date) chest 2V unknown) (unknown) (no (unknown) (unknown) Psychiatric (units (un known) date) unknown) (unknown) (no (unknown) (unknown) Psychiatric: (units (u nknown) date) Reports system unknown) reviewed and no additional complaints, except as (unknown) (no (unknown) (unknown) Pulse Oximetry (units (unknown) date) 100 06/28/21 unknown) 11:14 (unknown) (no (unknown) (unknown) Pulse Oximetry 100 (units (unknown) date) unknown) (unknown) (no (unknown) (unknown) Pulse Rate 70 (units (unknown) date) 06/28/21 11:14 unknown) (unknown) (no (unknown) (unknown) Pulse Rate 70 (units ( unknown) date) unknown) (unknown) (no (unknown) (unknown) RESPIRATORY: Clear (units (unknown) date) to auscultation. unknown) Breath sounds equal bilaterally. No wheezes, (unknown) (no (unknown) (unknown) Related Data (units (u nknown) date) unknown) (unknown) (no (unknown) (unknown) Reports dyspnea (units (unknown) date) and Reports dyspnea unknown) on exertion (unknown) (no (unknown) (unknown) Respiratory (units (un known) date) unknown) (unknown) (no (unknown) (unknown) Respiratory Rate (units (unknown) date) 18 06/28/21 11:14 unknown) (unknown) (no (unknown) (unknown) Respiratory Rate (units (unknown) date) 18 unknown) (unknown) (no (unknown) (unknown) Respiratory: (units (u nknown) date) Reports change in unknown) phlegm color, Reports cough, Denies hemoptysis, (unknown) (no (unknown) (unknown) Return precautions (units (unknown) date) discussed with unknown) patient/family whom verbalize understanding. (unknown) (no (unknown) (unknown) Review of Systems (units (unknown) date) unknown) (unknown) (no (unknown) (unknown) SKIN: No rash or (units (unknown) date) erythema of visible unknown) areas (unknown) (no (unknown) (unknown) Signed By: (units (unk nown) date) unknown) (unknown) (no (unknown) (unknown) Skin/Breast: (units (u nknown) date) Reports system unknown) reviewed and no additional complaints, except as (unknown) (no (unknown) (unknown) Smoking Status: (units (unknown) date) Current every day unknown) smoker (unknown) (no (unknown) (unknown) Smoking Status: (units (unknown) date) Current every day unknown) smoker (unknown) (no (unknown) (unknown) Social History (units (unknown) date) (Reviewed 06/28/21 unknown) @ 13:06 by Anabel Reveles PA-C) (unknown) (no (unknown) (unknown) Stated Complaint: (units (unknown) date) SOB, chest heavy unknown) post COVID (unknown) (no (unknown) (unknown) Substance Use (units ( unknown) date) Type: does not use unknown) (unknown) (no (unknown) (unknown) Surgical History (units (unknown) date) (Reviewed 06/28/21 unknown) @ 13:06 by Anabel Reveles PA-C) (unknown) (no (unknown) (unknown) Surgical changes (units (unknown) date) and devices:? unknown) None.? (unknown) (no (unknown) (unknown) TECHNIQUE:? 2 (units ( unknown) date) views of the chest unknown) were acquired.? (unknown) (no (unknown) (unknown) Temperature 97.0 (units (unknown) date) F L 06/28/21 11:14 unknown) (unknown) (no (unknown) (unknown) Temperature 97.0 F (units (unknown) date) L unknown) (unknown) (no (unknown) (unknown) Time Seen by (units (u nknown) date) Provider: 06/28/21 unknown) 12:04 (unknown) (no (unknown) (unknown) Vital Signs (units (un known) date) unknown) (unknown) (no (unknown) (unknown) Vital signs: (units (u nknown) date) unknown) (unknown) (no (unknown) (unknown) XR chest 2V Stat (units (unknown) date) unknown) (unknown) (no (unknown) (unknown) aerosol inhaler (units (unknown) date) gram unknown) (unknown) (no (unknown) (unknown) albuterol sulfate (units (unknown) date) 90 mcg/actuation 2 unknown) puff INHALATION Q4-6H PRN #8.5 06/21/21 (unknown) (no (unknown) (unknown) alcohol intake (units (unknown) date) frequency: unknown) holidays/special occasions only (unknown) (no (unknown) (unknown) and her oxygen (units ( unknown) date) saturation is 100 unknown) on room air. Upon physical exam, she has clear (unknown) (no (unknown) (unknown) breath and chest (units (unknown) date) pain following a unknown) COVID-19 diagnosis 1.5 weeks ago. She reports (unknown) (no (unknown) (unknown) breath and chest (units (unknown) date) pain following a unknown) COVID-19 diagnosis 1.5 weeks ago. We (unknown) (no (unknown) (unknown) can take ibuprofen (units (unknown) date) as needed. unknown) (unknown) (no (unknown) (unknown) capsule (Macrobid) (units (unknown) date) unknown) (unknown) (no (unknown) (unknown) concerning (units (unk nown) date) symptoms, such as unknown) [fever greater than 101 F, shaking chills, (unknown) (no (unknown) (unknown) distress. (units (unkn own) date) unknown) (unknown) (no (unknown) (unknown) documented (units (unk nown) date) unknown) (unknown) (no (unknown) (unknown) documented, Denies (units (unknown) date) dizziness, Denies unknown) syncope, Denies headache(s), Denies (unknown) (no (unknown) (unknown) documented, Denies (units (unknown) date) fatigue and Denies unknown) palpitations (unknown) (no (unknown) (unknown) documented, Denies (units (unknown) date) pruritus, Denies unknown) erythema and Denies rash (unknown) (no (unknown) (unknown) except as (units (unkn own) date) documented unknown) (unknown) (no (unknown) (unknown) except as (units (unkn own) date) documented and unknown) Denies itchy eyes (unknown) (no (unknown) (unknown) feel better soon! (units (unknown) date) unknown) (unknown) (no (unknown) (unknown) feels like she has (units (unknown) date) difficulty taking a unknown) full deep breath. She feels that all her (unknown) (no (unknown) (unknown) has been reviewed. (units (unknown) date) I agree with unknown) assessment and plan. (unknown) (no (unknown) (unknown) headache, ear (units ( unknown) date) pain, fever, unknown) nausea, or vomiting. She does report an occasional (unknown) (no (unknown) (unknown) heal. I also (units ( unknown) date) encouraged her to unknown) take her albuterol inhaler regularly every 4-6 (unknown) (no (unknown) (unknown) hours as the (units (u nknown) date) shortness of breath unknown) persists, and to use a humidifier or a steam (unknown) (no (unknown) (unknown) icterus. No (units (un known) date) injection or unknown) drainage. (unknown) (no (unknown) (unknown) minutes after (units ( unknown) date) taking an inhaler unknown) but then will reappear a few hours later. She (unknown) (no (unknown) (unknown) monohydrate/macroc (units (unknown) date) rystals 100 mg unknown) (unknown) (no (unknown) (unknown) nitrofurantoin 100 (units (unknown) date) mg PO BID #14 cap unknown) 01/27/21 (unknown) (no (unknown) (unknown) numbness, Denies (units (unknown) date) tingling and Denies unknown) weakness (unknown) (no (unknown) (unknown) once throughout (units (unknown) date) the day if she unknown) feels she needs it. She denies any dizziness, (unknown) (no (unknown) (unknown) ondansetron HCl 4 (units (unknown) date) mg tablet 4 mg PO unknown) Q6-8H #7 tab 11/08/20 (unknown) (no (unknown) (unknown) other COVID-19 (units (unknown) date) symptoms have unknown) gotten better but her shortness of breath has (unknown) (no (unknown) (unknown) pain, Denies (units (u nknown) date) headache(s), Denies unknown) nasal congestion, Reports nasal discharge and (unknown) (no (unknown) (unknown) performed a chest (units (unknown) date) x-ray today which unknown) came back as normal. Her vitals are stable (unknown) (no (unknown) (unknown) persisted. She (units (unknown) date) was prescribed an unknown) albuterol inhaler during her prior visit when (unknown) (no (unknown) (unknown) productive cough (units (unknown) date) that she did not unknown) originally have when she was first diagnosed (unknown) (no (unknown) (unknown) refrain from (units (u nknown) date) smoking whenever unknown) possible as your body continues to heal from the (unknown) (no (unknown) (unknown) says that she (units ( unknown) date) takes her inhaler unknown) upon waking up, before going to bed, and maybe (unknown) (no (unknown) (unknown) she was diagnosed (units (unknown) date) with COVID-19, and unknown) states that her symptoms resolve about 30 (unknown) (no (unknown) (unknown) shower to help (units (unknown) date) loosen up any unknown) lingering phlegm as needed. I also told her she (unknown) (no (unknown) (unknown) take 2 puffs of (units (unknown) date) your albuterol unknown) inhaler every 4-6 hours as needed to help with (unknown) (no (unknown) (unknown) that her shortness (units (unknown) date) of breath primarily unknown) occurs when waking up in the morning and (unknown) (no (unknown) (unknown) the community. (units (unknown) date) unknown) (unknown) (no (unknown) (unknown) the following, it (units (unknown) date) is likely her unknown) symptoms are due to inflammation persisting from (unknown) (no (unknown) (unknown) tobacco type: (units ( unknown) date) cigarettes and unknown) vaping (unknown) (no (unknown) (unknown) tonsillar (units (unkn own) date) hypertrophy or unknown) exudate. Airway patent. (unknown) (no (unknown) (unknown) unremarkable.? (units (unknown) date) unknown) (unknown) (no (unknown) (unknown) verbalization of (units (unknown) date) understanding unknown) (unknown) (no (unknown) (unknown) virus. If you (units ( unknown) date) develop a high unknown) fever, chills, or continue to experience worsening (unknown) (no (unknown) (unknown) with COVID-19. (units (unknown) date) unknown) (unknown) (no (unknown) (unknown) worsening pain, (units (unknown) date) persistent vomiting unknown) or other bothersome symptoms] (unknown) (no (unknown) (unknown) your shortness of (units (unknown) date) breath. You can unknown) also take Tylenol or ibuprofen as necessary. Result panel 16 (unknown) (no (unknown) (unknown) (no value) (units (unk nown) date) unknown) (unknown) (no (unknown) (unknown) [address] [place] [address] (units (unknown) date) unknown) (unknown) (no (unknown) (unknown) [place], [place] (units ( unknown) date) [address] unknown) (unknown) (no (unknown) (unknown) Merged With [facility] (units (unknown) date) unknown) (unknown) (no (unknown) (unknown) Signed (units (unkno wn) date) unknown) (unknown) (no (unknown) (unknown) XRay Report (units (un known) date) unknown) (unknown) (no (unknown) (unknown) (no value) (units (unk nown) date) unknown) (unknown) (no (unknown) (unknown) 07/24/21 (units (unkno wn) date) unknown) (unknown) (no (unknown) (unknown) Approved by: Reece (units (unknown) date) Marbella Martinez on unknown) 07/24/2021 at 8:19 (unknown) (no (unknown) (unknown) Bones and chest (units (unknown) date) wall: No unknown) suspicious bony lesions. Overlying soft tissues (unknown) (no (unknown) (unknown) COMPARISON: (units (un known) date) Merged With [facility], unknown) CR, XR CHEST 2V, 06/28/2021, 11:09. (unknown) (no (unknown) (unknown) Dictated by: Reece (units (unknown) date) Marbella Martinez on unknown) 07/24/2021 at 8:18 (unknown) (no (unknown) (unknown) FINDINGS: (units (unkn own) date) unknown) (unknown) (no (unknown) (unknown) IMPRESSION: No (units (unknown) date) acute unknown) cardiopulmonary pathology. (unknown) (no (unknown) (unknown) INDICATIONS: (units (u nknown) date) chest pain, s/p unknown) covid infection (unknown) (no (unknown) (unknown) Lungs and pleura: (units (unknown) date) Lungs are clear. unknown) No pleural effusions or pneumothorax. (unknown) (no (unknown) (unknown) Mediastinum: (units (u nknown) date) Mediastinal unknown) contours appear normal. Heart size is normal. (unknown) (no (unknown) (unknown) Surgical changes (units (unknown) date) and devices: unknown) None. (unknown) (no (unknown) (unknown) TECHNIQUE: One (units (unknown) date) view of the chest unknown) was acquired. (unknown) (no (unknown) (unknown) unremarkable. (units ( unknown) date) unknown) (unknown) (no (unknown) (unknown) [id number] (units (unkno wn) date) unknown) (unknown) (no (unknown) (unknown) Accession Number: (units (unknown) date) [id number] unknown) (unknown) (no (unknown) (unknown) Age/Sex: 21 / F (units (unknown) date) Date of Service: unknown) (unknown) (no (unknown) (unknown) : 2000 (units (unknown) date) Acct:[id number] unknown) (unknown) (no (unknown) (unknown) Loc: ED (units (unkno wn) date) unknown) (unknown) (no (unknown) (unknown) Ordering (units (unkno wn) date) Provider: unknown) Noris Edwards D.O. (unknown) (no (unknown) (unknown) PROCEDURE: XR (units (unknown) date) CHEST 1V unknown) (unknown) (no (unknown) (unknown) Patient: (units (unkno wn) date) Jenny Cobb E unknown) MR#: [id number] (unknown) (no (unknown) (unknown) Procedure: XR (units ( unknown) date) chest 1V unknown) (unknown) (no (unknown) (unknown) appear (units (unkno wn) date) unknown) Result panel 17 (unknown) (no (unknown) (unknown) (no value) (units (unk nown) date) unknown) (unknown) (no (unknown) (unknown) Date of Service: (units (unknown) date) 07/24/21 unknown) (unknown) (no (unknown) (unknown) (no value) (units (unk nown) date) unknown) (unknown) (no (unknown) (unknown) 100 mg PO BID (units ( unknown) date) Qty: 14 0RF unknown) (unknown) (no (unknown) (unknown) 2 puff INHALATION (units (unknown) date) Q4-6H PRN (Reason: unknown) shortness of breath or wheezing) Qty: (unknown) (no (unknown) (unknown) 4 mg PO Q6-8H (units ( unknown) date) Qty: 7 0RF unknown) (unknown) (no (unknown) (unknown) Allergies (units (unkn own) date) unknown) (unknown) (no (unknown) (unknown) Emergency Report (units (unknown) date) unknown) (unknown) (no (unknown) (unknown) Merged With [facility] (units (unknown) date) [address] [place] [address] unknown) [place] [address] (unknown) (no (unknown) (unknown) Previous Rx's (units ( unknown) date) unknown) (unknown) (no (unknown) (unknown) Rx Instructions: (units (unknown) date) unknown) (unknown) (no (unknown) (unknown) Vital Signs - 8 (units (unknown) date) hr unknown) (unknown) (no (unknown) (unknown) must administer (units (unknown) date) with a meal/food unknown) (unknown) (no (unknown) (unknown) (no value) (units (unk nown) date) unknown) (unknown) (no (unknown) (unknown) albuterol sulfate (units (unknown) date) 90 mcg/actuation unknown) HFA aerosol inhaler (unknown) (no (unknown) (unknown) nitrofurantoin (units (unknown) date) monohyd/m-cryst unknown) [Macrobid] 100 mg capsule (unknown) (no (unknown) (unknown) ondansetron HCl (units (unknown) date) [Zofran] 4 mg unknown) tablet (unknown) (no (unknown) (unknown) #8.5 grams (units (unk nown) date) unknown) (unknown) (no (unknown) (unknown) 07/24/21 (units (unkno wn) date) unknown) (unknown) (no (unknown) (unknown) Medication (units (unk nown) date) Instructions unknown) Recorded (unknown) (no (unknown) (unknown) and below (units (unkn own) date) unknown) (unknown) (no (unknown) (unknown) (Zofran) (units (unkno wn) date) unknown) (unknown) (no (unknown) (unknown) 07:41 (units (unkno wn) date) unknown) (unknown) (no (unknown) (unknown) [id number] (units (unkno wn) date) unknown) (unknown) (no (unknown) (unknown) 8.5 0RF (units (unkno wn) date) unknown) (unknown) (no (unknown) (unknown) Age/Sex: 21 / F (units (unknown) date) unknown) (unknown) (no (unknown) (unknown) Allergy/AdvReac (units (unknown) date) Type Severity unknown) Reaction Status Date / Time (unknown) (no (unknown) (unknown) Blood Pressure (units (unknown) date) 163/90 H 07/24/21 unknown) 07:41 (unknown) (no (unknown) (unknown) Blood Pressure (units (unknown) date) 163/90 H unknown) (unknown) (no (unknown) (unknown) Chief Complaint: (units (unknown) date) Chest Pain unknown) (unknown) (no (unknown) (unknown) Course (units (unkno wn) date) unknown) (unknown) (no (unknown) (unknown) : 2000 (units (unknown) date) Acct:[id number] unknown) (unknown) (no (unknown) (unknown) Departure (units (unkn own) date) unknown) (unknown) (no (unknown) (unknown) Discharge Plan (units (unknown) date) unknown) (unknown) (no (unknown) (unknown) ER Physician: (units ( unknown) date) *Temp,ED* unknown) (unknown) (no (unknown) (unknown) Exam (units (unkno wn) date) unknown) (unknown) (no (unknown) (unknown) General (units (unkno wn) date) unknown) (unknown) (no (unknown) (unknown) HPI - Chest Pain (units (unknown) date) unknown) (unknown) (no (unknown) (unknown) Healthy (units (unkno wn) date) adolescent unknown) (unknown) (no (unknown) (unknown) Initial Vital (units ( unknown) date) Signs unknown) (unknown) (no (unknown) (unknown) Initial Vital (units ( unknown) date) Signs: unknown) (unknown) (no (unknown) (unknown) Limitations: no (units (unknown) date) limitations unknown) (unknown) (no (unknown) (unknown) Medical History (units (unknown) date) (Reviewed 07/24/21 unknown) @ 07:51 by Noris Edwards DO) (unknown) (no (unknown) (unknown) Mode of arrival: (units (unknown) date) Ambulatory unknown) (unknown) (no (unknown) (unknown) Nephrolithiasis (units (unknown) date) unknown) (unknown) (no (unknown) (unknown) No Action (units (unkn own) date) unknown) (unknown) (no (unknown) (unknown) No history of (units ( unknown) date) previous surgery unknown) (unknown) (no (unknown) (unknown) Oxygen Delivery (units (unknown) date) Method 07/24/21 unknown) 07:41 (unknown) (no (unknown) (unknown) Oxygen Delivery (units (unknown) date) Method Room Air unknown) (unknown) (no (unknown) (unknown) Patient History (units (unknown) date) unknown) (unknown) (no (unknown) (unknown) Patient: (units (unkno wn) date) Jenny Cobb unknown) MR#: [id number] (unknown) (no (unknown) (unknown) Penicillins (units (un known) date) [PENICILLINS] unknown) Allergy Unknown Anaphylaxis Verified 06/28/21 11:17 (unknown) (no (unknown) (unknown) Prescriptions: (units (unknown) date) unknown) (unknown) (no (unknown) (unknown) Pulse Oximetry (units (unknown) date) 99 07/24/21 unknown) 07:41 (unknown) (no (unknown) (unknown) Pulse Oximetry 99 (units (unknown) date) unknown) (unknown) (no (unknown) (unknown) Pulse Rate 85 (units (unknown) date) 07/24/21 07:41 unknown) (unknown) (no (unknown) (unknown) Pulse Rate 85 (units ( unknown) date) unknown) (unknown) (no (unknown) (unknown) ROS Unobtainable: (units (unknown) date) All systems unknown) reviewed + are unremarkable except as noted in HPI (unknown) (no (unknown) (unknown) Related Data (units (u nknown) date) unknown) (unknown) (no (unknown) (unknown) Respiratory Rate (units (unknown) date) 18 07/24/21 unknown) 07:41 (unknown) (no (unknown) (unknown) Respiratory Rate (units (unknown) date) 18 unknown) (unknown) (no (unknown) (unknown) Review of Systems (units (unknown) date) unknown) (unknown) (no (unknown) (unknown) Signed By: (units (unk nown) date) unknown) (unknown) (no (unknown) (unknown) Smoking Status: (units (unknown) date) Current every day unknown) smoker (unknown) (no (unknown) (unknown) Smoking Status: (units (unknown) date) Current every day unknown) smoker (unknown) (no (unknown) (unknown) Social History (units (unknown) date) (Reviewed 07/24/21 unknown) @ 07:51 by Noris Edwards DO) (unknown) (no (unknown) (unknown) Source: patient (units (unknown) date) unknown) (unknown) (no (unknown) (unknown) Stated Complaint: (units (unknown) date) chest pain right unknown) side (unknown) (no (unknown) (unknown) Substance Use (units ( unknown) date) Type: does not use unknown) (unknown) (no (unknown) (unknown) Surgical History (units (unknown) date) (Reviewed 07/24/21 unknown) @ 07:51 by Noris Edwards DO) (unknown) (no (unknown) (unknown) Temperature 98 F (units (unknown) date) 07/24/21 07:41 unknown) (unknown) (no (unknown) (unknown) Temperature 98 F (units (unknown) date) unknown) (unknown) (no (unknown) (unknown) Time Seen by (units (u nknown) date) Provider: 07/24/21 unknown) 07:51 (unknown) (no (unknown) (unknown) Vital Signs (units (un known) date) unknown) (unknown) (no (unknown) (unknown) Vital signs: (units (u nknown) date) unknown) (unknown) (no (unknown) (unknown) aerosol inhaler (units (unknown) date) shortness of unknown) breath or wheezing (unknown) (no (unknown) (unknown) albuterol sulfate (units (unknown) date) 90 mcg/actuation 2 unknown) puff inhalation Q4-6H PRN 06/21/21 (unknown) (no (unknown) (unknown) alcohol intake (units (unknown) date) frequency: unknown) holidays/special occasions only (unknown) (no (unknown) (unknown) capsule (units (unkno wn) date) (Macrobid) unknown) (unknown) (no (unknown) (unknown) monohydrate/macro (units (unknown) date) crystals 100 mg unknown) (unknown) (no (unknown) (unknown) nitrofurantoin (units (unknown) date) 100 mg PO BID #14 unknown) caps 01/27/21 (unknown) (no (unknown) (unknown) ondansetron HCl 4 (units (unknown) date) mg tablet 4 mg PO unknown) Q6-8H nausea #7 tabs 11/08/20 (unknown) (no (unknown) (unknown) tobacco type: (units ( unknown) date) cigarettes and unknown) vaping Result panel 18 (unknown) (no (unknown) (unknown) (no value) (units (unk nown) date) unknown) (unknown) (no (unknown) (unknown) My Impression: (units (unknown) date) unknown) (unknown) (no (unknown) (unknown) Date of Service: (units (unknown) date) 07/24/21 unknown) (unknown) (no (unknown) (unknown) (no value) (units (unk nown) date) unknown) (unknown) (no (unknown) (unknown) 100 mg PO BID (units ( unknown) date) Qty: 14 0RF unknown) (unknown) (no (unknown) (unknown) 2 puff INHALATION (units (unknown) date) Q4-6H PRN (Reason: unknown) shortness of breath or wheezing) Qty: (unknown) (no (unknown) (unknown) 4 mg PO Q6-8H (units ( unknown) date) Qty: 7 0RF unknown) (unknown) (no (unknown) (unknown) Allergies (units (unkn own) date) unknown) (unknown) (no (unknown) (unknown) ED Orders (units (unkn own) date) unknown) (unknown) (no (unknown) (unknown) Emergency Report (units (unknown) date) unknown) (unknown) (no (unknown) (unknown) Merged With [facility] (units (unknown) date) [address] unknown) [place] [address] (unknown) (no (unknown) (unknown) Previous Rx's (units ( unknown) date) unknown) (unknown) (no (unknown) (unknown) Rx Instructions: (units (unknown) date) unknown) (unknown) (no (unknown) (unknown) Vital Signs - 8 (units (unknown) date) hr unknown) (unknown) (no (unknown) (unknown) must administer (units (unknown) date) with a meal/food unknown) (unknown) (no (unknown) (unknown) (no value) (units (unk nown) date) unknown) (unknown) (no (unknown) (unknown) albuterol sulfate (units (unknown) date) 90 mcg/actuation unknown) HFA aerosol inhaler (unknown) (no (unknown) (unknown) nitrofurantoin (units (unknown) date) monohyd/m-cryst unknown) [Macrobid] 100 mg capsule (unknown) (no (unknown) (unknown) ondansetron HCl (units (unknown) date) [Zofran] 4 mg unknown) tablet (unknown) (no (unknown) (unknown) #8.5 grams (units (unk nown) date) unknown) (unknown) (no (unknown) (unknown) 07/24/21 (units (unkno wn) date) unknown) (unknown) (no (unknown) (unknown) Medication (units (unk nown) date) Instructions unknown) Recorded (unknown) (no (unknown) (unknown) and below (units (unkn own) date) unknown) (unknown) (no (unknown) (unknown) (Zofran) (units (unkno wn) date) unknown) (unknown) (no (unknown) (unknown) 07/24/21 07:53 (units (unknown) date) unknown) (unknown) (no (unknown) (unknown) 07:41 (units (unkno wn) date) unknown) (unknown) (no (unknown) (unknown) [id number] (units (unkno wn) date) unknown) (unknown) (no (unknown) (unknown) 8.5 0RF (units (unkno wn) date) unknown) (unknown) (no (unknown) (unknown) Age/Sex: 21 / F (units (unknown) date) unknown) (unknown) (no (unknown) (unknown) Allergy/AdvReac (units (unknown) date) Type Severity unknown) Reaction Status Date / Time (unknown) (no (unknown) (unknown) Attestation: I (units (unknown) date) personally unknown) reviewed and interpreted this ECG as follows: (unknown) (no (unknown) (unknown) Blood Pressure (units (unknown) date) 163/90 H 07/24/21 unknown) 07:41 (unknown) (no (unknown) (unknown) Blood Pressure (units (unknown) date) 163/90 H unknown) (unknown) (no (unknown) (unknown) Chest [XR chest (units (unknown) date) 1V] Stat unknown) (unknown) (no (unknown) (unknown) Chest x-ray: (units (u nknown) date) unknown) (unknown) (no (unknown) (unknown) Chief Complaint: (units (unknown) date) Chest Pain unknown) (unknown) (no (unknown) (unknown) Course (units (unkno wn) date) unknown) (unknown) (no (unknown) (unknown) : 2000 (units (unknown) date) Acct:[id number] unknown) (unknown) (no (unknown) (unknown) Departure (units (unkn own) date) unknown) (unknown) (no (unknown) (unknown) Discharge Plan (units (unknown) date) unknown) (unknown) (no (unknown) (unknown) ECG Data (units (unkno wn) date) unknown) (unknown) (no (unknown) (unknown) EKG-12 Lead Stat (units (unknown) date) unknown) (unknown) (no (unknown) (unknown) ER Physician: (units ( unknown) date) Noris Edwards D.O. unknown) (unknown) (no (unknown) (unknown) Exam (units (unkno wn) date) unknown) (unknown) (no (unknown) (unknown) General (units (unkno wn) date) unknown) (unknown) (no (unknown) (unknown) HPI - Chest Pain (units (unknown) date) unknown) (unknown) (no (unknown) (unknown) Healthy (units (unkno wn) date) adolescent unknown) (unknown) (no (unknown) (unknown) Imaging Data (units (u nknown) date) unknown) (unknown) (no (unknown) (unknown) Initial Vital (units ( unknown) date) Signs unknown) (unknown) (no (unknown) (unknown) Initial Vital (units ( unknown) date) Signs: unknown) (unknown) (no (unknown) (unknown) Limitations: no (units (unknown) date) limitations unknown) (unknown) (no (unknown) (unknown) MDM - Chest Pain (units (unknown) date) unknown) (unknown) (no (unknown) (unknown) Medical History (units (unknown) date) (Reviewed 07/24/21 unknown) @ 07:51 by oNris Edwards DO) (unknown) (no (unknown) (unknown) Mode of arrival: (units (unknown) date) Ambulatory unknown) (unknown) (no (unknown) (unknown) Nephrolithiasis (units (unknown) date) unknown) (unknown) (no (unknown) (unknown) No Action (units (unkn own) date) unknown) (unknown) (no (unknown) (unknown) No history of (units ( unknown) date) previous surgery unknown) (unknown) (no (unknown) (unknown) Ordered: (units (unkno wn) date) unknown) (unknown) (no (unknown) (unknown) Orders (units (unkno wn) date) unknown) (unknown) (no (unknown) (unknown) Oxygen Delivery (units (unknown) date) Method 07/24/21 unknown) 07:41 (unknown) (no (unknown) (unknown) Oxygen Delivery (units (unknown) date) Method Room Air unknown) (unknown) (no (unknown) (unknown) Patient History (units (unknown) date) unknown) (unknown) (no (unknown) (unknown) Patient: (units (unkno wn) date) Jenny Cobb unknown) MR#: [id number] (unknown) (no (unknown) (unknown) Penicillins (units (un known) date) [PENICILLINS] unknown) Allergy Unknown Anaphylaxis Verified 06/28/21 11:17 (unknown) (no (unknown) (unknown) Prescriptions: (units (unknown) date) unknown) (unknown) (no (unknown) (unknown) Pulse Oximetry (units (unknown) date) 99 07/24/21 unknown) 07:41 (unknown) (no (unknown) (unknown) Pulse Oximetry 99 (units (unknown) date) unknown) (unknown) (no (unknown) (unknown) Pulse Rate 85 (units (unknown) date) 07/24/21 07:41 unknown) (unknown) (no (unknown) (unknown) Pulse Rate 85 (units ( unknown) date) unknown) (unknown) (no (unknown) (unknown) ROS Unobtainable: (units (unknown) date) All systems unknown) reviewed + are unremarkable except as noted in HPI (unknown) (no (unknown) (unknown) Related Data (units (u nknown) date) unknown) (unknown) (no (unknown) (unknown) Respiratory Rate (units (unknown) date) 18 07/24/21 unknown) 07:41 (unknown) (no (unknown) (unknown) Respiratory Rate (units (unknown) date) 18 unknown) (unknown) (no (unknown) (unknown) Review of Systems (units (unknown) date) unknown) (unknown) (no (unknown) (unknown) Signed By: (units (unk nown) date) unknown) (unknown) (no (unknown) (unknown) Smoking Status: (units (unknown) date) Current every day unknown) smoker (unknown) (no (unknown) (unknown) Smoking Status: (units (unknown) date) Current every day unknown) smoker (unknown) (no (unknown) (unknown) Social History (units (unknown) date) (Reviewed 07/24/21 unknown) @ 07:51 by Noris Edwards DO) (unknown) (no (unknown) (unknown) Source: patient (units (unknown) date) unknown) (unknown) (no (unknown) (unknown) Stated Complaint: (units (unknown) date) chest pain right unknown) side (unknown) (no (unknown) (unknown) Substance Use (units ( unknown) date) Type: does not use unknown) (unknown) (no (unknown) (unknown) Surgical History (units (unknown) date) (Reviewed 07/24/21 unknown) @ 07:51 by Noris Edwards DO) (unknown) (no (unknown) (unknown) Temperature 98 F (units (unknown) date) 07/24/21 07:41 unknown) (unknown) (no (unknown) (unknown) Temperature 98 F (units (unknown) date) unknown) (unknown) (no (unknown) (unknown) Time Seen by (units (u nknown) date) Provider: 07/24/21 unknown) 07:51 (unknown) (no (unknown) (unknown) Vital Signs (units (un known) date) unknown) (unknown) (no (unknown) (unknown) Vital signs: (units (u nknown) date) unknown) (unknown) (no (unknown) (unknown) aerosol inhaler (units (unknown) date) shortness of unknown) breath or wheezing (unknown) (no (unknown) (unknown) albuterol sulfate (units (unknown) date) 90 mcg/actuation 2 unknown) puff inhalation Q4-6H PRN 06/21/21 (unknown) (no (unknown) (unknown) alcohol intake (units (unknown) date) frequency: unknown) holidays/special occasions only (unknown) (no (unknown) (unknown) capsule (units (unkno wn) date) (Macrobid) unknown) (unknown) (no (unknown) (unknown) monohydrate/macro (units (unknown) date) crystals 100 mg unknown) (unknown) (no (unknown) (unknown) nitrofurantoin (units (unknown) date) 100 mg PO BID #14 unknown) caps 01/27/21 (unknown) (no (unknown) (unknown) ondansetron HCl 4 (units (unknown) date) mg tablet 4 mg PO unknown) Q6-8H nausea #7 tabs 11/08/20 (unknown) (no (unknown) (unknown) tobacco type: (units ( unknown) date) cigarettes and unknown) vaping (unknown) (no (unknown) (unknown) wnl (units (unkno wn) date) unknown) Result panel 19 (unknown) (no (unknown) (unknown) (no value) (units (unk nown) date) unknown) (unknown) (no (unknown) (unknown) My Impression: (units (unknown) date) unknown) (unknown) (no (unknown) (unknown) Radiologist's (units ( unknown) date) Impression: unknown) (unknown) (no (unknown) (unknown) Date of Service: (units (unknown) date) 07/24/21 unknown) (unknown) (no (unknown) (unknown) (no value) (units (unk nown) date) unknown) (unknown) (no (unknown) (unknown) 100 mg PO BID (units ( unknown) date) Qty: 14 0RF unknown) (unknown) (no (unknown) (unknown) [address] [place] [address] (units (unknown) date) unknown) (unknown) (no (unknown) (unknown) 2 inh inhalation (units (unknown) date) Q4-6H PRN (Reason: unknown) shortness of breath or wheezing) Qty: 1 (unknown) (no (unknown) (unknown) 2 puff INHALATION (units (unknown) date) Q4-6H PRN (Reason: unknown) shortness of breath or wheezing) Qty: (unknown) (no (unknown) (unknown) 4 mg PO Q6-8H (units ( unknown) date) Qty: 7 0RF unknown) (unknown) (no (unknown) (unknown) Allergies (units (unkn own) date) unknown) (unknown) (no (unknown) (unknown) [place] (units ( unknown) date) [id number] unknown) (unknown) (no (unknown) (unknown) Close (units (unkno wn) date) unknown) (unknown) (no (unknown) (unknown) ED Orders (units (unkn own) date) unknown) (unknown) (no (unknown) (unknown) Emergency Report (units (unknown) date) unknown) (unknown) (no (unknown) (unknown) Merged With [facility] (units (unknown) date) unknown) (unknown) (no (unknown) (unknown) Merged With [facility] (units (unknown) date) [address] [facility] [address] unknown) [place] [address] (unknown) (no (unknown) (unknown) Launch?Image (units (u nknown) date) unknown) (unknown) (no (unknown) (unknown) Previous Rx's (units ( unknown) date) unknown) (unknown) (no (unknown) (unknown) Rx Instructions: (units (unknown) date) unknown) (unknown) (no (unknown) (unknown) Signed (units (unkno wn) date) unknown) (unknown) (no (unknown) (unknown) Vital Signs - 8 (units (unknown) date) hr unknown) (unknown) (no (unknown) (unknown) XRay Report (units (un known) date) unknown) (unknown) (no (unknown) (unknown) must administer (units (unknown) date) with a meal/food unknown) (unknown) (no (unknown) (unknown) (no value) (units (unk nown) date) unknown) (unknown) (no (unknown) (unknown) albuterol sulfate (units (unknown) date) 90 mcg/actuation unknown) HFA aerosol inhaler (unknown) (no (unknown) (unknown) albuterol sulfate (units (unknown) date) 90 mcg/actuation unknown) aerosol powdr breath activated (unknown) (no (unknown) (unknown) nitrofurantoin (units (unknown) date) monohyd/m-cryst unknown) [Macrobid] 100 mg capsule (unknown) (no (unknown) (unknown) ondansetron HCl (units (unknown) date) [Zofran] 4 mg unknown) tablet (unknown) (no (unknown) (unknown) #8.5 grams (units (unk nown) date) unknown) (unknown) (no (unknown) (unknown) 07/24/21 (units (unkno wn) date) unknown) (unknown) (no (unknown) (unknown) Acute (units (unkno wn) date) costochondritis unknown) (unknown) (no (unknown) (unknown) Medication (units (unk nown) date) Instructions unknown) Recorded (unknown) (no (unknown) (unknown) and below (units (unkn own) date) unknown) (unknown) (no (unknown) (unknown) ea (units (unkno wn) date) unknown) (unknown) (no (unknown) (unknown) (Zofran) (units (unkno wn) date) unknown) (unknown) (no (unknown) (unknown) - (units (unkno wn) date) unknown) (unknown) (no (unknown) (unknown) 02/08/21 (units (unkno wn) date) unknown) (unknown) (no (unknown) (unknown) 03/01/21 (units (unkno wn) date) unknown) (unknown) (no (unknown) (unknown) 03/03/21 (units (unkno wn) date) unknown) (unknown) (no (unknown) (unknown) 06/28/21 (units (unkno wn) date) unknown) (unknown) (no (unknown) (unknown) 07/24/21 (units (unkno wn) date) unknown) (unknown) (no (unknown) (unknown) 07/24/21 07:53 (units (unknown) date) unknown) (unknown) (no (unknown) (unknown) 08/10/19 (units (unkno wn) date) unknown) (unknown) (no (unknown) (unknown) 08/16/17 (units (unkno wn) date) unknown) (unknown) (no (unknown) (unknown) 07:41 07/24/21 (units (unknown) date) unknown) (unknown) (no (unknown) (unknown) 09/10/19 (units (unkno wn) date) unknown) (unknown) (no (unknown) (unknown) 08:00 07/24/21 (units (unknown) date) unknown) (unknown) (no (unknown) (unknown) 08:01 (units (unkno wn) date) unknown) (unknown) (no (unknown) (unknown) 08:01 07/24/21 (units (unknown) date) unknown) (unknown) (no (unknown) (unknown) 08:21 (units (unkno wn) date) unknown) (unknown) (no (unknown) (unknown) 08:21 07/24/21 (units (unknown) date) unknown) (unknown) (no (unknown) (unknown) 08:30 07/24/21 (units (unknown) date) unknown) (unknown) (no (unknown) (unknown) 08:31 (units (unkno wn) date) unknown) (unknown) (no (unknown) (unknown) 08:31 07/24/21 (units (unknown) date) unknown) (unknown) (no (unknown) (unknown) 0RF (units (unkno wn) date) unknown) (unknown) (no (unknown) (unknown) 11/21/19 (units (unkno wn) date) unknown) (unknown) (no (unknown) (unknown) 11/23/19 (units (unkno wn) date) unknown) (unknown) (no (unknown) (unknown) 12/20/17 (units (unkno wn) date) unknown) (unknown) (no (unknown) (unknown) [id number] (units (unkno wn) date) unknown) (unknown) (no (unknown) (unknown) 8.5 0RF (units (unkno wn) date) unknown) (unknown) (no (unknown) (unknown) ? (units (unkno wn) date) unknown) (unknown) (no (unknown) (unknown) ? (units (unkno wn) date) unknown) (unknown) (no (unknown) (unknown) ABDOMEN: Soft, (units (unknown) date) nontender. unknown) Normoactive bowel sounds all 4 quadrants. No (unknown) (no (unknown) (unknown) Abdomen/Pelvis CT (units (unknown) date) (Signed) unknown) (unknown) (no (unknown) (unknown) Accession Number: (units (unknown) date) [id number] ?? unknown) (unknown) (no (unknown) (unknown) Acct:[id number] (units (unknown) date) unknown) (unknown) (no (unknown) (unknown) Activity (units (unkno wn) date) Restrictions/Addit unknown) ional Instructions: (unknown) (no (unknown) (unknown) Age/Sex: 21 / F (units (unknown) date) unknown) (unknown) (no (unknown) (unknown) Age/Sex: 21 / F (units (unknown) date) unknown) (unknown) (no (unknown) (unknown) Albuterol inhaler (units (unknown) date) prescription was unknown) sent to [facility]. (unknown) (no (unknown) (unknown) Allergy/Adv: (units (u nknown) date) Penicillins unknown) (unknown) (no (unknown) (unknown) Allergy/AdvReac (units (unknown) date) Type Severity unknown) Reaction Status Date / Time (unknown) (no (unknown) (unknown) Approved by: Reece (units (unknown) date) Marbella Martinez on unknown) 07/24/2021 at 8:19?? (unknown) (no (unknown) (unknown) Attestation: I (units (unknown) date) personally unknown) reviewed and interpreted this ECG as follows: (unknown) (no (unknown) (unknown) Blood Pressure (units (unknown) date) 152/90 H unknown) (unknown) (no (unknown) (unknown) Blood Pressure (units (unknown) date) 155/95 H unknown) (unknown) (no (unknown) (unknown) Blood Pressure (units (unknown) date) 163/90 H 07/24/21 unknown) 07:41 (unknown) (no (unknown) (unknown) Blood Pressure (units (unknown) date) 163/90 H 149/89 H unknown) (unknown) (no (unknown) (unknown) Bones and chest (units (unknown) date) wall:? No unknown) suspicious bony lesions.? Overlying soft tissues (unknown) (no (unknown) (unknown) CARDIOVASCULAR: (units (unknown) date) Regular rate and unknown) rhythm without murmurs, rubs or gallops. No (unknown) (no (unknown) (unknown) COMPARISON:? (units (u nknown) date) Merged With [facility], unknown) CR, XR CHEST 2V, 06/28/2021, 11:09. (unknown) (no (unknown) (unknown) Aundrea Schafer (units (unknown) date) unknown) (unknown) (no (unknown) (unknown) Chest X-Ray (units (un known) date) (Signed) unknown) (unknown) (no (unknown) (unknown) Chest [XR chest (units (unknown) date) 1V] Stat unknown) (unknown) (no (unknown) (unknown) Chest x-ray: (units (u nknown) date) unknown) (unknown) (no (unknown) (unknown) Chest/Abdomen (units ( unknown) date) X-ray (Signed) unknown) (unknown) (no (unknown) (unknown) Chief Complaint: (units (unknown) date) Chest Pain unknown) (unknown) (no (unknown) (unknown) Clinical (units (unkno wn) date) Impression: unknown) (unknown) (no (unknown) (unknown) Course (units (unkno wn) date) unknown) (unknown) (no (unknown) (unknown) : 2000 (units (unknown) date) Acct:[id number] unknown) (unknown) (no (unknown) (unknown) : 2000 (units (unknown) date) unknown) (unknown) (no (unknown) (unknown) Date of Service: (units (unknown) date) 07/24/21 unknown) (unknown) (no (unknown) (unknown) Departure (units (unkn own) date) unknown) (unknown) (no (unknown) (unknown) Dictated by: Reece (units (unknown) date) Marbella Martinez on unknown) 07/24/2021 at 8:18 ? ? (unknown) (no (unknown) (unknown) Discharge Plan (units (unknown) date) unknown) (unknown) (no (unknown) (unknown) ECG Data (units (unkno wn) date) unknown) (unknown) (no (unknown) (unknown) EKG-12 Lead Stat (units (unknown) date) unknown) (unknown) (no (unknown) (unknown) ER Physician: (units ( unknown) date) Noris Edwards D.O. unknown) (unknown) (no (unknown) (unknown) EXTREMITIES: (units (u nknown) date) Normal range of unknown) motion, no clubbing or edema. Neurovascularly (unknown) (no (unknown) (unknown) Exam (units (unkno wn) date) unknown) (unknown) (no (unknown) (unknown) Exam Narrative: (units (unknown) date) unknown) (unknown) (no (unknown) (unknown) FINDINGS:? (units (unk nown) date) unknown) (unknown) (no (unknown) (unknown) GENERAL: Alert (units (unknown) date) and oriented x unknown) three, female with BMI of 43 (unknown) (no (unknown) (unknown) : No CVA (units (unk nown) date) tenderness unknown) (unknown) (no (unknown) (unknown) General (units (unkno wn) date) unknown) (unknown) (no (unknown) (unknown) HEENT: Head (units (un known) date) normocephalic, unknown) atraumatic, EOMI, pupils reactive, face symmetric, (unknown) (no (unknown) (unknown) HPI - Chest Pain (units (unknown) date) unknown) (unknown) (no (unknown) (unknown) HPI narrative: (units (unknown) date) unknown) (unknown) (no (unknown) (unknown) Orestes Ladd (units (unknown) date) unknown) (unknown) (no (unknown) (unknown) Jenny Cobb (units (u nknown) date) E??21??F??[birth year]19 unknown) 02 (unknown) (no (unknown) (unknown) Healthy (units (unkno wn) date) adolescent unknown) (unknown) (no (unknown) (unknown) History of (units (unk nown) date) Present Illness unknown) (unknown) (no (unknown) (unknown) I suspect that you (units (unknown) date) have unknown) costochondritis or inflammation of the cartilage between (unknown) (no (unknown) (unknown) IMPRESSION:? No (units (unknown) date) acute unknown) cardiopulmonary pathology. (unknown) (no (unknown) (unknown) INDICATIONS:? (units ( unknown) date) chest pain, s/p unknown) covid infection (unknown) (no (unknown) (unknown) Imaging Data (units (u nknown) date) unknown) (unknown) (no (unknown) (unknown) Initial Vital (units ( unknown) date) Signs unknown) (unknown) (no (unknown) (unknown) Initial Vital (units ( unknown) date) Signs: unknown) (unknown) (no (unknown) (unknown) Instructions: DI (units (unknown) date) for unknown) Costochondritis (unknown) (no (unknown) (unknown) Interpretation: (units (unknown) date) unknown) (unknown) (no (unknown) (unknown) JVD. Patient has (units (unknown) date) reproduce unknown) localized pain over the right sternal border at the (unknown) (no (unknown) (unknown) Tommy Hairston (units ( unknown) date) unknown) (unknown) (no (unknown) (unknown) Knee X-Ray (units (unk nown) date) (Signed) unknown) (unknown) (no (unknown) (unknown) Limitations: no (units (unknown) date) limitations unknown) (unknown) (no (unknown) (unknown) Reece Martinez (units (unkno wn) date) unknown) (unknown) (no (unknown) (unknown) Loc: ED (units (unkno wn) date) unknown) (unknown) (no (unknown) (unknown) Lungs and (units (unkn own) date) pleura:? Lungs are unknown) clear.? No pleural effusions or pneumothorax.? (unknown) (no (unknown) (unknown) MDM - Chest Pain (units (unknown) date) unknown) (unknown) (no (unknown) (unknown) MDM Narrative (units ( unknown) date) unknown) (unknown) (no (unknown) (unknown) MR#: [id number] (units (unknown) date) unknown) (unknown) (no (unknown) (unknown) Mediastinum:? (units ( unknown) date) Mediastinal unknown) contours appear normal.? Heart size is normal.? (unknown) (no (unknown) (unknown) Medical History (units (unknown) date) (Updated 07/24/21 unknown) @ 08:37 by Noris Edwards DO) (unknown) (no (unknown) (unknown) Medical decision (units (unknown) date) making narrative: unknown) (unknown) (no (unknown) (unknown) Mode of arrival: (units (unknown) date) Ambulatory unknown) (unknown) (no (unknown) (unknown) NECK: Supple, (units ( unknown) date) full range of unknown) motion (unknown) (no (unknown) (unknown) NEUROLOGICAL: (units ( unknown) date) Cranial nerves II unknown) through XII grossly intact. Moving all (unknown) (no (unknown) (unknown) Narrative (units (unkn own) date) unknown) (unknown) (no (unknown) (unknown) Nephrolithiasis (units (unknown) date) unknown) (unknown) (no (unknown) (unknown) New (units (unkno wn) date) unknown) (unknown) (no (unknown) (unknown) No Action (units (unkn own) date) unknown) (unknown) (no (unknown) (unknown) No history of (units ( unknown) date) previous surgery unknown) (unknown) (no (unknown) (unknown) Ordered: (units (unkno wn) date) unknown) (unknown) (no (unknown) (unknown) Ordering (units (unkno wn) date) Provider: unknown) Mank,Noris C D.O. (unknown) (no (unknown) (unknown) Orders (units (unkno wn) date) unknown) (unknown) (no (unknown) (unknown) Oxygen Delivery (units (unknown) date) Method unknown) (unknown) (no (unknown) (unknown) Oxygen Delivery (units (unknown) date) Method 07/24/21 unknown) 07:41 (unknown) (no (unknown) (unknown) Oxygen Delivery (units (unknown) date) Method Room Air unknown) (unknown) (no (unknown) (unknown) PROCEDURE:? XR (units (unknown) date) CHEST 1V unknown) (unknown) (no (unknown) (unknown) Patient (units (unkno wn) date) Disposition: Home unknown) (unknown) (no (unknown) (unknown) Patient History (units (unknown) date) unknown) (unknown) (no (unknown) (unknown) Patient: (units (unkno wn) date) Jenny Cobb unknown) MR#: [id number] (unknown) (no (unknown) (unknown) Patient: (units (unkno wn) date) Jenny Cobb unknown) (unknown) (no (unknown) (unknown) Penicillins (units (un known) date) [PENICILLINS] unknown) Allergy Unknown Anaphylaxis Verified 06/28/21 11:17 (unknown) (no (unknown) (unknown) Michael Gonzalez (units (un known) date) unknown) (unknown) (no (unknown) (unknown) Please return for (units (unknown) date) fevers, new unknown) changing pain, increasing or changing location of (unknown) (no (unknown) (unknown) Prescriptions: (units (unknown) date) unknown) (unknown) (no (unknown) (unknown) Prior ECG (units (unkn own) date) tracings: unknown) available for review (unknown) (no (unknown) (unknown) Procedure: XR (units ( unknown) date) chest 1V unknown) (unknown) (no (unknown) (unknown) Pulse Oximetry (units (unknown) date) 99 07/24/21 unknown) 07:41 (unknown) (no (unknown) (unknown) Pulse Oximetry (units (unknown) date) 100 99 unknown) (unknown) (no (unknown) (unknown) Pulse Oximetry 99 (units (unknown) date) 100 unknown) (unknown) (no (unknown) (unknown) Pulse Oximetry 99 (units (unknown) date) 99 unknown) (unknown) (no (unknown) (unknown) Pulse Rate 85 (units (unknown) date) 07/24/21 07:41 unknown) (unknown) (no (unknown) (unknown) Pulse Rate 71 84 (units (unknown) date) unknown) (unknown) (no (unknown) (unknown) Pulse Rate 78 86 (units (unknown) date) unknown) (unknown) (no (unknown) (unknown) Pulse Rate 85 (units ( unknown) date) unknown) (unknown) (no (unknown) (unknown) RESPIRATORY: (units (u nknown) date) Breath sounds unknown) equal bilaterally, no wheezes rales or rhonchi. No (unknown) (no (unknown) (unknown) ROS Unobtainable: (units (unknown) date) All systems unknown) reviewed + are unremarkable except as noted in HPI (unknown) (no (unknown) (unknown) Related Data (units (u nknown) date) unknown) (unknown) (no (unknown) (unknown) Renal Ultrasound (units (unknown) date) (Signed) unknown) (unknown) (no (unknown) (unknown) Respiratory Rate (units (unknown) date) unknown) (unknown) (no (unknown) (unknown) Respiratory Rate (units (unknown) date) 18 07/24/21 unknown) 07:41 (unknown) (no (unknown) (unknown) Respiratory Rate (units (unknown) date) 18 unknown) (unknown) (no (unknown) (unknown) Review of Systems (units (unknown) date) unknown) (unknown) (no (unknown) (unknown) Cesario Mcmahon (units (u nknown) date) unknown) (unknown) (no (unknown) (unknown) SKIN: Warm, dry, (units (unknown) date) no petechiae, no unknown) rashes or lesions. (unknown) (no (unknown) (unknown) Signed By: (units (unk nown) date) unknown) (unknown) (no (unknown) (unknown) Sinus rhythm rate (units (unknown) date) of 77 AR 140 QRS unknown) 84 and QTC of 414. No acute ST changes (unknown) (no (unknown) (unknown) Smoking Status: (units (unknown) date) Current every day unknown) smoker (unknown) (no (unknown) (unknown) Smoking Status: (units (unknown) date) Current every day unknown) smoker (unknown) (no (unknown) (unknown) Social History (units (unknown) date) (Reviewed 07/24/21 unknown) @ 08:30 by Noris Edwards DO) (unknown) (no (unknown) (unknown) Source: patient (units (unknown) date) unknown) (unknown) (no (unknown) (unknown) Stated Complaint: (units (unknown) date) chest pain right unknown) side (unknown) (no (unknown) (unknown) Substance Use (units ( unknown) date) Type: does not use unknown) (unknown) (no (unknown) (unknown) Surgical History (units (unknown) date) (Reviewed 07/24/21 unknown) @ 08:30 by Noris Edwards DO) (unknown) (no (unknown) (unknown) Surgical changes (units (unknown) date) and devices:? unknown) None.? (unknown) (no (unknown) (unknown) TECHNIQUE:? One (units (unknown) date) view of the chest unknown) was acquired.? (unknown) (no (unknown) (unknown) Temperature (units (un known) date) unknown) (unknown) (no (unknown) (unknown) Temperature 98 F (units (unknown) date) 07/24/21 07:41 unknown) (unknown) (no (unknown) (unknown) Temperature 98 F (units (unknown) date) unknown) (unknown) (no (unknown) (unknown) This is a (units (unkn own) date) 21-year-old female unknown) who comes emergency department with complaint of (unknown) (no (unknown) (unknown) This is a (units (unkn own) date) 21-year-old female unknown) with at right-sided chest pain which is (unknown) (no (unknown) (unknown) Time Seen by (units (u nknown) date) Provider: 07/24/21 unknown) 07:51 (unknown) (no (unknown) (unknown) Vital Signs (units (un known) date) unknown) (unknown) (no (unknown) (unknown) Vital signs: (units (u nknown) date) unknown) (unknown) (no (unknown) (unknown) Conrado Rodarte (units (u nknown) date) unknown) (unknown) (no (unknown) (unknown) Josue Reece (units (unk nown) date) unknown) (unknown) (no (unknown) (unknown) You can contact (units (unknown) date) [phone] at unknown) the call center to help you find a primary care (unknown) (no (unknown) (unknown) You can take (units (un known) date) ibuprofen up to unknown) 600 mg every 6 hours and/or Tylenol up to a 1000 mg (unknown) (no (unknown) (unknown) Elver Damon (units (unkno wn) date) unknown) (unknown) (no (unknown) (unknown) aerosol inhaler (units (unknown) date) shortness of unknown) breath or wheezing (unknown) (no (unknown) (unknown) albuterol inhaler (units (unknown) date) and takes unknown) ibuprofen as needed is her only medications. She (unknown) (no (unknown) (unknown) albuterol sulfate (units (unknown) date) 90 mcg/actuation 2 unknown) inh inhalation Q4-6H PRN 07/24/21 (unknown) (no (unknown) (unknown) albuterol sulfate (units (unknown) date) 90 mcg/actuation 2 unknown) puff inhalation Q4-6H PRN 06/21/21 (unknown) (no (unknown) (unknown) alcohol intake (units (unknown) date) frequency: unknown) holidays/special occasions only (unknown) (no (unknown) (unknown) appear (units (unkno wn) date) unknown) (unknown) (no (unknown) (unknown) appreciated. (units (u nknown) date) Patient has prior unknown) from 03/01/21 no acute changes. (unknown) (no (unknown) (unknown) become (units (unkno wn) date) asymptomatic since unknown) then. Occasional use of inhaler but has clear lungs (unknown) (no (unknown) (unknown) breath activated (units (unknown) date) powder inhaler unknown) shortness of breath or wheezing #1 (unknown) (no (unknown) (unknown) capsule (units (unkno wn) date) (Macrobid) unknown) (unknown) (no (unknown) (unknown) changes. (units (unkno wn) date) unknown) (unknown) (no (unknown) (unknown) chest pain, (units (un known) date) shortness of unknown) breath, coughing up blood, passing out, persistent (unknown) (no (unknown) (unknown) chills recently, (units (unknown) date) she has not had unknown) any cold cough or congestion this week. She (unknown) (no (unknown) (unknown) cillin in it.'She (units (unknown) date) quit using tobacco unknown) about a month ago, no alcohol, she stop (unknown) (no (unknown) (unknown) continued to use (units (unknown) date) at occasionally unknown) but states she ran out. She is not having (unknown) (no (unknown) (unknown) costochondral (units ( unknown) date) joint. Patient unknown) does not have any warmth, erythema or other skin (unknown) (no (unknown) (unknown) discuss return (units (unknown) date) precautions all unknown) questions answered. Patient does note she has (unknown) (no (unknown) (unknown) does have an (units (u nknown) date) elevated BMI she unknown) has not any estrogens, EKG and chest x-ray do not (unknown) (no (unknown) (unknown) encouraged to try (units (unknown) date) ibuprofen which unknown) she has not, Tylenol she prefers. We did (unknown) (no (unknown) (unknown) every 6 hours as (units (unknown) date) needed for pain. unknown) (unknown) (no (unknown) (unknown) extremities (units (un known) date) unknown) (unknown) (no (unknown) (unknown) guarding or (units (un known) date) rebound, rigidity, unknown) no mass (unknown) (no (unknown) (unknown) has been more (units ( unknown) date) persistent for the unknown) last 3 days every morning when she awakens and (unknown) (no (unknown) (unknown) has not had any (units (unknown) date) today. No prior unknown) surgeries. She is allergic 'to anything with (unknown) (no (unknown) (unknown) increasing (units (unk nown) date) shortness of unknown) breath. No new swelling in her extremities. She uses (unknown) (no (unknown) (unknown) infection she was (units (unknown) date) given an inhaler unknown) which she said was were helpful. She has (unknown) (no (unknown) (unknown) intact. (units (unkno wn) date) unknown) (unknown) (no (unknown) (unknown) is present (units (unkn own) date) currently. She unknown) had headache yesterday, she has not had any fevers or (unknown) (no (unknown) (unknown) long. She states (units (unknown) date) that typically it unknown) will come on in the morning when she wakes (unknown) (no (unknown) (unknown) moist mucous (units (u nknown) date) membranes unknown) (unknown) (no (unknown) (unknown) monohydrate/macro (units (unknown) date) crystals 100 mg unknown) (unknown) (no (unknown) (unknown) nitrofurantoin (units (unknown) date) 100 mg PO BID #14 unknown) caps 01/27/21 (unknown) (no (unknown) (unknown) on exam in today (units (unknown) date) findings and unknown) additional workup was deferred. Patient was (unknown) (no (unknown) (unknown) ondansetron HCl 4 (units (unknown) date) mg tablet 4 mg PO unknown) Q6-8H nausea #7 tabs 11/08/20 (unknown) (no (unknown) (unknown) physician to (units (u nknown) date) establish with. unknown) (unknown) (no (unknown) (unknown) prescription was (units (unknown) date) sent today. unknown) (unknown) (no (unknown) (unknown) reproduce it when (units (unknown) date) she pushes on it. unknown) Movement of her arm or deep breath makes it (unknown) (no (unknown) (unknown) reproducible on (units (unknown) date) exam. Patient has unknown) had intermittently on and off in the past but (unknown) (no (unknown) (unknown) right-sided chest (units (unknown) date) discomfort that unknown) started Tuesday and has been persistent for (unknown) (no (unknown) (unknown) run out of her (units (unknown) date) albuterol inhaler unknown) and does not have a primary care physician so (unknown) (no (unknown) (unknown) show any acute (units (unknown) date) changes. Patient unknown) patient was COVID positive last month but has (unknown) (no (unknown) (unknown) tachypnea, no (units ( unknown) date) accessory muscle unknown) use. Normal speech. (unknown) (no (unknown) (unknown) the joint of the (units (unknown) date) sternum and the unknown) rib. This can be quite painful at times. (unknown) (no (unknown) (unknown) the past 3 days (units (unknown) date) it is at the right unknown) sternal border very localized she can (unknown) (no (unknown) (unknown) then resolved (units ( unknown) date) over several unknown) hours. It is somewhat pleuritic but also worsened (unknown) (no (unknown) (unknown) tobacco type: (units ( unknown) date) cigarettes and unknown) vaping (unknown) (no (unknown) (unknown) today. My (units (unk nown) date) suspicion for unknown) cardiac or embolic cause is significantly lower based (unknown) (no (unknown) (unknown) unremarkable.? (units (unknown) date) unknown) (unknown) (no (unknown) (unknown) up last 3 or 4 (units (unknown) date) hours and it goes unknown) away throughout the day. Patient states that (unknown) (no (unknown) (unknown) using marijuana (units (unknown) date) about 6 months ago unknown) no other recreational drugs. (unknown) (no (unknown) (unknown) vomiting or new (units (unknown) date) swelling in your unknown) extremities. (unknown) (no (unknown) (unknown) vomiting. No (units (u nknown) date) diarrhea unknown) constipation. She had shortness of breath with her COVID (unknown) (no (unknown) (unknown) was positive for (units (unknown) date) COVID a month ago. unknown) She has had nausea occasionally but no (unknown) (no (unknown) (unknown) with movement and (units (unknown) date) is very localized unknown) there is no signs of infection. Patient (unknown) (no (unknown) (unknown) wnl (units (unkno wn) date) unknown) (unknown) (no (unknown) (unknown) worse. She has (units (unknown) date) had this unknown) occasionally in the past but has not lasted for as Result panel 20 (unknown) (no (unknown) (unknown) (no value) (units (unk nown) date) unknown) (unknown) (no (unknown) (unknown) My Impression: (units (unknown) date) unknown) (unknown) (no (unknown) (unknown) Radiologist's (units ( unknown) date) Impression: unknown) (unknown) (no (unknown) (unknown) Date of Service: (units (unknown) date) 07/24/21 unknown) (unknown) (no (unknown) (unknown) (no value) (units (unk nown) date) unknown) (unknown) (no (unknown) (unknown) <Electronically (units (unknown) date) signed by Noris Dash unknown) April Edwards> (unknown) (no (unknown) (unknown) 07/25/21 2141 (units ( unknown) date) unknown) (unknown) (no (unknown) (unknown) 100 mg PO BID (units ( unknown) date) Qty: 14 0RF unknown) (unknown) (no (unknown) (unknown) [address] [place] [address] (units (unknown) date) unknown) (unknown) (no (unknown) (unknown) 2 inh inhalation (units (unknown) date) Q4-6H PRN (Reason: unknown) shortness of breath or wheezing) Qty: 1 (unknown) (no (unknown) (unknown) 2 puff INHALATION (units (unknown) date) Q4-6H PRN (Reason: unknown) shortness of breath or wheezing) Qty: (unknown) (no (unknown) (unknown) 4 mg PO Q6-8H (units ( unknown) date) Qty: 7 0RF unknown) (unknown) (no (unknown) (unknown) Allergies (units (unkn own) date) unknown) (unknown) (no (unknown) (unknown) [place], [place] (units ( unknown) date) [address] unknown) (unknown) (no (unknown) (unknown) Close (units (unkno wn) date) unknown) (unknown) (no (unknown) (unknown) ED Orders (units (unkn own) date) unknown) (unknown) (no (unknown) (unknown) Emergency Report (units (unknown) date) unknown) (unknown) (no (unknown) (unknown) Merged With [facility] (units (unknown) date) unknown) (unknown) (no (unknown) (unknown) Merged With [facility] (units (unknown) date) [address] unknown) [place] [address] (unknown) (no (unknown) (unknown) Launch?Image (units (u nknown) date) unknown) (unknown) (no (unknown) (unknown) Previous Rx's (units ( unknown) date) unknown) (unknown) (no (unknown) (unknown) Rx Instructions: (units (unknown) date) unknown) (unknown) (no (unknown) (unknown) Signed (units (unkno wn) date) unknown) (unknown) (no (unknown) (unknown) Vital Signs - 8 (units (unknown) date) hr unknown) (unknown) (no (unknown) (unknown) XRay Report (units (un known) date) unknown) (unknown) (no (unknown) (unknown) must administer (units (unknown) date) with a meal/food unknown) (unknown) (no (unknown) (unknown) (no value) (units (unk nown) date) unknown) (unknown) (no (unknown) (unknown) albuterol sulfate (units (unknown) date) 90 mcg/actuation unknown) HFA aerosol inhaler (unknown) (no (unknown) (unknown) albuterol sulfate (units (unknown) date) 90 mcg/actuation unknown) aerosol powdr breath activated (unknown) (no (unknown) (unknown) nitrofurantoin (units (unknown) date) monohyd/m-cryst unknown) [Macrobid] 100 mg capsule (unknown) (no (unknown) (unknown) ondansetron HCl (units (unknown) date) [Zofran] 4 mg unknown) tablet (unknown) (no (unknown) (unknown) #8.5 grams (units (unk nown) date) unknown) (unknown) (no (unknown) (unknown) 07/24/21 (units (unkno wn) date) unknown) (unknown) (no (unknown) (unknown) Acute (units (unkno wn) date) costochondritis unknown) (unknown) (no (unknown) (unknown) Medication (units (unk nown) date) Instructions unknown) Recorded (unknown) (no (unknown) (unknown) and below (units (unkn own) date) unknown) (unknown) (no (unknown) (unknown) ea (units (unkno wn) date) unknown) (unknown) (no (unknown) (unknown) (Zofran) (units (unkno wn) date) unknown) (unknown) (no (unknown) (unknown) - (units (unkno wn) date) unknown) (unknown) (no (unknown) (unknown) 02/08/21 (units (unkno wn) date) unknown) (unknown) (no (unknown) (unknown) 03/01/21 (units (unkno wn) date) unknown) (unknown) (no (unknown) (unknown) 03/03/21 (units (unkno wn) date) unknown) (unknown) (no (unknown) (unknown) 06/28/21 (units (unkno wn) date) unknown) (unknown) (no (unknown) (unknown) 07/24/21 (units (unkno wn) date) unknown) (unknown) (no (unknown) (unknown) 07/24/21 07:53 (units (unknown) date) unknown) (unknown) (no (unknown) (unknown) 08/10/19 (units (unkno wn) date) unknown) (unknown) (no (unknown) (unknown) 08/16/17 (units (unkno wn) date) unknown) (unknown) (no (unknown) (unknown) 07:41 07/24/21 (units (unknown) date) unknown) (unknown) (no (unknown) (unknown) 09/10/19 (units (unkno wn) date) unknown) (unknown) (no (unknown) (unknown) 08:00 07/24/21 (units (unknown) date) unknown) (unknown) (no (unknown) (unknown) 08:01 (units (unkno wn) date) unknown) (unknown) (no (unknown) (unknown) 08:01 07/24/21 (units (unknown) date) unknown) (unknown) (no (unknown) (unknown) 08:21 (units (unkno wn) date) unknown) (unknown) (no (unknown) (unknown) 08:21 07/24/21 (units (unknown) date) unknown) (unknown) (no (unknown) (unknown) 08:30 07/24/21 (units (unknown) date) unknown) (unknown) (no (unknown) (unknown) 08:31 (units (unkno wn) date) unknown) (unknown) (no (unknown) (unknown) 08:31 07/24/21 (units (unknown) date) unknown) (unknown) (no (unknown) (unknown) 0RF (units (unkno wn) date) unknown) (unknown) (no (unknown) (unknown) 11/21/19 (units (unkno wn) date) unknown) (unknown) (no (unknown) (unknown) 11/23/19 (units (unkno wn) date) unknown) (unknown) (no (unknown) (unknown) 12/20/17 (units (unkno wn) date) unknown) (unknown) (no (unknown) (unknown) [id number] (units (unkno wn) date) unknown) (unknown) (no (unknown) (unknown) 8.5 0RF (units (unkno wn) date) unknown) (unknown) (no (unknown) (unknown) ? (units (unkno wn) date) unknown) (unknown) (no (unknown) (unknown) ? (units (unkno wn) date) unknown) (unknown) (no (unknown) (unknown) ABDOMEN: Soft, (units (unknown) date) nontender. unknown) Normoactive bowel sounds all 4 quadrants. No (unknown) (no (unknown) (unknown) Abdomen/Pelvis CT (units (unknown) date) (Signed) unknown) (unknown) (no (unknown) (unknown) Accession Number: (units (unknown) date) [id number] ?? unknown) (unknown) (no (unknown) (unknown) Acct:[id number] (units (unknown) date) unknown) (unknown) (no (unknown) (unknown) Activity (units (unkno wn) date) Restrictions/Addit unknown) ional Instructions: (unknown) (no (unknown) (unknown) Age/Sex: 21 / F (units (unknown) date) unknown) (unknown) (no (unknown) (unknown) Age/Sex: 21 / F (units (unknown) date) unknown) (unknown) (no (unknown) (unknown) Albuterol inhaler (units (unknown) date) prescription was unknown) sent to [facility] in [place]. (unknown) (no (unknown) (unknown) Allergy/Adv: (units (u nknown) date) Penicillins unknown) (unknown) (no (unknown) (unknown) Allergy/AdvReac (units (unknown) date) Type Severity unknown) Reaction Status Date / Time (unknown) (no (unknown) (unknown) Approved by: Reece (units (unknown) date) Marbella Martinez on unknown) 07/24/2021 at 8:19?? (unknown) (no (unknown) (unknown) Attestation: I (units (unknown) date) personally unknown) reviewed and interpreted this ECG as follows: (unknown) (no (unknown) (unknown) Blood Pressure (units (unknown) date) 152/90 H unknown) (unknown) (no (unknown) (unknown) Blood Pressure (units (unknown) date) 155/95 H unknown) (unknown) (no (unknown) (unknown) Blood Pressure (units (unknown) date) 163/90 H 07/24/21 unknown) 07:41 (unknown) (no (unknown) (unknown) Blood Pressure (units (unknown) date) 163/90 H 149/89 H unknown) (unknown) (no (unknown) (unknown) Bones and chest (units (unknown) date) wall:? No unknown) suspicious bony lesions.? Overlying soft tissues (unknown) (no (unknown) (unknown) CARDIOVASCULAR: (units (unknown) date) Regular rate and unknown) rhythm without murmurs, rubs or gallops. No (unknown) (no (unknown) (unknown) COMPARISON:? (units (u nknown) date) Merged With [facility], unknown) CR, XR CHEST 2V, 06/28/2021, 11:09. (unknown) (no (unknown) (unknown) Aundrea Schafer (units (unknown) date) unknown) (unknown) (no (unknown) (unknown) Chest X-Ray (units (un known) date) (Signed) unknown) (unknown) (no (unknown) (unknown) Chest [XR chest (units (unknown) date) 1V] Stat unknown) (unknown) (no (unknown) (unknown) Chest x-ray: (units (u nknown) date) unknown) (unknown) (no (unknown) (unknown) Chest/Abdomen (units ( unknown) date) X-ray (Signed) unknown) (unknown) (no (unknown) (unknown) Chief Complaint: (units (unknown) date) Chest Pain unknown) (unknown) (no (unknown) (unknown) Clinical (units (unkno wn) date) Impression: unknown) (unknown) (no (unknown) (unknown) Course (units (unkno wn) date) unknown) (unknown) (no (unknown) (unknown) : 2000 (units (unknown) date) Acct:[id number] unknown) (unknown) (no (unknown) (unknown) : 2000 (units (unknown) date) unknown) (unknown) (no (unknown) (unknown) Date of Service: (units (unknown) date) 07/24/21 unknown) (unknown) (no (unknown) (unknown) Departure (units (unkn own) date) unknown) (unknown) (no (unknown) (unknown) Dictated by: Reece (units (unknown) date) Marbella Matrinez on unknown) 07/24/2021 at 8:18 ? ? (unknown) (no (unknown) (unknown) Discharge Plan (units (unknown) date) unknown) (unknown) (no (unknown) (unknown) ECG Data (units (unkno wn) date) unknown) (unknown) (no (unknown) (unknown) EKG-12 Lead Stat (units (unknown) date) unknown) (unknown) (no (unknown) (unknown) ER Physician: (units ( unknown) date) Noris Edwards D.O. unknown) (unknown) (no (unknown) (unknown) EXTREMITIES: (units (u nknown) date) Normal range of unknown) motion, no clubbing or edema. Neurovascularly (unknown) (no (unknown) (unknown) Exam (units (unkno wn) date) unknown) (unknown) (no (unknown) (unknown) Exam Narrative: (units (unknown) date) unknown) (unknown) (no (unknown) (unknown) FINDINGS:? (units (unk nown) date) unknown) (unknown) (no (unknown) (unknown) GENERAL: Alert (units (unknown) date) and oriented x unknown) three, female with BMI of 43 (unknown) (no (unknown) (unknown) : No CVA (units (unk nown) date) tenderness unknown) (unknown) (no (unknown) (unknown) General (units (unkno wn) date) unknown) (unknown) (no (unknown) (unknown) HEENT: Head (units (un known) date) normocephalic, unknown) atraumatic, EOMI, pupils reactive, face symmetric, (unknown) (no (unknown) (unknown) HPI - Chest Pain (units (unknown) date) unknown) (unknown) (no (unknown) (unknown) HPI narrative: (units (unknown) date) unknown) (unknown) (no (unknown) (unknown) Orestes Ladd (units (unknown) date) unknown) (unknown) (no (unknown) (unknown) Jenny Cobb (units (u nknown) date) E??21??F??[birth year]27/19 unknown) 02 (unknown) (no (unknown) (unknown) Healthy (units (unkno wn) date) adolescent unknown) (unknown) (no (unknown) (unknown) History of (units (unk nown) date) Present Illness unknown) (unknown) (no (unknown) (unknown) I suspect that you (units (unknown) date) have unknown) costochondritis or inflammation of the cartilage between (unknown) (no (unknown) (unknown) IMPRESSION:? No (units (unknown) date) acute unknown) cardiopulmonary pathology. (unknown) (no (unknown) (unknown) INDICATIONS:? (units ( unknown) date) chest pain, s/p unknown) covid infection (unknown) (no (unknown) (unknown) Imaging Data (units (u nknown) date) unknown) (unknown) (no (unknown) (unknown) Initial Vital (units ( unknown) date) Signs unknown) (unknown) (no (unknown) (unknown) Initial Vital (units ( unknown) date) Signs: unknown) (unknown) (no (unknown) (unknown) Instructions: DI (units (unknown) date) for unknown) Costochondritis (unknown) (no (unknown) (unknown) Interpretation: (units (unknown) date) unknown) (unknown) (no (unknown) (unknown) JVD. Patient has (units (unknown) date) reproduce unknown) localized pain over the right sternal border at the (unknown) (no (unknown) (unknown) Houston,Tommy (units ( unknown) date) unknown) (unknown) (no (unknown) (unknown) Knee X-Ray (units (unk nown) date) (Signed) unknown) (unknown) (no (unknown) (unknown) Limitations: no (units (unknown) date) limitations unknown) (unknown) (no (unknown) (unknown) Reece Martinez (units (unkno wn) date) unknown) (unknown) (no (unknown) (unknown) Loc: ED (units (unkno wn) date) unknown) (unknown) (no (unknown) (unknown) Lungs and (units (unkn own) date) pleura:? Lungs are unknown) clear.? No pleural effusions or pneumothorax.? (unknown) (no (unknown) (unknown) MDM - Chest Pain (units (unknown) date) unknown) (unknown) (no (unknown) (unknown) MDM Narrative (units ( unknown) date) unknown) (unknown) (no (unknown) (unknown) MR#: [id number] (units (unknown) date) unknown) (unknown) (no (unknown) (unknown) Mediastinum:? (units ( unknown) date) Mediastinal unknown) contours appear normal.? Heart size is normal.? (unknown) (no (unknown) (unknown) Medical History (units (unknown) date) (Updated 07/24/21 unknown) @ 08:37 by Noris Edwards DO) (unknown) (no (unknown) (unknown) Medical decision (units (unknown) date) making narrative: unknown) (unknown) (no (unknown) (unknown) Mode of arrival: (units (unknown) date) Ambulatory unknown) (unknown) (no (unknown) (unknown) NECK: Supple, (units ( unknown) date) full range of unknown) motion (unknown) (no (unknown) (unknown) NEUROLOGICAL: (units ( unknown) date) Cranial nerves II unknown) through XII grossly intact. Moving all (unknown) (no (unknown) (unknown) Narrative (units (unkn own) date) unknown) (unknown) (no (unknown) (unknown) Nephrolithiasis (units (unknown) date) unknown) (unknown) (no (unknown) (unknown) New (units (unkno wn) date) unknown) (unknown) (no (unknown) (unknown) No Action (units (unkn own) date) unknown) (unknown) (no (unknown) (unknown) No history of (units ( unknown) date) previous surgery unknown) (unknown) (no (unknown) (unknown) Ordered: (units (unkno wn) date) unknown) (unknown) (no (unknown) (unknown) Ordering (units (unkno wn) date) Provider: unknown) Noris Edwards D.O. (unknown) (no (unknown) (unknown) Orders (units (unkno wn) date) unknown) (unknown) (no (unknown) (unknown) Oxygen Delivery (units (unknown) date) Method unknown) (unknown) (no (unknown) (unknown) Oxygen Delivery (units (unknown) date) Method 07/24/21 unknown) 07:41 (unknown) (no (unknown) (unknown) Oxygen Delivery (units (unknown) date) Method Room Air unknown) (unknown) (no (unknown) (unknown) PROCEDURE:? XR (units (unknown) date) CHEST 1V unknown) (unknown) (no (unknown) (unknown) Patient (units (unkno wn) date) Disposition: Home unknown) (unknown) (no (unknown) (unknown) Patient History (units (unknown) date) unknown) (unknown) (no (unknown) (unknown) Patient: (units (unkno wn) date) Jenny Cobb unknown) MR#: [id number] (unknown) (no (unknown) (unknown) Patient: (units (unkno wn) date) Jenny Cobb unknown) (unknown) (no (unknown) (unknown) Penicillins (units (un known) date) [PENICILLINS] unknown) Allergy Unknown Anaphylaxis Verified 06/28/21 11:17 (unknown) (no (unknown) (unknown) Gonzalez,Michael (units (un known) date) unknown) (unknown) (no (unknown) (unknown) Please return for (units (unknown) date) fevers, new unknown) changing pain, increasing or changing location of (unknown) (no (unknown) (unknown) Prescriptions: (units (unknown) date) unknown) (unknown) (no (unknown) (unknown) Prior ECG (units (unkn own) date) tracings: unknown) available for review (unknown) (no (unknown) (unknown) Procedure: XR (units ( unknown) date) chest 1V unknown) (unknown) (no (unknown) (unknown) Pulse Oximetry (units (unknown) date) 99 07/24/21 unknown) 07:41 (unknown) (no (unknown) (unknown) Pulse Oximetry (units (unknown) date) 100 99 unknown) (unknown) (no (unknown) (unknown) Pulse Oximetry 99 (units (unknown) date) 100 unknown) (unknown) (no (unknown) (unknown) Pulse Oximetry 99 (units (unknown) date) 99 unknown) (unknown) (no (unknown) (unknown) Pulse Rate 85 (units (unknown) date) 07/24/21 07:41 unknown) (unknown) (no (unknown) (unknown) Pulse Rate 71 84 (units (unknown) date) unknown) (unknown) (no (unknown) (unknown) Pulse Rate 78 86 (units (unknown) date) unknown) (unknown) (no (unknown) (unknown) Pulse Rate 85 (units ( unknown) date) unknown) (unknown) (no (unknown) (unknown) RESPIRATORY: (units (u nknown) date) Breath sounds unknown) equal bilaterally, no wheezes rales or rhonchi. No (unknown) (no (unknown) (unknown) ROS Unobtainable: (units (unknown) date) All systems unknown) reviewed + are unremarkable except as noted in HPI (unknown) (no (unknown) (unknown) Related Data (units (u nknown) date) unknown) (unknown) (no (unknown) (unknown) Renal Ultrasound (units (unknown) date) (Signed) unknown) (unknown) (no (unknown) (unknown) Respiratory Rate (units (unknown) date) unknown) (unknown) (no (unknown) (unknown) Respiratory Rate (units (unknown) date) 18 07/24/21 unknown) 07:41 (unknown) (no (unknown) (unknown) Respiratory Rate (units (unknown) date) 18 unknown) (unknown) (no (unknown) (unknown) Review of Systems (units (unknown) date) unknown) (unknown) (no (unknown) (unknown) Cesario Mcmahon (units (u nknown) date) unknown) (unknown) (no (unknown) (unknown) SKIN: Warm, dry, (units (unknown) date) no petechiae, no unknown) rashes or lesions. (unknown) (no (unknown) (unknown) Signed By: (units (unk nown) date) unknown) (unknown) (no (unknown) (unknown) Sinus rhythm rate (units (unknown) date) of 77 AR 140 QRS unknown) 84 and QTC of 414. No acute ST changes (unknown) (no (unknown) (unknown) Smoking Status: (units (unknown) date) Current every day unknown) smoker (unknown) (no (unknown) (unknown) Smoking Status: (units (unknown) date) Current every day unknown) smoker (unknown) (no (unknown) (unknown) Social History (units (unknown) date) (Reviewed 07/24/21 unknown) @ 08:30 by Noris Edwards DO) (unknown) (no (unknown) (unknown) Source: patient (units (unknown) date) unknown) (unknown) (no (unknown) (unknown) Stated Complaint: (units (unknown) date) chest pain right unknown) side (unknown) (no (unknown) (unknown) Substance Use (units ( unknown) date) Type: does not use unknown) (unknown) (no (unknown) (unknown) Surgical History (units (unknown) date) (Reviewed 07/24/21 unknown) @ 08:30 by Noris Edwards DO) (unknown) (no (unknown) (unknown) Surgical changes (units (unknown) date) and devices:? unknown) None.? (unknown) (no (unknown) (unknown) TECHNIQUE:? One (units (unknown) date) view of the chest unknown) was acquired.? (unknown) (no (unknown) (unknown) Temperature (units (un known) date) unknown) (unknown) (no (unknown) (unknown) Temperature 98 F (units (unknown) date) 07/24/21 07:41 unknown) (unknown) (no (unknown) (unknown) Temperature 98 F (units (unknown) date) unknown) (unknown) (no (unknown) (unknown) This is a (units (unkn own) date) 21-year-old female unknown) who comes emergency department with complaint of (unknown) (no (unknown) (unknown) This is a (units (unkn own) date) 21-year-old female unknown) with at right-sided chest pain which is (unknown) (no (unknown) (unknown) Time Seen by (units (u nknown) date) Provider: 07/24/21 unknown) 07:51 (unknown) (no (unknown) (unknown) Visit Report (units (u nknown) date) Forms: Patient unknown) Portal/API (unknown) (no (unknown) (unknown) Vital Signs (units (un known) date) unknown) (unknown) (no (unknown) (unknown) Vital signs: (units (u nknown) date) unknown) (unknown) (no (unknown) (unknown) Conrado Rodarte (units (u nknown) date) unknown) (unknown) (no (unknown) (unknown) Josue Reece (units (unk nown) date) unknown) (unknown) (no (unknown) (unknown) You can contact (units (unknown) date) [phone] at unknown) the call center to help you find a primary care (unknown) (no (unknown) (unknown) You can take (units (un known) date) ibuprofen up to unknown) 600 mg every 6 hours and/or Tylenol up to a 1000 mg (unknown) (no (unknown) (unknown) Elver Damon (units (unkno wn) date) unknown) (unknown) (no (unknown) (unknown) aerosol inhaler (units (unknown) date) shortness of unknown) breath or wheezing (unknown) (no (unknown) (unknown) albuterol inhaler (units (unknown) date) and takes unknown) ibuprofen as needed is her only medications. She (unknown) (no (unknown) (unknown) albuterol sulfate (units (unknown) date) 90 mcg/actuation 2 unknown) inh inhalation Q4-6H PRN 07/24/21 (unknown) (no (unknown) (unknown) albuterol sulfate (units (unknown) date) 90 mcg/actuation 2 unknown) puff inhalation Q4-6H PRN 06/21/21 (unknown) (no (unknown) (unknown) alcohol intake (units (unknown) date) frequency: unknown) holidays/special occasions only (unknown) (no (unknown) (unknown) appear (units (unkno wn) date) unknown) (unknown) (no (unknown) (unknown) appreciated. (units (u nknown) date) Patient has prior unknown) from 03/01/21 no acute changes. (unknown) (no (unknown) (unknown) become (units (unkno wn) date) asymptomatic since unknown) then. Occasional use of inhaler but has clear lungs (unknown) (no (unknown) (unknown) breath activated (units (unknown) date) powder inhaler unknown) shortness of breath or wheezing #1 (unknown) (no (unknown) (unknown) capsule (units (unkno wn) date) (Macrobid) unknown) (unknown) (no (unknown) (unknown) changes. (units (unkno wn) date) unknown) (unknown) (no (unknown) (unknown) chest pain, (units (un known) date) shortness of unknown) breath, coughing up blood, passing out, persistent (unknown) (no (unknown) (unknown) chills recently, (units (unknown) date) she has not had unknown) any cold cough or congestion this week. She (unknown) (no (unknown) (unknown) cillin in it.'She (units (unknown) date) quit using tobacco unknown) about a month ago, no alcohol, she stop (unknown) (no (unknown) (unknown) continued to use (units (unknown) date) at occasionally unknown) but states she ran out. She is not having (unknown) (no (unknown) (unknown) costochondral (units ( unknown) date) joint. Patient unknown) does not have any warmth, erythema or other skin (unknown) (no (unknown) (unknown) discuss return (units (unknown) date) precautions all unknown) questions answered. Patient does note she has (unknown) (no (unknown) (unknown) does have an (units (u nknown) date) elevated BMI she unknown) has not any estrogens, EKG and chest x-ray do not (unknown) (no (unknown) (unknown) encouraged to try (units (unknown) date) ibuprofen which unknown) she has not, Tylenol she prefers. We did (unknown) (no (unknown) (unknown) every 6 hours as (units (unknown) date) needed for pain. unknown) (unknown) (no (unknown) (unknown) extremities (units (un known) date) unknown) (unknown) (no (unknown) (unknown) guarding or (units (un known) date) rebound, rigidity, unknown) no mass (unknown) (no (unknown) (unknown) has been more (units ( unknown) date) persistent for the unknown) last 3 days every morning when she awakens and (unknown) (no (unknown) (unknown) has not had any (units (unknown) date) today. No prior unknown) surgeries. She is allergic 'to anything with (unknown) (no (unknown) (unknown) increasing (units (unk nown) date) shortness of unknown) breath. No new swelling in her extremities. She uses (unknown) (no (unknown) (unknown) infection she was (units (unknown) date) given an inhaler unknown) which she said was were helpful. She has (unknown) (no (unknown) (unknown) intact. (units (unkno wn) date) unknown) (unknown) (no (unknown) (unknown) is present (units (unkn own) date) currently. She unknown) had headache yesterday, she has not had any fevers or (unknown) (no (unknown) (unknown) long. She states (units (unknown) date) that typically it unknown) will come on in the morning when she wakes (unknown) (no (unknown) (unknown) moist mucous (units (u nknown) date) membranes unknown) (unknown) (no (unknown) (unknown) monohydrate/macro (units (unknown) date) crystals 100 mg unknown) (unknown) (no (unknown) (unknown) nitrofurantoin (units (unknown) date) 100 mg PO BID #14 unknown) caps 01/27/21 (unknown) (no (unknown) (unknown) on exam in today (units (unknown) date) findings and unknown) additional workup was deferred. Patient was (unknown) (no (unknown) (unknown) ondansetron HCl 4 (units (unknown) date) mg tablet 4 mg PO unknown) Q6-8H nausea #7 tabs 11/08/20 (unknown) (no (unknown) (unknown) physician to (units (u nknown) date) establish with. unknown) (unknown) (no (unknown) (unknown) prescription was (units (unknown) date) sent today. unknown) (unknown) (no (unknown) (unknown) reproduce it when (units (unknown) date) she pushes on it. unknown) Movement of her arm or deep breath makes it (unknown) (no (unknown) (unknown) reproducible on (units (unknown) date) exam. Patient has unknown) had intermittently on and off in the past but (unknown) (no (unknown) (unknown) right-sided chest (units (unknown) date) discomfort that unknown) started Tuesday and has been persistent for (unknown) (no (unknown) (unknown) run out of her (units (unknown) date) albuterol inhaler unknown) and does not have a primary care physician so (unknown) (no (unknown) (unknown) show any acute (units (unknown) date) changes. Patient unknown) patient was COVID positive last month but has (unknown) (no (unknown) (unknown) tachypnea, no (units ( unknown) date) accessory muscle unknown) use. Normal speech. (unknown) (no (unknown) (unknown) the joint of the (units (unknown) date) sternum and the unknown) rib. This can be quite painful at times. (unknown) (no (unknown) (unknown) the past 3 days (units (unknown) date) it is at the right unknown) sternal border very localized she can (unknown) (no (unknown) (unknown) then resolved (units ( unknown) date) over several unknown) hours. It is somewhat pleuritic but also worsened (unknown) (no (unknown) (unknown) tobacco type: (units ( unknown) date) cigarettes and unknown) vaping (unknown) (no (unknown) (unknown) today. My (units (unk nown) date) suspicion for unknown) cardiac or embolic cause is significantly lower based (unknown) (no (unknown) (unknown) unremarkable.? (units (unknown) date) unknown) (unknown) (no (unknown) (unknown) up last 3 or 4 (units (unknown) date) hours and it goes unknown) away throughout the day. Patient states that (unknown) (no (unknown) (unknown) using marijuana (units (unknown) date) about 6 months ago unknown) no other recreational drugs. (unknown) (no (unknown) (unknown) vomiting or new (units (unknown) date) swelling in your unknown) extremities. (unknown) (no (unknown) (unknown) vomiting. No (units (u nknown) date) diarrhea unknown) constipation. She had shortness of breath with her COVID (unknown) (no (unknown) (unknown) was positive for (units (unknown) date) COVID a month ago. unknown) She has had nausea occasionally but no (unknown) (no (unknown) (unknown) with movement and (units (unknown) date) is very localized unknown) there is no signs of infection. Patient (unknown) (no (unknown) (unknown) wnl (units (unkno wn) date) unknown) (unknown) (no (unknown) (unknown) worse. She has (units (unknown) date) had this unknown) occasionally in the past but has not lasted for as Result panel 21 (unknown) (no (unknown) (unknown) (no value) (units (unk nown) date) unknown) (unknown) (no (unknown) (unknown) [address] [place] [address] (units (unknown) date) unknown) (unknown) (no (unknown) (unknown) [place], [place] (units ( unknown) date) [id number] unknown) (unknown) (no (unknown) (unknown) Merged With [facility] (units (unknown) date) unknown) (unknown) (no (unknown) (unknown) Signed (units (unkno wn) date) unknown) (unknown) (no (unknown) (unknown) XRay Report (units (un known) date) unknown) (unknown) (no (unknown) (unknown) (no value) (units (unk nown) date) unknown) (unknown) (no (unknown) (unknown) 07/28/21 (units (unkno wn) date) unknown) (unknown) (no (unknown) (unknown) Approved by: (units (u nknown) date) Cesario Mcmahon M.D. unknown) on 07/28/2021 at 14:19 (unknown) (no (unknown) (unknown) Bones and chest (units (unknown) date) wall: No unknown) suspicious bony lesions. Overlying soft tissues (unknown) (no (unknown) (unknown) COMPARISON: (units (un known) date) Merged With [facility], unknown) CR, XR CHEST 1V, 07/24/2021, 7:54. (unknown) (no (unknown) (unknown) Dictated by: (units (u nknown) date) Cesario Mcmahon M.D. unknown) on 07/28/2021 at 14:02 (unknown) (no (unknown) (unknown) FINDINGS: (units (unkn own) date) unknown) (unknown) (no (unknown) (unknown) IMPRESSION: No (units (unknown) date) acute unknown) cardiopulmonary process demonstrated. (unknown) (no (unknown) (unknown) INDICATIONS: (units (u nknown) date) Shortness of unknown) breath (unknown) (no (unknown) (unknown) Lungs and pleura: (units (unknown) date) Lungs are clear. unknown) No pleural effusions or pneumothorax. (unknown) (no (unknown) (unknown) Mediastinum: (units (u nknown) date) Mediastinal unknown) contours appear normal. Heart size is normal. (unknown) (no (unknown) (unknown) Surgical changes (units (unknown) date) and devices: unknown) None. (unknown) (no (unknown) (unknown) TECHNIQUE: One (units (unknown) date) view of the chest unknown) was acquired. (unknown) (no (unknown) (unknown) unremarkable. (units ( unknown) date) unknown) (unknown) (no (unknown) (unknown) [id number] (units (unkno wn) date) unknown) (unknown) (no (unknown) (unknown) Accession Number: (units (unknown) date) [id number] unknown) (unknown) (no (unknown) (unknown) Age/Sex: 21 / F (units (unknown) date) Date of Service: unknown) (unknown) (no (unknown) (unknown) : 2000 (units (unknown) date) Acct:[id number] unknown) (unknown) (no (unknown) (unknown) Loc: ED (units (unkno wn) date) unknown) (unknown) (no (unknown) (unknown) Ordering (units (unkno wn) date) Provider: unknown) Devan Cotton P.A-C (unknown) (no (unknown) (unknown) PROCEDURE: XR (units (unknown) date) CHEST 1V unknown) (unknown) (no (unknown) (unknown) Patient: (units (unkno wn) date) Jenny Cobb unknown) MR#: [id number] (unknown) (no (unknown) (unknown) Procedure: XR (units ( unknown) date) chest 1V unknown) (unknown) (no (unknown) (unknown) appear (units (unkno wn) date) unknown) Result panel 22 (unknown) (no (unknown) (unknown) (no value) (units (unk nown) date) unknown) (unknown) (no (unknown) (unknown) Date of Service: (units (unknown) date) 07/28/21 unknown) (unknown) (no (unknown) (unknown) (no value) (units (unk nown) date) unknown) (unknown) (no (unknown) (unknown) 100 mg PO BID Qty: (units (unknown) date) 14 0RF unknown) (unknown) (no (unknown) (unknown) 2 inh inhalation (units (unknown) date) Q4-6H PRN (Reason: unknown) shortness of breath or wheezing) Qty: 1 (unknown) (no (unknown) (unknown) 2 puff INHALATION (units (unknown) date) Q4-6H PRN (Reason: unknown) shortness of breath or wheezing) Qty: (unknown) (no (unknown) (unknown) 4 mg PO Q6-8H Qty: (units (unknown) date) 7 0RF unknown) (unknown) (no (unknown) (unknown) Allergies (units (unkn own) date) unknown) (unknown) (no (unknown) (unknown) Emergency Report (units (unknown) date) unknown) (unknown) (no (unknown) (unknown) Merged With [facility] (units (unknown) date) [address] [place] [address] unknown) [place] [address] (unknown) (no (unknown) (unknown) Previous Rx's (units ( unknown) date) unknown) (unknown) (no (unknown) (unknown) Rx Instructions: (units (unknown) date) unknown) (unknown) (no (unknown) (unknown) Vital Signs - 8 hr (units (unknown) date) unknown) (unknown) (no (unknown) (unknown) must administer (units (unknown) date) with a meal/food unknown) (unknown) (no (unknown) (unknown) (no value) (units (unk nown) date) unknown) (unknown) (no (unknown) (unknown) albuterol sulfate (units (unknown) date) 90 mcg/actuation HFA unknown) aerosol inhaler (unknown) (no (unknown) (unknown) albuterol sulfate (units (unknown) date) 90 mcg/actuation unknown) aerosol powdr breath activated (unknown) (no (unknown) (unknown) nitrofurantoin (units (unknown) date) monohyd/m-cryst unknown) [Macrobid] 100 mg capsule (unknown) (no (unknown) (unknown) ondansetron HCl (units (unknown) date) [Zofran] 4 mg tablet unknown) (unknown) (no (unknown) (unknown) #8.5 grams (units (unk nown) date) unknown) (unknown) (no (unknown) (unknown) 07/28/21 (units (unkno wn) date) unknown) (unknown) (no (unknown) (unknown) Medication (units (unk nown) date) Instructions unknown) Recorded (unknown) (no (unknown) (unknown) and below (units (unkn own) date) unknown) (unknown) (no (unknown) (unknown) depression, Denies (units (unknown) date) homicidal ideation unknown) and Denies suicidal ideation (unknown) (no (unknown) (unknown) ea (units (unkno wn) date) unknown) (unknown) (no (unknown) (unknown) (Zofran) (units (unkno wn) date) unknown) (unknown) (no (unknown) (unknown) 0RF (units (unkno wn) date) unknown) (unknown) (no (unknown) (unknown) 11:06 (units (unkno wn) date) unknown) (unknown) (no (unknown) (unknown) [id number] (units (unkno wn) date) unknown) (unknown) (no (unknown) (unknown) 8.5 0RF (units (unkno wn) date) unknown) (unknown) (no (unknown) (unknown) Age/Sex: 21 / F (units (unknown) date) unknown) (unknown) (no (unknown) (unknown) Allergic/Immunologi (unit s (unknown) date) c unknown) (unknown) (no (unknown) (unknown) Allergic/Immunologi (unit s (unknown) date) c: Denies urticaria, unknown) Denies throat swelling and Denies (unknown) (no (unknown) (unknown) Allergy/AdvReac (units (unknown) date) Type Severity unknown) Reaction Status Date / Time (unknown) (no (unknown) (unknown) Auscultation: clear (unit s (unknown) date) to auscultation unknown) bilaterally (unknown) (no (unknown) (unknown) Auscultation: (units ( unknown) date) normal bowel sounds unknown) (unknown) (no (unknown) (unknown) Blood Pressure (units (unknown) date) 161/102 H 07/28/21 unknown) 11:06 (unknown) (no (unknown) (unknown) Blood Pressure (units (unknown) date) 161/102 H unknown) (unknown) (no (unknown) (unknown) Cardio (units (unkno wn) date) unknown) (unknown) (no (unknown) (unknown) Cardiovascular (units (unknown) date) unknown) (unknown) (no (unknown) (unknown) Cardiovascular: (units (unknown) date) Denies chest pain, unknown) Denies irregular heart rhythm, Denies (unknown) (no (unknown) (unknown) Chest (units (unkno wn) date) unknown) (unknown) (no (unknown) (unknown) Chest: tenderness (units (unknown) date) unknown) (unknown) (no (unknown) (unknown) Chief Complaint: (units (unknown) date) Upper Respiratory unknown) Symptoms (unknown) (no (unknown) (unknown) Const (units (unkno wn) date) unknown) (unknown) (no (unknown) (unknown) Constitutional (units (unknown) date) unknown) (unknown) (no (unknown) (unknown) Constitutional: (units (unknown) date) Denies chills, unknown) Denies fatigue, Denies fever(s), Denies frequent (unknown) (no (unknown) (unknown) Course (units (unkno wn) date) unknown) (unknown) (no (unknown) (unknown) : 2000 (units (unknown) date) Acct:[id number] unknown) (unknown) (no (unknown) (unknown) Denies frequent (units (unknown) date) falls, Denies loss unknown) of vision, Denies numbness, Denies tingling (unknown) (no (unknown) (unknown) Denies loss of (units (unknown) date) vision unknown) (unknown) (no (unknown) (unknown) Denies numbness and (unit s (unknown) date) Denies tingling unknown) (unknown) (no (unknown) (unknown) Departure (units (unkn own) date) unknown) (unknown) (no (unknown) (unknown) Discharge Plan (units (unknown) date) unknown) (unknown) (no (unknown) (unknown) ENT (units (unkno wn) date) unknown) (unknown) (no (unknown) (unknown) ER Physician: (units ( unknown) date) Devan Cotton P.A-C unknown) (unknown) (no (unknown) (unknown) Ears, Nose, Mouth, (units (unknown) date) and Throat: Denies unknown) change in voice, Denies dizziness, Denies (unknown) (no (unknown) (unknown) Ears: hearing (units ( unknown) date) grossly normal unknown) bilaterally, external ears normal and TM's normal (unknown) (no (unknown) (unknown) Effort + (units (unkno wn) date) Inspection: normal unknown) respiratory effort and able to speak in complete (unknown) (no (unknown) (unknown) Endocrine (units (unkn own) date) unknown) (unknown) (no (unknown) (unknown) Endocrine: Denies (units (unknown) date) fatigue, Denies unknown) flushing and Denies palpitations (unknown) (no (unknown) (unknown) Exam (units (unkno wn) date) unknown) (unknown) (no (unknown) (unknown) Eyes (units (unkno wn) date) unknown) (unknown) (no (unknown) (unknown) Eyes: Denies change (unit s (unknown) date) in vision, Denies unknown) eye discharge, Denies irritation and (unknown) (no (unknown) (unknown) Face and sinus: (units (unknown) date) normal facial exam unknown) (unknown) (no (unknown) (unknown) GI (units (unkno wn) date) unknown) (unknown) (no (unknown) (unknown) Gastrointestinal (units (unknown) date) unknown) (unknown) (no (unknown) (unknown) Gastrointestinal: (units (unknown) date) Denies abdominal unknown) pain, Denies change in bowel habits, Denies (unknown) (no (unknown) (unknown) General (units (unkno wn) date) unknown) (unknown) (no (unknown) (unknown) General: (units (unkno wn) date) cooperative, healthy unknown) appearing and comfortable (unknown) (no (unknown) (unknown) Genitourinary (units ( unknown) date) unknown) (unknown) (no (unknown) (unknown) Genitourinary: (units (unknown) date) Denies hematuria, unknown) Denies flank pain, Denies urinary incontinence (unknown) (no (unknown) (unknown) HENMT (units (unkno wn) date) unknown) (unknown) (no (unknown) (unknown) HPI - URI/Sore (units (unknown) date) Throat unknown) (unknown) (no (unknown) (unknown) HPI Narrative: (units (unknown) date) unknown) (unknown) (no (unknown) (unknown) Head: normal to (units (unknown) date) inspection, unknown) normocephalic and atraumatic (unknown) (no (unknown) (unknown) Healthy adolescent (units (unknown) date) unknown) (unknown) (no (unknown) (unknown) Heart Sounds: S1 (units (unknown) date) normal and S2 normal unknown) (unknown) (no (unknown) (unknown) Hematologic/Lymphat (unit s (unknown) date) ic unknown) (unknown) (no (unknown) (unknown) Hematologic/Lymphat (unit s (unknown) date) ic: Denies easy unknown) bruising (unknown) (no (unknown) (unknown) History of Present (units (unknown) date) Illness unknown) (unknown) (no (unknown) (unknown) Initial Vital Signs (unit s (unknown) date) unknown) (unknown) (no (unknown) (unknown) Initial Vital (units ( unknown) date) Signs: unknown) (unknown) (no (unknown) (unknown) Inspection: normal (units (unknown) date) to inspection unknown) (unknown) (no (unknown) (unknown) Integumentary/Breas (unit s (unknown) date) ts unknown) (unknown) (no (unknown) (unknown) Medical History (units (unknown) date) (Reviewed 07/28/21 @ unknown) 13:06 by Devan Cotton PA-C) (unknown) (no (unknown) (unknown) Mouth: oral mucosae (unit s (unknown) date) normal unknown) (unknown) (no (unknown) (unknown) Musculoskeletal (units (unknown) date) unknown) (unknown) (no (unknown) (unknown) Musculoskeletal: (units (unknown) date) Denies back pain, unknown) Denies muscle weakness, Denies neck pain, (unknown) (no (unknown) (unknown) Nephrolithiasis (units (unknown) date) unknown) (unknown) (no (unknown) (unknown) Neurologic (units (unk nown) date) unknown) (unknown) (no (unknown) (unknown) Neurologic: Denies (units (unknown) date) behavioral changes, unknown) Denies confusion, Denies dizziness, (unknown) (no (unknown) (unknown) No Action (units (unkn own) date) unknown) (unknown) (no (unknown) (unknown) No history of (units ( unknown) date) previous surgery unknown) (unknown) (no (unknown) (unknown) Nose: external nose (unit s (unknown) date) normal and nasal unknown) mucous membranes and turbinates normal (unknown) (no (unknown) (unknown) Nutritional (units (un known) date) Appearance: average unknown) body habitus (unknown) (no (unknown) (unknown) Orientation: (units (u nknown) date) Orientation unknown) (unknown) (no (unknown) (unknown) Oxygen Delivery (units (unknown) date) Method 07/28/21 unknown) 11:06 (unknown) (no (unknown) (unknown) Oxygen Delivery (units (unknown) date) Method Room Air unknown) (unknown) (no (unknown) (unknown) Palpation: normal (units (unknown) date) PMI unknown) (unknown) (no (unknown) (unknown) Palpation: soft and (unit s (unknown) date) no unknown) hepatosplenomegaly (unknown) (no (unknown) (unknown) Patient History (units (unknown) date) unknown) (unknown) (no (unknown) (unknown) Patient is a (units (u nknown) date) 21-year-old female unknown) who presents to the ED complaining of shortness (unknown) (no (unknown) (unknown) Patient: (units (unkno wn) date) Jenny Cobb E unknown) MR#: [id number] (unknown) (no (unknown) (unknown) Penicillins (units (un known) date) [PENICILLINS] unknown) Allergy Unknown Anaphylaxis Verified 06/28/21 11:17 (unknown) (no (unknown) (unknown) Percussion: normal (units (unknown) date) to percussion unknown) (unknown) (no (unknown) (unknown) Prescriptions: (units (unknown) date) unknown) (unknown) (no (unknown) (unknown) Psychiatric (units (un known) date) unknown) (unknown) (no (unknown) (unknown) Psychiatric: Denies (units (unknown) date) anxiety, Denies unknown) behavioral changes, Denies confusion, Denies (unknown) (no (unknown) (unknown) Pulse Oximetry 99 (units (unknown) date) 07/28/21 11:06 unknown) (unknown) (no (unknown) (unknown) Pulse Oximetry 99 (units (unknown) date) unknown) (unknown) (no (unknown) (unknown) Pulse Rate 71 (units (unknown) date) 07/28/21 11:06 unknown) (unknown) (no (unknown) (unknown) Pulse Rate 71 (units ( unknown) date) unknown) (unknown) (no (unknown) (unknown) ROS Unobtainable: (units (unknown) date) All systems reviewed unknown) + are unremarkable except as noted in HPI (unknown) (no (unknown) (unknown) Rate: regular rate (units (unknown) date) unknown) (unknown) (no (unknown) (unknown) Related Data (units (u nknown) date) unknown) (unknown) (no (unknown) (unknown) Resp (units (unkno wn) date) unknown) (unknown) (no (unknown) (unknown) Respiratory (units (un known) date) unknown) (unknown) (no (unknown) (unknown) Respiratory Rate (units (unknown) date) 16 07/28/21 11:06 unknown) (unknown) (no (unknown) (unknown) Respiratory Rate 16 (unit s (unknown) date) unknown) (unknown) (no (unknown) (unknown) Respiratory: (units (u nknown) date) Reports cough, unknown) Reports excessive phlegm production, Reports (unknown) (no (unknown) (unknown) Review of Systems (units (unknown) date) unknown) (unknown) (no (unknown) (unknown) Rhythm: regular (units (unknown) date) rhythm unknown) (unknown) (no (unknown) (unknown) Signed By: (units (unk nown) date) unknown) (unknown) (no (unknown) (unknown) Skin/Breast: Denies (unit s (unknown) date) pruritus, Denies unknown) erythema, Denies rash and Denies wounds (unknown) (no (unknown) (unknown) Smoking Status: (units (unknown) date) Current every day unknown) smoker (unknown) (no (unknown) (unknown) Smoking Status: (units (unknown) date) Current every day unknown) smoker (unknown) (no (unknown) (unknown) Social History (units (unknown) date) (Reviewed 07/28/21 @ unknown) 13:06 by Devan Cotton PA-C) (unknown) (no (unknown) (unknown) Stated Complaint: (units (unknown) date) trouble breathing unknown) with chest pain/diff meds needed (unknown) (no (unknown) (unknown) Substance Use Type: (unit s (unknown) date) does not use unknown) (unknown) (no (unknown) (unknown) Surgical History (units (unknown) date) (Reviewed 07/28/21 @ unknown) 13:06 by Devan Cotton PA-C) (unknown) (no (unknown) (unknown) Teeth and gingiva: (units (unknown) date) dentition normal unknown) (unknown) (no (unknown) (unknown) Temperature 98.9 F (unit s (unknown) date) 07/28/21 11:06 unknown) (unknown) (no (unknown) (unknown) Temperature 98.9 F (units (unknown) date) unknown) (unknown) (no (unknown) (unknown) Throat: posterior (units (unknown) date) oropharynx normal unknown) and tonsils normal (unknown) (no (unknown) (unknown) Time Seen by (units (u nknown) date) Provider: 07/28/21 unknown) 12:50 (unknown) (no (unknown) (unknown) Vital Signs (units (un known) date) unknown) (unknown) (no (unknown) (unknown) Vital signs: (units (u nknown) date) unknown) (unknown) (no (unknown) (unknown) aerosol inhaler (units (unknown) date) shortness of breath unknown) or wheezing (unknown) (no (unknown) (unknown) ago and was (units (un known) date) diagnosed with unknown) costochondritis of which she did take her ibuprofen (unknown) (no (unknown) (unknown) albuterol sulfate (units (unknown) date) 90 mcg/actuation 2 unknown) inh inhalation Q4-6H PRN 07/24/21 (unknown) (no (unknown) (unknown) albuterol sulfate (units (unknown) date) 90 mcg/actuation 2 unknown) puff inhalation Q4-6H PRN 06/21/21 (unknown) (no (unknown) (unknown) alcohol intake (units (unknown) date) frequency: unknown) holidays/special occasions only (unknown) (no (unknown) (unknown) amount of phlegm (units (unknown) date) production over the unknown) last few days she has been taking (unknown) (no (unknown) (unknown) and Denies urinary (units (unknown) date) urgency unknown) (unknown) (no (unknown) (unknown) and Denies weakness (unit s (unknown) date) unknown) (unknown) (no (unknown) (unknown) and told that she (units (unknown) date) did have a strep unknown) infection however she was not treated with (unknown) (no (unknown) (unknown) any antibiotics at (units (unknown) date) that time. Patient unknown) is denying any complaints of sore throat. (unknown) (no (unknown) (unknown) as directed which (units (unknown) date) seemed to help with unknown) her chest pain however she continues to (unknown) (no (unknown) (unknown) bilaterally (units (un known) date) unknown) (unknown) (no (unknown) (unknown) breath activated (units (unknown) date) powder inhaler unknown) shortness of breath or wheezing #1 (unknown) (no (unknown) (unknown) capsule (Macrobid) (units (unknown) date) unknown) (unknown) (no (unknown) (unknown) denies any reported (unit s (unknown) date) fever body aches or unknown) chills. She did report that she was (unknown) (no (unknown) (unknown) diagnosed with (units (unknown) date) COVID approximately unknown) 1 month ago and since then has had ongoing (unknown) (no (unknown) (unknown) diarrhea, Denies (units (unknown) date) nausea and Denies unknown) vomiting (unknown) (no (unknown) (unknown) difficulty (units (unk nown) date) breathing than her unknown) chest pain. She reports that she is having (unknown) (no (unknown) (unknown) difficulty with a (units (unknown) date) sense of getting her unknown) air in. She is also reporting increased (unknown) (no (unknown) (unknown) dyspnea, Reports (units (unknown) date) dyspnea on exertion unknown) and Denies wheezing (unknown) (no (unknown) (unknown) establish herself (units (unknown) date) with a primary care unknown) physician and is having some delay in (unknown) (no (unknown) (unknown) exertion and Denies (unit s (unknown) date) orthopnea unknown) (unknown) (no (unknown) (unknown) falls, Denies (units ( unknown) date) lethargy and Denies unknown) weakness (unknown) (no (unknown) (unknown) filled at the (units ( unknown) date) pharmacy secondary unknown) to insurance denial. She is trying to (unknown) (no (unknown) (unknown) getting a new (units ( unknown) date) patient visit unknown) scheduled. Today her concerns are more about her (unknown) (no (unknown) (unknown) issues with (units (un known) date) perceived shortness unknown) of breath. She was seen in the ED couple days (unknown) (no (unknown) (unknown) lightheadedness, (units (unknown) date) Denies palpitations, unknown) Reports dyspnea, Reports dyspnea on (unknown) (no (unknown) (unknown) monohydrate/macrocr (unit s (unknown) date) ystals 100 mg unknown) (unknown) (no (unknown) (unknown) neck pain, Denies (units (unknown) date) sore throat and unknown) Denies throat swelling (unknown) (no (unknown) (unknown) nitrofurantoin 100 (units (unknown) date) mg PO BID #14 caps unknown) 01/27/21 (unknown) (no (unknown) (unknown) of breath and cough (unit s (unknown) date) and congestion. unknown) Patient reports that she previously was (unknown) (no (unknown) (unknown) ondansetron HCl 4 (units (unknown) date) mg tablet 4 mg PO unknown) Q6-8H nausea #7 tabs 11/08/20 (unknown) (no (unknown) (unknown) [id number] (units (unknown) date) Mucinex and NyQuil unknown) without any change in her symptoms. She (unknown) (no (unknown) (unknown) seen for an upper (units (unknown) date) respiratory unknown) infection a couple weeks back and was later called (unknown) (no (unknown) (unknown) sentences (units (unkn own) date) unknown) (unknown) (no (unknown) (unknown) still have some (units (unknown) date) ongoing shortness of unknown) breath. She was unable to get her inhaler (unknown) (no (unknown) (unknown) tobacco type: (units ( unknown) date) cigarettes and unknown) vaping (unknown) (no (unknown) (unknown) wheezing (units (unkno wn) date) unknown) Result panel 23 (unknown) (no date) (unknown) (unknown) Not Detected (units ( unknown) unknown) (unknown) (no date) (unknown) (unknown) Not Detected (units ( unknown) unknown) Result panel 24 (unknown) (no (unknown) (unknown) (no value) (units (unk nown) date) unknown) (unknown) (no (unknown) (unknown) Radiologist's (units ( unknown) date) Impression: unknown) (unknown) (no (unknown) (unknown) Date of Service: (units (unknown) date) 07/28/21 unknown) (unknown) (no (unknown) (unknown) (no value) (units (unk nown) date) unknown) (unknown) (no (unknown) (unknown) <Electronically (units (unknown) date) signed by Devan Momin unknown) Lula> (unknown) (no (unknown) (unknown) 07/28/21 1607 (units ( unknown) date) unknown) (unknown) (no (unknown) (unknown) 100 mg PO BID Qty: (units (unknown) date) 14 0RF unknown) (unknown) (no (unknown) (unknown) [address] (units (unknown) date) unknown) (unknown) (no (unknown) (unknown) 2 inh inhalation (units (unknown) date) Q4-6H PRN (Reason: unknown) shortness of breath or wheezing) Qty: 1 (unknown) (no (unknown) (unknown) 2 puff INHALATION (units (unknown) date) Q4-6H PRN (Reason: unknown) shortness of breath or wheezing) Qty: (unknown) (no (unknown) (unknown) 4 mg PO Q6-8H Qty: (units (unknown) date) 7 0RF unknown) (unknown) (no (unknown) (unknown) Allergies (units (unkn own) date) unknown) (unknown) (no (unknown) (unknown) [place] [address] (unit s (unknown) date) unknown) (unknown) (no (unknown) (unknown) ED Orders (units (unkn own) date) unknown) (unknown) (no (unknown) (unknown) Emergency Report (units (unknown) date) unknown) (unknown) (no (unknown) (unknown) Merged With [facility] (units (unknown) date) unknown) (unknown) (no (unknown) (unknown) Merged With [facility] (units (unknown) date) [address] unknown) [place] [address] (unknown) (no (unknown) (unknown) Lab Results (units (un known) date) unknown) (unknown) (no (unknown) (unknown) Previous Rx's (units ( unknown) date) unknown) (unknown) (no (unknown) (unknown) Rx Instructions: (units (unknown) date) unknown) (unknown) (no (unknown) (unknown) Signed (units (o wn) date) unknown) (unknown) (no (unknown) (unknown) Vital Signs - 8 hr (units (unknown) date) unknown) (unknown) (no (unknown) (unknown) XRay Report (units (un known) date) unknown) (unknown) (no (unknown) (unknown) must administer (units (unknown) date) with a meal/food unknown) (unknown) (no (unknown) (unknown) (no value) (units (k ) date) unknown) (unknown) (no (unknown) (unknown) 07/28/21 (units (o wn) date) Range/Units unknown) (unknown) (no (unknown) (unknown) 13:15 (units (o ) date) unknown) (unknown) (no (unknown) (unknown) albuterol sulfate (units (unknown) date) 90 mcg/actuation HFA unknown) aerosol inhaler (unknown) (no (unknown) (unknown) albuterol sulfate (units (unknown) date) 90 mcg/actuation unknown) aerosol powdr breath activated (unknown) (no (unknown) (unknown) nitrofurantoin (units (unknown) date) monohyd/m-cryst unknown) [Macrobid] 100 mg capsule (unknown) (no (unknown) (unknown) ondansetron HCl (units (unknown) date) [Zofran] 4 mg tablet unknown) (unknown) (no (unknown) (unknown) #8.5 grams (units (k n) date) unknown) (unknown) (no (unknown) (unknown) 07/28/21 (units (o wn) date) unknown) (unknown) (no (unknown) (unknown) Medication (units (k n) date) Instructions unknown) Recorded (unknown) (no (unknown) (unknown) Respiratory (units (un known) date) distress, Acute unknown) costochondritis (unknown) (no (unknown) (unknown) Thank you for the (units (unknown) date) opportunity to care unknown) for you today. (unknown) (no (unknown) (unknown) and below (units (unkn own) date) unknown) (unknown) (no (unknown) (unknown) depression, Denies (units (unknown) date) homicidal ideation unknown) and Denies suicidal ideation (unknown) (no (unknown) (unknown) ea (units (unkno wn) date) unknown) (unknown) (no (unknown) (unknown) (Zofran) (units (unkno wn) date) unknown) (unknown) (no (unknown) (unknown) 07/28/21 13:08 (units (unknown) date) unknown) (unknown) (no (unknown) (unknown) 07/28/21 13:15 (units (unknown) date) unknown) (unknown) (no (unknown) (unknown) 0RF (units (unkno wn) date) unknown) (unknown) (no (unknown) (unknown) 11:06 (units (unkno wn) date) unknown) (unknown) (no (unknown) (unknown) [id number] (units (unkno wn) date) unknown) (unknown) (no (unknown) (unknown) 8.5 0RF (units (unkno wn) date) unknown) (unknown) (no (unknown) (unknown) ? (units (unkno wn) date) unknown) (unknown) (no (unknown) (unknown) Accession Number: (units (unknown) date) [id number] ?? unknown) (unknown) (no (unknown) (unknown) Acct:[id number] (units (unknown) date) unknown) (unknown) (no (unknown) (unknown) Activity (units (unkno wn) date) Restrictions/Additio unknown) nal Instructions: (unknown) (no (unknown) (unknown) Adenovirus (PCR) (units (unknown) date) Not detected (Not unknown) Detect) (unknown) (no (unknown) (unknown) Age/Sex: 21 / F (units (unknown) date) unknown) (unknown) (no (unknown) (unknown) Age/Sex: 21 / F (units (unknown) date) unknown) (unknown) (no (unknown) (unknown) Allergic/Immunologi (unit s (unknown) date) c unknown) (unknown) (no (unknown) (unknown) Allergic/Immunologi (unit s (unknown) date) c: Denies urticaria, unknown) Denies throat swelling and Denies (unknown) (no (unknown) (unknown) Allergy/AdvReac (units (unknown) date) Type Severity unknown) Reaction Status Date / Time (unknown) (no (unknown) (unknown) Approved by: Cesario (units (unknown) date) Marbella Mcmahon on unknown) 07/28/2021 at 14:19?? (unknown) (no (unknown) (unknown) Auscultation: clear (unit s (unknown) date) to auscultation unknown) bilaterally (unknown) (no (unknown) (unknown) Auscultation: (units ( unknown) date) normal bowel sounds unknown) (unknown) (no (unknown) (unknown) B. pertussis DNA (units (unknown) date) (PCR) Not detected unknown) (Not Detecte) (unknown) (no (unknown) (unknown) B.parapertussis DNA (unit s (unknown) date) PCR Not detected unknown) (Not Detecte) (unknown) (no (unknown) (unknown) Blood Pressure (units (unknown) date) 161/102 H 07/28/21 unknown) 11:06 (unknown) (no (unknown) (unknown) Blood Pressure (units (unknown) date) 161/102 H unknown) (unknown) (no (unknown) (unknown) Bones and chest (units (unknown) date) wall:? No suspicious unknown) bony lesions.? Overlying soft tissues (unknown) (no (unknown) (unknown) COMPARISON:? [facility] (unit s (unknown) date) [facility], CR, XR unknown) CHEST 1V, 07/24/2021, 7:54. (unknown) (no (unknown) (unknown) CXR [XR chest 1V] (units (unknown) date) Stat unknown) (unknown) (no (unknown) (unknown) Cardio (units (unkno wn) date) unknown) (unknown) (no (unknown) (unknown) Cardiovascular (units (unknown) date) unknown) (unknown) (no (unknown) (unknown) Cardiovascular: (units (unknown) date) Denies chest pain, unknown) Denies irregular heart rhythm, Denies (unknown) (no (unknown) (unknown) Chest (units (unkno wn) date) unknown) (unknown) (no (unknown) (unknown) Chest x-ray: (units (u nknown) date) unknown) (unknown) (no (unknown) (unknown) Chest: tenderness (units (unknown) date) unknown) (unknown) (no (unknown) (unknown) Chief Complaint: (units (unknown) date) Upper Respiratory unknown) Symptoms (unknown) (no (unknown) (unknown) Chlamy pneumoniae (units (unknown) date) PCR Not detected unknown) (Not Detect) (unknown) (no (unknown) (unknown) Clinical (units (unkno wn) date) Impression: unknown) (unknown) (no (unknown) (unknown) Const (units (unkno wn) date) unknown) (unknown) (no (unknown) (unknown) Constitutional (units (unknown) date) unknown) (unknown) (no (unknown) (unknown) Constitutional: (units (unknown) date) Denies chills, unknown) Denies fatigue, Denies fever(s), Denies frequent (unknown) (no (unknown) (unknown) Coronavirus 229E (units (unknown) date) (PCR) Not detected unknown) (Not Detect) (unknown) (no (unknown) (unknown) Coronavirus HKU1 (units (unknown) date) (PCR) Not detected unknown) (Not Detect) (unknown) (no (unknown) (unknown) Coronavirus NL63 (units (unknown) date) (PCR) Not detected unknown) (Not Detect) (unknown) (no (unknown) (unknown) Coronavirus OC43 (units (unknown) date) (PCR) Not detected unknown) (Not Detect) (unknown) (no (unknown) (unknown) Course (units (unkno wn) date) unknown) (unknown) (no (unknown) (unknown) : 2000 (units (unknown) date) Acct:[id number] unknown) (unknown) (no (unknown) (unknown) : 2000 (units (unknown) date) unknown) (unknown) (no (unknown) (unknown) Date of Service: (units (unknown) date) 07/28/21 unknown) (unknown) (no (unknown) (unknown) Denies frequent (units (unknown) date) falls, Denies loss unknown) of vision, Denies numbness, Denies tingling (unknown) (no (unknown) (unknown) Denies loss of (units (unknown) date) vision unknown) (unknown) (no (unknown) (unknown) Denies numbness and (unit s (unknown) date) Denies tingling unknown) (unknown) (no (unknown) (unknown) Departure (units (unkn own) date) unknown) (unknown) (no (unknown) (unknown) Dictated by: Cesario (units (unknown) date) Marbella Mcmahon on unknown) 07/28/2021 at 14:02 ? ? (unknown) (no (unknown) (unknown) Differential (units (u nknown) date) Diagnosis unknown) (unknown) (no (unknown) (unknown) Differential (units (u nknown) date) diagnosis: Likely unknown) other (unknown) (no (unknown) (unknown) Discharge Plan (units (unknown) date) unknown) (unknown) (no (unknown) (unknown) ENT (units (unkno wn) date) unknown) (unknown) (no (unknown) (unknown) ER Physician: (units ( unknown) date) Devan Cotton P.A-C unknown) (unknown) (no (unknown) (unknown) Ears, Nose, Mouth, (units (unknown) date) and Throat: Denies unknown) change in voice, Denies dizziness, Denies (unknown) (no (unknown) (unknown) Ears: hearing (units ( unknown) date) grossly normal unknown) bilaterally, external ears normal and TM's normal (unknown) (no (unknown) (unknown) Effort + (units (unkno wn) date) Inspection: normal unknown) respiratory effort and able to speak in complete (unknown) (no (unknown) (unknown) Endocrine (units (unkn own) date) unknown) (unknown) (no (unknown) (unknown) Endocrine: Denies (units (unknown) date) fatigue, Denies unknown) flushing and Denies palpitations (unknown) (no (unknown) (unknown) Entero/Rhino (PCR) (units (unknown) date) Not detected (Not unknown) Detect) (unknown) (no (unknown) (unknown) Exam (units (unkno wn) date) unknown) (unknown) (no (unknown) (unknown) Eyes (units (unkno wn) date) unknown) (unknown) (no (unknown) (unknown) Eyes: Denies change (unit s (unknown) date) in vision, Denies unknown) eye discharge, Denies irritation and (unknown) (no (unknown) (unknown) FINDINGS:? (units (unk nown) date) unknown) (unknown) (no (unknown) (unknown) Face and sinus: (units (unknown) date) normal facial exam unknown) (unknown) (no (unknown) (unknown) GI (units (unkno wn) date) unknown) (unknown) (no (unknown) (unknown) Gastrointestinal (units (unknown) date) unknown) (unknown) (no (unknown) (unknown) Gastrointestinal: (units (unknown) date) Denies abdominal unknown) pain, Denies change in bowel habits, Denies (unknown) (no (unknown) (unknown) General (units (unkno wn) date) unknown) (unknown) (no (unknown) (unknown) General: (units (unkno wn) date) cooperative, healthy unknown) appearing and comfortable (unknown) (no (unknown) (unknown) Genitourinary (units ( unknown) date) unknown) (unknown) (no (unknown) (unknown) Genitourinary: (units (unknown) date) Denies hematuria, unknown) Denies flank pain, Denies urinary incontinence (unknown) (no (unknown) (unknown) HENMT (units (unkno wn) date) unknown) (unknown) (no (unknown) (unknown) HPI - URI/Sore (units (unknown) date) Throat unknown) (unknown) (no (unknown) (unknown) HPI Narrative: (units (unknown) date) unknown) (unknown) (no (unknown) (unknown) Head: normal to (units (unknown) date) inspection, unknown) normocephalic and atraumatic (unknown) (no (unknown) (unknown) Healthy adolescent (units (unknown) date) unknown) (unknown) (no (unknown) (unknown) Heart Sounds: S1 (units (unknown) date) normal and S2 normal unknown) (unknown) (no (unknown) (unknown) Hematologic/Lymphat (unit s (unknown) date) ic unknown) (unknown) (no (unknown) (unknown) Hematologic/Lymphat (unit s (unknown) date) ic: Denies easy unknown) bruising (unknown) (no (unknown) (unknown) History of Present (units (unknown) date) Illness unknown) (unknown) (no (unknown) (unknown) Human Metapneumovir (unit s (unknown) date) PCR Not detected unknown) (Not Detect) (unknown) (no (unknown) (unknown) IMPRESSION:? No (units (unknown) date) acute unknown) cardiopulmonary process demonstrated. (unknown) (no (unknown) (unknown) INDICATIONS:? (units ( unknown) date) Shortness of breath unknown) (unknown) (no (unknown) (unknown) Imaging Data (units (u nknown) date) unknown) (unknown) (no (unknown) (unknown) Influenza Type A (units (unknown) date) (PCR) Not detected unknown) (Not Detect) (unknown) (no (unknown) (unknown) Influenza Type B (units (unknown) date) (PCR) Not detected unknown) (Not Detect) (unknown) (no (unknown) (unknown) Initial Vital Signs (unit s (unknown) date) unknown) (unknown) (no (unknown) (unknown) Initial Vital (units ( unknown) date) Signs: unknown) (unknown) (no (unknown) (unknown) Inspection: normal (units (unknown) date) to inspection unknown) (unknown) (no (unknown) (unknown) Instructions: DI (units (unknown) date) for Shortness of unknown) Breath (unknown) (no (unknown) (unknown) Integumentary/Breas (unit s (unknown) date) ts unknown) (unknown) (no (unknown) (unknown) Lab Data (units (unkno wn) date) unknown) (unknown) (no (unknown) (unknown) Labs: (units (unkno wn) date) unknown) (unknown) (no (unknown) (unknown) Loc: ED (units (unkno wn) date) unknown) (unknown) (no (unknown) (unknown) Lungs and pleura:? (units (unknown) date) Lungs are clear.? No unknown) pleural effusions or pneumothorax.? (unknown) (no (unknown) (unknown) M. pneumoniae (PCR) (unit s (unknown) date) Not detected (Not unknown) Detect) (unknown) (no (unknown) (unknown) MDM - URI/Sore (units (unknown) date) Throat unknown) (unknown) (no (unknown) (unknown) MDM Narrative (units ( unknown) date) unknown) (unknown) (no (unknown) (unknown) MR#: [id number] (units (unknown) date) unknown) (unknown) (no (unknown) (unknown) Mediastinum:? (units ( unknown) date) Mediastinal contours unknown) appear normal.? Heart size is normal.? (unknown) (no (unknown) (unknown) Medical History (units (unknown) date) (Updated 07/28/21 @ unknown) 16:07 by Devan Cotton PA-C) (unknown) (no (unknown) (unknown) Medical decision (units (unknown) date) making narrative: unknown) (unknown) (no (unknown) (unknown) Mouth: oral mucosae (unit s (unknown) date) normal unknown) (unknown) (no (unknown) (unknown) Musculoskeletal (units (unknown) date) unknown) (unknown) (no (unknown) (unknown) Musculoskeletal: (units (unknown) date) Denies back pain, unknown) Denies muscle weakness, Denies neck pain, (unknown) (no (unknown) (unknown) Nephrolithiasis (units (unknown) date) unknown) (unknown) (no (unknown) (unknown) Neurologic (units (unk nown) date) unknown) (unknown) (no (unknown) (unknown) Neurologic: Denies (units (unknown) date) behavioral changes, unknown) Denies confusion, Denies dizziness, (unknown) (no (unknown) (unknown) No Action (units (unkn own) date) unknown) (unknown) (no (unknown) (unknown) No history of (units ( unknown) date) previous surgery unknown) (unknown) (no (unknown) (unknown) Nose: external nose (unit s (unknown) date) normal and nasal unknown) mucous membranes and turbinates normal (unknown) (no (unknown) (unknown) Nutritional (units (un known) date) Appearance: average unknown) body habitus (unknown) (no (unknown) (unknown) Ordered: (units (unkno wn) date) unknown) (unknown) (no (unknown) (unknown) Ordering Provider: (units (unknown) date) Devan Cotton P.A-C unknown) (unknown) (no (unknown) (unknown) Orders (units (unkno wn) date) unknown) (unknown) (no (unknown) (unknown) Orientation: (units (u nknown) date) Orientation unknown) (unknown) (no (unknown) (unknown) Oxygen Delivery (units (unknown) date) Method 07/28/21 unknown) 11:06 (unknown) (no (unknown) (unknown) Oxygen Delivery (units (unknown) date) Method Room Air unknown) (unknown) (no (unknown) (unknown) PROCEDURE:? XR (units (unknown) date) CHEST 1V unknown) (unknown) (no (unknown) (unknown) Palpation: normal (units (unknown) date) PMI unknown) (unknown) (no (unknown) (unknown) Palpation: soft and (unit s (unknown) date) no unknown) hepatosplenomegaly (unknown) (no (unknown) (unknown) Parainfluenza 1 (units (unknown) date) (PCR) Not detected unknown) (Not Detect) (unknown) (no (unknown) (unknown) Parainfluenza 2 (units (unknown) date) (PCR) Not detected unknown) (Not Detect) (unknown) (no (unknown) (unknown) Parainfluenza 3 (units (unknown) date) (PCR) Not detected unknown) (Not Detect) (unknown) (no (unknown) (unknown) Parainfluenza 4 (units (unknown) date) (PCR) Not detected unknown) (Not Detect) (unknown) (no (unknown) (unknown) Patient (units (unkno wn) date) Disposition: Home unknown) (unknown) (no (unknown) (unknown) Patient History (units (unknown) date) unknown) (unknown) (no (unknown) (unknown) Patient doing well (units (unknown) date) not having any unknown) significant complaints of shortness of breath (unknown) (no (unknown) (unknown) Patient is a (units (u nknown) date) 21-year-old female unknown) who presents to the ED complaining of shortness (unknown) (no (unknown) (unknown) Patient was seen (units (unknown) date) today for complaints unknown) of shortness of breath. Her previous (unknown) (no (unknown) (unknown) Patient: (units (unkno wn) date) Jenny Cobb unknown) MR#: [id number] (unknown) (no (unknown) (unknown) Patient: (units (unkno wn) date) Jenny Cobb unknown) (unknown) (no (unknown) (unknown) Penicillins (units (un known) date) [PENICILLINS] unknown) Allergy Unknown Anaphylaxis Verified 06/28/21 11:17 (unknown) (no (unknown) (unknown) Percussion: normal (units (unknown) date) to percussion unknown) (unknown) (no (unknown) (unknown) Prescriptions: (units (unknown) date) unknown) (unknown) (no (unknown) (unknown) Procedure: XR chest (unit s (unknown) date) 1V unknown) (unknown) (no (unknown) (unknown) Psychiatric (units (un known) date) unknown) (unknown) (no (unknown) (unknown) Psychiatric: Denies (units (unknown) date) anxiety, Denies unknown) behavioral changes, Denies confusion, Denies (unknown) (no (unknown) (unknown) Pulse Oximetry 99 (units (unknown) date) 07/28/21 11:06 unknown) (unknown) (no (unknown) (unknown) Pulse Oximetry 99 (units (unknown) date) unknown) (unknown) (no (unknown) (unknown) Pulse Rate 71 (units (unknown) date) 07/28/21 11:06 unknown) (unknown) (no (unknown) (unknown) Pulse Rate 71 (units ( unknown) date) unknown) (unknown) (no (unknown) (unknown) ROS Unobtainable: (units (unknown) date) All systems reviewed unknown) + are unremarkable except as noted in HPI (unknown) (no (unknown) (unknown) RSV (PCR) Not (units (unknown) date) detected (Not unknown) Detect) (unknown) (no (unknown) (unknown) Rate: regular rate (units (unknown) date) unknown) (unknown) (no (unknown) (unknown) Reevaluation #1: (units (unknown) date) unknown) (unknown) (no (unknown) (unknown) Reevaluation(s) (units (unknown) date) unknown) (unknown) (no (unknown) (unknown) Related Data (units (u nknown) date) unknown) (unknown) (no (unknown) (unknown) Resp (units (unkno wn) date) unknown) (unknown) (no (unknown) (unknown) Respiratory (units (un known) date) unknown) (unknown) (no (unknown) (unknown) Respiratory Panel (units (unknown) date) (Film Array) Stat unknown) (unknown) (no (unknown) (unknown) Respiratory Rate (units (unknown) date) 16 07/28/21 11:06 unknown) (unknown) (no (unknown) (unknown) Respiratory Rate 16 (unit s (unknown) date) unknown) (unknown) (no (unknown) (unknown) Respiratory: (units (u nknown) date) Reports cough, unknown) Reports excessive phlegm production, Reports (unknown) (no (unknown) (unknown) Review of Systems (units (unknown) date) unknown) (unknown) (no (unknown) (unknown) Rhythm: regular (units (unknown) date) rhythm unknown) (unknown) (no (unknown) (unknown) SARS-CoV-2 (PCR) (units (unknown) date) Not detected (Not unknown) Detecte) (unknown) (no (unknown) (unknown) Signed By: (units (unk nown) date) unknown) (unknown) (no (unknown) (unknown) Skin/Breast: Denies (unit s (unknown) date) pruritus, Denies unknown) erythema, Denies rash and Denies wounds (unknown) (no (unknown) (unknown) Smoking Status: (units (unknown) date) Current every day unknown) smoker (unknown) (no (unknown) (unknown) Smoking Status: (units (unknown) date) Current every day unknown) smoker (unknown) (no (unknown) (unknown) Social History (units (unknown) date) (Reviewed 07/28/21 @ unknown) 13:06 by Devan Cotton PA-C) (unknown) (no (unknown) (unknown) Stated Complaint: (units (unknown) date) trouble breathing unknown) with chest pain/diff meds needed (unknown) (no (unknown) (unknown) Substance Use Type: (unit s (unknown) date) does not use unknown) (unknown) (no (unknown) (unknown) Surgical History (units (unknown) date) (Reviewed 07/28/21 @ unknown) 13:06 by Devan Cotton PA-C) (unknown) (no (unknown) (unknown) Surgical changes (units (unknown) date) and devices:? None.? unknown) (unknown) (no (unknown) (unknown) TECHNIQUE:? One (units (unknown) date) view of the chest unknown) was acquired.? (unknown) (no (unknown) (unknown) Teeth and gingiva: (units (unknown) date) dentition normal unknown) (unknown) (no (unknown) (unknown) Temperature 98.9 F (unit s (unknown) date) 07/28/21 11:06 unknown) (unknown) (no (unknown) (unknown) Temperature 98.9 F (units (unknown) date) unknown) (unknown) (no (unknown) (unknown) Throat: posterior (units (unknown) date) oropharynx normal unknown) and tonsils normal (unknown) (no (unknown) (unknown) Time Seen by (units (u nknown) date) Provider: 07/28/21 unknown) 12:50 (unknown) (no (unknown) (unknown) Vital Signs (units (un known) date) unknown) (unknown) (no (unknown) (unknown) Vital signs: (units (u nknown) date) unknown) (unknown) (no (unknown) (unknown) You were seen today (unit s (unknown) date) for your shortness unknown) of breath. Her chest x-ray did not show (unknown) (no (unknown) (unknown) aerosol inhaler (units (unknown) date) shortness of breath unknown) or wheezing (unknown) (no (unknown) (unknown) ago and was (units (un known) date) diagnosed with unknown) costochondritis of which she did take her ibuprofen (unknown) (no (unknown) (unknown) albuterol sulfate (units (unknown) date) 90 mcg/actuation 2 unknown) inh inhalation Q4-6H PRN 07/24/21 (unknown) (no (unknown) (unknown) albuterol sulfate (units (unknown) date) 90 mcg/actuation 2 unknown) puff inhalation Q4-6H PRN 05/15/22 (unknown) (no (unknown) (unknown) alcohol intake (units (unknown) date) frequency: unknown) holidays/special occasions only (unknown) (no (unknown) (unknown) amount of phlegm (units (unknown) date) production over the unknown) last few days she has been taking (unknown) (no (unknown) (unknown) and Denies urinary (units (unknown) date) urgency unknown) (unknown) (no (unknown) (unknown) and Denies weakness (unit s (unknown) date) unknown) (unknown) (no (unknown) (unknown) and told that she (units (unknown) date) did have a strep unknown) infection however she was not treated with (unknown) (no (unknown) (unknown) any antibiotics at (units (unknown) date) that time. Patient unknown) is denying any complaints of sore throat. (unknown) (no (unknown) (unknown) any evidence of (units (unknown) date) pneumonia. And your unknown) examination did not show any abnormal (unknown) (no (unknown) (unknown) appear (units (unkno wn) date) unknown) (unknown) (no (unknown) (unknown) as directed which (units (unknown) date) seemed to help with unknown) her chest pain however she continues to (unknown) (no (unknown) (unknown) at this time. No (units (unknown) date) cough vital stable. unknown) (unknown) (no (unknown) (unknown) bilaterally (units (un known) date) unknown) (unknown) (no (unknown) (unknown) breath activated (units (unknown) date) powder inhaler unknown) shortness of breath or wheezing #1 (unknown) (no (unknown) (unknown) capsule (Macrobid) (units (unknown) date) unknown) (unknown) (no (unknown) (unknown) clear she was (units ( unknown) date) denied her albuterol unknown) inhaler from her previous visit as result of (unknown) (no (unknown) (unknown) costochondritis. (units (unknown) date) He can take Mucinex unknown) OTC as directed for your excessive phlegm (unknown) (no (unknown) (unknown) denies any reported (unit s (unknown) date) fever body aches or unknown) chills. She did report that she was (unknown) (no (unknown) (unknown) diagnosed with (units (unknown) date) COVID approximately unknown) 1 month ago and since then has had ongoing (unknown) (no (unknown) (unknown) diagnosis of (units (u nknown) date) costochondritis is unknown) still likely there she does have some ongoing (unknown) (no (unknown) (unknown) diarrhea, Denies (units (unknown) date) nausea and Denies unknown) vomiting (unknown) (no (unknown) (unknown) difficulty (units (unk nown) date) breathing than her unknown) chest pain. She reports that she is having (unknown) (no (unknown) (unknown) difficulty with a (units (unknown) date) sense of getting her unknown) air in. She is also reporting increased (unknown) (no (unknown) (unknown) dyspnea, Reports (units (unknown) date) dyspnea on exertion unknown) and Denies wheezing (unknown) (no (unknown) (unknown) establish herself (units (unknown) date) with a primary care unknown) physician and is having some delay in (unknown) (no (unknown) (unknown) evidence of any (units (unknown) date) pneumonia her viral unknown) panel was negative her lung sounds were (unknown) (no (unknown) (unknown) exertion and Denies (unit s (unknown) date) orthopnea unknown) (unknown) (no (unknown) (unknown) falls, Denies (units ( unknown) date) lethargy and Denies unknown) weakness (unknown) (no (unknown) (unknown) filled at the (units ( unknown) date) pharmacy secondary unknown) to insurance denial. She is trying to (unknown) (no (unknown) (unknown) getting a new (units ( unknown) date) patient visit unknown) scheduled. Today her concerns are more about her (unknown) (no (unknown) (unknown) insurance denial. (units (unknown) date) I spoke with patient unknown) and she is not interested in another (unknown) (no (unknown) (unknown) issues with (units (un known) date) perceived shortness unknown) of breath. She was seen in the ED couple days (unknown) (no (unknown) (unknown) lightheadedness, (units (unknown) date) Denies palpitations, unknown) Reports dyspnea, Reports dyspnea on (unknown) (no (unknown) (unknown) monohydrate/macrocr (unit s (unknown) date) ystals 100 mg unknown) (unknown) (no (unknown) (unknown) neck pain, Denies (units (unknown) date) sore throat and unknown) Denies throat swelling (unknown) (no (unknown) (unknown) nitrofurantoin 100 (units (unknown) date) mg PO BID #14 caps unknown) 01/27/21 (unknown) (no (unknown) (unknown) of breath and cough (unit s (unknown) date) and congestion. unknown) Patient reports that she previously was (unknown) (no (unknown) (unknown) ondansetron HCl 4 (units (unknown) date) mg tablet 4 mg PO unknown) Q6-8H nausea #7 tabs 11/08/20 (unknown) (no (unknown) (unknown) [id number] (units (unknown) date) Mucinex and NyQuil unknown) without any change in her symptoms. She (unknown) (no (unknown) (unknown) prescription at (units (unknown) date) this point. I unknown) advised her that she can return to the ED if her (unknown) (no (unknown) (unknown) production. He can (units (unknown) date) follow up with her unknown) PCP for further evaluation and treatment. (unknown) (no (unknown) (unknown) seen for an upper (units (unknown) date) respiratory unknown) infection a couple weeks back and was later called (unknown) (no (unknown) (unknown) sentences (units (unkn own) date) unknown) (unknown) (no (unknown) (unknown) she can take (units (u nknown) date) [id number] as unknown) directed. Patient will be discharged home. (unknown) (no (unknown) (unknown) shortness of breath (unit s (unknown) date) worsens. She was unknown) agreeable I also recommended Mucinex that (unknown) (no (unknown) (unknown) sounds as result a (units (unknown) date) inhaler would not unknown) likely be of benefit at this point. I (unknown) (no (unknown) (unknown) still have some (units (unknown) date) ongoing shortness of unknown) breath. She was unable to get her inhaler (unknown) (no (unknown) (unknown) substernal (units (unk nown) date) tenderness with unknown) palpation. However her pain is not as severe as it (unknown) (no (unknown) (unknown) tobacco type: (units ( unknown) date) cigarettes and unknown) vaping (unknown) (no (unknown) (unknown) unremarkable.? (units (unknown) date) unknown) (unknown) (no (unknown) (unknown) was when she was (units (unknown) date) seen a few days ago. unknown) Her shortness of breath does not show any (unknown) (no (unknown) (unknown) wheezing (units (unkno wn) date) unknown) (unknown) (no (unknown) (unknown) would still (units (un known) date) continue to take unknown) ibuprofen as previously directed for your ongoing Result panel 25 (unknown) (no (unknown) (unknown) (no value) (units (unk nown) date) unknown) (unknown) (no (unknown) (unknown) Radiologist's (units ( unknown) date) Impression: unknown) (unknown) (no (unknown) (unknown) Date of Service: (units (unknown) date) 07/28/21 unknown) (unknown) (no (unknown) (unknown) (no value) (units (unk nown) date) unknown) (unknown) (no (unknown) (unknown) <Electronically (units (unknown) date) signed by Pat Mayorga unknown) MD Kelsie> (unknown) (no (unknown) (unknown) <Electronically (units (unknown) date) signed by Devan Momin unknown) Lula> (unknown) (no (unknown) (unknown) 07/28/21 1607 (units ( unknown) date) unknown) (unknown) (no (unknown) (unknown) 07/28/21 1714 (units ( unknown) date) unknown) (unknown) (no (unknown) (unknown) 100 mg PO BID Qty: (units (unknown) date) 14 0RF unknown) (unknown) (no (unknown) (unknown) [address] (units (unknown) date) unknown) (unknown) (no (unknown) (unknown) 2 inh inhalation (units (unknown) date) Q4-6H PRN (Reason: unknown) shortness of breath or wheezing) Qty: 1 (unknown) (no (unknown) (unknown) 2 puff INHALATION (units (unknown) date) Q4-6H PRN (Reason: unknown) shortness of breath or wheezing) Qty: (unknown) (no (unknown) (unknown) 4 mg PO Q6-8H Qty: (units (unknown) date) 7 0RF unknown) (unknown) (no (unknown) (unknown) Allergies (units (unkn own) date) unknown) (unknown) (no (unknown) (unknown) [place] [address] (unit s (unknown) date) unknown) (unknown) (no (unknown) (unknown) ED Orders (units (unkn own) date) unknown) (unknown) (no (unknown) (unknown) Emergency Report (units (unknown) date) unknown) (unknown) (no (unknown) (unknown) Merged With [facility] (units (unknown) date) unknown) (unknown) (no (unknown) (unknown) Merged With [facility] (units (unknown) date) [address] [place] [address] Street unknown) [place] [address] (unknown) (no (unknown) (unknown) Lab Results (units (un known) date) unknown) (unknown) (no (unknown) (unknown) Previous Rx's (units ( unknown) date) unknown) (unknown) (no (unknown) (unknown) Rx Instructions: (units (unknown) date) unknown) (unknown) (no (unknown) (unknown) Signed (units (unkno wn) date) unknown) (unknown) (no (unknown) (unknown) Vital Signs - 8 hr (units (unknown) date) unknown) (unknown) (no (unknown) (unknown) XRay Report (units (un known) date) unknown) (unknown) (no (unknown) (unknown) must administer (units (unknown) date) with a meal/food unknown) (unknown) (no (unknown) (unknown) (no value) (units (unk nown) date) unknown) (unknown) (no (unknown) (unknown) 07/28/21 (units (unkno wn) date) Range/Units unknown) (unknown) (no (unknown) (unknown) 13:15 (units (unkno wn) date) unknown) (unknown) (no (unknown) (unknown) albuterol sulfate (units (unknown) date) 90 mcg/actuation HFA unknown) aerosol inhaler (unknown) (no (unknown) (unknown) albuterol sulfate (units (unknown) date) 90 mcg/actuation unknown) aerosol powdr breath activated (unknown) (no (unknown) (unknown) nitrofurantoin (units (unknown) date) monohyd/m-cryst unknown) [Macrobid] 100 mg capsule (unknown) (no (unknown) (unknown) ondansetron HCl (units (unknown) date) [Zofran] 4 mg tablet unknown) (unknown) (no (unknown) (unknown) #8.5 grams (units (unk nown) date) unknown) (unknown) (no (unknown) (unknown) 07/28/21 (units (unkno wn) date) unknown) (unknown) (no (unknown) (unknown) Medication (units (unk nown) date) Instructions unknown) Recorded (unknown) (no (unknown) (unknown) Respiratory (units (un known) date) distress, Acute unknown) costochondritis (unknown) (no (unknown) (unknown) Thank you for the (units (unknown) date) opportunity to care unknown) for you today. (unknown) (no (unknown) (unknown) and below (units (unkn own) date) unknown) (unknown) (no (unknown) (unknown) depression, Denies (units (unknown) date) homicidal ideation unknown) and Denies suicidal ideation (unknown) (no (unknown) (unknown) ea (units (unkno wn) date) unknown) (unknown) (no (unknown) (unknown) <Pat Iglesias, (units (unknown) date) - Last Filed: unknown) 07/28/21 17:14> (unknown) (no (unknown) (unknown) <Devan Cotton PA-C (units (unknown) date) - Last Filed: unknown) 07/28/21 16:07> (unknown) (no (unknown) (unknown) (Zofran) (units (unkno wn) date) unknown) (unknown) (no (unknown) (unknown) 07/28/21 13:08 (units (unknown) date) unknown) (unknown) (no (unknown) (unknown) 07/28/21 13:15 (units (unknown) date) unknown) (unknown) (no (unknown) (unknown) 0RF (units (unkno wn) date) unknown) (unknown) (no (unknown) (unknown) 11:06 (units (unkno wn) date) unknown) (unknown) (no (unknown) (unknown) [id number] (units (unkno wn) date) unknown) (unknown) (no (unknown) (unknown) 8.5 0RF (units (unkno wn) date) unknown) (unknown) (no (unknown) (unknown) ? (units (unkno wn) date) unknown) (unknown) (no (unknown) (unknown) Accession Number: (units (unknown) date) [id number] ?? unknown) (unknown) (no (unknown) (unknown) Acct:[id number] (units (unknown) date) unknown) (unknown) (no (unknown) (unknown) Activity (units (unkno wn) date) Restrictions/Additio unknown) nal Instructions: (unknown) (no (unknown) (unknown) Adenovirus (PCR) (units (unknown) date) Not detected (Not unknown) Detect) (unknown) (no (unknown) (unknown) Age/Sex: 21 / F (units (unknown) date) unknown) (unknown) (no (unknown) (unknown) Age/Sex: 21 / F (units (unknown) date) unknown) (unknown) (no (unknown) (unknown) Allergic/Immunologi (unit s (unknown) date) c unknown) (unknown) (no (unknown) (unknown) Allergic/Immunologi (unit s (unknown) date) c: Denies urticaria, unknown) Denies throat swelling and Denies (unknown) (no (unknown) (unknown) Allergy/AdvReac (units (unknown) date) Type Severity unknown) Reaction Status Date / Time (unknown) (no (unknown) (unknown) Approved by: Cesario (units (unknown) date) Marbella Mcmahon on unknown) 07/28/2021 at 14:19?? (unknown) (no (unknown) (unknown) Auscultation: clear (unit s (unknown) date) to auscultation unknown) bilaterally (unknown) (no (unknown) (unknown) Auscultation: (units ( unknown) date) normal bowel sounds unknown) (unknown) (no (unknown) (unknown) B. pertussis DNA (units (unknown) date) (PCR) Not detected unknown) (Not Detecte) (unknown) (no (unknown) (unknown) B.parapertussis DNA (unit s (unknown) date) PCR Not detected unknown) (Not Detecte) (unknown) (no (unknown) (unknown) Blood Pressure (units (unknown) date) 161/102 H 07/28/21 unknown) 11:06 (unknown) (no (unknown) (unknown) Blood Pressure (units (unknown) date) 161/102 H unknown) (unknown) (no (unknown) (unknown) Bones and chest (units (unknown) date) wall:? No suspicious unknown) bony lesions.? Overlying soft tissues (unknown) (no (unknown) (unknown) COMPARISON:? [facility] (unit s (unknown) date) [facility], CR, XR unknown) CHEST 1V, 07/24/2021, 7:54. (unknown) (no (unknown) (unknown) CXR [XR chest 1V] (units (unknown) date) Stat unknown) (unknown) (no (unknown) (unknown) Cardio (units (unkno wn) date) unknown) (unknown) (no (unknown) (unknown) Cardiovascular (units (unknown) date) unknown) (unknown) (no (unknown) (unknown) Cardiovascular: (units (unknown) date) Denies chest pain, unknown) Denies irregular heart rhythm, Denies (unknown) (no (unknown) (unknown) Chest (units (unkno wn) date) unknown) (unknown) (no (unknown) (unknown) Chest x-ray: (units (u nknown) date) unknown) (unknown) (no (unknown) (unknown) Chest: tenderness (units (unknown) date) unknown) (unknown) (no (unknown) (unknown) Chief Complaint: (units (unknown) date) Upper Respiratory unknown) Symptoms (unknown) (no (unknown) (unknown) Chlamy pneumoniae (units (unknown) date) PCR Not detected unknown) (Not Detect) (unknown) (no (unknown) (unknown) Clinical (units (unkno wn) date) Impression: unknown) (unknown) (no (unknown) (unknown) Const (units (unkno wn) date) unknown) (unknown) (no (unknown) (unknown) Constitutional (units (unknown) date) unknown) (unknown) (no (unknown) (unknown) Constitutional: (units (unknown) date) Denies chills, unknown) Denies fatigue, Denies fever(s), Denies frequent (unknown) (no (unknown) (unknown) Coronavirus 229E (units (unknown) date) (PCR) Not detected unknown) (Not Detect) (unknown) (no (unknown) (unknown) Coronavirus HKU1 (units (unknown) date) (PCR) Not detected unknown) (Not Detect) (unknown) (no (unknown) (unknown) Coronavirus NL63 (units (unknown) date) (PCR) Not detected unknown) (Not Detect) (unknown) (no (unknown) (unknown) Coronavirus OC43 (units (unknown) date) (PCR) Not detected unknown) (Not Detect) (unknown) (no (unknown) (unknown) Cosign (units (unkno wn) date) unknown) (unknown) (no (unknown) (unknown) Course (units (unkno wn) date) unknown) (unknown) (no (unknown) (unknown) : 2000 (units (unknown) date) Acct:[id number] unknown) (unknown) (no (unknown) (unknown) : 2000 (units (unknown) date) unknown) (unknown) (no (unknown) (unknown) Date of Service: (units (unknown) date) 07/28/21 unknown) (unknown) (no (unknown) (unknown) Denies frequent (units (unknown) date) falls, Denies loss unknown) of vision, Denies numbness, Denies tingling (unknown) (no (unknown) (unknown) Denies loss of (units (unknown) date) vision unknown) (unknown) (no (unknown) (unknown) Denies numbness and (unit s (unknown) date) Denies tingling unknown) (unknown) (no (unknown) (unknown) Departure (units (unkn own) date) unknown) (unknown) (no (unknown) (unknown) Dictated by: Cesario (units (unknown) date) Marbella Mcmahon on unknown) 07/28/2021 at 14:02 ? ? (unknown) (no (unknown) (unknown) Differential (units (u nknown) date) Diagnosis unknown) (unknown) (no (unknown) (unknown) Differential (units (u nknown) date) diagnosis: Likely unknown) other (unknown) (no (unknown) (unknown) Discharge Plan (units (unknown) date) unknown) (unknown) (no (unknown) (unknown) ED Attending (units (u nknown) date) Cosignature unknown) Attestation: (unknown) (no (unknown) (unknown) ENT (units (unkno wn) date) unknown) (unknown) (no (unknown) (unknown) ER Physician: (units ( unknown) date) Devan Cotton P.A-C unknown) (unknown) (no (unknown) (unknown) Ears, Nose, Mouth, (units (unknown) date) and Throat: Denies unknown) change in voice, Denies dizziness, Denies (unknown) (no (unknown) (unknown) Ears: hearing (units ( unknown) date) grossly normal unknown) bilaterally, external ears normal and TM's normal (unknown) (no (unknown) (unknown) Effort + (units (unkno wn) date) Inspection: normal unknown) respiratory effort and able to speak in complete (unknown) (no (unknown) (unknown) Endocrine (units (unkn own) date) unknown) (unknown) (no (unknown) (unknown) Endocrine: Denies (units (unknown) date) fatigue, Denies unknown) flushing and Denies palpitations (unknown) (no (unknown) (unknown) Entero/Rhino (PCR) (units (unknown) date) Not detected (Not unknown) Detect) (unknown) (no (unknown) (unknown) Exam (units (unkno wn) date) unknown) (unknown) (no (unknown) (unknown) Eyes (units (unkno wn) date) unknown) (unknown) (no (unknown) (unknown) Eyes: Denies change (unit s (unknown) date) in vision, Denies unknown) eye discharge, Denies irritation and (unknown) (no (unknown) (unknown) FINDINGS:? (units (unk nown) date) unknown) (unknown) (no (unknown) (unknown) Face and sinus: (units (unknown) date) normal facial exam unknown) (unknown) (no (unknown) (unknown) GI (units (unkno wn) date) unknown) (unknown) (no (unknown) (unknown) Gastrointestinal (units (unknown) date) unknown) (unknown) (no (unknown) (unknown) Gastrointestinal: (units (unknown) date) Denies abdominal unknown) pain, Denies change in bowel habits, Denies (unknown) (no (unknown) (unknown) General (units (unkno wn) date) unknown) (unknown) (no (unknown) (unknown) General: (units (unkno wn) date) cooperative, healthy unknown) appearing and comfortable (unknown) (no (unknown) (unknown) Genitourinary (units ( unknown) date) unknown) (unknown) (no (unknown) (unknown) Genitourinary: (units (unknown) date) Denies hematuria, unknown) Denies flank pain, Denies urinary incontinence (unknown) (no (unknown) (unknown) HENMT (units (unkno wn) date) unknown) (unknown) (no (unknown) (unknown) HPI - URI/Sore (units (unknown) date) Throat unknown) (unknown) (no (unknown) (unknown) HPI Narrative: (units (unknown) date) unknown) (unknown) (no (unknown) (unknown) Head: normal to (units (unknown) date) inspection, unknown) normocephalic and atraumatic (unknown) (no (unknown) (unknown) Healthy adolescent (units (unknown) date) unknown) (unknown) (no (unknown) (unknown) Heart Sounds: S1 (units (unknown) date) normal and S2 normal unknown) (unknown) (no (unknown) (unknown) Hematologic/Lymphat (unit s (unknown) date) ic unknown) (unknown) (no (unknown) (unknown) Hematologic/Lymphat (unit s (unknown) date) ic: Denies easy unknown) bruising (unknown) (no (unknown) (unknown) History of Present (units (unknown) date) Illness unknown) (unknown) (no (unknown) (unknown) Human Metapneumovir (unit s (unknown) date) PCR Not detected unknown) (Not Detect) (unknown) (no (unknown) (unknown) I was immediately (units (unknown) date) available in the unknown) department for consultation throughout this (unknown) (no (unknown) (unknown) IMPRESSION:? No (units (unknown) date) acute unknown) cardiopulmonary process demonstrated. (unknown) (no (unknown) (unknown) INDICATIONS:? (units ( unknown) date) Shortness of breath unknown) (unknown) (no (unknown) (unknown) Imaging Data (units (u nknown) date) unknown) (unknown) (no (unknown) (unknown) Influenza Type A (units (unknown) date) (PCR) Not detected unknown) (Not Detect) (unknown) (no (unknown) (unknown) Influenza Type B (units (unknown) date) (PCR) Not detected unknown) (Not Detect) (unknown) (no (unknown) (unknown) Initial Vital Signs (unit s (unknown) date) unknown) (unknown) (no (unknown) (unknown) Initial Vital (units ( unknown) date) Signs: unknown) (unknown) (no (unknown) (unknown) Inspection: normal (units (unknown) date) to inspection unknown) (unknown) (no (unknown) (unknown) Instructions: DI (units (unknown) date) for Shortness of unknown) Breath (unknown) (no (unknown) (unknown) Integumentary/Breas (unit s (unknown) date) ts unknown) (unknown) (no (unknown) (unknown) Lab Data (units (unkno wn) date) unknown) (unknown) (no (unknown) (unknown) Labs: (units (unkno wn) date) unknown) (unknown) (no (unknown) (unknown) Loc: ED (units (unkno wn) date) unknown) (unknown) (no (unknown) (unknown) Lungs and pleura:? (units (unknown) date) Lungs are clear.? No unknown) pleural effusions or pneumothorax.? (unknown) (no (unknown) (unknown) M. pneumoniae (PCR) (unit s (unknown) date) Not detected (Not unknown) Detect) (unknown) (no (unknown) (unknown) MDM - URI/Sore (units (unknown) date) Throat unknown) (unknown) (no (unknown) (unknown) MDM Narrative (units ( unknown) date) unknown) (unknown) (no (unknown) (unknown) MR#: [id number] (units (unknown) date) unknown) (unknown) (no (unknown) (unknown) Mediastinum:? (units ( unknown) date) Mediastinal contours unknown) appear normal.? Heart size is normal.? (unknown) (no (unknown) (unknown) Medical History (units (unknown) date) (Updated 07/28/21 @ unknown) 16:07 by Devan Cotton PA-C) (unknown) (no (unknown) (unknown) Medical decision (units (unknown) date) making narrative: unknown) (unknown) (no (unknown) (unknown) Mouth: oral mucosae (unit s (unknown) date) normal unknown) (unknown) (no (unknown) (unknown) Musculoskeletal (units (unknown) date) unknown) (unknown) (no (unknown) (unknown) Musculoskeletal: (units (unknown) date) Denies back pain, unknown) Denies muscle weakness, Denies neck pain, (unknown) (no (unknown) (unknown) Nephrolithiasis (units (unknown) date) unknown) (unknown) (no (unknown) (unknown) Neurologic (units (unk nown) date) unknown) (unknown) (no (unknown) (unknown) Neurologic: Denies (units (unknown) date) behavioral changes, unknown) Denies confusion, Denies dizziness, (unknown) (no (unknown) (unknown) No Action (units (unkn own) date) unknown) (unknown) (no (unknown) (unknown) No history of (units ( unknown) date) previous surgery unknown) (unknown) (no (unknown) (unknown) Nose: external nose (unit s (unknown) date) normal and nasal unknown) mucous membranes and turbinates normal (unknown) (no (unknown) (unknown) Nutritional (units (un known) date) Appearance: average unknown) body habitus (unknown) (no (unknown) (unknown) Ordered: (units (unkno wn) date) unknown) (unknown) (no (unknown) (unknown) Ordering Provider: (units (unknown) date) Devan Cotton P.A-C unknown) (unknown) (no (unknown) (unknown) Orders (units (unkno wn) date) unknown) (unknown) (no (unknown) (unknown) Orientation: (units (u nknown) date) Orientation unknown) (unknown) (no (unknown) (unknown) Oxygen Delivery (units (unknown) date) Method 07/28/21 unknown) 11:06 (unknown) (no (unknown) (unknown) Oxygen Delivery (units (unknown) date) Method Room Air unknown) (unknown) (no (unknown) (unknown) PROCEDURE:? XR (units (unknown) date) CHEST 1V unknown) (unknown) (no (unknown) (unknown) Palpation: normal (units (unknown) date) PMI unknown) (unknown) (no (unknown) (unknown) Palpation: soft and (unit s (unknown) date) no unknown) hepatosplenomegaly (unknown) (no (unknown) (unknown) Parainfluenza 1 (units (unknown) date) (PCR) Not detected unknown) (Not Detect) (unknown) (no (unknown) (unknown) Parainfluenza 2 (units (unknown) date) (PCR) Not detected unknown) (Not Detect) (unknown) (no (unknown) (unknown) Parainfluenza 3 (units (unknown) date) (PCR) Not detected unknown) (Not Detect) (unknown) (no (unknown) (unknown) Parainfluenza 4 (units (unknown) date) (PCR) Not detected unknown) (Not Detect) (unknown) (no (unknown) (unknown) Patient (units (unkno wn) date) Disposition: Home unknown) (unknown) (no (unknown) (unknown) Patient History (units (unknown) date) unknown) (unknown) (no (unknown) (unknown) Patient doing well (units (unknown) date) not having any unknown) significant complaints of shortness of breath (unknown) (no (unknown) (unknown) Patient is a (units (u nknown) date) 21-year-old female unknown) who presents to the ED complaining of shortness (unknown) (no (unknown) (unknown) Patient was seen (units (unknown) date) today for complaints unknown) of shortness of breath. Her previous (unknown) (no (unknown) (unknown) Patient: (units (unkno wn) date) Jenny Cobb E unknown) MR#: [id number] (unknown) (no (unknown) (unknown) Patient: (units (unkno wn) date) Jenny Cobb E unknown) (unknown) (no (unknown) (unknown) Penicillins (units (un known) date) [PENICILLINS] unknown) Allergy Unknown Anaphylaxis Verified 06/28/21 11:17 (unknown) (no (unknown) (unknown) Percussion: normal (units (unknown) date) to percussion unknown) (unknown) (no (unknown) (unknown) Prescriptions: (units (unknown) date) unknown) (unknown) (no (unknown) (unknown) Procedure: XR chest (unit s (unknown) date) 1V unknown) (unknown) (no (unknown) (unknown) Psychiatric (units (un known) date) unknown) (unknown) (no (unknown) (unknown) Psychiatric: Denies (units (unknown) date) anxiety, Denies unknown) behavioral changes, Denies confusion, Denies (unknown) (no (unknown) (unknown) Pulse Oximetry 99 (units (unknown) date) 07/28/21 11:06 unknown) (unknown) (no (unknown) (unknown) Pulse Oximetry 99 (units (unknown) date) unknown) (unknown) (no (unknown) (unknown) Pulse Rate 71 (units (unknown) date) 07/28/21 11:06 unknown) (unknown) (no (unknown) (unknown) Pulse Rate 71 (units ( unknown) date) unknown) (unknown) (no (unknown) (unknown) ROS Unobtainable: (units (unknown) date) All systems reviewed unknown) + are unremarkable except as noted in HPI (unknown) (no (unknown) (unknown) RSV (PCR) Not (units (unknown) date) detected (Not unknown) Detect) (unknown) (no (unknown) (unknown) Rate: regular rate (units (unknown) date) unknown) (unknown) (no (unknown) (unknown) Reevaluation #1: (units (unknown) date) unknown) (unknown) (no (unknown) (unknown) Reevaluation(s) (units (unknown) date) unknown) (unknown) (no (unknown) (unknown) Related Data (units (u nknown) date) unknown) (unknown) (no (unknown) (unknown) Resp (units (unkno wn) date) unknown) (unknown) (no (unknown) (unknown) Respiratory (units (un known) date) unknown) (unknown) (no (unknown) (unknown) Respiratory Panel (units (unknown) date) (Film Array) Stat unknown) (unknown) (no (unknown) (unknown) Respiratory Rate (units (unknown) date) 16 07/28/21 11:06 unknown) (unknown) (no (unknown) (unknown) Respiratory Rate 16 (unit s (unknown) date) unknown) (unknown) (no (unknown) (unknown) Respiratory: (units (u nknown) date) Reports cough, unknown) Reports excessive phlegm production, Reports (unknown) (no (unknown) (unknown) Review of Systems (units (unknown) date) unknown) (unknown) (no (unknown) (unknown) Rhythm: regular (units (unknown) date) rhythm unknown) (unknown) (no (unknown) (unknown) SARS-CoV-2 (PCR) (units (unknown) date) Not detected (Not unknown) Detecte) (unknown) (no (unknown) (unknown) Signed By: (units (unk nown) date) unknown) (unknown) (no (unknown) (unknown) Skin/Breast: Denies (unit s (unknown) date) pruritus, Denies unknown) erythema, Denies rash and Denies wounds (unknown) (no (unknown) (unknown) Smoking Status: (units (unknown) date) Current every day unknown) smoker (unknown) (no (unknown) (unknown) Smoking Status: (units (unknown) date) Current every day unknown) smoker (unknown) (no (unknown) (unknown) Social History (units (unknown) date) (Reviewed 07/28/21 @ unknown) 13:06 by Devan Cotton PA-C) (unknown) (no (unknown) (unknown) Stated Complaint: (units (unknown) date) trouble breathing unknown) with chest pain/diff meds needed (unknown) (no (unknown) (unknown) Substance Use Type: (unit s (unknown) date) does not use unknown) (unknown) (no (unknown) (unknown) Surgical History (units (unknown) date) (Reviewed 07/28/21 @ unknown) 13:06 by Devan Cotton PA-C) (unknown) (no (unknown) (unknown) Surgical changes (units (unknown) date) and devices:? None.? unknown) (unknown) (no (unknown) (unknown) TECHNIQUE:? One (units (unknown) date) view of the chest unknown) was acquired.? (unknown) (no (unknown) (unknown) Teeth and gingiva: (units (unknown) date) dentition normal unknown) (unknown) (no (unknown) (unknown) Temperature 98.9 F (unit s (unknown) date) 07/28/21 11:06 unknown) (unknown) (no (unknown) (unknown) Temperature 98.9 F (units (unknown) date) unknown) (unknown) (no (unknown) (unknown) Throat: posterior (units (unknown) date) oropharynx normal unknown) and tonsils normal (unknown) (no (unknown) (unknown) Time Seen by (units (u nknown) date) Provider: 07/28/21 unknown) 12:50 (unknown) (no (unknown) (unknown) Visit Report Forms: (unit s (unknown) date) Patient Portal/API unknown) (unknown) (no (unknown) (unknown) Vital Signs (units (un known) date) unknown) (unknown) (no (unknown) (unknown) Vital signs: (units (u nknown) date) unknown) (unknown) (no (unknown) (unknown) You were seen today (unit s (unknown) date) for your shortness unknown) of breath. Her chest x-ray did not show (unknown) (no (unknown) (unknown) aerosol inhaler (units (unknown) date) shortness of breath unknown) or wheezing (unknown) (no (unknown) (unknown) ago and was (units (un known) date) diagnosed with unknown) costochondritis of which she did take her ibuprofen (unknown) (no (unknown) (unknown) albuterol sulfate (units (unknown) date) 90 mcg/actuation 2 unknown) inh inhalation Q4-6H PRN 07/24/21 (unknown) (no (unknown) (unknown) albuterol sulfate (units (unknown) date) 90 mcg/actuation 2 unknown) puff inhalation Q4-6H PRN 06/21/21 (unknown) (no (unknown) (unknown) alcohol intake (units (unknown) date) frequency: unknown) holidays/special occasions only (unknown) (no (unknown) (unknown) amount of phlegm (units (unknown) date) production over the unknown) last few days she has been taking (unknown) (no (unknown) (unknown) and Denies urinary (units (unknown) date) urgency unknown) (unknown) (no (unknown) (unknown) and Denies weakness (unit s (unknown) date) unknown) (unknown) (no (unknown) (unknown) and told that she (units (unknown) date) did have a strep unknown) infection however she was not treated with (unknown) (no (unknown) (unknown) any antibiotics at (units (unknown) date) that time. Patient unknown) is denying any complaints of sore throat. (unknown) (no (unknown) (unknown) any evidence of (units (unknown) date) pneumonia. And your unknown) examination did not show any abnormal (unknown) (no (unknown) (unknown) appear (units (unkno wn) date) unknown) (unknown) (no (unknown) (unknown) as directed which (units (unknown) date) seemed to help with unknown) her chest pain however she continues to (unknown) (no (unknown) (unknown) at this time. No (units (unknown) date) cough vital stable. unknown) (unknown) (no (unknown) (unknown) bilaterally (units (un known) date) unknown) (unknown) (no (unknown) (unknown) breath activated (units (unknown) date) powder inhaler unknown) shortness of breath or wheezing #1 (unknown) (no (unknown) (unknown) capsule (Macrobid) (units (unknown) date) unknown) (unknown) (no (unknown) (unknown) clear she was (units ( unknown) date) denied her albuterol unknown) inhaler from her previous visit as result of (unknown) (no (unknown) (unknown) costochondritis. (units (unknown) date) He can take Mucinex unknown) OTC as directed for your excessive phlegm (unknown) (no (unknown) (unknown) denies any reported (unit s (unknown) date) fever body aches or unknown) chills. She did report that she was (unknown) (no (unknown) (unknown) diagnosed with (units (unknown) date) COVID approximately unknown) 1 month ago and since then has had ongoing (unknown) (no (unknown) (unknown) diagnosis of (units (u nknown) date) costochondritis is unknown) still likely there she does have some ongoing (unknown) (no (unknown) (unknown) diarrhea, Denies (units (unknown) date) nausea and Denies unknown) vomiting (unknown) (no (unknown) (unknown) difficulty (units (unk nown) date) breathing than her unknown) chest pain. She reports that she is having (unknown) (no (unknown) (unknown) difficulty with a (units (unknown) date) sense of getting her unknown) air in. She is also reporting increased (unknown) (no (unknown) (unknown) dyspnea, Reports (units (unknown) date) dyspnea on exertion unknown) and Denies wheezing (unknown) (no (unknown) (unknown) establish herself (units (unknown) date) with a primary care unknown) physician and is having some delay in (unknown) (no (unknown) (unknown) evidence of any (units (unknown) date) pneumonia her viral unknown) panel was negative her lung sounds were (unknown) (no (unknown) (unknown) exertion and Denies (unit s (unknown) date) orthopnea unknown) (unknown) (no (unknown) (unknown) falls, Denies (units ( unknown) date) lethargy and Denies unknown) weakness (unknown) (no (unknown) (unknown) filled at the (units ( unknown) date) pharmacy secondary unknown) to insurance denial. She is trying to (unknown) (no (unknown) (unknown) getting a new (units ( unknown) date) patient visit unknown) scheduled. Today her concerns are more about her (unknown) (no (unknown) (unknown) insurance denial. (units (unknown) date) I spoke with patient unknown) and she is not interested in another (unknown) (no (unknown) (unknown) issues with (units (un known) date) perceived shortness unknown) of breath. She was seen in the ED couple days (unknown) (no (unknown) (unknown) lightheadedness, (units (unknown) date) Denies palpitations, unknown) Reports dyspnea, Reports dyspnea on (unknown) (no (unknown) (unknown) monohydrate/macrocr (unit s (unknown) date) ystals 100 mg unknown) (unknown) (no (unknown) (unknown) neck pain, Denies (units (unknown) date) sore throat and unknown) Denies throat swelling (unknown) (no (unknown) (unknown) nitrofurantoin 100 (units (unknown) date) mg PO BID #14 caps unknown) 01/27/21 (unknown) (no (unknown) (unknown) of breath and cough (unit s (unknown) date) and congestion. unknown) Patient reports that she previously was (unknown) (no (unknown) (unknown) ondansetron HCl 4 (units (unknown) date) mg tablet 4 mg PO unknown) Q6-8H nausea #7 tabs 11/08/20 (unknown) (no (unknown) (unknown) [id number] (units (unknown) date) Mucinex and NyQuil unknown) without any change in her symptoms. She (unknown) (no (unknown) (unknown) patient's visit. I (unit s (unknown) date) agree with unknown) documentation as above. Pat Iglesias MD (unknown) (no (unknown) (unknown) prescription at (units (unknown) date) this point. I unknown) advised her that she can return to the ED if her (unknown) (no (unknown) (unknown) production. He can (units (unknown) date) follow up with her unknown) PCP for further evaluation and treatment. (unknown) (no (unknown) (unknown) seen for an upper (units (unknown) date) respiratory unknown) infection a couple weeks back and was later called (unknown) (no (unknown) (unknown) sentences (units (unkn own) date) unknown) (unknown) (no (unknown) (unknown) she can take (units (u nknown) date) [id number] as unknown) directed. Patient will be discharged home. (unknown) (no (unknown) (unknown) shortness of breath (unit s (unknown) date) worsens. She was unknown) agreeable I also recommended Mucinex that (unknown) (no (unknown) (unknown) sounds as result a (units (unknown) date) inhaler would not unknown) likely be of benefit at this point. I (unknown) (no (unknown) (unknown) still have some (units (unknown) date) ongoing shortness of unknown) breath. She was unable to get her inhaler (unknown) (no (unknown) (unknown) substernal (units (unk nown) date) tenderness with unknown) palpation. However her pain is not as severe as it (unknown) (no (unknown) (unknown) tobacco type: (units ( unknown) date) cigarettes and unknown) vaping (unknown) (no (unknown) (unknown) unremarkable.? (units (unknown) date) unknown) (unknown) (no (unknown) (unknown) was when she was (units (unknown) date) seen a few days ago. unknown) Her shortness of breath does not show any (unknown) (no (unknown) (unknown) wheezing (units (unkno wn) date) unknown) (unknown) (no (unknown) (unknown) would still (units (un known) date) continue to take unknown) ibuprofen as previously directed for your ongoing Social History date description facility (no date) Smokes tobacco daily (finding) Merged With [facility] Vital Signs date measurement value units +0000 BMI BMI 40.3 kg/m2 02215429633122+0000 BP_diastolic BP_diastolic 87 mm[H g] 85413982758609+0000 BP_systolic BP_systolic 195 mm[Hg] 23705869042260+0000 heart_rate heart_rate 110 /min 41792757568767+0000 height_metric height_metric 167.64 cm 75402881823798+0000 height_standard height_standard 66 in 93955943492804+0000 respiration_rate respiration_rate 16 /min 73399162000187+0000 temperature_metric temperature_metric 37.78 C 57455060013746+0000 temperature_standard temperature_standard 1 00 F 93751068970617+0000 weight_metric weight_metric 51.44 kg 57259919135114+0000 weight_standard weight_standard 113.4 lb 55929100181904+0000 BMI BMI 40.3 kg/m2 78517415226071+0000 BP_diastolic BP_diastolic 94 mm[H g] 61154488779481+0000 BP_systolic BP_systolic 155 mm[Hg] 51047758139017+0000 heart_rate heart_rate 110 /min 54052554476869+0000 height_metric height_metric 167.64 cm 04787539555697+0000 height_standard height_standard 66 in 34586778266896+0000 respiration_rate respiration_rate 20 /min 01136154519977+0000 temperature_metric temperature_metric 36.72 C 00659138837309+0000 temperature_standard temperature_standard 9 8.1 F 86918236936734+0000 weight_metric weight_metric 51.44 kg 45942493277986+0000 weight_standard weight_standard 113.4 lb 19403613712262+0000 BMI BMI 40.3 kg/m2 41868519458530+0000 BP_diastolic BP_diastolic 89 mm[H g] 19197784278487+0000 BP_systolic BP_systolic 161 mm[Hg] 42277584412495+0000 heart_rate heart_rate 70 /min 25727861923974+0000 height_metric height_metric 167.64 cm 71848603842711+0000 height_standard height_standard 66 in +0000 respiration_rate respiration_rate 18 /min 63113060809401+0000 temperature_metric temperature_metric 36.11 C 08283609032260+0000 temperature_standard temperature_standard 9 7 F 77984634288557+0000 weight_metric weight_metric 51.44 kg 66046750020746+0000 weight_standard weight_standard 113.4 lb 07407638249737+0000 BMI BMI 43.0 kg/m2 97923876928543+0000 BP_diastolic BP_diastolic 95 mm[H g] 86476759754733+0000 BP_systolic BP_systolic 155 mm[Hg] 14592330456911+0000 heart_rate heart_rate 84 /min 06215356150222+0000 height_metric height_metric 167.64 cm 91377178386973+0000 height_standard height_standard 66 in 50404419069427+0000 respiration_rate respiration_rate 18 /min 67597229074211+0000 temperature_metric temperature_metric 36.67 C 37274838549841+0000 temperature_standard temperature_standard 9 8 F 68331686148033+0000 weight_metric weight_metric 54.93 kg 04899639382971+0000 weight_standard weight_standard 121.11 lb 79247379885536+0000 BMI BMI 40.3 kg/m2 10015993210783+0000 BP_diastolic BP_diastolic 102 mm[H g] 49325242082440+0000 BP_systolic BP_systolic 161 mm[Hg] 57710107667824+0000 heart_rate heart_rate 71 /min 34643212576446+0000 height_metric height_metric 167.64 cm +0000 height_standard height_standard 66 in +0000 respiration_rate respiration_rate 16 /min 80487853216906+0000 temperature_metric temperature_metric 37.17 C +0000 temperature_standard temperature_standard 9 8.9 F +0000 weight_metric weight_metric 51.44 kg +0000 weight_standard weight_standard 113.4 lb 38081704847256+0000 BMI BMI 40.3 kg/m2 18705834834860+0000 BP_diastolic BP_diastolic 91 mm[H g] 81952628240797+0000 BP_systolic BP_systolic 170 mm[Hg] 45470074837094+0000 heart_rate heart_rate 70 /min 26310647040940+0000 height_metric height_metric 167.64 cm 22545052146247+0000 height_standard height_standard 66 in 94297829636509+0000 respiration_rate respiration_rate 18 /min 38709226771045+0000 temperature_metric temperature_metric 36.72 C 83944656823325+0000 temperature_standard temperature_standard 9 8.1 F 87728443207931+0000 weight_metric weight_metric 51.44 kg 10609035979836+0000 weight_standard weight_standard 113.4 lb
--- NOTE | 2021-08-31 21:12 | ED Physician Documentation ---
History of Present Illness - Stated complaint Stated Complaint: CHEST PX,BACK PX - Chief complaint Chief Complaint: Resp - History obtained from History obtained from: Patient - History of Present Illness Timing: How many weeks ago (8) - Additonal information Additional information: 21yoF with no reported PMH presents for R sided chest pain and shortness of skyler ath that has been present since jose covid 19 2-3 months ago. Patient was seen several times at [facility], she states they did an EKG and a chest x- ray and told her everything was fine and sent her home. Last time she states that she was told that she was wasting resources and left prior to being evaluated. Patient has been taking Motrin without significant relief of symptoms. Pain is worse after she moves her right arm a lot or lays on her right side. Patient states that she came in today because she noticed right- sided neck pain and back pain. Denies possibility of , denies OCP use, denies history of coagulopathy, denies recent surgeries or immobilizations. Review of Systems Ten Systems: 10 systems reviewed and negative Constitutional: denies: Fever, Chills, Myalgias Ears: denies: Loss of hearing, Ear pain, Drainage/discharge Cardiac: reports: Chest pain / pressure. denies: Palpitations, Pedal edema Respiratory: reports: Dyspnea. denies: Cough GI: denies: Abdominal Pain, Abdominal Swelling : denies: Dysuria, Frequency Skin: denies: Rash, Lesions Musculoskeletal: reports: Neck pain. denies: Back pain, Extremity pain, Joint pain PD PAST MEDICAL HISTORY - Past Medical History Past Medical History: Yes Cardiovascular: None Respiratory: None Neuro: None - Past Surgical History Past Surgical History: No - Present Medications Home Medications: Ambulatory Orders Medication Instructions Recorded Confirmed Albuterol Sulfate [Proair Hfa 1 - 2 puffs INH Q4H PRN 07/06/21 07/11/21 Inhaler] Chlorhexidine [Peridex] 15 ml PO BID #150 ml 07/06/21 07/11/21 Azithromycin [Zithromax] 500 mg PO DAILY 5 Days #10 tablet 07/09/21 07/11/21 Ibuprofen [Motrin] 400 mg PO DAILY 07/11/21 07/11/21 - Allergies Allergies/Adverse Reactions: Allergies Allergy/AdvReac Type Severity Reaction Status Date / Time Penicillins Allergy Respiratory Verified 08/31/21 20:56 - Social History Does the pt smoke?: No Smoking Status: Never smoker Does the pt drink ETOH?: No Does the pt have substance abuse?: No - Immunizations Immunizations are current?: Yes - POLST Patient has POLST: No PD ED PE NORMAL - Vitals Vital signs reviewed: Yes - General General: Alert and oriented X 3, No acute distress - HEENT HEENT: Atraumatic, PERRL, EOMI, Ears normal - Neck Neck: Supple, no meningeal sign, No bony TTP, No adenopathy, Thyroid normal, No JVD, No bruit, C-Spine cleared by NEXUS criteria, Other - Cardiac Cardiac: RRR, No murmur - Respiratory Respiratory: No respiratory distress, Clear bilaterally, Other (R sided reproducible chest wall TTP) - Abdomen Abdomen: Normal bowel sounds, Soft, Non tender, Non distended - Female Female : Deferred - Rectal Rectal: Deferred - Back Back: No CVA TTP, No spinal TTP - Derm Derm: Normal color, Warm and dry, No rash - Extremities Extremities: No deformity, No tenderness to palpate - Psych Psych: Normal mood, Normal affect Results - Vitals Vitals: Vital Signs - 24 hr 08/31/21 08/31/21 08/31/21 20:56 23:04 23:39 Temperature 36.7 C 36.6 C Heart Rate 85 72 71 Respiratory 18 15 16 Rate Blood Pressure 175/74 H 156/84 H 138/84 H O2 Saturation 100 100 100 Oxygen O2 Source Room air - EKG (time done) 2055 Rate: Rate (enter#) (84) Rhythm: NSR [place]: Normal Intervals: Normal OK QRS: Normal - Labs Labs: Laboratory Tests 08/31/21 08/31/21 08/31/21 21:28 21:28 21:28 WBC 10.9 H RBC 4.90 Hgb 13.5 Hct 40.9 MCV 83.5 MCH 27.6 MCHC 33.0 RDW 13.5 Plt Count 308 MPV 9.3 Neut # (Auto) 7.3 H Lymph # (Auto) 2.7 Brewster # (Auto) 0.7 Eos # (Auto) 0.2 Baso # (Auto) 0.1 Absolute Nucleated RBC 0.00 Nucleated RBC % 0.0 Sodium 138 Potassium 3.8 Chloride 104 Carbon Dioxide 26 Anion Gap 8.0 BUN < 5 L Creatinine 0.7 Estimated GFR (MDRD) 107 Glucose 81 Calcium 9.3 Total Bilirubin 0.7 AST 22 ALT 22 Alkaline Phosphatase 82 Troponin I High Sens < 2.3 L B-Natriuretic Peptide Total Protein 7.4 Albumin 4.1 Globulin 3.3 Albumin/Globulin Ratio 1.2 08/31/21 21:28 WBC RBC Hgb Hct MCV MCH MCHC RDW Plt Count MPV Neut # (Auto) Lymph # (Auto) Brewster # (Auto) Eos # (Auto) Baso # (Auto) Absolute Nucleated RBC Nucleated RBC % Sodium Potassium Chloride Carbon Dioxide Anion Gap BUN Creatinine Estimated GFR (MDRD) Glucose Calcium Total Bilirubin AST ALT Alkaline Phosphatase Troponin I High Sens B-Natriuretic Peptide 15 Total Protein Albumin Globulin Albumin/Globulin Ratio PD MEDICAL DECISION MAKING - ED course Complexity details: reviewed old records, considered differential ED course: Reproducible right-sided chest pain. Patient states she feel that she is short of breath, however is able to speak in complete sentences without dyspnea. EKG normal. PERC negative. Highly likely to be musculoskeletal in nature given that it is reproducible and worse with repetitive right-sided movements.. Labs and imaging unremarkable. Hemodynamically stable. Patient counseled to follow-up with her primary care physician if she continues to experience symptoms. This is likely musculoskeletal and counseled to add Tylenol to the Motrin that she is taking. Gentle stretching exercises counseled. Departure - Departure Disposition: 01 Home, Self Care Clinical Impression: Costochondral chest pain Condition: Stable Instructions: ED Strain Chest Wall Comments: Take Tylenol and Motrin as needed for pain. Gentle stretching of your upper back and chest muscles will also be helpful in controlling her pain. At this time there is not appear to be any strain on your heart or your lungs that could be causing her symptoms. I would strongly recommend following up with your primary care physician for further investigation if you continue to feel short of breath. Discharge Date/Time: 08/31/21 23:39
[2021-08-31 21:32] LABS: BASOPHILS # (AUTO) 0.1 10^3/uL (0.0-0.1); BASOPHILS % (AUTO) 0.6 %; EOSINOPHILS # (AUTO) 0.2 10^3/uL (0.0-0.7); EOSINOPHILS % (AUTO) 1.5 %; HCT - HEMATOCRIT 40.9 % (37.0-47.0); HGB - HEMOGLOBIN 13.5 g/dL (12.0-16.0); LYMPHOCYTES # (AUTO) 2.7 10^3/uL (1.5-3.5); LYMPHOCYTES % (AUTO) 24.3 %; MEAN CORPUSCULAR HEMOGLOBIN 27.6 pg (27.0-31.0); MEAN CORPUSCULAR VOLUME 83.5 fL (81.0-99.0); MEAN PLATELET VOLUME 9.3 fL (7.9-10.8); MONOCYTES # (AUTO) 0.7 10^3/uL (0.0-1.0); MONOCYTES % (AUTO) 6.4 %; NEUTROPHILS # (AUTO) 7.3 10^3/uL (1.5-6.6); NEUTROPHILS % (AUTO) 66.9 %; PLT - PLATELET COUNT 308 10^3/uL (130-450); RED CELL DISTRIBUTION WIDTH 13.5 % (12.0-15.0); WHITE BLOOD COUNT 10.9 x10^3/uL (4.8-10.8)
[2021-08-31 21:55] LABS: ALBUMIN 4.1 g/dL (3.2-5.5); ALBUMIN/GLOBULIN RATIO 1.2 (1.0-2.2); ALKALINE PHOSPHATASE 82 IU/L (42-121); ALT ALANINE AMINOTRANSFERASE 22 IU/L (10-60); AST ASPARTATE AMINOTRANSFERASE 22 IU/L (10-42); BILIRUBIN,TOTAL 0.7 mg/dL (0.2-1.0); BUN - BLOOD UREA NITROGEN < 5 mg/dL (6-20); CALCIUM 9.3 mg/dL (8.5-10.3); CARBON DIOXIDE - CO2 26 mmol/L (21-32); CHLORIDE 104 mmol/L (101-111); CREATININE 0.7 mg/dL (0.4-1.0); GFR - MDRD 107 (>89); GLUCOSE 81 mg/dL (70-100); POTASSIUM 3.8 mmol/L (3.5-5.0); SODIUM 138 mmol/L (135-145); TOTAL PROTEIN 7.4 g/dL (6.7-8.2)
--- NOTE | 2021-08-31 23:18 | XRAY Report ---
PROCEDURE: Chest 1 View X-Ray INDICATIONS: CP/REGINA TECHNIQUE: One view of the chest was acquired. COMPARISON: None. FINDINGS: Surgical changes and devices: None. Lungs and pleura: No pleural effusions or pneumothorax. Lungs are clear. Mediastinum: Mediastinal contours appear normal. Heart size is normal. Bones and chest wall: No suspicious bony lesions. Overlying soft tissues appear unremarkable. IMPRESSION: No acute cardiopulmonary process demonstrated radiographically. Reviewed by: Cesario Mcmahno MD on 08/31/2021 11:17 PM PDT Approved by: Cesario Mcmahon MD on 08/31/2021 11:17 PM PDT Station ID: [id number]
[2021-08-31 23:41] VITALS: BP 138/84
== END 2021-08-31 23:39 | disposition home or self-care (01) ==
LOC: ED 20:47
DX: R07.1 Chest pain on breathing (principal)
CPT/HCPCS: 36415; 80053; 83880; 84484; 85025; 93005; 99282; 99284

== ENCOUNTER 2021-10-19 14:43 | Outpatient (CLI) | payer MEDICAID | END 2021-10-19 14:44 | disposition home or self-care (01) | LOC: RT 14:43 | PROVIDERS: ATTEND Physician Assistant | DX: R06.02 Shortness of breath (principal) | CPT/HCPCS: 94010; 94729 ==

== ENCOUNTER 2021-11-05 19:36 | Emergency (ER) | payer MEDICAID ==
[2021-11-05 19:41] VITALS: BP 149/77
--- OUTSIDE RECORDS SUMMARY | 2021-11-05 19:41 | EXTERNAL MEDICAL SUMMARY RPT | Continuity of Care Document ---
:2000 Author Organization [facility] Address [address] [place] [address] Phone Allergies and Intolerances date description facility type (no date) [facility] (unknown) Encounters No information. Functional Status No information. Immunizations No information. Medications No information. Problems No information. Procedures date description facility [id number] [facility] Results/Labs No information. Social History date description facility (no date) Smokes tobacco daily ([facility] Vital Signs date measurement value units 29634540382713+0000 BMI BMI 40.3 kg/m2 30589102406400+0000 BP_diastolic BP_diastolic 91 mm[H g] 86967635571551+0000 BP_systolic BP_systolic 170 mm[Hg] 73444545448601+0000 heart_rate heart_rate 70 /min 00485632827476+0000 height_metric height_metric 167.64 cm 84742921713874+0000 height_standard height_standard 66 in 66757330070301+0000 respiration_rate respiration_rate 18 /min 07782480140292+0000 temperature_metric temperature_metric 36.72 C 98085100629171+0000 temperature_standard temperature_standard 9 8.1 F 43566298426553+0000 weight_metric weight_metric 51.44 kg 61009947608355+0000 weight_standard weight_standard 113.4 lb
--- NOTE | 2021-11-05 20:30 | ED Physician Documentation ---
History of Present Illness - Stated complaint Stated Complaint: HEAD/THROAT PX C+ - Chief complaint Chief Complaint: General - History obtained from History obtained from: Patient - Additonal information Additional information: The patient comes to the emergency department chief complaint of headache, sore throat, and rhinorrhea after being exposed to multiple sick coworkers this week. She states that they all of had cold-like symptoms but 1 actually tested positive on a home test for COVID. The patient states she took a COVID test yesterday after the symptoms started and it was Positive, but then she took another 1 today and it was negative. She states she does not know if she has COVID or not but she just went to get an official test. She states she has not interested in paxlovid. Review of Systems Ten Systems: 10 systems reviewed and negative Constitutional: reports: Reviewed and negative. denies: Fever Eyes: reports: Reviewed and negative Ears: reports: Reviewed and negative Nose: reports: Rhinorrhea / runny nose, Congestion Throat: reports: Sore throat Cardiac: reports: Reviewed and negative Respiratory: reports: Cough GI: reports: Reviewed and negative : reports: Reviewed and negative Skin: reports: Reviewed and negative Musculoskeletal: reports: Reviewed and negative Neurologic: reports: Reviewed and negative Psychiatric: reports: Reviewed and negative Endocrine: reports: Reviewed and negative Immunocompromised: reports: Reviewed and negative PD PAST MEDICAL HISTORY - Past Medical History Cardiovascular: None Respiratory: None Neuro: None - Past Surgical History Past Surgical History: No - Present Medications Home Medications: Ambulatory Orders Medication Instructions Recorded Confirmed Albuterol Sulfate [Proair Hfa 1 - 2 puffs INH Q4H PRN 07/06/21 09/11/21 Inhaler] Ibuprofen [Motrin] 800 mg PO DAILY 07/11/21 09/11/21 - Allergies Allergies/Adverse Reactions: Allergies Allergy/AdvReac Type Severity Reaction Status Date / Time Penicillins Allergy Respiratory Verified 11/05/21 19:42 - Social History Does the pt smoke?: No Smoking Status: Never smoker Does the pt drink ETOH?: No Does the pt have substance abuse?: No - Immunizations Immunizations are current?: Yes - POLST Patient has POLST: No PD ED PE NORMAL - Vitals Vital signs reviewed: Yes - General General: Alert and oriented X 3, No acute distress, Well developed/nourished - HEENT HEENT: Atraumatic, PERRL, EOMI, Moist mucous membranes, Pharynx benign - Neck Neck: Supple, no meningeal sign - Cardiac Cardiac: RRR, No murmur, Strong equal pulses - Respiratory Respiratory: No respiratory distress, Clear bilaterally - Abdomen Abdomen: Soft, Non tender, Non distended - Derm Derm: Normal color, Warm and dry, No rash - Extremities Extremities: No deformity - Neuro Neuro: Alert and oriented X 3 - Psych Psych: Normal mood, Normal affect Results - Vitals Vitals: Vital Signs - 24 hr 11/05/21 19:37 Temperature 36.7 C Heart Rate 80 Respiratory 14 Rate Blood Pressure 149/77 H O2 Saturation 100 Oxygen O2 Source Room air - Labs Labs: Laboratory Tests 11/05/21 17:48 Nasal Influenza B PCR NOT DETECTED Nasal Influenza A PCR NOT DETECTED Nasal RSV (PCR) NOT DETECTED Nasal SARS-CoV-2 (PCR) NOT DETECTED PD MEDICAL DECISION MAKING - ED course Complexity details: reviewed results, re-evaluated patient, considered differential, d/w patient ED course: The patient was counseled regarding symptomatic management of her viral syndrome at home. I discussed with her that we would check a combination RSV/influenza/COVID swab here in the ED and that she would be notified if any results are positive. The patient was deemed stable for discharge home after swabbing. Her swab was completely negative. The patient had also been given information to set up a patient portal on her website so that she could check for negative results as well. Departure - Departure Disposition: 01 Home, Self Care Clinical Impression: Viral upper respiratory illness Condition: Stable Instructions: ED Viral Syndrome Comments: At this point in time, your symptoms could be consistent with any number of the many upper respiratory viruses that are going around right now. A test for COVID, influenza, and RSV is pending at this time. If any of the results are positive, we will give you a call at home. However, if you would like to monitor for results [facility], in case the test comes back negative, you may go to our hospital website at [email or web address], click on the "my [facility]" tab, and sign up for the patient portal. In this way, you can watch for your results to come back and can see them even if they are negative. If your results are all negative, it likely means that you have one of the other many viruses that cause similar symptoms. Either way, you may use ibuprofen and Tylenol if needed for fever or other discomforts. Please drink plenty of fluids and get rest as needed. You may follow-up with your primary care physician for further concerns. Discharge Date/Time: 11/05/21 20:50
[2021-11-05 20:52] LABS: INFLUENZA A- RESP PCR PANEL NOT DETECTED; INFLUENZA B - RESP PCR PANEL NOT DETECTED; RSV- RESP PCR PANEL NOT DETECTED; SARS-CoV-2 -RESP PCR PANEL NOT DETECTED
== END 2021-11-05 20:50 | disposition home or self-care (01) ==
LOC: ED 19:36
DX: J06.9 Acute upper respiratory infection, unspecified (principal); Z20.822 Contact with and (suspected) exposure to COVID-19
CPT/HCPCS: 87637; 99282; 99283

== ENCOUNTER 2022-01-03 21:44 | Emergency (ER) | payer MEDICAID ==
--- NOTE | 2022-01-03 22:56 | ED Physician Documentation ---
PD HPI CHEST PAIN - Stated complaint Stated Complaint: CHEST PX - Chief complaint Chief Complaint: General - History obtained from History obtained from: Patient - History of Present Illness Timing - onset: How many minutes ago (90) Timing - onset during: Rest Timing - details: Abrupt onset Pain level now: 6 Quality: Pain Location: Substernal Radiation: Other (radiates around both flanks to back) Improved by: Nothing Worsened by: Other (no exacerbating factors) Associated symptoms: Feeling faint / dizzy (mild dizziness), Cough (has had mild, dry cough x few weeks). No: Shortness of air, Diaphoresis, Nausea, Vomiting PD PAST MEDICAL HISTORY - Past Medical History Past Medical History: Yes Cardiovascular: None Respiratory: Asthma Neuro: None Psych: Anxiety - Past Surgical History Past Surgical History: No - Present Medications Home Medications: Ambulatory Orders Medication Instructions Recorded Confirmed Albuterol Sulfate [Proair Hfa 1 - 2 puffs INH Q4H PRN 07/06/21 09/11/21 Inhaler] Ibuprofen [Motrin] 800 mg PO DAILY 07/11/21 09/11/21 - Allergies Allergies/Adverse Reactions: Allergies Allergy/AdvReac Type Severity Reaction Status Date / Time Penicillins Allergy Respiratory Verified 01/03/22 22:03 - Social History Does the pt smoke?: No Smoking Status: Former smoker Does the pt drink ETOH?: No Does the pt have substance abuse?: No - Immunizations Immunizations are current?: Yes - POLST Patient has POLST: No Results - Vitals Vitals: Oxygen O2 Source Room air - EKG (time done) No standard instances Rate: Rate (enter#) (93) Rhythm: NSR [place]: Normal Intervals: Normal [place] QRS: Normal Ischemia: Normal ST segments - Labs Labs: Laboratory Tests 01/03/22 01/03/22 23:13 23:13 WBC 10.6 RBC 4.92 Hgb 12.8 Hct 39.8 MCV 80.9 L MCH 26.0 L MCHC 32.2 RDW 13.6 Plt Count 310 MPV 8.8 Neut # (Auto) 7.3 H Lymph # (Auto) 2.2 [place] # (Auto) 0.8 Eos # (Auto) 0.2 Baso # (Auto) 0.1 Absolute Nucleated RBC 0.00 Nucleated RBC % 0.0 Sodium 139 Potassium 4.0 Chloride 108 Carbon Dioxide 24 Anion Gap 7.0 BUN 13 Creatinine 1.0 Estimated GFR (MDRD) 71 L Glucose 90 Calcium 8.9 Total Bilirubin 0.5 AST 13 ALT 14 Alkaline Phosphatase 74 Total Protein 7.2 Albumin 4.0 Globulin 3.2 Albumin/Globulin Ratio 1.3 Lipase 45 - Rads (name of study) chest xray Radiology: Prelim report reviewed, See rad report PD MEDICAL DECISION MAKING - ED course Complexity details: reviewed results, re-evaluated patient, considered differential, d/w patient ED course: no diagnostic nor concerning findings on EKG, CXR, blood tests. Cause of her symptoms is not apparent at this time. Results reviewed with patient, advised to follow up with primary care provider, return precautions reviewed Departure - Departure Disposition: 01 Home, Self Care Clinical Impression: Chest pain Qualifiers: Chest pain type: unspecified Qualified Code(s): R07.9 - Chest pain, unspecified Condition: Good Instructions: ED Chest Pain Atypical Unkn Cause Follow-Up: Almaz Quinonez PA [Primary Care Provider] - Discharge Date/Time: 01/04/22 01:10
[2022-01-03 23:18] LABS: BASOPHILS # (AUTO) 0.1 10^3/uL (0.0-0.1); BASOPHILS % (AUTO) 0.6 %; EOSINOPHILS # (AUTO) 0.2 10^3/uL (0.0-0.7); EOSINOPHILS % (AUTO) 2.3 %; HCT - HEMATOCRIT 39.8 % (37.0-47.0); HGB - HEMOGLOBIN 12.8 g/dL (12.0-16.0); LYMPHOCYTES # (AUTO) 2.2 10^3/uL (1.5-3.5); LYMPHOCYTES % (AUTO) 20.6 %; MEAN CORPUSCULAR HGB CONC 32.2 g/dL (32.0-36.0); MEAN CORPUSCULAR VOLUME 80.9 fL (81.0-99.0); MEAN PLATELET VOLUME 8.8 fL (7.9-10.8); MONOCYTES # (AUTO) 0.8 10^3/uL (0.0-1.0); MONOCYTES % (AUTO) 7.8 %; NEUTROPHILS # (AUTO) 7.3 10^3/uL (1.5-6.6); NEUTROPHILS % (AUTO) 68.4 %; PLT - PLATELET COUNT 310 10^3/uL (130-450); RED BLOOD COUNT 4.92 10^6/uL (4.20-5.40); RED CELL DISTRIBUTION WIDTH 13.6 % (12.0-15.0); WHITE BLOOD COUNT 10.6 x10^3/uL (4.8-10.8)
[2022-01-03 23:33] LABS: ALBUMIN/GLOBULIN RATIO 1.3 (1.0-2.2); BILIRUBIN,TOTAL 0.5 mg/dL (0.2-1.0); CALCIUM 8.9 mg/dL (8.5-10.3); TOTAL PROTEIN 7.2 g/dL (6.7-8.2)
--- NOTE | 2022-01-04 00:04 | XRAY Report ---
PROCEDURE: Chest 2 View X-Ray INDICATIONS: chest pain, mild dyspnea TECHNIQUE: 2 views of the chest were acquired. COMPARISON: 08/31/2021 FINDINGS: Surgical changes and devices: None. Lungs and pleura: No pleural effusions or pneumothorax. Lungs are clear. Mediastinum: Mediastinal contours are normal. Heart size is normal. Bones and chest wall: No suspicious bony abnormalities. Soft tissues appear unremarkable. IMPRESSION: 1. No acute cardiopulmonary disease. Reviewed by: Michael Mata MD on 01/04/2022 12:[address] [facility] Approved by: Michael Mata MD on 01/04/2022 12:[address] [facility] Station ID: [id number]
[2022-01-04 01:10] VITALS: BP 145/93
== END 2022-01-04 01:10 | disposition home or self-care (01) ==
LOC: ED 21:44
DX: R07.9 Chest pain, unspecified (principal); Z87.891 Personal history of nicotine dependence
CPT/HCPCS: 36415; 80053; 83690; 85025; 93005; 99281; 99284

== ENCOUNTER 2022-02-17 15:53 | Emergency (ER) | payer MEDICAID ==
[2022-02-17 16:22] VITALS: BP 151/104
--- OUTSIDE RECORDS SUMMARY | 2022-02-17 16:28 | EXTERNAL MEDICAL SUMMARY RPT | Continuity of Care Document ---
:2000 Author Organization [facility] Address [address] [place] [address] Phone Care Team Providers Name Role Phone Noris Edwards Unavailable Unavailable Allergies and Intolerances date description [facility] No information. Functional Status No information. Immunizations No information. Medications date description facility 2022-01-06 00:00 Omeprazole [facility] 2022-01-06 00:00 Sucralfate [facility] Problems date description facility 2022-01-06 00:00 Acute epigastric pain [facility] 2022-01-12 00:00 Patient left before evaluation by [facility] Procedures date description facility 2022-01-06 00:00 X-ray of chest, single view [facility] 2022-01-11 00:00 X-ray of chest, single view [facility] 2022-01-06 00:00 [facility] 2022-01-12 00[facility]00 [facility] 2022-01-06 00:00 US Abdomen [facility] Results/Labs test date author facility value unit interpret ation Result panel 1 (unknown) (no date[facility]) Result panel 2 (unknown) (no date) (unknown[facility] Result panel 3 (unknown) (no date) (unknown[facility] Result panel 4 (unknown) (no date) (unknown[facility] Result panel 5 (unknown) (no date) (unknown[facility] Result panel 6 (unknown) (no date) (unknown[facility] Result panel 7 (unknown) (no date) (unknown[facility] Result panel 8 (unknown) (no date) (unknown[facility] Result panel 9 (unknown) (no date) (unknown[facility] Result panel 10 (unknown) (no date) (unknown[facility] Result panel 11 (unknown) (no date) (unknown[facility] Result panel 12 (unknown) (no date) (unknown[facility] Result panel 13 (unknown) (no date) (unknown[facility] Result panel 14 (unknown) (no date) (unknown[facility] Result panel 15 (unknown) (no date) (unknown[facility] Result panel 16 (unknown) (no date) (unknown[facility] Result panel 17 (unknown) (no date) (unknown[facility] Result panel 18 (unknown) (no date) (unknown[facility] Result panel 19 (unknown) (no date) (unknown[facility] Result panel 20 (unknown) (no date) (unknown[facility] Result panel 21 (unknown) (no date) (unknown[facility] Result panel 22 (unknown) (no date) (unknown[facility] Result panel 23 (unknown) (no date) (unknown[facility] Result panel 24 (unknown) (no date) (unknown[facility] Result panel 25 (unknown) (no date) (unknown[facility] Result panel 26 (unknown) (no date) (unknown[facility] Result panel 27 (unknown) (no date) (unknown[facility] Result panel 28 (unknown) (no date) (unknown[facility] Result panel 29 (unknown) (no date) (unknown[facility] Result panel 30 (unknown) (no date) (unknown[facility] Result panel 31 (unknown) (no date) (unknown[facility] Result panel 32 (unknown) (no date) (unknown[facility] Result panel 33 (unknown) (no date) (unknown[facility] Result panel 34 (unknown) (no date) (unknown[facility]) Result panel 35 (unknown) (no date) (unknown[facility] Result panel 36 (unknown) (no date) (unknown[facility] Result panel 37 (unknown) (no date) (unknown[facility]) Result panel 38 (unknown) (no date) (unknown[facility] Result panel 39 (unknown) (no date) (unknown[facility]) Result panel 40 (unknown) (no date) (unknown[facility] Result panel 41 (unknown) (no date) (unknown[facility] Result panel 42 (unknown) (no date) (unknown[facility] Result panel 43 (unknown) (no date) (unknown[facility] Result panel 44 (unknown) (no date) (unknown[facility] Result panel 45 (unknown) (no date) (unknown[facility] Result panel 46 (unknown) (no date) (unknown[facility] Result panel 47 (unknown) (no date) (unknown[facility] Result panel 48 (unknown) (no date) (unknown[facility] Result panel 49 (unknown) (no date) (unknown[facility]) Result panel 50 (unknown) (no date) (unknown[facility] Result panel 51 (unknown) (no date) (unknown[facility] Result panel 52 (unknown) (no date) (unknown[facility]) Result panel 53 (unknown) (no date) (unknown[facility] Result panel 54 (unknown) (no date) (unknown[facility] Result panel 55 (unknown) (no date) (unknown[facility] Result panel 56 (unknown) (no date) (unknown[facility] Result panel 57 (unknown) (no date) (unknown[facility] Result panel 58 (unknown) (no date) (unknown[facility] Result panel 59 (unknown) (no date) (unknown[facility] Result panel 60 (unknown) (no date) (unknown[facility] Result panel 61 (unknown) (no date) (unknown[facility] Result panel 62 (unknown) (no date) (unknown[facility] Result panel 63 (unknown) (no date) (unknown[facility] Result panel 64 (unknown) (no date) (unknown[facility]) Result panel 65 (unknown) (no date) (unknown[facility] Result panel 66 (unknown) (no date) (unknown[facility]) Result panel 67 (unknown) (no date) (unknown[facility] Result panel 68 (unknown) (no date) (unknown[facility] Result panel 69 (unknown) (no date) (unknown[facility]) Result panel 70 (unknown) (no date) (unknown[facility] Result panel 71 (unknown) (no date) (unknown[facility]) Result panel 72 (unknown) (no date) (unknown[facility]) Result panel 73 (unknown) (no date) (unknown[facility]) Result panel 74 (unknown) (no date) (unknown[facility] Result panel 75 (unknown) (no date) (unknown[facility]) Result panel 76 (unknown) (no date) (unknown[facility] Result panel 77 (unknown) (no date) (unknown[facility]) Result panel 78 (unknown) (no date) (unknown[facility] Result panel 79 (unknown) (no date) (unknown[facility]) Result panel 80 (unknown) (no date) (unknown[facility] Result panel 81 (unknown) (no date) (unknown[facility]) Result panel 82 (unknown) (no date) (unknown[facility]) Result panel 83 (unknown) (no date) (unknown[facility] Result panel 84 (unknown) (no date) (unknown[facility]) Result panel 85 (unknown) (no date) (unknown[facility] Result panel 86 (unknown) (no date) (unknown[facility] Result panel 87 (unknown) (no date) (unknown[facility] Result panel 88 (unknown) (no date) (unknown[facility] Result panel 89 (unknown) (no date) (unknown[facility] Result panel 90 (unknown) (no date) (unknown[facility] Result panel 91 (unknown) (no date) (unknown[facility] Result panel 92 (unknown) (no date) (unknown[facility]) Result panel 93 (unknown) (no date) (unknown[facility] Result panel 94 (unknown) (no date) (unknown[facility] Result panel 95 (unknown) (no date) (unknown[facility] Result panel 96 (unknown) (no date) (unknown[facility]) Result panel 97 (unknown) (no date) (unknown[facility] Result panel 98 (unknown) (no date) (unknown[facility]) Result panel 99 (unknown) (no date) (unknown[facility] Result panel 100 (unknown) (no date) (unknown[facility] Result panel 101 (unknown) (no date) (unknown[facility]) Result panel 102 (unknown) (no date) (unknown[facility] Result panel 103 (unknown) (no date) (unknown[facility]) Result panel 104 (unknown) (no date) (unknown[facility] Result panel 105 (unknown) (no date) (unknown[facility]) Result panel 106 (unknown) (no date) (unknown[facility] Result panel 107 (unknown) (no date) (unknown[facility]) Result panel 108 (unknown) (no date) (unknown[facility] Result panel 109 (unknown) (no date) (unknown[facility]) Result panel 110 (unknown) (no date) (unknown[facility] Result panel 111 (unknown) (no date) (unknown[facility]) Result panel 112 (unknown) (no date) (unknown[facility]) Result panel 113 (unknown) (no date) (unknown[facility]) Result panel 114 (unknown) (no date) (unknown[facility]) Result panel 115 (unknown) (no date) (unknown[facility]) Result panel 116 (unknown) (no date) (unknown[facility] Result panel 117 (unknown) (no date) (unknown[facility]) Result panel 118 (unknown) (no date) (unknown[facility] Result panel 119 (unknown) (no date) (unknown[facility] Result panel 120 (unknown) (no date) (unknown[facility]) Result panel 121 (unknown) (no date) (unknown[facility] Result panel 122 (unknown) (no date) (unknown[facility]) Result panel 123 (unknown) (no date) (unknown[facility] Result panel 124 (unknown) (no date) (unknown[facility]) Result panel 125 (unknown) (no date) (unknown[facility]) Result panel 126 (unknown) (no date) (unknown[facility]) Result panel 127 (unknown) (no date) (unknown[facility]) Result panel 128 (unknown) (no date) (unknown[facility]) Result panel 129 (unknown) (no date) (unknown[facility] Result panel 130 (unknown) (no date) (unknown[facility]) Result panel 131 (unknown) (no date) (unknown[facility]) Result panel 132 (unknown) (no date) (unknown[facility]) Result panel 133 (unknown) (no date) (unknown[facility]) Result panel 134 (unknown) (no date) (unknown[facility]) Result panel 135 (unknown) (no date) (unknown[facility] Result panel 136 (unknown) (no date) (unknown[facility]) Result panel 137 (unknown) (no date) (unknown[facility]) Result panel 138 (unknown) (no date) (unknown[facility]) Result panel 139 (unknown) (no date) (unknown[facility]) Result panel 140 (unknown) (no date) (unknown[facility]) Result panel 141 (unknown) (no date) (unknown[facility]) Result panel 142 (unknown) (no date) (unknown[facility]) Result panel 143 (unknown) (no date) (unknown[facility]) Result panel 144 (unknown) (no date) (unknown[facility]) Result panel 145 (unknown) (no date) (unknown[facility]) Result panel 146 (unknown) (no date) (unknown[facility]) Result panel 147 (unknown) (no date) (unknown[facility] Result panel 148 (unknown) (no date) (unknown[facility]) Result panel 149 (unknown) (no date) (unknown[facility]) Result panel 150 (unknown) (no date) (unknown[facility]) Result panel 151 (unknown) (no date) (unknown) [facility] Result panel 152 (unknown) (no date) (unknown[facility]) Result panel 153 (unknown) (no date) (unknown[facility]) Result panel 154 (unknown) (no date) (unknown[facility]) Result panel 155 (unknown) (no date) (unknown) [facility]) Result panel 156 (unknown) (no date) (unknown) [facility]) Result panel 157 (unknown) (no date) (unknown) [facility]) Result panel 158 (unknown) (no date) (unknown[facility]) Result panel 159 (unknown) (no date) (unknown) [facility]) Result panel 160 (unknown) (no date) (unknown) [facility]) Result panel 161 (unknown) (no date) (unknown) [facility]) Result panel 162 (unknown) (no date) (unknown) [facility]) Result panel 163 (unknown) (no date) (unknown) [facility] Result panel 164 (unknown) (no date) (unknown) [facility]) Result panel 165 (unknown) (no date) (unknown) [facility]) Result panel 166 (unknown) (no date) (unknown) [facility]) Result panel 167 (unknown) (no date) (unknown) [facility]) Result panel 168 (unknown) (no date) (unknown) [facility] Result panel 169 (unknown) (no date) (unknown) [facility]) Result panel 170 (unknown) (no date) (unknown) [facility]) Result panel 171 (unknown) (no date) (unknown) [facility] Result panel 172 (unknown) (no date) (unknown) [facility]) Result panel 173 (unknown) (no date) (unknown) [facility] Result panel 174 (unknown) (no date) (unknown) [facility]) Result panel 175 (unknown) (no date) (unknown) [facility] Result panel 176 (unknown) (no date) (unknown) [facility] Result panel 177 (unknown) (no date) (unknown) [facility]) Result panel 178 (unknown) (no date) (unknown) [facility] Result panel 179 (unknown) (no date) (unknown) [facility] Result panel 180 (unknown) (no date) (unknown) [facility] Result panel 181 (unknown) (no date) (unknown[facility] Result panel 182 (unknown) (no date) (unknown[facility]) Result panel 183 (unknown) (no date) (unknown[facility] Result panel 184 (unknown) (no date) (unknown[facility] Result panel 185 (unknown) (no date) (unknown[facility] Result panel 186 (unknown) (no date) (unknown[facility]) Result panel 187 (unknown) (no date) (unknown[facility] Result panel 188 (unknown) (no date) (unknown) [facility] Result panel 189 (unknown) (no date) (unknown[facility]) Result panel 190 (unknown) (no date) (unknown[facility] Result panel 191 (unknown) (no date) (unknown[facility] Result panel 192 (unknown) (no date) (unknown[facility]) Result panel 193 (unknown) (no date) (unknown[facility] Result panel 194 (unknown) (no date) (unknown[facility]) Result panel 195 (unknown) (no date) (unknown[facility] Result panel 196 (unknown) (no date) (unknown[facility]) Result panel 197 (unknown) (no date) (unknown[facility] Result panel 198 (unknown) (no date) (unknown[facility]) Result panel 199 (unknown) (no date) (unknown[facility]) Result panel 200 (unknown) (no date) (unknown[facility] Result panel 201 (unknown) (no date) (unknown[facility]) Result panel 202 (unknown) (no date) (unknown[facility] Result panel 203 (unknown) (no date) (unknown[facility] Result panel 204 (unknown) (no date) (unknown[facility]) Result panel 205 (unknown) (no date) (unknown[facility] Result panel 206 (unknown) (no date) (unknown[facility] Result panel 207 (unknown) (no date) (unknown[facility]) Result panel 208 (unknown) (no date) (unknown[facility] Result panel 209 (unknown) (no date) (unknown[facility] Result panel 210 (unknown) (no date) (unknown[facility] Result panel 211 (unknown) (no date) (unknown[facility] Result panel 212 (unknown) (no date) (unknown[facility] Result panel 213 (unknown) (no date) (unknown[facility] Result panel 214 (unknown) (no date) (unknown[facility]) Result panel 215 (unknown) (no date) (unknown[facility] Result panel 216 (unknown) (no date) (unknown[facility]) Result panel 217 (unknown) (no date) (unknown[facility] Result panel 218 (unknown) (no date) (unknown[facility] Result panel 219 (unknown) (no date) (unknown) [facility] Result panel 220 (unknown) (no date) (unknown) [facility] Result panel 221 (unknown) (no date) (unknown) [facility] Result panel 222 (unknown) (no date) (unknown) [facility] Result panel 223 (unknown) (no date) (unknown) [facility] Result panel 224 (unknown) (no date) (unknown[facility] Result panel 225 (unknown) (no date) (unknown) [facility] Result panel 226 (unknown) (no date) (unknown) [facility] Result panel 227 (unknown) (no date) (unknown[facility] Result panel 228 (unknown) (no date) (unknown[facility] [facility]) Result panel 229 (unknown) (no date) (unknown) [facility]) Result panel 230 (unknown) (no date) (unknown) [facility] Result panel 231 (unknown) (no date) (unknown) [facility]) Result panel 232 (unknown) (no date) (unknown) [facility]) Result panel 233 (unknown) (no date) (unknown) [facility] Result panel 234 (unknown) (no date) (unknown) [facility]) Result panel 235 (unknown) (no date) (unknown) [facility]) Result panel 236 (unknown) (no date) (unknown) [facility]) Result panel 237 (unknown) (no date) (unknown) [facility]) Result panel 238 (unknown) (no date) (unknown) [facility] Result panel 239 (unknown) (no date) (unknown) [facility] Result panel 240 (unknown) (no date) (unknown) [facility] Result panel 241 (unknown) (no date) (unknown) [facility] Result panel 242 (unknown) (no date) (unknown) [facility] Result panel 243 (unknown) (no date) (unknown) [facility]) Result panel 244 (unknown) (no date) (unknown) [facility] Result panel 245 (unknown) (no date) (unknown) [facility]) Result panel 246 (unknown) (no date) (unknown) [facility]) Result panel 247 (unknown) (no date) (unknown) [facility]) Result panel 248 (unknown) (no date) (unknown) [facility] Result panel 249 (unknown) (no date) (unknown) [facility]) Result panel 250 (unknown) (no date) (unknown[facility]) Result panel 251 (unknown) (no date) (unknown) [facility]) Result panel 252 (unknown) (no date) (unknown) [facility]) Result panel 253 (unknown) (no date) (unknown) [facility]) Result panel 254 (unknown) (no date) (unknown) [facility]) Result panel 255 (unknown) (no date) (unknown) [facility]) Result panel 256 (unknown) (no date) (unknown) [facility]) Result panel 257 (unknown) (no date) (unknown) [facility]) Result panel 258 (unknown) (no date) (unknown[facility]) Result panel 259 (unknown) (no date) (unknown) [facility]) Result panel 260 (unknown) (no date) (unknown) [facility]) Result panel 261 (unknown) (no date) (unknown) [facility] Result panel 262 (unknown) (no date) (unknown[facility]) Result panel 263 (unknown) (no date) (unknown) [facility] Result panel 264 (unknown) (no date) (unknown) [facility]) Result panel 265 (unknown) (no date) (unknown) [facility]) Result panel 266 (unknown) (no date) (unknown) [facility]) Result panel 267 (unknown) (no date) (unknown) [facility]) Result panel 268 (unknown) (no date) (unknown) [facility] Result panel 269 (unknown) (no date) (unknown) [facility]) Result panel 270 (unknown) (no date) (unknown) [facility]) Result panel 271 (unknown) (no date) (unknown) [facility]) Result panel 272 (unknown) (no date) (unknown) [facility]) Result panel 273 (unknown) (no date) (unknown) [facility]) Result panel 274 (unknown) (no date) (unknown[facility]) Result panel 275 (unknown) (no date) (unknown) [facility]) Result panel 276 (unknown) (no date) (unknown) [facility]) Result panel 277 (unknown) (no date) (unknown) [facility]) Result panel 278 (unknown) (no date) (unknown) [facility]) Result panel 279 (unknown) (no date) (unknown[facility]) Result panel 280 (unknown) (no date) (unknown) [facility]) Result panel 281 (unknown) (no date) (unknown) [facility]) Result panel 282 (unknown) (no date) (unknown) [facility]) Result panel 283 (unknown) (no date) (unknown) [facility]) Result panel 284 (unknown) (no date) (unknown) [facility] Result panel 285 (unknown) (no date) (unknown) [facility]) Result panel 286 (unknown) (no date) (unknown) [facility] Result panel 287 (unknown) (no date) (unknown) [facility]) Result panel 288 (unknown) (no date) (unknown) [facility] Result panel 289 (unknown) (no date) (unknown) [facility]) Result panel 290 (unknown) (no date) (unknown) [facility] Result panel 291 (unknown) (no date) (unknown) [facility]) Result panel 292 (unknown) (no date) (unknown) [facility]) Result panel 293 (unknown) (no date) (unknown) [facility]) Result panel 294 (unknown) (no date) (unknown) [facility]) Result panel 295 (unknown) (no date) (unknown) [facility]) Result panel 296 (unknown) (no date) (unknown) [facility]) Result panel 297 (unknown) (no date) (unknown) [facility]) Result panel 298 (unknown) (no date) (unknown) [facility]) Result panel 299 (unknown) (no date) (unknown) [facility]) Result panel 300 (unknown) (no date) (unknown) [facility]) Result panel 301 (unknown) (no date) (unknown) [facility]) Result panel 302 (unknown) (no date) (unknown) [facility]) Result panel 303 (unknown) (no date) (unknown) [facility]) Result panel 304 (unknown) (no date) (unknown) [facility]) Result panel 305 (unknown) (no date) (unknown[facility]) Result panel 306 (unknown) (no date) (unknown) [facility]) Result panel 307 (unknown) (no date) (unknown) [facility]) Result panel 308 (unknown) (no date) (unknown) [facility]) Result panel 309 (unknown) (no date) (unknown) [facility]) Result panel 310 (unknown) (no date) (unknown) [facility]) Result panel 311 (unknown) (no date) (unknown[facility]) Result panel 312 (unknown) (no date) (unknown) [facility]) Result panel 313 (unknown) (no date) (unknown) [facility]) Result panel 314 (unknown) (no date) (unknown) [facility]) Result panel 315 (unknown) (no date) (unknown) [facility]) Result panel 316 (unknown) (no date) (unknown) [facility]) Result panel 317 (unknown) (no date) (unknown) [facility]) Result panel 318 (unknown) (no date) (unknown) [facility]) Result panel 319 (unknown) (no date) (unknown) [facility]) Result panel 320 (unknown) (no date) (unknown) [facility]) Result panel 321 (unknown) (no date) (unknown) [facility]) Result panel 322 (unknown) (no date) (unknown) [facility]) Result panel 323 (unknown) (no date) (unknown) [facility]) Result panel 324 (unknown) (no date) (unknown) [facility]) Result panel 325 (unknown) (no date) (unknown) [facility]) Result panel 326 (unknown) (no date) (unknown) [facility]) Result panel 327 (unknown) (no date) (unknown) [facility]) Result panel 328 (unknown) (no date) (unknown) [facility]) Result panel 329 (unknown) (no date) (unknown) [facility]) Result panel 330 (unknown) (no date) (unknown) [facility]) Result panel 331 (unknown) (no date) (unknown) [facility]) Result panel 332 (unknown) (no date) (unknown) [facility]) Result panel 333 (unknown) (no date) (unknown) [facility]) Result panel 334 (unknown) (no date) (unknown) [facility]) Result panel 335 (unknown) (no date) (unknown) [facility]) Result panel 336 (unknown) (no date) (unknown) [facility]) Result panel 337 (unknown) (no date) (unknown) [facility]) Result panel 338 (unknown) (no date) (unknown) [facility]) Result panel 339 (unknown) (no date) (unknown) [facility]) Result panel 340 (unknown) (no date) (unknown) [facility]) Result panel 341 (unknown) (no date) (unknown[facility]) Result panel 342 (unknown) (no date) (unknown) [facility]) Result panel 343 (unknown) (no date) (unknown) [facility]) Result panel 344 (unknown) (no date) (unknown) [facility]) Result panel 345 (unknown) (no date) (unknown) [facility]) Result panel 346 (unknown) (no date) (unknown) [facility]) Result panel 347 (unknown) (no date) (unknown) [facility]) Result panel 348 (unknown) (no date) (unknown) [facility]) Result panel 349 (unknown) (no date) (unknown) [facility]) Result panel 350 (unknown) (no date) (unknown) [facility]) Result panel 351 (unknown) (no date) (unknown) [facility]) Result panel 352 (unknown) (no date) (unknown) [facility]) Result panel 353 (unknown) (no date) (unknown) [facility]) Result panel 354 (unknown) (no date) (unknown) [facility]) Result panel 355 (unknown) (no date) (unknown) [facility]) Result panel 356 (unknown) (no date) (unknown) [facility]) Result panel 357 (unknown) (no date) (unknown) [facility]) Result panel 358 (unknown) (no date) (unknown) [facility]) Result panel 359 (unknown) (no date) (unknown) [facility]) Result panel 360 (unknown) (no date) (unknown) [facility]) Result panel 361 (unknown) (no date) (unknown) [facility]) Result panel 362 (unknown) (no date) (unknown) [facility]) Result panel 363 (unknown) (no date) (unknown) [facility]) Result panel 364 (unknown) (no date) (unknown) [facility]) Result panel 365 (unknown) (no date) (unknown) [facility]) Result panel 366 (unknown) (no date) (unknown) [facility]) Result panel 367 (unknown) (no date) (unknown) [facility]) Result panel 368 (unknown) (no date) (unknown) [facility]) Result panel 369 (unknown) (no date) (unknown) [facility]) Result panel 370 (unknown) (no date) (unknown) [facility]) Result panel 371 (unknown) (no date) (unknown) [facility]) Result panel 372 (unknown) (no date) (unknown) [facility]) Result panel 373 (unknown) (no date) (unknown) [facility]) Result panel 374 (unknown) (no date) (unknown) [facility]) Result panel 375 (unknown) (no date) (unknown) [facility]) Result panel 376 (unknown) (no date) (unknown) [facility]) Result panel 377 (unknown) (no date) (unknown) [facility]) Result panel 378 (unknown) (no date) (unknown) [facility]) Result panel 379 (unknown) (no date) (unknown) [facility]) Result panel 380 (unknown) (no date) (unknown) [facility]) Result panel 381 (unknown) (no date) (unknown) [facility]) Result panel 382 (unknown) (no date) (unknown) [facility]) Result panel 383 (unknown) (no date) (unknown) [facility]) Result panel 384 (unknown) (no date) (unknown) [facility]) Result panel 385 (unknown) (no date) (unknown) [facility]) Result panel 386 (unknown) (no date) (unknown) [facility]) Result panel 387 (unknown) (no date) (unknown) [facility]) Result panel 388 (unknown) (no date) (unknown) [facility]) Result panel 389 (unknown) (no date) (unknown) [facility]) Result panel 390 (unknown) (no date) (unknown) [facility]) Result panel 391 (unknown) (no date) (unknown) [facility]) Result panel 392 (unknown) (no date) (unknown) [facility]) Result panel 393 (unknown) (no date) (unknown) [facility]) Result panel 394 (unknown) (no date) (unknown) [facility]) Result panel 395 (unknown) (no date) (unknown) [facility]) Result panel 396 (unknown) (no date) (unknown) [facility]) Result panel 397 (unknown) (no date) (unknown) [facility]) Result panel 398 (unknown) (no date) (unknown) [facility]) Result panel 399 (unknown) (no date) (unknown) [facility]) Result panel 400 (unknown) (no date) (unknown) [facility]) Result panel 401 (unknown) (no date) (unknown) [facility]) Result panel 402 (unknown) (no date) (unknown) [facility]) Result panel 403 (unknown) (no date) (unknown) [facility]) Result panel 404 (unknown) (no date) (unknown) [facility]) Result panel 405 (unknown) (no date) (unknown) [facility]) Result panel 406 (unknown) (no date) (unknown) [facility]) Result panel 407 (unknown) (no date) (unknown) [facility]) Result panel 408 (unknown) (no date) (unknown) [facility]) Result panel 409 (unknown) (no date) (unknown) [facility]) Result panel 410 (unknown) (no date) (unknown) [facility]) Result panel 411 (unknown) (no date) (unknown) [facility]) Result panel 412 (unknown) (no date) (unknown) [facility]) Result panel 413 (unknown) (no date) (unknown) [facility]) Result panel 414 (unknown) (no date) (unknown) [facility]) Result panel 415 (unknown) (no date) (unknown) [facility]) Result panel 416 (unknown) (no date) (unknown) [facility]) Result panel 417 (unknown) (no date) (unknown) [facility]) Result panel 418 (unknown) (no date) (unknown) [facility]) Result panel 419 (unknown) (no date) (unknown) [facility]) Result panel 420 (unknown) (no date) (unknown) [facility]) Result panel 421 (unknown) (no date) (unknown) [facility]) Result panel 422 (unknown) (no date) (unknown) [facility]) Result panel 423 (unknown) (no date) (unknown) [facility]) Result panel 424 (unknown) (no date) (unknown) [facility]) Result panel 425 (unknown) (no (unknown) (unknown) (no value) (units (unk nown) date) unknown) (unknown) (no (unknown) (unknown) [id number] (units (unkno wn) date) unknown) (unknown) (no (unknown) (unknown) 01/06/22 (units (unkno wn) date) unknown) (unknown) (no (unknown) (unknown) [address] [place] [address] (units (unknown) date) unknown) (unknown) (no (unknown) (unknown) Accession Number: (units (unknown) date) [id number] unknown) (unknown) (no (unknown) (unknown) Age/Sex: 21 / F (units (unknown) date) Date of Service: unknown) (unknown) (no (unknown) (unknown) [place] ( unknown) date[place] [id number] unknown) (unknown) (no (unknown) (unknown) Approved by: Megha (units (unknown) date) Marbella Oneil on unknown) 01/06/2022 at 13:47 (unknown) (no (unknown) (unknown) Bones and chest (units (unknown) date) wall: No unknown) suspicious bony lesions. Overlying soft tissues (unknown) (no (unknown) (unknown) COMPARISON: (units (un known) date) [facility], unknown) CR, XR CHEST 1V, 07/28/2021, 13:34. (unknown) (no (unknown) (unknown) : 2000 (units (unknown) date) Acct:[id number] unknown) (unknown) (no (unknown) (unknown) Dictated by: Megha (units (unknown) date) Marbella Oneil on unknown) 01/06/2022 at 13:47 (unknown) (no (unknown) (unknown) FINDINGS: (units (unkn own) date) unknown) (unknown) (no (unknown) (unknown) IMPRESSION: No (units (unknown) date) acute unknown) cardiopulmonary findings. (unknown) (no (unknown) (unknown) INDICATIONS: (units (u nknown) date) chest pain unknown) (unknown) (no (unknown) (unknown) [facility] (units (unknown) date) unknown) (unknown) (no (unknown) (unknown) Loc: ED (units (unkno wn) date) unknown) (unknown) (no (unknown) (unknown) Lungs and pleura: (units (unknown) date) Lungs are clear. unknown) No pleural effusions or pneumothorax. (unknown) (no (unknown) (unknown) Mediastinum: (units (u nknown) date) Mediastinal unknown) contours appear normal. Heart size is normal. (unknown) (no (unknown) (unknown) Ordering (units (unkno wn) date) Provider: unknown) Manjit Dale D.O. (unknown) (no (unknown) (unknown) PROCEDURE: XR (units ( unknown) date) CHEST 1V unknown) (unknown) (no (unknown) (unknown) Patient: (units (unkno wn) date) Delmy Cobb unknown) MR#: [id number] (unknown) (no (unknown) (unknown) Procedure: XR (units ( unknown) date) chest 1V unknown) (unknown) (no (unknown) (unknown) Signed (units (unkno wn) date) unknown) (unknown) (no (unknown) (unknown) Surgical changes (units (unknown) date) and devices: None. unknown) (unknown) (no (unknown) (unknown) TECHNIQUE: One (units (unknown) date) view of the chest unknown) was acquired. (unknown) (no (unknown) (unknown) XRay Report (units (un known) date) unknown) (unknown) (no (unknown) (unknown) appear (units (unkno wn) date) unknown) (unknown) (no (unknown) (unknown) unremarkable. (units ( unknown) date) unknown) Result panel 426 (unknown) (no (unknown) (unknown) (no value) (units (unk nown) date) unknown) (unknown) (no (unknown) (unknown) [id number] (units (unkno wn) date) unknown) (unknown) (no (unknown) (unknown) 01/06/22 (units (unkno wn) date) unknown) (unknown) (no (unknown) (unknown) [facility] [address] [place] [address] (units (unknown) date) unknown) (unknown) (no (unknown) (unknown) Accession Number: (units (unknown) date) [id number] unknown) (unknown) (no (unknown) (unknown) Age/Sex: 21 / F (units (unknown) date) Date of Service: unknown) (unknown) (no (unknown) (unknown) [place], [place] (units ( unknown) date) [id number] unknown) (unknown) (no (unknown) (unknown) Approved by: (units (u nknown) date) Tommy Hairston, unknown) Marbella on 01/06/2022 at 12:32 (unknown) (no (unknown) (unknown) COMPARISON: (units (un known) date) [facility], unknown) CT, CT ABDOMEN PELVIS W CON, 02/08/2021, 22:36. (unknown) (no (unknown) (unknown) : 2000 (units (unknown) date) Acct:[id number] unknown) (unknown) (no (unknown) (unknown) Dictated by: (units (u nknown) date) Tommy Hairston, unknown) Marbella on 01/06/2022 at 12:27 (unknown) (no (unknown) (unknown) FINDINGS: This (units (unknown) date) study is limited unknown) by body habitus. (unknown) (no (unknown) (unknown) IMPRESSION: (units (un known) date) Limited study unknown) demonstrating no significant gallbladder (unknown) (no (unknown) (unknown) INDICATIONS: ruq (units (unknown) date) pain, rickie? unknown) (unknown) (no (unknown) (unknown) [facility] (units (unknown) date) unknown) (unknown) (no (unknown) (unknown) Loc: ED (units (unkno wn) date) unknown) (unknown) (no (unknown) (unknown) Ordering (units (unkno wn) date) Provider: unknown) Leesa Gonzales (unknown) (no (unknown) (unknown) PROCEDURE: US (units ( unknown) date) ABDOMEN LIMITED unknown) (unknown) (no (unknown) (unknown) Patient is seen. (units (unknown) date) unknown) (unknown) (no (unknown) (unknown) Patient: (units (unkno wn) date) Delmy Cobb E unknown) MR#: [id number] (unknown) (no (unknown) (unknown) Procedure: US (units ( unknown) date) abdomen limited unknown) (unknown) (no (unknown) (unknown) Real-time focused (units (unknown) date) scanning was unknown) performed of the abdomen, with image (unknown) (no (unknown) (unknown) Signed (units (unkno wn) date) unknown) (unknown) (no (unknown) (unknown) TECHNIQUE: (units (unk nown) date) unknown) (unknown) (no (unknown) (unknown) The liver (units (unkn own) date) demonstrates unknown) increased echogenicity. This finding is nonspecific, (unknown) (no (unknown) (unknown) The liver (units (unkn own) date) demonstrates unknown) normal size. The liver demonstrates generalized (unknown) (no (unknown) (unknown) The pancreas is (units (unknown) date) not well seen, unknown) secondary to overlying bowel gas. (unknown) (no (unknown) (unknown) The patient is (units (unknown) date) not NPO and the unknown) gallbladder is partially decompressed. No (unknown) (no (unknown) (unknown) There is no (units (un known) date) biliary unknown) dilatation, the common bile duct measures 3-4 mm. (unknown) (no (unknown) (unknown) Ultrasound Report (units (unknown) date) unknown) (unknown) (no (unknown) (unknown) abnormality. (units (u nknown) date) unknown) (unknown) (no (unknown) (unknown) documentation. (units (unknown) date) unknown) (unknown) (no (unknown) (unknown) findings of (units (un known) date) unknown) (unknown) (no (unknown) (unknown) gallstones or (units ( unknown) date) sludge are seen. unknown) The gallbladder wall is not thickened, (unknown) (no (unknown) (unknown) hepatic (units (unkno wn) date) unknown) (unknown) (no (unknown) (unknown) increased (units (unkn own) date) echogenicity. This unknown) decreases ultrasound sensitivity for detection of (unknown) (no (unknown) (unknown) is (units (unkno wn) date) unknown) (unknown) (no (unknown) (unknown) less. No specific (units (unknown) date) pericholecystic unknown) fluid is seen. The sonographic [place] sign (unknown) (no (unknown) (unknown) masses. (units (unkno wn) date) unknown) (unknown) (no (unknown) (unknown) measuring 3 mm or (units (unknown) date) unknown) (unknown) (no (unknown) (unknown) moderately (units (unk nown) date) unknown) (unknown) (no (unknown) (unknown) most commonly (units ( unknown) date) attributed to unknown) fatty infiltration. (unknown) (no (unknown) (unknown) negative. (units (unkn own) date) unknown) (unknown) (no (unknown) (unknown) yet it is (units (unkn own) date) unknown) Result panel 427 (unknown) (no (unknown) (unknown) (no value) (units (unk nown) date) unknown) (unknown) (no (unknown) (unknown) #8.5 grams (units (unk nown) date) unknown) (unknown) (no (unknown) (unknown) (Zofran) (units (unkno wn) date) unknown) (unknown) (no (unknown) (unknown) 0.8 % (unkno wn) date) (unknown) (no (unknown) (unknown) 0RF (units (unkno wn) date) unknown) (unknown) (no (unknown) (unknown) 100 mg PO BID (units ( unknown) date) Qty: 14 0RF unknown) (unknown) (no (unknown) (unknown) 100 /ul (unkno wn) date) (unknown) (no (unknown) (unknown) 01/06/22 12:32 (units (unknown) date) unknown) (unknown) (no (unknown) (unknown) 01/06/22 12:41 (units (unknown) date) unknown) (unknown) (no (unknown) (unknown) 01/06/22 12:55 (units (unknown) date) unknown) (unknown) (no (unknown) (unknown) 01/06/22 12:56 (units (unknown) date) unknown) (unknown) (no (unknown) (unknown) 01/06/22 (units (unkno wn) date) unknown) (unknown) (no (unknown) (unknown) 12:23 (units (unkno wn) date) unknown) (unknown) (no (unknown) (unknown) 14.0 % (unkno wn) date) (unknown) (no (unknown) (unknown) 14.4 g/dl (unkno wn) date) (unknown) (no (unknown) (unknown) 2 inh inhalation (units (unknown) date) Q4-6H PRN (Reason: unknown) shortness of breath or wheezing) Qty: 1 (unknown) (no (unknown) (unknown) 2 puff INHALATION (units (unknown) date) Q4-6H PRN (Reason: unknown) shortness of breath or wheezing) Qty: (unknown) (no (unknown) (unknown) 2.2 % (unkno wn) date) (unknown) (no (unknown) (unknown) 200 /ul (unkno wn) date) (unknown) (no (unknown) (unknown) 2200 /ul (unkno wn) date) (unknown) (no (unknown) (unknown) 23.0 % (unkno wn) date) (unknown) (no (unknown) (unknown) 26.8 pg (unkno wn) date) (unknown) (no (unknown) (unknown) [id number] (units (unkno wn) date) unknown) (unknown) (no (unknown) (unknown) 33.5 % (unkno wn) date) (unknown) (no (unknown) (unknown) 334 x10 3/ul (unkno wn) date) (unknown) (no (unknown) (unknown) 4 mg PO Q6-8H (units ( unknown) date) Qty: 7 0RF unknown) (unknown) (no (unknown) (unknown) 43.2 % (unkno wn) date) (unknown) (no (unknown) (unknown) 5.0 % (unkno wn) date) (unknown) (no (unknown) (unknown) 5.38 x10 6/ul (unkno wn) date) (unknown) (no (unknown) (unknown) 500 /ul (unkno wn) date) (unknown) (no (unknown) (unknown) 6600 /ul (unkno wn) date) (unknown) (no (unknown) (unknown) 69.0 % (unkno wn) date) (unknown) (no (unknown) (unknown) 8.5 0RF (units (unkno wn) date) unknown) (unknown) (no (unknown) (unknown) 80.2 fl (unkno wn) date) (unknown) (no (unknown) (unknown) 9.6 x10 3/ul (unkno wn) date) (unknown) (no (unknown) (unknown) Age/Sex: 21 / F (units (unknown) date) unknown) (unknown) (no (unknown) (unknown) Allergies (units (unkn own) date) unknown) (unknown) (no (unknown) (unknown) Allergy/AdvReac (units (unknown) date) Type Severity unknown) Reaction Status Date / Time (unknown) (no (unknown) (unknown) Blood Pressure (units (unknown) date) 160/80 H 01/06/22 unknown) 12:23 (unknown) (no (unknown) (unknown) Blood Pressure (units (unknown) date) 160/80 H unknown) (unknown) (no (unknown) (unknown) COVID19 -Nasal (units (unknown) date) RAPID/Pre-Proc unknown) Stat (unknown) (no (unknown) (unknown) Chief Complaint: (units (unknown) date) Chest Pain unknown) (unknown) (no (unknown) (unknown) Complete Blood (units (unknown) date) Count AUTO DIFF unknown) Stat (unknown) (no (unknown) (unknown) Comprehensive (units ( unknown) date) Metabolic Panel unknown) Stat (unknown) (no (unknown) (unknown) Course (units (unkno wn) date) unknown) (unknown) (no (unknown) (unknown) : 2000 (units (unknown) date) Acct:[id number] unknown) (unknown) (no (unknown) (unknown) Date of Service: (units (unknown) date) 01/06/22 unknown) (unknown) (no (unknown) (unknown) Departure (units (unkn own) date) unknown) (unknown) (no (unknown) (unknown) Discharge Plan (units (unknown) date) unknown) (unknown) (no (unknown) (unknown) ED Orders (units (unkn own) date) unknown) (unknown) (no (unknown) (unknown) EKG-12 Lead Stat (units (unknown) date) unknown) (unknown) (no (unknown) (unknown) ER Physician: (units ( unknown) date) CrewLeesa unknown) PRIVATE DUTY RN (unknown) (no (unknown) (unknown) Emergency Report (units (unknown) date) unknown) (unknown) (no (unknown) (unknown) Exam (units (unkno wn) date) unknown) (unknown) (no (unknown) (unknown) General (units (unkno wn) date) unknown) (unknown) (no (unknown) (unknown) H pylori Ab, IgG (units (unknown) date) Stat unknown) (unknown) (no (unknown) (unknown) HPI - [...] date) Signs: unknown) (unknown) (no (unknown) (unknown) [facility] (units (unknown) date) [address] unknown) [place] [address] (unknown) (no (unknown) (unknown) Limitations: no (units (unknown) date) limitations unknown) (unknown) (no (unknown) (unknown) Lipase Stat (units (un known) date) unknown) (unknown) (no (unknown) (unknown) Magnesium Stat (units (unknown) date) unknown) (unknown) (no (unknown) (unknown) Medical History (units (unknown) date) (Updated 09/06/21 unknown) @ 00:00 by ) (unknown) (no (unknown) (unknown) Medication (units (unk nown) date) Instructions unknown) Recorded (unknown) (no (unknown) (unknown) Mode of arrival: [...] (unknown) Oxygen Delivery (units (unknown) date) Method 01/06/22 unknown) 12:23 (unknown) (no (unknown) (unknown) Oxygen Delivery (units (unknown) date) Method Room Air unknown) (unknown) (no (unknown) (unknown) Pantoprazole (units (u nknown) date) Sodium unknown) (Pantoprazole 40 Mg Vial) 40 mg IV NOW ONE (unknown) (no (unknown) (unknown) Partial (units (unkno wn) date) Thromboplastin unknown) Time Stat (unknown) (no (unknown) (unknown) Patient History (units (unknown) date) unknown) (unknown) (no (unknown) (unknown) Patient: (units (unkno wn) date) Delmy Cobb Curtis unknown) MR#: [id number] (unknown) (no (unknown) (unknown) Penicillins (units (un known) date) [PENICILLINS] unknown) Allergy Unknown Anaphylaxis Verified 08/22/21 18:46 (unknown) (no (unknown) (unknown) Prescriptions: (units (unknown) date) unknown) (unknown) (no (unknown) (unknown) Previous Rx's (units ( unknown) date) unknown) (unknown) (no (unknown) (unknown) Prothrombin Time (units (unknown) date) INR Stat unknown) (unknown) (no (unknown) (unknown) Pulse Oximetry (units (unknown) date) 100 01/06/22 12:23 unknown) (unknown) (no (unknown) (unknown) Pulse Oximetry (units (unknown) date) 100 unknown) (unknown) (no (unknown) (unknown) Pulse Rate 81 (units ( unknown) date) 01/06/22 12:23 unknown) (unknown) (no (unknown) (unknown) Pulse Rate 81 (units ( unknown) date) unknown) (unknown) (no (unknown) (unknown) Related Data (units (u nknown) date) unknown) (unknown) (no (unknown) (unknown) Respiratory Rate (units (unknown) date) 16 01/06/22 12:23 unknown) (unknown) (no (unknown) (unknown) Respiratory Rate (units (unknown) date) 16 unknown) (unknown) (no (unknown) (unknown) Rx Instructions: (units (unknown) date) unknown) (unknown) (no (unknown) (unknown) Signed By: (units (unk nown) date) unknown) (unknown) (no (unknown) (unknown) Smoking Status: (units (unknown) date) Former smoker unknown) (unknown) (no (unknown) (unknown) Social History (units (unknown) date) (Reviewed 07/28/21 unknown) @ 13:06 by Devan Cotton PA-C) (unknown) (no (unknown) (unknown) Source: patient (units (unknown) date) unknown) (unknown) (no (unknown) (unknown) Stated Complaint: (units (unknown) date) Chest pain, SOB unknown) (unknown) (no (unknown) (unknown) Stop: 01/06/22 (units (unknown) date) 12:57 unknown) (unknown) (no (unknown) (unknown) Substance Use (units ( unknown) date) Type: does not use unknown) (unknown) (no (unknown) (unknown) Surgical History (units (unknown) date) (Reviewed 07/28/21 unknown) @ 13:06 by Devan Cotton PA-C) (unknown) (no (unknown) (unknown) Temperature 98.8 (units (unknown) date) F 01/06/22 12:23 unknown) (unknown) (no (unknown) (unknown) Temperature 98.8 (units (unknown) date) F unknown) (unknown) (no (unknown) (unknown) This is a (units (unkno wn) date) 21-year-old female unknown) presents to the emergency department complaining of (unknown) (no (unknown) (unknown) Time Seen by (units (u nknown) date) Provider: 01/06/22 unknown) 12:43 (unknown) (no (unknown) (unknown) Troponin + CK (units ( unknown) date) Cardiac Panel Stat unknown) (unknown) (no (unknown) (unknown) US abdomen (units (unk nown) date) limited Stat unknown) (unknown) (no (unknown) (unknown) Vital Signs - 8 (units (unknown) date) hr unknown) (unknown) (no (unknown) (unknown) Vital Signs (units (un known) date) unknown) (unknown) (no (unknown) (unknown) Vital signs: (units (u nknown) date) unknown) (unknown) (no (unknown) (unknown) XR chest 1V Stat (units (unknown) date) unknown) (unknown) (no (unknown) (unknown) aerosol inhaler (units (unknown) date) shortness of unknown) breath or wheezing (unknown) (no (unknown) (unknown) albuterol sulfate (units (unknown) date) 90 mcg/actuation 2 unknown) inh inhalation Q4-6H PRN 07/24/21 (unknown) (no (unknown) (unknown) albuterol sulfate (units (unknown) date) 90 mcg/actuation 2 unknown) puff inhalation Q4-6H PRN 06/21/21 (unknown) (no (unknown) (unknown) albuterol sulfate (units (unknown) date) 90 mcg/actuation unknown) HFA aerosol inhaler (unknown) (no (unknown) (unknown) albuterol sulfate (units (unknown) date) 90 mcg/actuation unknown) aerosol powdr breath activated (unknown) (no (unknown) (unknown) alcohol intake (units (unknown) date) frequency: unknown) holidays/special occasions only (unknown) (no (unknown) (unknown) any PPI, denies (units (unknown) date) vomiting or blood unknown) in her urine or vomit. (unknown) (no (unknown) (unknown) breath activated (units (unknown) date) powder inhaler unknown) shortness of breath or wheezing #1 (unknown) (no (unknown) (unknown) capsule (units (unkno wn) date) (Macrobid) unknown) (unknown) (no (unknown) (unknown) chest, she states (units (unknown) date) it does radiate to unknown) the right lateral upper quadrant into her (unknown) (no (unknown) (unknown) ea (units (unkno wn) date) unknown) (unknown) (no (unknown) (unknown) epigastric pain (units (unknown) date) over the last 3-4 unknown) days worse when she lays down and states it (unknown) (no (unknown) (unknown) feels like reflux (units (unknown) date) in her epigastrium unknown) with heartburn and pressure in her mid (unknown) (no (unknown) (unknown) monohydrate/macro (units (unknown) date) crystals 100 mg unknown) (unknown) (no (unknown) (unknown) must administer (units (unknown) date) with a meal/food unknown) (unknown) (no (unknown) (unknown) nitrofurantoin (units (unknown) date) 100 mg PO BID #14 unknown) caps 01/27/21 (unknown) (no (unknown) (unknown) nitrofurantoin (units (unknown) date) monohyd/m-cryst unknown) [Macrobid] 100 mg capsule (unknown) (no (unknown) (unknown) ondansetron HCl 4 (units (unknown) date) mg tablet 4 mg PO unknown) Q6-8H nausea #7 tabs 11/08/20 (unknown) (no (unknown) (unknown) ondansetron HCl (units (unknown) date) [Zofran] 4 mg unknown) tablet (unknown) (no (unknown) (unknown) shoulder and (units (u nknown) date) back. She denies unknown) any history of abdominal surgery, denies taking (unknown) (no (unknown) (unknown) tobacco type: (units ( unknown) date) cigarettes and unknown) vaping Result panel 428 (unknown) (no (unknown) (unknown) (no value) (units (unk nown) date) unknown) (unknown) (no (unknown) (unknown) #8.5 grams (units (unk nown) date) unknown) (unknown) (no (unknown) (unknown) (Zofran) (units (unkno wn) date) unknown) (unknown) (no (unknown) (unknown) 0RF (units (unkno wn) date) unknown) (unknown) (no (unknown) (unknown) 100 mg PO BID (units ( unknown) date) Qty: 14 0RF unknown) (unknown) (no (unknown) (unknown) 01/06/22 12:32 (units (unknown) date) unknown) (unknown) (no (unknown) (unknown) 01/06/22 12:41 (units (unknown) date) unknown) (unknown) (no (unknown) (unknown) 01/06/22 12:55 (units (unknown) date) unknown) (unknown) (no (unknown) (unknown) 01/06/22 12:56 (units (unknown) date) unknown) (unknown) (no (unknown) (unknown) 01/06/22 (units (unkno wn) date) unknown) (unknown) (no (unknown) (unknown) 12:23 (units (unkno wn) date) unknown) (unknown) (no (unknown) (unknown) 2 inh inhalation (units (unknown) date) Q4-6H PRN (Reason: unknown) shortness of breath or wheezing) Qty: 1 (unknown) (no (unknown) (unknown) 2 puff INHALATION (units (unknown) date) Q4-6H PRN (Reason: unknown) shortness of breath or wheezing) Qty: (unknown) (no (unknown) (unknown) [id number] (units (unkno wn) date) unknown) (unknown) (no (unknown) (unknown) 4 mg PO Q6-8H (units ( unknown) date) Qty: 7 0RF unknown) (unknown) (no (unknown) (unknown) 8.5 0RF (units (unkno wn) date) unknown) (unknown) (no (unknown) (unknown) Age/Sex: 21 / F (units (unknown) date) unknown) (unknown) (no (unknown) (unknown) Allergies (units (unkn own) date) unknown) (unknown) (no (unknown) (unknown) Allergy/AdvReac (units (unknown) date) Type Severity unknown) Reaction Status Date / Time (unknown) (no (unknown) (unknown) Blood Pressure (units (unknown) date) 160/80 H 01/06/22 unknown) 12:23 (unknown) (no (unknown) (unknown) Blood Pressure (units (unknown) date) 160/80 H unknown) (unknown) (no (unknown) (unknown) COVID19 -Nasal (units (unknown) date) RAPID/Pre-Proc unknown) Stat (unknown) (no (unknown) (unknown) Cardiovascular: (units (unknown) date) regular rate and unknown) rhythm, no peripheral edema, warm extremities (unknown) (no (unknown) (unknown) Chief Complaint: (units (unknown) date) Chest Pain unknown) (unknown) (no (unknown) (unknown) Complete Blood (units (unknown) date) Count AUTO DIFF unknown) Stat (unknown) (no (unknown) (unknown) Comprehensive (units ( unknown) date) Metabolic Panel unknown) Stat (unknown) (no (unknown) (unknown) Course (units (unkno wn) date) unknown) (unknown) (no (unknown) (unknown) : 2000 (units (unknown) date) Acct:[id number] unknown) (unknown) (no (unknown) (unknown) Date of Service: (units (unknown) date) 01/06/22 unknown) (unknown) (no (unknown) (unknown) Departure (units (unkn own) date) unknown) (unknown) (no (unknown) (unknown) Discharge Plan (units (unknown) date) unknown) (unknown) (no (unknown) (unknown) ED Orders (units (unkn own) date) unknown) (unknown) (no (unknown) (unknown) EKG-12 Lead Stat (units (unknown) date) unknown) (unknown) (no (unknown) (unknown) ER Physician: (units ( unknown) date) Leesa Gonzales unknown) PRIVATE DUTY RN (unknown) (no (unknown) (unknown) Emergency Report (units (unknown) date) unknown) (unknown) (no (unknown) (unknown) Exam Narrative: (units (unknown) date) unknown) (unknown) (no (unknown) (unknown) Exam (units (unkno wn) date) unknown) (unknown) (no (unknown) (unknown) GI: abdomen soft, (units (unknown) date) tenderness to unknown) palpation to the right upper quadrant with deep (unknown) (no (unknown) (unknown) General (units (unkno wn) date) unknown) (unknown) (no (unknown) (unknown) General: (units (unkno wn) date) cooperative, unknown) comfortable, in no acute distress, well groomed (unknown) (no (unknown) (unknown) H pylori Ab, IgG (units (unknown) date) Stat unknown) (unknown) (no (unknown) (unknown) HEENT: (units (unkno wn) date) symmetrical facial unknown) expressions, moist mucous membranes (unknown) (no (unknown) (unknown) HPI - Chest Pain (units (unknown) date) unknown) (unknown) (no (unknown) (unknown) HPI narrative: (units (unknown) date) unknown) (unknown) (no (unknown) (unknown) HPI (units (unkno wn) date) unknown) (unknown) (no (unknown) (unknown) Healthy (units (unkno wn) date) adolescent unknown) (unknown) (no (unknown) (unknown) History of (units (unk nown) date) Present Illness unknown) (unknown) (no (unknown) (unknown) Initial Vital (units ( unknown) date) Signs unknown) (unknown) (no (unknown) (unknown) Initial Vital (units ( unknown) date) Signs: unknown) (unknown) (no (unknown) (unknown) [facility] (units (unknown) date) [address]) [place] [address] (unknown) (no (unknown) (unknown) Limitations: no (units (unknown) date) limitations unknown) (unknown) (no (unknown) (unknown) Lipase Stat (units (un known) date) unknown) (unknown) (no (unknown) (unknown) MSK: moves all (units (unknown) date) extremities, unknown) neurovascularly intact, no weakness, normal tone (unknown) (no (unknown) (unknown) Magnesium Stat (units (unknown) date) unknown) (unknown) (no (unknown) (unknown) Medical History (units (unknown) date) (Reviewed 01/06/22 unknown) @ 13:00 by BECCA PrabhakarP) (unknown) (no (unknown) (unknown) Medication (units (unk nown) date) Instructions unknown) Recorded (unknown) (no (unknown) (unknown) Mode of arrival: (units (unknown) date) Ambulatory unknown) (unknown) (no (unknown) (unknown) Narrative (units (unkn own) date) unknown) (unknown) (no (unknown) (unknown) Narrative: (units (unk nown) date) unknown) (unknown) (no (unknown) (unknown) Nephrolithiasis (units (unknown) date) unknown) (unknown) (no (unknown) (unknown) Neuro: normal (units ( unknown) date) speech and unknown) cognition, A+O x3, ambulatory, clear speech (unknown) (no (unknown) (unknown) No Action (units [...] (unknown) Oxygen Delivery (units (unknown) date) Method 01/06/22 unknown) 12:23 (unknown) (no (unknown) (unknown) Oxygen Delivery (units (unknown) date) Method Room Air unknown) (unknown) (no (unknown) (unknown) Pantoprazole (units (u nknown) date) Sodium unknown) (Pantoprazole 40 Mg Vial) 40 mg IV NOW ONE (unknown) (no (unknown) (unknown) Partial (units (unkno wn) date) Thromboplastin unknown) Time Stat (unknown) (no (unknown) (unknown) Patient History (units (unknown) date) unknown) (unknown) (no (unknown) (unknown) Patient: (units (unkno wn) date) Delmy Cobb E unknown) MR#: [id number] (unknown) (no (unknown) (unknown) Penicillins (units (un known) date) [PENICILLINS] unknown) Allergy Unknown Anaphylaxis Verified 08/22/21 18:46 (unknown) (no (unknown) (unknown) Prescriptions: (units (unknown) date) unknown) (unknown) (no (unknown) (unknown) Previous Rx's (units ( unknown) date) unknown) (unknown) (no (unknown) (unknown) Prothrombin Time (units (unknown) date) INR Stat unknown) (unknown) (no (unknown) (unknown) Psych: mental (units ( unknown) date) status is grossly unknown) normal, congruent mood, normal affect, pleasant (unknown) (no (unknown) (unknown) Pulse Oximetry (units (unknown) date) 100 01/06/22 12:23 unknown) (unknown) (no (unknown) (unknown) Pulse Oximetry (units (unknown) date) 100 unknown) (unknown) (no (unknown) (unknown) Pulse Rate 81 (units ( unknown) date) 01/06/22 12:23 unknown) (unknown) (no (unknown) (unknown) Pulse Rate 81 (units ( unknown) date) unknown) (unknown) (no (unknown) (unknown) Related Data (units (u nknown) date) unknown) (unknown) (no (unknown) (unknown) Respiratory Rate (units (unknown) date) 16 01/06/22 12:23 unknown) (unknown) (no (unknown) (unknown) Respiratory Rate (units (unknown) date) 16 unknown) (unknown) (no (unknown) (unknown) Respiratory: (units (u nknown) date) normal effort, unknown) able to speak in complete sentences, without (unknown) (no (unknown) (unknown) Review of Systems (units (unknown) date) unknown) (unknown) (no (unknown) (unknown) Review of systems (units (unknown) date) is negative for unknown) acute abnormalities unless otherwise noted in (unknown) (no (unknown) (unknown) Reviewed vitals (units (unknown) date) signs and nursing unknown) notes. (unknown) (no (unknown) (unknown) Rx Instructions: (units (unknown) date) unknown) (unknown) (no (unknown) (unknown) Signed By: (units (unk nown) date) unknown) (unknown) (no (unknown) (unknown) Skin: brisk (units (un known) date) capillary refill, unknown) without pallor or erythema (unknown) (no (unknown) (unknown) Smoking Status: (units (unknown) date) Former smoker unknown) (unknown) (no (unknown) (unknown) Social History (units (unknown) date) (Reviewed 01/06/22 unknown) @ 13:[address]hakar) (unknown) (no (unknown) (unknown) Source: patient (units (unknown) date) unknown) (unknown) (no (unknown) (unknown) Stated Complaint: (units (unknown) date) Chest pain, SOB unknown) (unknown) (no (unknown) (unknown) Stop: 01/06/22 (units (unknown) date) 12:57 unknown) (unknown) (no (unknown) (unknown) Substance Use (units ( unknown) date) Type: does not use unknown) (unknown) (no (unknown) (unknown) Surgical History (units (unknown) date) (Reviewed 01/06/22 unknown) @ 13:[address]abhakar) (unknown) (no (unknown) (unknown) Temperature 98.8 (units (unknown) date) F 01/06/22 12:23 unknown) (unknown) (no (unknown) (unknown) Temperature 98.8 (units (unknown) date) F unknown) (unknown) (no (unknown) (unknown) This is a (units (unkno wn) date) 21-year-old female unknown) presents to the emergency department complaining of (unknown) (no (unknown) (unknown) Time Seen by (units (u nknown) date) Provider: 01/06/22 unknown) 12:43 (unknown) (no (unknown) (unknown) Troponin + CK (units ( unknown) date) Cardiac Panel Stat unknown) (unknown) (no (unknown) (unknown) US abdomen (units (unk nown) date) limited Stat unknown) (unknown) (no (unknown) (unknown) Vital Signs - 8 (units (unknown) date) hr unknown) (unknown) (no (unknown) (unknown) Vital Signs (units (un known) date) unknown) (unknown) (no (unknown) (unknown) Vital signs: (units (u nknown) date) unknown) (unknown) (no (unknown) (unknown) XR chest 1V Stat (units (unknown) date) unknown) (unknown) (no (unknown) (unknown) aerosol inhaler (units (unknown) date) shortness of unknown) breath or wheezing (unknown) (no (unknown) (unknown) albuterol sulfate (units (unknown) date) 90 mcg/actuation 2 unknown) inh inhalation Q4-6H PRN 07/24/21 (unknown) (no (unknown) (unknown) albuterol sulfate (units (unknown) date) 90 mcg/actuation 2 unknown) puff inhalation Q4-6H PRN 06/21/21 (unknown) (no (unknown) (unknown) albuterol sulfate (units (unknown) date) 90 mcg/actuation unknown) HFA aerosol inhaler (unknown) (no (unknown) (unknown) albuterol sulfate (units (unknown) date) 90 mcg/actuation unknown) aerosol powdr breath activated (unknown) (no (unknown) (unknown) alcohol intake (units (unknown) date) frequency: unknown) holidays/special occasions only (unknown) (no (unknown) (unknown) and cooperative (units (unknown) date) unknown) (unknown) (no (unknown) (unknown) any PPI, denies (units (unknown) date) vomiting or blood unknown) in her urine or vomit. Her primary care (unknown) (no (unknown) (unknown) breath activated (units (unknown) date) powder inhaler unknown) shortness of breath or wheezing #1 (unknown) (no (unknown) (unknown) capsule (units (unkno wn) date) (Macrobid) unknown) (unknown) (no (unknown) (unknown) chest, she states (units (unknown) date) it does radiate to unknown) the right lateral upper quadrant into her (unknown) (no (unknown) (unknown) ea (units (unkno wn) date) unknown) (unknown) (no (unknown) (unknown) epigastric pain (units (unknown) date) over the last 3-4 unknown) days worse when she lays down and states it (unknown) (no (unknown) (unknown) feels like reflux (units (unknown) date) in her epigastrium unknown) with heartburn and pressure in her mid (unknown) (no (unknown) (unknown) inspiration, mild (units (unknown) date) tenderness over unknown) epigastrium, nondistended, without masses, (unknown) (no (unknown) (unknown) monohydrate/macro (units (unknown) date) crystals 100 mg unknown) (unknown) (no (unknown) (unknown) must administer (units (unknown) date) with a meal/food unknown) (unknown) (no (unknown) (unknown) nitrofurantoin (units (unknown) date) 100 mg PO BID #[id number] unknown) caps 01/27/21 (unknown) (no (unknown) (unknown) nitrofurantoin (units (unknown) date) monohyd/m-cryst unknown) [Macrobid] 100 mg capsule (unknown) (no (unknown) (unknown) ondansetron HCl 4 (units (unknown) date) mg tablet 4 mg PO unknown) Q6-8H nausea #7 tabs 11/08/20 (unknown) (no (unknown) (unknown) ondansetron HCl (units (unknown) date) [Zofran] 4 mg unknown) tablet (unknown) (no (unknown) (unknown) other abdominal (units (unknown) date) pain. unknown) (unknown) (no (unknown) (unknown) provider is (units (unknown) date) [facility] in [place]. unknown) Patient states that her periods have been (unknown) (no (unknown) (unknown) rebound (units (unkno wn) date) tenderness or unknown) exquisite tenderness with exam. (unknown) (no (unknown) (unknown) regular, she has (units (unknown) date) not had any fever, unknown) chills, changes to her stool, urination or (unknown) (no (unknown) (unknown) shoulder and (units (u nknown) date) back. She denies unknown) any history of abdominal surgery, denies taking (unknown) (no (unknown) (unknown) tobacco type: (units ( unknown) date) cigarettes and unknown) vaping (unknown) (no (unknown) (unknown) wheezing, (units (unkn own) date) stridor, or unknown) abnormal breath sounds. No retractions or tachypnea. Result panel 429 (unknown) (no date) (unknown) (unknown) 1.2 (units unknown) (unknown) (unknown) (no date) (unknown) (unknown) 13.4 seconds (unkn own) Result panel 430 (unknown) (no date) (unknown) (unknown) 1.2 (units unknown) (unknown) (unknown) (no date) (unknown) (unknown) 13.4 seconds (unkn own) (unknown) (no date) (unknown) (unknown) 33 seconds (unkn own) (unknown) (no date) (unknown) (unknown) 33 seconds (unkn own) Result panel 431 (unknown) (no date) (unknown) (unknown) > 60 ml/min (unkn own) (unknown) (no date) (unknown) (unknown) > 60 ml/min (unkn own) (unknown) (no date) (unknown) (unknown) 0.4 mg/dl (unkn own) (unknown) (no date) (unknown) (unknown) 0.76 mg/dl (unkn own) (unknown) (no date) (unknown) (unknown) 1.1 (units (unkn own) unknown) (unknown) (no date) (unknown) (unknown) 1.8 mg/dl (unkn own) (unknown) (no date) (unknown) (unknown) 10.5 (units (unkn own) unknown) (unknown) (no date) (unknown) (unknown) 104 mmol/l (unkn own) (unknown) (no date) (unknown) (unknown) 107 u/l (unkn own) (unknown) (no date) (unknown) (unknown) 140 mmol/l (unkn own) (unknown) (no date) (unknown) (unknown) 197 u/l (unkn own) (unknown) (no date) (unknown) (unknown) 20 iu/l (unkn own) (unknown) (no date) (unknown) (unknown) 24 iu/l (unkn own) (unknown) (no date) (unknown) (unknown) 25 mmol/l (unkn own) (unknown) (no date) (unknown) (unknown) 4.0 mmol/l (unkn own) (unknown) (no date) (unknown) (unknown) 4.4 g/dl (unkn own) (unknown) (no date) (unknown) (unknown) 4.9 g/dl (unkn own) (unknown) (no date) (unknown) (unknown) 69 u/l (unkn own) (unknown) (no date) (unknown) (unknown) 8 mg/dl (unkn own) (unknown) (no date) (unknown) (unknown) 9.2 mg/dl (unkn own) (unknown) (no date) (unknown) (unknown) 9.3 g/dl (unkn own) (unknown) (no date) (unknown) (unknown) 92 mg/dl (unkn own) (unknown) (no date) (unknown) (unknown) 92 mg/dl (unkn own) (unknown) (no date) (unknown) (unknown) Test not % (unkn own) performed (unknown) (no date) (unknown) (unknown) Test not % (unkn own) performed (unknown) (no date) (unknown) (unknown) Test not ng/ml (unkn own) performed (unknown) (no date) (unknown) (unknown) Test not ng/ml (unkn own) performed Result panel 432 (unknown) (no date) (unknown) (unknown) > 60 ml/min (unkn own) (unknown) (no date) (unknown) (unknown) > 60 ml/min (unkn own) (unknown) (no date) (unknown) (unknown) < 0.012 ng/ml (unkn own) (unknown) (no date) (unknown) (unknown) < 0.012 ng/ml (unkn own) (unknown) (no date) (unknown) (unknown) 0.4 mg/dl (unkn own) (unknown) (no date) (unknown) (unknown) 0.76 mg/dl (unkn own) (unknown) (no date) (unknown) (unknown) 1.1 (units (unkn own) unknown) (unknown) (no date) (unknown) (unknown) 1.8 mg/dl (unkn own) (unknown) (no date) (unknown) (unknown) 10.5 (units (unkn own) unknown) (unknown) (no date) (unknown) (unknown) 104 mmol/l (unkn own) (unknown) (no date) (unknown) (unknown) 107 u/l (unkn own) (unknown) (no date) (unknown) (unknown) 140 mmol/l (unkn own) (unknown) (no date) (unknown) (unknown) 197 u/l (unkn own) (unknown) (no date) (unknown) (unknown) 20 iu/l (unkn own) (unknown) (no date) (unknown) (unknown) 24 iu/l (unkn own) (unknown) (no date) (unknown) (unknown) 25 mmol/l (unkn own) (unknown) (no date) (unknown) (unknown) 4.0 mmol/l (unkn own) (unknown) (no date) (unknown) (unknown) 4.4 g/dl (unkn own) (unknown) (no date) (unknown) (unknown) 4.9 g/dl (unkn own) (unknown) (no date) (unknown) (unknown) 69 u/l (unkn own) (unknown) (no date) (unknown) (unknown) 8 mg/dl (unkn own) (unknown) (no date) (unknown) (unknown) 9.2 mg/dl (unkn own) (unknown) (no date) (unknown) (unknown) 9.3 g/dl (unkn own) (unknown) (no date) (unknown) (unknown) 92 mg/dl (unkn own) (unknown) (no date) (unknown) (unknown) 92 mg/dl (unkn own) (unknown) (no date) (unknown) (unknown) Test not % (unkn own) performed (unknown) (no date) (unknown) (unknown) Test not % (unkn own) performed (unknown) (no date) (unknown) (unknown) Test not ng/ml (unkn own) performed (unknown) (no date) (unknown) (unknown) Test not ng/ml (unkn own) performed Result panel 433 (unknown) (no date) (unknown) (unknown) Negative (units (unkn own) unknown) (unknown) (no date) (unknown) (unknown) Negative (units (unkn own) unknown) Result panel 434 (unknown) (no (unknown) (unknown) (no value) (units (unk nown) date) unknown) (unknown) (no (unknown) (unknown) #8.5 grams (units (unk nown) date) unknown) (unknown) (no (unknown) (unknown) (Zofran) (units (unkno wn) date) unknown) (unknown) (no (unknown) (unknown) 0RF (units (unkno wn) date) unknown) (unknown) (no (unknown) (unknown) 100 mg PO BID (units ( unknown) date) Qty: 14 0RF unknown) (unknown) (no (unknown) (unknown) 01/06/22 01/06/22 (units (unknown) date) 01/06/22 unknown) Range/Units (unknown) (no (unknown) (unknown) 01/06/22 12:32 (units (unknown) date) unknown) (unknown) (no (unknown) (unknown) 01/06/22 12:41 (units (unknown) date) unknown) (unknown) (no (unknown) (unknown) 01/06/22 12:43 (units (unknown) date) unknown) (unknown) (no (unknown) (unknown) 01/06/22 12:52 (units (unknown) date) unknown) (unknown) (no (unknown) (unknown) 01/06/22 12:55 (units (unknown) date) unknown) (unknown) (no (unknown) (unknown) 01/06/22 (units (unkno wn) date) Range/Units unknown) (unknown) (no (unknown) (unknown) 01/06/22 (units (unkno wn) date) unknown) (unknown) (no (unknown) (unknown) 12:23 (units (unkno wn) date) unknown) (unknown) (no (unknown) (unknown) 12:43 12:52 12:52 (units (unknown) date) unknown) (unknown) (no (unknown) (unknown) 12:52 (units (unkno wn) date) unknown) (unknown) (no (unknown) (unknown) 2 inh inhalation (units (unknown) date) Q4-6H PRN (Reason: unknown) shortness of breath or wheezing) Qty: 1 (unknown) (no (unknown) (unknown) 2 puff INHALATION (units (unknown) date) Q4-6H PRN (Reason: unknown) shortness of breath or wheezing) Qty: (unknown) (no (unknown) (unknown) [id number] (units (unkno wn) date) unknown) (unknown) (no (unknown) (unknown) 4 mg PO Q6-8H (units ( unknown) date) Qty: 7 0RF unknown) (unknown) (no (unknown) (unknown) 8.5 0RF (units (unkno wn) date) unknown) (unknown) (no (unknown) (unknown) ALT (<35) IU/L (units (unknown) date) unknown) (unknown) (no (unknown) (unknown) ALT 20 (<35) IU/L (units (unknown) date) unknown) (unknown) (no (unknown) (unknown) APTT (26-36) (units (u nknown) date) SECONDS unknown) (unknown) (no (unknown) (unknown) APTT 33 (26-36) (units (unknown) date) SECONDS unknown) (unknown) (no (unknown) (unknown) AST (14-36) IU/L (units (unknown) date) unknown) (unknown) (no (unknown) (unknown) AST 24 (14-36) (units (unknown) date) IU/L unknown) (unknown) (no (unknown) (unknown) Age/Sex: 21 / F (units (unknown) date) unknown) (unknown) (no (unknown) (unknown) Albumin (3.5-5.0) (units (unknown) date) g/dL unknown) (unknown) (no (unknown) (unknown) Albumin 4.9 (units (un known) date) (3.5-5.0) g/dL unknown) (unknown) (no (unknown) (unknown) Albumin/Globulin (units (unknown) date) Ratio (1.0-2.8) unknown) (unknown) (no (unknown) (unknown) Albumin/Globulin (units (unknown) date) Ratio 1.1 unknown) (1.0-2.8) (unknown) (no (unknown) (unknown) Alkaline (units (unkno wn) date) Phosphatase unknown) (38-126) U/L (unknown) (no (unknown) (unknown) Alkaline (units (unkno wn) date) Phosphatase 107 unknown) (38-126) U/L (unknown) (no (unknown) (unknown) Allergies (units (unkn own) date) unknown) (unknown) (no (unknown) (unknown) Allergy/AdvReac (units (unknown) date) Type Severity unknown) Reaction Status Date / Time (unknown) (no (unknown) (unknown) BUN (7-17) mg/dL (units (unknown) date) unknown) (unknown) (no (unknown) (unknown) BUN 8 (7-17) (units (u nknown) date) mg/dL unknown) (unknown) (no (unknown) (unknown) BUN/Creatinine (units (unknown) date) Ratio (6-22) unknown) (unknown) (no (unknown) (unknown) BUN/Creatinine (units (unknown) date) Ratio 10.5 (6-22) unknown) (unknown) (no (unknown) (unknown) Baso # (Auto) (units ( unknown) date) (0-100) /uL unknown) (unknown) (no (unknown) (unknown) Baso # (Auto) 100 (units (unknown) date) (0-100) /uL unknown) (unknown) (no (unknown) (unknown) Baso % (Auto) (units ( unknown) date) (0-2) % unknown) (unknown) (no (unknown) (unknown) Baso % (Auto) 0.8 (units (unknown) date) (0-2) % unknown) (unknown) (no (unknown) (unknown) Blood Pressure (units (unknown) date) 160/80 H 01/06/22 unknown) 12:23 (unknown) (no (unknown) (unknown) Blood Pressure (units (unknown) date) 160/80 H unknown) (unknown) (no (unknown) (unknown) CK-MB (CK-2) Rel (units (unknown) date) Index TNP unknown) (unknown) (no (unknown) (unknown) CK-MB (CK-2) Rel (units (unknown) date) Index unknown) (unknown) (no (unknown) (unknown) CK-MB (CK-2) TNP (units (unknown) date) unknown) (unknown) (no (unknown) (unknown) CK-MB (CK-2) (units (u nknown) date) unknown) (unknown) (no (unknown) (unknown) COVID19 -Nasal (units (unknown) date) RAPID/Pre-Proc unknown) Stat (unknown) (no (unknown) (unknown) Calcium (units (unkno wn) date) (8.4-10.2) mg/dL unknown) (unknown) (no (unknown) (unknown) Calcium 9.2 (units (un known) date) (8.4-10.2) mg/dL unknown) (unknown) (no (unknown) (unknown) Carbon Dioxide (units (unknown) date) (22-32) mmol/L unknown) (unknown) (no (unknown) (unknown) Carbon Dioxide 25 (units (unknown) date) (22-32) mmol/L unknown) (unknown) (no (unknown) (unknown) Cardiovascular: (units (unknown) date) regular rate and unknown) rhythm, no peripheral edema, warm extremities (unknown) (no (unknown) (unknown) Chief Complaint: (units (unknown) date) Chest Pain unknown) (unknown) (no (unknown) (unknown) Chloride (98-107) (units (unknown) date) mmol/L unknown) (unknown) (no (unknown) (unknown) Chloride 104 (units (u nknown) date) (98-107) mmol/L unknown) (unknown) (no (unknown) (unknown) Complete Blood (units (unknown) date) Count AUTO DIFF unknown) Stat (unknown) (no (unknown) (unknown) Comprehensive (units ( unknown) date) Metabolic Panel unknown) Stat (unknown) (no (unknown) (unknown) Course (units (unkno wn) date) unknown) (unknown) (no (unknown) (unknown) Creatinine (units (unk nown) date) (0.52-1.04) mg/dL unknown) (unknown) (no (unknown) (unknown) Creatinine 0.76 (units (unknown) date) (0.52-1.04) mg/dL unknown) (unknown) (no (unknown) (unknown) : 2000 (units (unknown) date) Acct:[id number] unknown) (unknown) (no (unknown) (unknown) Date of Service: (units (unknown) date) 01/06/22 unknown) (unknown) (no (unknown) (unknown) Departure (units (unkn own) date) unknown) (unknown) (no (unknown) (unknown) Discharge Plan (units (unknown) date) unknown) (unknown) (no (unknown) (unknown) Discontinued (units (u nknown) date) Medications unknown) (unknown) (no (unknown) (unknown) Documented By: KB (units (unknown) date) unknown) (unknown) (no (unknown) (unknown) ED Orders (units (unkn own) date) unknown) (unknown) (no (unknown) (unknown) EKG-12 Lead Stat (units (unknown) date) unknown) (unknown) (no (unknown) (unknown) ER Physician: (units ( unknown) date) EusebiowLeesa unknown) PRIVATE DUTY RN (unknown) (no (unknown) (unknown) Emergency Report (units (unknown) date) unknown) (unknown) (no (unknown) (unknown) Eos # (Auto) (units (u nknown) date) (0-450) /uL unknown) (unknown) (no (unknown) (unknown) Eos # (Auto) 200 (units (unknown) date) (0-450) /uL unknown) (unknown) (no (unknown) (unknown) Eos % (Auto) (units (u nknown) date) (2-4) % unknown) (unknown) (no (unknown) (unknown) Eos % (Auto) 2.2 (units (unknown) date) (2-4) % unknown) (unknown) (no (unknown) (unknown) Estimated GFR > (units (unknown) date) 60 (>60) mL/min unknown) (unknown) (no (unknown) (unknown) Estimated GFR (units ( unknown) date) (>60) mL/min unknown) (unknown) (no (unknown) (unknown) Exam Narrative: (units (unknown) date) unknown) (unknown) (no (unknown) (unknown) Exam (units (unkno wn) date) unknown) (unknown) (no (unknown) (unknown) GI: abdomen soft, (units (unknown) date) tenderness to unknown) palpation to the right upper quadrant with deep (unknown) (no (unknown) (unknown) General (units (unkno wn) date) unknown) (unknown) (no (unknown) (unknown) General: (units (unkno wn) date) cooperative, unknown) comfortable, in no acute distress, well groomed (unknown) (no (unknown) (unknown) Globulin (units (unkno wn) date) (1.7-4.1) g/dL unknown) (unknown) (no (unknown) (unknown) Globulin 4.4 H (units (unknown) date) (1.7-4.1) g/dL unknown) (unknown) (no (unknown) (unknown) Glucose (70-100) (units (unknown) date) mg/dL unknown) (unknown) (no (unknown) (unknown) Glucose 92 (units (unk nown) date) (70-100) mg/dL unknown) (unknown) (no (unknown) (unknown) HEENT: (units (unkno wn) date) symmetrical facial unknown) expressions, moist mucous membranes (unknown) (no (unknown) (unknown) HPI - Chest Pain (units (unknown) date) unknown) (unknown) (no (unknown) (unknown) HPI narrative: (units (unknown) date) unknown) (unknown) (no (unknown) (unknown) HPI (units (unkno wn) date) unknown) (unknown) (no (unknown) (unknown) Hct (36-46) % (units ( unknown) date) unknown) (unknown) (no (unknown) (unknown) Hct 43.2 (36-46) (units (unknown) date) % unknown) (unknown) (no (unknown) (unknown) Healthy (units (unkno wn) date) adolescent unknown) (unknown) (no (unknown) (unknown) Hgb (12.0-16.0) (units (unknown) date) g/dL unknown) (unknown) (no (unknown) (unknown) Hgb 14.4 (units (unkno wn) date) (12.0-16.0) g/dL unknown) (unknown) (no (unknown) (unknown) History of (units (unk n) date) Present Illness unknown) (unknown) (no (unknown) (unknown) INR (0.9-1.3) (units ( unknown) date) unknown) (unknown) (no (unknown) (unknown) INR 1.2 (0.9-1.3) (units (unknown) date) unknown) (unknown) (no (unknown) (unknown) Initial Vital (units ( unknown) date) Signs unknown) (unknown) (no (unknown) (unknown) Initial Vital (units ( unknown) date) Signs: unknown) (unknown) (no (unknown) (unknown) [facility] (units (unknown) date) [address] unknown) [place] [address] (unknown) (no (unknown) (unknown) Ketorolac (units (unkn own) date) Tromethamine unknown) (Ketorolac 30 Mg/Ml Vial) 15 mg IV NOW ONE (unknown) (no (unknown) (unknown) Lab Data (units (unkno wn) date) unknown) (unknown) (no (unknown) (unknown) Lab Results (units (un known) date) unknown) (unknown) (no (unknown) (unknown) Labs: (units (unkno wn) date) unknown) (unknown) (no (unknown) (unknown) Last Admin: (units (un known) date) 01/06/22 13:18 unknown) Dose: 15 mg (unknown) (no (unknown) (unknown) Last Admin: (units (un known) date) 01/06/22 13:18 unknown) Dose: 4 mg (unknown) (no (unknown) (unknown) Last Admin: (units (un known) date) 01/06/22 13:18 unknown) Dose: 40 mg (unknown) (no (unknown) (unknown) Limitations: no (units (unknown) date) limitations unknown) (unknown) (no (unknown) (unknown) Lipase (23-300) (units (unknown) date) U/L unknown) (unknown) (no (unknown) (unknown) Lipase 197 (units (unk nown) date) (23-300) U/L unknown) (unknown) (no (unknown) (unknown) Lipase Stat (units (un known) date) unknown) (unknown) (no (unknown) (unknown) Lymph # (Auto) (units (unknown) date) (9435-7251) /uL unknown) (unknown) (no (unknown) (unknown) Lymph # (Auto) (units (unknown) date) 2200 (3864-9424) unknown) /uL (unknown) (no (unknown) (unknown) Lymph % (Auto) (units (unknown) date) (25-40) % unknown) (unknown) (no (unknown) (unknown) Lymph % (Auto) (units (unknown) date) 23.0 L (25-40) % unknown) (unknown) (no (unknown) (unknown) MCH (26-34) PG (units (unknown) date) unknown) (unknown) (no (unknown) (unknown) MCH 26.8 (26-34) (units (unknown) date) PG unknown) (unknown) (no (unknown) (unknown) MCHC (30-36) % (units (unknown) date) unknown) (unknown) (no (unknown) (unknown) MCHC 33.5 (30-36) (units (unknown) date) % unknown) (unknown) (no (unknown) (unknown) MCV (80-100) fL (units (unknown) date) unknown) (unknown) (no (unknown) (unknown) MCV 80.2 (80-100) (units (unknown) date) fL unknown) (unknown) (no (unknown) (unknown) MDM - Chest Pain (units (unknown) date) unknown) (unknown) (no (unknown) (unknown) MSK: moves all (units (unknown) date) extremities, unknown) neurovascularly intact, no weakness, normal tone (unknown) (no (unknown) (unknown) Magnesium (units (unkn own) date) (1.6-2.3) mg/dL unknown) (unknown) (no (unknown) (unknown) Magnesium 1.8 (units ( unknown) date) (1.6-2.3) mg/dL unknown) (unknown) (no (unknown) (unknown) Magnesium Stat (units (unknown) date) unknown) (unknown) (no (unknown) (unknown) Medical History (units (unknown) date) (Reviewed 01/06/22 unknown) @ 13:00 by Leesa Gonzales [facility]) (unknown) (no (unknown) (unknown) Medication (units (unk nown) date) Instructions unknown) Recorded (unknown) (no (unknown) (unknown) Mode of arrival: (units (unknown) date) Ambulatory unknown) (unknown) (no (unknown) (unknown) [place] # (Auto) (units ( unknown) date) (0-900) /uL unknown) (unknown) (no (unknown) (unknown) [place] # (Auto) 500 (units (unknown) date) (0-900) /uL unknown) (unknown) (no (unknown) (unknown) [place] % (Auto) (units ( unknown) date) (3-14) % unknown) (unknown) (no (unknown) (unknown) [place] % (Auto) 5.0 (units (unknown) date) (3-14) % unknown) (unknown) (no (unknown) (unknown) Narrative (units (unkn own) date) unknown) (unknown) (no (unknown) (unknown) Narrative: (units (unk nown) date) unknown) (unknown) (no (unknown) (unknown) Nephrolithiasis (units (unknown) date) unknown) (unknown) (no (unknown) (unknown) Neuro: normal (units ( unknown) date) speech and unknown) cognition, A+O x3, ambulatory, clear speech (unknown) (no (unknown) (unknown) Neut # (Auto) (units ( unknown) date) (5546-6583) /uL unknown) (unknown) (no (unknown) (unknown) Neut # (Auto) (units ( unknown) date) 6600 (6569-9816) unknown) /uL (unknown) (no (unknown) (unknown) Neut % (Auto) (units ( unknown) date) (50-75) % unknown) (unknown) (no (unknown) (unknown) Neut % (Auto) (units ( unknown) date) 69.0 (50-75) % unknown) (unknown) (no (unknown) (unknown) No Action [...] (unknown) Oxygen Delivery (units (unknown) date) Method 01/06/22 unknown) 12:23 (unknown) (no (unknown) (unknown) Oxygen Delivery (units (unknown) date) Method Room Air unknown) (unknown) (no (unknown) (unknown) PT (10.1-12.7) (units (unknown) date) SECONDS unknown) (unknown) (no (unknown) (unknown) PT 13.4 H (units (unkn own) date) (10.1-12.7) unknown) SECONDS (unknown) (no (unknown) (unknown) Pantoprazole (units (u nknown) date) Sodium unknown) (Pantoprazole 40 Mg Vial) 40 mg IV NOW ONE (unknown) (no (unknown) (unknown) Partial (units (unkno wn) date) Thromboplastin unknown) Time Stat (unknown) (no (unknown) (unknown) Patient History (units (unknown) date) unknown) (unknown) (no (unknown) (unknown) Patient: (units (unkno wn) date) Delmy Cobb unknown) MR#: [id number] (unknown) (no (unknown) (unknown) Penicillins (units (un known) date) [PENICILLINS] unknown) Allergy Unknown Anaphylaxis Verified 08/22/21 18:46 (unknown) (no (unknown) (unknown) Plt Count (units (unkn own) date) (150-400) X103/uL unknown) (unknown) (no (unknown) (unknown) Plt Count 334 (units ( unknown) date) (150-400) X103/uL unknown) (unknown) (no (unknown) (unknown) Potassium (units (unkn own) date) (3.4-5.1) mmol/L unknown) (unknown) (no (unknown) (unknown) Potassium 4.0 (units ( unknown) date) (3.4-5.1) mmol/L unknown) (unknown) (no (unknown) (unknown) Prescriptions: (units (unknown) date) unknown) (unknown) (no (unknown) (unknown) Previous Rx's (units ( unknown) date) unknown) (unknown) (no (unknown) (unknown) Prothrombin Time (units (unknown) date) INR Stat unknown) (unknown) (no (unknown) (unknown) Psych: mental (units ( unknown) date) status is grossly unknown) normal, congruent mood, normal affect, pleasant (unknown) (no (unknown) (unknown) Pulse Oximetry (units (unknown) date) 100 01/06/22 12:23 unknown) (unknown) (no (unknown) (unknown) Pulse Oximetry (units (unknown) date) 100 unknown) (unknown) (no (unknown) (unknown) Pulse Rate 81 (units ( unknown) date) 01/06/22 12:23 unknown) (unknown) (no (unknown) (unknown) Pulse Rate 81 (units ( unknown) date) unknown) (unknown) (no (unknown) (unknown) RBC (4.0-5.2) (units ( unknown) date) X106/uL unknown) (unknown) (no (unknown) (unknown) RBC 5.38 H (units (unk nown) date) (4.0-5.2) X106/uL unknown) (unknown) (no (unknown) (unknown) RDW (11.6-14.8) % (units (unknown) date) unknown) (unknown) (no (unknown) (unknown) RDW 14.0 (units (unkno wn) date) (11.6-14.8) % unknown) (unknown) (no (unknown) (unknown) Related Data (units (u nknown) date) unknown) (unknown) (no (unknown) (unknown) Respiratory Rate (units (unknown) date) 16 01/06/22 12:23 unknown) (unknown) (no (unknown) (unknown) Respiratory Rate (units (unknown) date) 16 unknown) (unknown) (no (unknown) (unknown) Respiratory: (units (u nknown) date) normal effort, unknown) able to speak in complete sentences, without (unknown) (no (unknown) (unknown) Result diagrams: (units (unknown) date) unknown) (unknown) (no (unknown) (unknown) Review of Systems (units (unknown) date) unknown) (unknown) (no (unknown) (unknown) Review of systems (units (unknown) date) is negative for unknown) acute abnormalities unless otherwise noted in (unknown) (no (unknown) (unknown) Reviewed vitals (units (unknown) date) signs and nursing unknown) notes. (unknown) (no (unknown) (unknown) Rx Instructions: (units (unknown) date) unknown) (unknown) (no (unknown) (unknown) SARS-CoV-2 (PCR) (units (unknown) date) (Negative) unknown) (unknown) (no (unknown) (unknown) SARS-CoV-2 (PCR) (units (unknown) date) Negative unknown) (Negative) (unknown) (no (unknown) (unknown) Signed By: (units (unk nown) date) unknown) (unknown) (no (unknown) (unknown) Skin: brisk (units (un known) date) capillary refill, unknown) without pallor or erythema (unknown) (no (unknown) (unknown) Smoking Status: (units (unknown) date) Former smoker unknown) (unknown) (no (unknown) (unknown) Social History (units (unknown) date) (Reviewed 01/06/22 unknown) @ 13:[address]) (unknown) (no (unknown) (unknown) Sodium (137-145) (units (unknown) date) mmol/L unknown) (unknown) (no (unknown) (unknown) Sodium 140 (units (unk nown) date) (137-145) mmol/L unknown) (unknown) (no (unknown) (unknown) Source: patient (units (unknown) date) unknown) (unknown) (no (unknown) (unknown) Stated Complaint: (units (unknown) date) Chest pain, SOB unknown) (unknown) (no (unknown) (unknown) Stop: 01/06/22 (units (unknown) date) 12:57 unknown) (unknown) (no (unknown) (unknown) Stop: 01/06/22 (units (unknown) date) 13:02 unknown) (unknown) (no (unknown) (unknown) Substance Use (units ( unknown) date) Type: does not use unknown) (unknown) (no (unknown) (unknown) Surgical History (units (unknown) date) (Reviewed 01/06/22 unknown) @ 13:[address]) (unknown) (no (unknown) (unknown) Temperature 98.8 (units (unknown) date) F 01/06/22 12:23 unknown) (unknown) (no (unknown) (unknown) Temperature 98.8 (units (unknown) date) F unknown) (unknown) (no (unknown) (unknown) This is a (units (unkno wn) date) 21-year-old female unknown) presents to the emergency department complaining of (unknown) (no (unknown) (unknown) Time Seen by (units (u nknown) date) Provider: 01/06/22 unknown) 12:43 (unknown) (no (unknown) (unknown) Total Bilirubin (units (unknown) date) (0.2-1.3) mg/dL unknown) (unknown) (no (unknown) (unknown) Total Bilirubin (units (unknown) date) 0.4 (0.2-1.3) unknown) mg/dL (unknown) (no (unknown) (unknown) Total Creatine (units (unknown) date) Kinase (30-135) unknown) U/L (unknown) (no (unknown) (unknown) Total Creatine (units (unknown) date) Kinase 69 (30-135) unknown) U/L (unknown) (no (unknown) (unknown) Total Protein (units ( unknown) date) (6.3-8.2) g/dL unknown) (unknown) (no (unknown) (unknown) Total Protein 9.3 (units (unknown) date) H (6.3-8.2) g/dL unknown) (unknown) (no (unknown) (unknown) Troponin + CK (units ( unknown) date) Cardiac Panel Stat unknown) (unknown) (no (unknown) (unknown) Troponin I < (units (u nknown) date) 0.012 (0.01-0.034) unknown) ng/mL (unknown) (no (unknown) (unknown) Troponin I (units (unk nown) date) (0.01-0.034) ng/mL unknown) (unknown) (no (unknown) (unknown) US abdomen (units (unk nown) date) limited Stat unknown) (unknown) (no (unknown) (unknown) Vital Signs - 8 (units (unknown) date) hr unknown) (unknown) (no (unknown) (unknown) Vital Signs (units (un known) date) unknown) (unknown) (no (unknown) (unknown) Vital signs: (units (u nknown) date) unknown) (unknown) (no (unknown) (unknown) WBC (4.5-11.0) (units (unknown) date) X103/uL unknown) (unknown) (no (unknown) (unknown) WBC 9.6 (units (unkno wn) date) (4.5-11.0) X103/uL unknown) (unknown) (no (unknown) (unknown) XR chest 1V Stat (units (unknown) date) unknown) (unknown) (no (unknown) (unknown) [Embedded Image (units (unknown) date) Not Available] unknown) (unknown) (no (unknown) (unknown) aerosol inhaler (units (unknown) date) shortness of unknown) breath or wheezing (unknown) (no (unknown) (unknown) albuterol sulfate (units (unknown) date) 90 mcg/actuation 2 unknown) inh inhalation Q4-6H PRN 07/24/21 (unknown) (no (unknown) (unknown) albuterol sulfate (units (unknown) date) 90 mcg/actuation 2 unknown) puff inhalation Q4-6H PRN 06/21/21 (unknown) (no (unknown) (unknown) albuterol sulfate (units (unknown) date) 90 mcg/actuation unknown) HFA aerosol inhaler (unknown) (no (unknown) (unknown) albuterol sulfate (units (unknown) date) 90 mcg/actuation unknown) aerosol powdr breath activated (unknown) (no (unknown) (unknown) alcohol intake (units (unknown) date) frequency: unknown) holidays/special occasions only (unknown) (no (unknown) (unknown) and cooperative (units (unknown) date) unknown) (unknown) (no (unknown) (unknown) any PPI, denies (units (unknown) date) vomiting or blood unknown) in her urine or vomit. Her primary care (unknown) (no (unknown) (unknown) breath activated (units (unknown) date) powder inhaler unknown) shortness of breath or wheezing #1 (unknown) (no (unknown) (unknown) capsule (units (unkno wn) date) (Macrobid) unknown) (unknown) (no (unknown) (unknown) chest, she states (units (unknown) date) it does radiate to unknown) the right lateral upper quadrant into her (unknown) (no (unknown) (unknown) ea (units (unkno wn) date) unknown) (unknown) (no (unknown) (unknown) epigastric pain (units (unknown) date) over the last 3-4 unknown) days worse when she lays down and states it (unknown) (no (unknown) (unknown) feels like reflux (units (unknown) date) in her epigastrium unknown) with heartburn and pressure in her mid (unknown) (no (unknown) (unknown) inspiration, mild (units (unknown) date) tenderness over unknown) epigastrium, nondistended, without masses, (unknown) (no (unknown) (unknown) monohydrate/macro (units (unknown) date) crystals 100 mg unknown) (unknown) (no (unknown) (unknown) must administer (units (unknown) date) with a meal/food unknown) (unknown) (no (unknown) (unknown) nitrofurantoin (units (unknown) date) 100 mg PO BID #14 unknown) caps 01/27/21 (unknown) (no (unknown) (unknown) nitrofurantoin (units (unknown) date) monohyd/m-cryst unknown) [Macrobid] 100 mg capsule (unknown) (no (unknown) (unknown) ondansetron HCl 4 (units (unknown) date) mg tablet 4 mg PO unknown) Q6-8H nausea #7 tabs 11/08/20 (unknown) (no (unknown) (unknown) ondansetron HCl (units (unknown) date) [Zofran] 4 mg unknown) tablet (unknown) (no (unknown) (unknown) other abdominal (units (unknown) date) pain. unknown) (unknown) (no (unknown) (unknown) provider is (units (unknown) date) [facility] in [place]. unknown) Patient states that her periods have been (unknown) (no (unknown) (unknown) rebound (units (unkno wn) date) tenderness or unknown) exquisite tenderness with exam. (unknown) (no (unknown) (unknown) regular, she has (units (unknown) date) not had any fever, unknown) chills, changes to her stool, urination or (unknown) (no (unknown) (unknown) shoulder and (units (u nknown) date) back. She denies unknown) any history of abdominal surgery, denies taking (unknown) (no (unknown) (unknown) tobacco type: (units ( unknown) date) cigarettes and unknown) vaping (unknown) (no (unknown) (unknown) wheezing, (units (unkn own) date) stridor, or unknown) abnormal breath sounds. No retractions or tachypnea. Result panel 435 (unknown) (no date) (unknown) (unknown) Cult Not (units (unkn own) Indicated unknown) (unknown) (no date) (unknown) (unknown) Microscopic (units (u nknown) Normal unknown) (unknown) (no date) (unknown) (unknown) None Seen (units (unk nown) unknown) (unknown) (no date) (unknown) (unknown) None Seen (units (unk nown) unknown) (unknown) (no date) (unknown) (unknown) None Seen (units (unk nown) unknown) Result panel 436 (unknown) (no date) (unknown) (unknown) (no value) (units (un known) unknown) (unknown) (no date) (unknown) (unknown) No WBC seen (units (u nknown) unknown) (unknown) (no date) (unknown) (unknown) None seen (units (unk nown) unknown) Result panel 437 (unknown) (no (unknown) (unknown) (no value) (units (unk nown) date) unknown) (unknown) (no (unknown) (unknown) #8.5 grams (units (unk nown) date) unknown) (unknown) (no (unknown) (unknown) <Electronically (units (unknown) date) signed by Leesa HUDSONP Crew> (unknown) (no (unknown) (unknown) (Zofran) (units (unkno wn) date) unknown) (unknown) (no (unknown) (unknown) *If you do not (units (unknown) date) have a primary unknown) care provider please contact [phone] to (unknown) (no (unknown) (unknown) *Please continue (units (unknown) date) to take your unknown) regular medications as directed. (unknown) (no (unknown) (unknown) *Please follow up (units (unknown) date) with your primary unknown) care provider in 2-3 days, call for an (unknown) (no (unknown) (unknown) *Return to (units (unk nown) date) Emergency unknown) Department if you should have any new, worsening, or (unknown) (no (unknown) (unknown) *What to do: (units (u nknown) date) unknown) (unknown) (no (unknown) (unknown) *You have been (units ( unknown) date) diagnosed with unknown) heartburn and epigastric pain, likely related to a (unknown) (no (unknown) (unknown) 0RF (units (unkno wn) date) unknown) (unknown) (no (unknown) (unknown) 1 g PO TID PRN (units (unknown) date) (Reason: heart unknown) burn) Qty: 60 0RF (unknown) (no (unknown) (unknown) 100 mg PO BID (units ( unknown) date) Qty: 14 0RF unknown) (unknown) (no (unknown) (unknown) 01/06/22 01/06/22 (units (unknown) date) 01/06/22 unknown) Range/Units (unknown) (no (unknown) (unknown) 01/06/22 01/06/22 (units (unknown) date) Range/Units unknown) (unknown) (no (unknown) (unknown) 01/06/22 12:32 (units (unknown) date) unknown) (unknown) (no (unknown) (unknown) 01/06/22 12:41 (units (unknown) date) unknown) (unknown) (no (unknown) (unknown) 01/06/22 12:43 (units (unknown) date) unknown) (unknown) (no (unknown) (unknown) 01/06/22 12:52 (units (unknown) date) unknown) (unknown) (no (unknown) (unknown) 01/06/22 12:55 (units (unknown) date) unknown) (unknown) (no (unknown) (unknown) 01/06/22 13:50 (units (unknown) date) unknown) (unknown) (no (unknown) (unknown) 01/06/22 13:56 (units (unknown) date) unknown) (unknown) (no (unknown) (unknown) 01/06/22 1428 (units ( unknown) date) unknown) (unknown) (no (unknown) (unknown) 01/06/22 (units (unkno wn) date) unknown) (unknown) (no (unknown) (unknown) 12:23 (units (unkno wn) date) unknown) (unknown) (no (unknown) (unknown) 12:43 12:52 12:52 (units (unknown) date) unknown) (unknown) (no (unknown) (unknown) 12:52 13:50 (units (un known) date) unknown) (unknown) (no (unknown) (unknown) 2 inh inhalation (units (unknown) date) Q4-6H PRN (Reason: unknown) shortness of breath or wheezing) Qty: 1 (unknown) (no (unknown) (unknown) 2 puff INHALATION (units (unknown) date) Q4-6H PRN (Reason: unknown) shortness of breath or wheezing) Qty: (unknown) (no (unknown) (unknown) 20 mg PO BID Qty: (units (unknown) date) 60 0RF unknown) (unknown) (no (unknown) (unknown) 3 mm or (units (unkno wn) date) unknown) (unknown) (no (unknown) (unknown) [id number] (units (unkno wn) date) unknown) (unknown) (no (unknown) (unknown) 4 mg PO Q6-8H (units ( unknown) date) Qty: 7 0RF unknown) (unknown) (no (unknown) (unknown) 8.5 0RF (units (unkno wn) date) unknown) (unknown) (no (unknown) (unknown) ? (units (unkno wn) date) unknown) (unknown) (no (unknown) (unknown) ALT (<35) IU/L (units (unknown) date) unknown) (unknown) (no (unknown) (unknown) ALT 20 (<35) IU/L (units (unknown) date) unknown) (unknown) (no (unknown) (unknown) APTT (26-36) (units (u nknown) date) SECONDS unknown) (unknown) (no (unknown) (unknown) APTT 33 (26-36) (units (unknown) date) SECONDS unknown) (unknown) (no (unknown) (unknown) AST (14-36) IU/L (units (unknown) date) unknown) (unknown) (no (unknown) (unknown) AST 24 (14-36) (units (unknown) date) IU/L unknown) (unknown) (no (unknown) (unknown) Activity (units (unkno wn) date) Restrictions/Addit unknown) ional Instructions: (unknown) (no (unknown) (unknown) Acute epigastric (units (unknown) date) pain unknown) (unknown) (no (unknown) (unknown) Age/Sex: 21 / F (units (unknown) date) unknown) (unknown) (no (unknown) (unknown) Albumin (3.5-5.0) (units (unknown) date) g/dL unknown) (unknown) (no (unknown) (unknown) Albumin 4.9 (units (un known) date) (3.5-5.0) g/dL unknown) (unknown) (no (unknown) (unknown) Albumin/Globulin (units (unknown) date) Ratio (1.0-2.8) unknown) (unknown) (no (unknown) (unknown) Albumin/Globulin (units (unknown) date) Ratio 1.1 unknown) (1.0-2.8) (unknown) (no (unknown) (unknown) Alkaline (units (unkno wn) date) Phosphatase unknown) (38-126) U/L (unknown) (no (unknown) (unknown) Alkaline (units (unkno wn) date) Phosphatase 107 unknown) (38-126) U/L (unknown) (no (unknown) (unknown) Allergies (units (unkn own) date) unknown) (unknown) (no (unknown) (unknown) Allergy/AdvReac (units (unknown) date) Type Severity unknown) Reaction Status Date / Time (unknown) (no (unknown) (unknown) Approved by: (units (u nknown) date) александр Alegre M.D. on 01/06/2022 at 12:32 ? (unknown) (no (unknown) (unknown) Approved by: Megha (units (unknown) date) Marbella Oneil on unknown) 01/06/2022 at 13:47 ? (unknown) (no (unknown) (unknown) BUN (7-17) mg/dL (units (unknown) date) unknown) (unknown) (no (unknown) (unknown) BUN 8 (7-17) (units (u nknown) date) mg/dL unknown) (unknown) (no (unknown) (unknown) BUN/Creatinine (units (unknown) date) Ratio (6-22) unknown) (unknown) (no (unknown) (unknown) BUN/Creatinine (units (unknown) date) Ratio 10.5 (6-22) unknown) (unknown) (no (unknown) (unknown) Baso # (Auto) (units ( unknown) date) (0-100) /uL unknown) (unknown) (no (unknown) (unknown) Baso # (Auto) 100 (units (unknown) date) (0-100) /uL unknown) (unknown) (no (unknown) (unknown) Baso % (Auto) (units ( unknown) date) (0-2) % unknown) (unknown) (no (unknown) (unknown) Baso % (Auto) 0.8 (units (unknown) date) (0-2) % unknown) (unknown) (no (unknown) (unknown) Bedside Urine (units ( unknown) date) Bilirubin - unknown) Negative (unknown) (no (unknown) (unknown) Bedside Urine (units ( unknown) date) Glucose Negative unknown) (unknown) (no (unknown) (unknown) Bedside Urine (units ( unknown) date) Ketone - Negative unknown) (unknown) (no (unknown) (unknown) Bedside Urine (units ( unknown) date) Leukocytes - unknown) Negative (unknown) (no (unknown) (unknown) Bedside Urine (units ( unknown) date) Nitrite - Negative unknown) (unknown) (no (unknown) (unknown) Bedside Urine (units ( unknown) date) Occult Blood - unknown) Negative (unknown) (no (unknown) (unknown) Bedside Urine (units ( unknown) date) Protein - Negative unknown) (unknown) (no (unknown) (unknown) Bedside Urine (units ( unknown) date) Urobilinogen - unknown) Negative (unknown) (no (unknown) (unknown) Bedside Urine pH (units (unknown) date) 6.0 unknown) (unknown) (no (unknown) (unknown) Blood Pressure (units (unknown) date) 160/80 H 01/06/22 unknown) 12:23 (unknown) (no (unknown) (unknown) Blood Pressure (units (unknown) date) 160/80 H unknown) (unknown) (no (unknown) (unknown) Bones and chest (units (unknown) date) wall:? No unknown) suspicious bony lesions.? Overlying soft tissues (unknown) (no (unknown) (unknown) CK-MB (CK-2) Rel (units (unknown) date) Index TNP unknown) (unknown) (no (unknown) (unknown) CK-MB (CK-2) Rel (units (unknown) date) Index unknown) (unknown) (no (unknown) (unknown) CK-MB (CK-2) TNP (units (unknown) date) unknown) (unknown) (no (unknown) (unknown) CK-MB (CK-2) (units (u nknown) date) unknown) (unknown) (no (unknown) (unknown) COMPARISON:? (units (u nknown) date) [facility], unknown) CR, XR CHEST 1V, 07/28/2021, 13:34. (unknown) (no (unknown) (unknown) COMPARISON:? (units (u nknown) date) [facility], unknown) CT, CT ABDOMEN PELVIS W CON, 02/08/2021, 22:36. (unknown) (no (unknown) (unknown) COVID19 -Nasal (units (unknown) date) RAPID/Pre-Proc unknown) Stat (unknown) (no (unknown) (unknown) Calcium (units (unkno wn) date) (8.4-10.2) mg/dL unknown) (unknown) (no (unknown) (unknown) Calcium 9.2 (units (un known) date) (8.4-10.2) mg/dL unknown) (unknown) (no (unknown) (unknown) Carbon Dioxide (units (unknown) date) (22-32) mmol/L unknown) (unknown) (no (unknown) (unknown) Carbon Dioxide 25 (units (unknown) date) (22-32) mmol/L unknown) (unknown) (no (unknown) (unknown) Cardiovascular: (units (unknown) date) regular rate and unknown) rhythm, no peripheral edema, warm extremities (unknown) (no (unknown) (unknown) Chest x-ray: (units (u nknown) date) unknown) (unknown) (no (unknown) (unknown) Chief Complaint: (units (unknown) date) Chest Pain unknown) (unknown) (no (unknown) (unknown) Chloride (98-107) (units (unknown) date) mmol/L unknown) (unknown) (no (unknown) (unknown) Chloride 104 (units (u nknown) date) (98-107) mmol/L unknown) (unknown) (no (unknown) (unknown) Clinical (units (unkno wn) date) Impression: unknown) (unknown) (no (unknown) (unknown) Complete Blood (units (unknown) date) Count AUTO DIFF unknown) Stat (unknown) (no (unknown) (unknown) Comprehensive (units ( unknown) date) Metabolic Panel unknown) Stat (unknown) (no (unknown) (unknown) Course Narrative: (units (unknown) date) unknown) (unknown) (no (unknown) (unknown) Course (units (unkno wn) date) unknown) (unknown) (no (unknown) (unknown) Creatinine (units (unk nown) date) (0.52-1.04) mg/dL unknown) (unknown) (no (unknown) (unknown) Creatinine 0.76 (units (unknown) date) (0.52-1.04) mg/dL unknown) (unknown) (no (unknown) (unknown) : 2000 (units (unknown) date) Acct:[id number] unknown) (unknown) (no (unknown) (unknown) Date of Service: (units (unknown) date) 01/06/22 unknown) (unknown) (no (unknown) (unknown) Departure (units (unkn own) date) unknown) (unknown) (no (unknown) (unknown) Dictated by: (units (u nknown) date) александр Alegre M.D. on 01/06/2022 at 12:27 ? ? (unknown) (no (unknown) (unknown) Dictated by: Megha (units (unknown) date) Marbella Oneil on unknown) 01/06/2022 at 13:47 ? ? (unknown) (no (unknown) (unknown) Diet (units (unkno wn) date) unknown) (unknown) (no (unknown) (unknown) Discharge Plan (units (unknown) date) unknown) (unknown) (no (unknown) (unknown) Discontinued (units (u nknown) date) Medications unknown) (unknown) (no (unknown) (unknown) Documented By: DANILO (units (unknown) date) unknown) (unknown) (no (unknown) (unknown) ED Orders (units (unkn own) date) unknown) (unknown) (no (unknown) (unknown) EKG-12 Lead Stat (units (unknown) date) unknown) (unknown) (no (unknown) (unknown) ER Physician: (units ( unknown) date) Leesa Gonzales unknown) PRIVATE DUTY RN (unknown) (no (unknown) (unknown) ER return (units (unkn own) date) precautions and unknown) need for close follow-up. This is most likely (unknown) (no (unknown) (unknown) Emergency Report (units (unknown) date) unknown) (unknown) (no (unknown) (unknown) Eos # (Auto) (units (u nknown) date) (0-450) /uL unknown) (unknown) (no (unknown) (unknown) Eos # (Auto) 200 (units (unknown) date) (0-450) /uL unknown) (unknown) (no (unknown) (unknown) Eos % (Auto) (units (u nknown) date) (2-4) % unknown) (unknown) (no (unknown) (unknown) Eos % (Auto) 2.2 (units (unknown) date) (2-4) % unknown) (unknown) (no (unknown) (unknown) Esterase (units (unkno wn) date) unknown) (unknown) (no (unknown) (unknown) Estimated GFR > (units (unknown) date) 60 (>60) mL/min unknown) (unknown) (no (unknown) (unknown) Estimated GFR (units ( unknown) date) (>60) mL/min unknown) (unknown) (no (unknown) (unknown) Exam Narrative: (units (unknown) date) unknown) (unknown) (no (unknown) (unknown) Exam (units (unkno wn) date) unknown) (unknown) (no (unknown) (unknown) FINDINGS:? This (units (unknown) date) study is limited unknown) by body habitus. (unknown) (no (unknown) (unknown) FINDINGS:? (units (unk nown) date) unknown) (unknown) (no (unknown) (unknown) GI: abdomen soft, (units (unknown) date) tenderness to unknown) palpation to the right upper quadrant with deep (unknown) (no (unknown) (unknown) General (units (unkno wn) date) unknown) (unknown) (no (unknown) (unknown) General: (units (o wn) date) cooperative, unknown) comfortable, in no acute distress, well groomed (unknown) (no (unknown) (unknown) Globulin (units (o wn) date) (1.7-4.1) g/dL unknown) (unknown) (no (unknown) (unknown) Globulin 4.4 H (units (unknown) date) (1.7-4.1) g/dL unknown) (unknown) (no (unknown) (unknown) Glucose (70-100) (units (unknown) date) mg/dL unknown) (unknown) (no (unknown) (unknown) Glucose 92 (units (unk nown) date) (70-100) mg/dL unknown) (unknown) (no (unknown) (unknown) Almaz Quinonez A, (units (unknown) date) PA-C [Non-Staff] unknown) (unknown) (no (unknown) (unknown) HEENT: (units (o wn) date) symmetrical facial unknown) expressions, moist mucous membranes (unknown) (no (unknown) (unknown) HPI - Chest Pain (units (unknown) date) unknown) (unknown) (no (unknown) (unknown) HPI narrative: (units (unknown) date) unknown) (unknown) (no (unknown) (unknown) HPI (units (unkno wn) date) unknown) (unknown) (no (unknown) (unknown) [place]] (units (o wn) date) unknown) (unknown) (no (unknown) (unknown) Hct (36-46) % (units ( unknown) date) unknown) (unknown) (no (unknown) (unknown) Hct 43.2 (36-46) (units (unknown) date) % unknown) (unknown) (no (unknown) (unknown) Healthy (units (unkno wn) date) adolescent unknown) (unknown) (no (unknown) (unknown) Hgb (12.0-16.0) (units (unknown) date) g/dL unknown) (unknown) (no (unknown) (unknown) Hgb 14.4 (units (o wn) date) (12.0-16.0) g/dL unknown) (unknown) (no (unknown) (unknown) History of (units (unk nown) date) Present Illness unknown) (unknown) (no (unknown) (unknown) I hope you feel (units (unknown) date) better soon, I unknown) have sent your medications to the pharmacy. (unknown) (no (unknown) (unknown) IMPRESSION:? (units (un known) date) Limited study unknown) demonstrating no significant gallbladder abnormality. (unknown) (no (unknown) (unknown) IMPRESSION:? No (units (unknown) date) acute unknown) cardiopulmonary findings. (unknown) (no (unknown) (unknown) INDICATIONS:? (units ( unknown) date) chest pain unknown) (unknown) (no (unknown) (unknown) INDICATIONS:? ruq (units (unknown) date) pain, rickie? unknown) (unknown) (no (unknown) (unknown) INR (0.9-1.3) (units ( unknown) date) unknown) (unknown) (no (unknown) (unknown) INR 1.2 (0.9-1.3) (units (unknown) date) unknown) (unknown) (no (unknown) (unknown) Imaging Data (units (u nknown) date) unknown) (unknown) (no (unknown) (unknown) Initial Vital (units ( unknown) date) Signs unknown) (unknown) (no (unknown) (unknown) Initial Vital (units ( unknown) date) Signs: unknown) (unknown) (no (unknown) (unknown) Instructions: (units ( unknown) date) Avoiding Foods unknown) That Cause Heartburn, Heartburn -- Overview, GERD (unknown) (no (unknown) (unknown) [facility] (units (unknown) date) [address] [place] [address] unknown) [place] [address] (unknown) (no (unknown) (unknown) Ketorolac (units (unkn own) date) Tromethamine unknown) (Ketorolac 30 Mg/Ml Vial) 15 mg IV NOW ONE (unknown) (no (unknown) (unknown) Lab Data (units (unkno wn) date) unknown) (unknown) (no (unknown) (unknown) Lab Results (units (un known) date) unknown) (unknown) (no (unknown) (unknown) Labs: (units (unkno wn) date) unknown) (unknown) (no (unknown) (unknown) Last Admin: (units (un known) date) 01/06/22 13:18 unknown) Dose: 15 mg (unknown) (no (unknown) (unknown) Last Admin: (units (un known) date) 01/06/22 13:18 unknown) Dose: 4 mg (unknown) (no (unknown) (unknown) Last Admin: (units (un known) date) 01/06/22 13:18 unknown) Dose: 40 mg (unknown) (no (unknown) (unknown) Limitations: no (units (unknown) date) limitations unknown) (unknown) (no (unknown) (unknown) Lipase (23-300) (units (unknown) date) U/L unknown) (unknown) (no (unknown) (unknown) Lipase 197 (units (unk nown) date) (23-300) U/L unknown) (unknown) (no (unknown) (unknown) Lipase Stat (units (un known) date) unknown) (unknown) (no (unknown) (unknown) Lungs and (units (unkn own) date) pleura:? Lungs are unknown) clear.? No pleural effusions or pneumothorax.? (unknown) (no (unknown) (unknown) Lymph # (Auto) (units (unknown) date) ([id number]) /uL unknown) (unknown) (no (unknown) (unknown) Lymph # (Auto) (units (unknown) date) 2200 ([id number]) unknown) /uL (unknown) (no (unknown) (unknown) Lymph % (Auto) (units (unknown) date) (25-40) % unknown) (unknown) (no (unknown) (unknown) Lymph % (Auto) (units (unknown) date) 23.0 L (25-40) % unknown) (unknown) (no (unknown) (unknown) MCH (26-34) PG (units (unknown) date) unknown) (unknown) (no (unknown) (unknown) MCH 26.8 (26-34) (units (unknown) date) PG unknown) (unknown) (no (unknown) (unknown) MCHC (30-36) % (units (unknown) date) unknown) (unknown) (no (unknown) (unknown) MCHC 33.5 (30-36) (units (unknown) date) % unknown) (unknown) (no (unknown) (unknown) MCV (80-100) fL (units (unknown) date) unknown) (unknown) (no (unknown) (unknown) MCV 80.2 (80-100) (units (unknown) date) fL unknown) (unknown) (no (unknown) (unknown) MDM - Chest Pain (units (unknown) date) unknown) (unknown) (no (unknown) (unknown) MDM Narrative (units ( unknown) date) unknown) (unknown) (no (unknown) (unknown) MSK: moves all (units (unknown) date) extremities, unknown) neurovascularly intact, no weakness, normal tone (unknown) (no (unknown) (unknown) Magnesium (units (unkn own) date) (1.6-2.3) mg/dL unknown) (unknown) (no (unknown) (unknown) Magnesium 1.8 (units ( unknown) date) (1.6-2.3) mg/dL unknown) (unknown) (no (unknown) (unknown) Magnesium Stat (units (unknown) date) unknown) (unknown) (no (unknown) (unknown) Mediastinum:? (units ( unknown) date) Mediastinal unknown) contours appear normal.? Heart size is normal.? (unknown) (no (unknown) (unknown) Medical History (units (unknown) date) (Updated 01/06/22 unknown) @ 14:17 by Leesa Gonzales [facility]) (unknown) (no (unknown) (unknown) Medical decision (units (unknown) date) making narrative: unknown) (unknown) (no (unknown) (unknown) Medication (units (unk nown) date) Instructions unknown) Recorded (unknown) (no (unknown) (unknown) Micro UA Comment (units (unknown) date) Microscopic normal unknown) (unknown) (no (unknown) (unknown) Micro UA Comment (units (unknown) date) unknown) (unknown) (no (unknown) (unknown) Mode of arrival: (units (unknown) date) Ambulatory unknown) (unknown) (no (unknown) (unknown) [place] # (Auto) (units ( unknown) date) (0-900) /uL unknown) (unknown) (no (unknown) (unknown) [place] # (Auto) 500 (units (unknown) date) (0-900) /uL unknown) (unknown) (no (unknown) (unknown) [place] % (Auto) (units ( unknown) date) (3-14) % unknown) (unknown) (no (unknown) (unknown) [place] % (Auto) 5.0 (units (unknown) date) (3-14) % unknown) (unknown) (no (unknown) (unknown) Narrative (units (unkn own) date) unknown) (unknown) (no (unknown) (unknown) Narrative: (units (unk nown) date) unknown) (unknown) (no (unknown) (unknown) Nephrolithiasis (units (unknown) date) unknown) (unknown) (no (unknown) (unknown) Neuro: normal (units ( unknown) date) speech and unknown) cognition, A+O x3, ambulatory, clear speech (unknown) (no (unknown) (unknown) Neut # (Auto) (units ( unknown) date) (3876-8232) /uL unknown) (unknown) (no (unknown) (unknown) Neut # (Auto) (units ( unknown) date) 6600 (1483-1661) unknown) /uL (unknown) (no (unknown) (unknown) Neut % (Auto) (units ( unknown) date) (50-75) % unknown) (unknown) (no (unknown) (unknown) Neut % (Auto) (units ( unknown) date) 69.0 (50-75) % unknown) (unknown) (no (unknown) (unknown) New (units [...] (unknown) Oxygen Delivery (units (unknown) date) Method 01/06/22 unknown) 12:23 (unknown) (no (unknown) (unknown) Oxygen Delivery (units (unknown) date) Method Room Air unknown) (unknown) (no (unknown) (unknown) PROCEDURE: US (units ( unknown) date) ABDOMEN LIMITED unknown) (unknown) (no (unknown) (unknown) PROCEDURE:? XR (units (unknown) date) CHEST 1V unknown) (unknown) (no (unknown) (unknown) PT (10.1-12.7) (units (unknown) date) SECONDS unknown) (unknown) (no (unknown) (unknown) PT 13.4 H (units (unkn own) date) (10.1-12.7) unknown) SECONDS (unknown) (no (unknown) (unknown) Pantoprazole (units (u nknown) date) Sodium unknown) (Pantoprazole 40 Mg Vial) 40 mg IV NOW ONE (unknown) (no (unknown) (unknown) Partial (units (unkno wn) date) Thromboplastin unknown) Time Stat (unknown) (no (unknown) (unknown) Patient (units (unkno wn) date) Disposition: Home unknown) (unknown) (no (unknown) (unknown) Patient History (units (unknown) date) unknown) (unknown) (no (unknown) (unknown) Patient is seen. (units (unknown) date) unknown) (unknown) (no (unknown) (unknown) Patient remains (units (unknown) date) p.o. tolerant. unknown) Serial abdominal exam without increase in (unknown) (no (unknown) (unknown) Patient reports (units (unknown) date) good relief after unknown) her GI cocktail (unknown) (no (unknown) (unknown) Patient: (units (unkno wn) date) Delmy Cobb E unknown) MR#: [id number] (unknown) (no (unknown) (unknown) Penicillins (units (un known) date) [PENICILLINS] unknown) Allergy Unknown Anaphylaxis Verified 08/22/21 18:46 (unknown) (no (unknown) (unknown) Plt Count (units (unkn own) date) (150-400) X103/uL unknown) (unknown) (no (unknown) (unknown) Plt Count 334 (units ( unknown) date) (150-400) X103/uL unknown) (unknown) (no (unknown) (unknown) Point of Care (units ( unknown) date) Testing unknown) (unknown) (no (unknown) (unknown) Potassium (units (unkn own) date) (3.4-5.1) mmol/L unknown) (unknown) (no (unknown) (unknown) Potassium 4.0 (units ( unknown) date) (3.4-5.1) mmol/L unknown) (unknown) (no (unknown) (unknown) Test (units (unknown) date) Results Negative unknown) (unknown) (no (unknown) (unknown) Prescriptions: (units (unknown) date) unknown) (unknown) (no (unknown) (unknown) Previous Rx's (units ( unknown) date) unknown) (unknown) (no (unknown) (unknown) Prothrombin Time (units (unknown) date) INR Stat unknown) (unknown) (no (unknown) (unknown) Psych: mental (units ( unknown) date) status is grossly unknown) normal, congruent mood, normal affect, pleasant (unknown) (no (unknown) (unknown) Pulse Oximetry (units (unknown) date) 100 01/06/22 12:23 unknown) (unknown) (no (unknown) (unknown) Pulse Oximetry (units (unknown) date) 100 unknown) (unknown) (no (unknown) (unknown) Pulse Rate 81 (units ( unknown) date) 01/06/22 12:23 unknown) (unknown) (no (unknown) (unknown) Pulse Rate 81 (units ( unknown) date) unknown) (unknown) (no (unknown) (unknown) RBC (4.0-5.2) (units ( unknown) date) X106/uL unknown) (unknown) (no (unknown) (unknown) RBC 5.38 H (units (unk nown) date) (4.0-5.2) X106/uL unknown) (unknown) (no (unknown) (unknown) RDW (11.6-14.8) % (units (unknown) date) unknown) (unknown) (no (unknown) (unknown) RDW 14.0 (units (unkno wn) date) (11.6-14.8) % unknown) (unknown) (no (unknown) (unknown) Radiologist's (units ( unknown) date) Impression: unknown) (unknown) (no (unknown) (unknown) Real-time focused (units (unknown) date) scanning was unknown) performed of the abdomen, with image (unknown) (no (unknown) (unknown) Referrals: (units (unk nown) date) unknown) (unknown) (no (unknown) (unknown) Related Data (units (u nknown) date) unknown) (unknown) (no (unknown) (unknown) Respiratory Rate (units (unknown) date) 16 01/06/22 12:23 unknown) (unknown) (no (unknown) (unknown) Respiratory Rate (units (unknown) date) 16 unknown) (unknown) (no (unknown) (unknown) Respiratory: (units (u nknown) date) normal effort, unknown) able to speak in complete sentences, without (unknown) (no (unknown) (unknown) Result diagrams: (units (unknown) date) unknown) (unknown) (no (unknown) (unknown) Review of Systems (units (unknown) date) unknown) (unknown) (no (unknown) (unknown) Review of systems (units (unknown) date) is negative for unknown) acute abnormalities unless otherwise noted in (unknown) (no (unknown) (unknown) Reviewed vitals (units (unknown) date) signs and nursing unknown) notes. (unknown) (no (unknown) (unknown) Rx Instructions: (units (unknown) date) unknown) (unknown) (no (unknown) (unknown) SARS-CoV-2 (PCR) (units (unknown) date) (Negative) unknown) (unknown) (no (unknown) (unknown) SARS-CoV-2 (PCR) (units (unknown) date) Negative unknown) (Negative) (unknown) (no (unknown) (unknown) Signed By: (units (unk nown) date) unknown) (unknown) (no (unknown) (unknown) Skin: brisk (units (un known) date) capillary refill, unknown) without pallor or erythema (unknown) (no (unknown) (unknown) Smoking Status: (units (unknown) date) Former smoker unknown) (unknown) (no (unknown) (unknown) Social History (units (unknown) date) (Reviewed 01/06/22 unknown) @ 13:00 by Leesa Gonzales [facility]) (unknown) (no (unknown) (unknown) Sodium (137-145) (units (unknown) date) mmol/L unknown) (unknown) (no (unknown) (unknown) Sodium 140 (units (unk nown) date) (137-145) mmol/L unknown) (unknown) (no (unknown) (unknown) Source: patient (units (unknown) date) unknown) (unknown) (no (unknown) (unknown) Stated Complaint: (units (unknown) date) Chest pain, SOB unknown) (unknown) (no (unknown) (unknown) Stop: 01/06/22 (units (unknown) date) 12:57 unknown) (unknown) (no (unknown) (unknown) Stop: 01/06/22 (units (unknown) date) 13:02 unknown) (unknown) (no (unknown) (unknown) Substance Use (units ( unknown) date) Type: does not use unknown) (unknown) (no (unknown) (unknown) Surgical History (units (unknown) date) (Reviewed 01/06/22 unknown) @ 13:00 by Leesa Gonzales [facility]) (unknown) (no (unknown) (unknown) Surgical changes (units (unknown) date) and devices:? unknown) None.? (unknown) (no (unknown) (unknown) TECHNIQUE:? One (units (unknown) date) view of the chest unknown) was acquired.? (unknown) (no (unknown) (unknown) TECHNIQUE:? (units (un known) date) unknown) (unknown) (no (unknown) (unknown) Temperature 98.8 (units (unknown) date) F 01/06/22 12:23 unknown) (unknown) (no (unknown) (unknown) Temperature 98.8 (units (unknown) date) F unknown) (unknown) (no (unknown) (unknown) The liver (units (unkno wn) date) demonstrates unknown) increased echogenicity.? This finding is nonspecific, yet (unknown) (no (unknown) (unknown) The liver (units (unkn own) date) demonstrates unknown) normal size. The liver demonstrates generalized (unknown) (no (unknown) (unknown) The medicine (units (u nknown) date) called Carafate unknown) that is below is similar to Tums or Maalox, the (unknown) (no (unknown) (unknown) The pancreas is (units (unknown) date) not well seen, unknown) secondary to overlying bowel gas. (unknown) (no (unknown) (unknown) The patient is (units (unknown) date) not NPO and the unknown) gallbladder is partially decompressed.? No (unknown) (no (unknown) (unknown) There is no (units (un known) date) biliary unknown) dilatation, the common bile duct measures 3-4 mm.? (unknown) (no (unknown) (unknown) This is a (units (unkno wn) date) 21-year-old female unknown) presents to the emergency department complaining of (unknown) (no (unknown) (unknown) Time Seen by (units (u nknown) date) Provider: 01/06/22 unknown) 12:43 (unknown) (no (unknown) (unknown) Total Bilirubin (units (unknown) date) (0.2-1.3) mg/dL unknown) (unknown) (no (unknown) (unknown) Total Bilirubin (units (unknown) date) 0.4 (0.2-1.3) unknown) mg/dL (unknown) (no (unknown) (unknown) Total Creatine (units (unknown) date) Kinase (30-135) unknown) U/L (unknown) (no (unknown) (unknown) Total Creatine (units (unknown) date) Kinase 69 (30-135) unknown) U/L (unknown) (no (unknown) (unknown) Total Protein (units ( unknown) date) (6.3-8.2) g/dL unknown) (unknown) (no (unknown) (unknown) Total Protein 9.3 (units (unknown) date) H (6.3-8.2) g/dL unknown) (unknown) (no (unknown) (unknown) Troponin + CK (units ( unknown) date) Cardiac Panel Stat unknown) (unknown) (no (unknown) (unknown) Troponin I < (units (u nknown) date) 0.012 (0.01-0.034) unknown) ng/mL (unknown) (no (unknown) (unknown) Troponin I (units (unk nown) date) (0.01-0.034) ng/mL unknown) (unknown) (no (unknown) (unknown) US - abdomen: (units ( unknown) date) unknown) (unknown) (no (unknown) (unknown) US abdomen (units (unk nown) date) limited Stat unknown) (unknown) (no (unknown) (unknown) Ur Culture (units (unk nown) date) Indicated? Cult unknown) not indicated (unknown) (no (unknown) (unknown) Ur Culture (units (unk nown) date) Indicated? unknown) (unknown) (no (unknown) (unknown) Urine Bacteria (units (unknown) date) (None) unknown) (unknown) (no (unknown) (unknown) Urine Bacteria (units (unknown) date) None seen (None) unknown) (unknown) (no (unknown) (unknown) Urine Dip (units (unkn own) date) unknown) (unknown) (no (unknown) (unknown) Urine Microscopic (units (unknown) date) Stat unknown) (unknown) (no (unknown) (unknown) Urine RBC (units (unkn own) date) (0-5/HPF) unknown) (unknown) (no (unknown) (unknown) Urine RBC None (units (unknown) date) seen (0-5/HPF) unknown) (unknown) (no (unknown) (unknown) Urine Specific (units (unknown) date) [place] 1.015 unknown) (unknown) (no (unknown) (unknown) Urine WBC (units (unkn own) date) (0-5/HPF) unknown) (unknown) (no (unknown) (unknown) Urine WBC None (units (unknown) date) seen (0-5/HPF) unknown) (unknown) (no (unknown) (unknown) Vital Signs - 8 (units (unknown) date) hr unknown) (unknown) (no (unknown) (unknown) Vital Signs (units (un known) date) unknown) (unknown) (no (unknown) (unknown) Vital signs: (units (u nknown) date) unknown) (unknown) (no (unknown) (unknown) WBC (4.5-11.0) (units (unknown) date) X103/uL unknown) (unknown) (no (unknown) (unknown) WBC 9.6 (units (unkno wn) date) (4.5-11.0) X103/uL unknown) (unknown) (no (unknown) (unknown) Wet Prep Tric BV (units (unknown) date) [place] Stat unknown) (unknown) (no (unknown) (unknown) XR chest 1V Stat (units (unknown) date) unknown) (unknown) (no (unknown) (unknown) Your urine, blood (units (unknown) date) work, vaginal unknown) discharge past, and ultrasound test of your (unknown) (no (unknown) (unknown) [ ] New (units (unkno wn) date) medication written unknown) as a paper prescription (unknown) (no (unknown) (unknown) [ ] No new (units (unk nown) date) medications given unknown) (unknown) (no (unknown) (unknown) [ x] New (units (unkno wn) date) medication unknown) prescriptions sent to your pharmacy: [ [facility] (unknown) (no (unknown) (unknown) [Embedded Image (units (unknown) date) Not Available] unknown) (unknown) (no (unknown) (unknown) abdominal pain. (units (unknown) date) Given history and unknown) exam, low suspicion for acute abdominal (unknown) (no (unknown) (unknown) aerosol inhaler (units (unknown) date) shortness of unknown) breath or wheezing (unknown) (no (unknown) (unknown) agrees to (units (unkn own) date) discharge home. unknown) All questions and concerns answered at this time. (unknown) (no (unknown) (unknown) albuterol sulfate (units (unknown) date) 90 mcg/actuation 2 unknown) inh inhalation Q4-6H PRN 07/24/21 (unknown) (no (unknown) (unknown) albuterol sulfate (units (unknown) date) 90 mcg/actuation 2 unknown) puff inhalation Q4-6H PRN 06/21/21 (unknown) (no (unknown) (unknown) albuterol sulfate (units (unknown) date) 90 mcg/actuation unknown) HFA aerosol inhaler (unknown) (no (unknown) (unknown) albuterol sulfate (units (unknown) date) 90 mcg/actuation unknown) aerosol powdr breath activated (unknown) (no (unknown) (unknown) alcohol intake (units (unknown) date) frequency: unknown) holidays/special occasions only (unknown) (no (unknown) (unknown) and Protonix, (units ( unknown) date) states that she unknown) felt much better afterwards. Abdominal ultrasound (unknown) (no (unknown) (unknown) and cooperative (units (unknown) date) unknown) (unknown) (no (unknown) (unknown) and states that (units (unknown) date) she had blood in unknown) it a few days ago. This is negative for clue (unknown) (no (unknown) (unknown) any PPI, denies (units (unknown) date) vomiting or blood unknown) in her urine or vomit. Her primary care (unknown) (no (unknown) (unknown) appear (units (unkno wn) date) unknown) (unknown) (no (unknown) (unknown) appendicitis, (units ( unknown) date) colitis, unknown) diverticulitis or torsion. Extensive conversation about (unknown) (no (unknown) (unknown) appointment. Let (units (unknown) date) them know you were unknown) seen in the Emergency Department and that we (unknown) (no (unknown) (unknown) asked that you be (units (unknown) date) seen for unknown) follow-up. We will electronically transmit a record (unknown) (no (unknown) (unknown) better soon. (units (u nknown) date) unknown) (unknown) (no (unknown) (unknown) breath activated (units (unknown) date) powder inhaler unknown) shortness of breath or wheezing #1 (unknown) (no (unknown) (unknown) caffeine with (units ( unknown) date) high doses of unknown) ibuprofen, these can all increase chances of ulcer. (unknown) (no (unknown) (unknown) capsule (units (unkno wn) date) (Macrobid) unknown) (unknown) (no (unknown) (unknown) cells, (units (unkno wn) date) Trichomonas, unknown) yeast, or WBCs. No peritoneal signs on abdominal exam. (unknown) (no (unknown) (unknown) chest, she states (units (unknown) date) it does radiate to unknown) the right lateral upper quadrant into her (unknown) (no (unknown) (unknown) closely with (units (u nknown) date) outpatient unknown) providers as instructed. Patient understands plan and (unknown) (no (unknown) (unknown) concerning (units (unk nown) date) symptoms, such as unknown) [fever greater than 101F, chills, worsening pain, (unknown) (no (unknown) (unknown) continue taking (units (unknown) date) 20 mg of unknown) omeprazole in the morning if you would like to prevent (unknown) (no (unknown) (unknown) documentation.? (units (unknown) date) unknown) (unknown) (no (unknown) (unknown) ea (units (unkno wn) date) unknown) (unknown) (no (unknown) (unknown) epigastric pain (units (unknown) date) over the last 3-4 unknown) days worse when she lays down and states it (unknown) (no (unknown) (unknown) epigastric pain (units (unknown) date) which she thinks unknown) is like reflux because it exacerbates when she (unknown) (no (unknown) (unknown) establish care (units (unknown) date) with one of the unknown) [facility] primary care providers. (unknown) (no (unknown) (unknown) excess acid (units (un known) date) buildup. It is unknown) okay to use Maalox or Tums throughout the day to (unknown) (no (unknown) (unknown) feels like reflux (units (unknown) date) in her epigastrium unknown) with heartburn and pressure in her mid (unknown) (no (unknown) (unknown) findings of (units (un known) date) unknown) (unknown) (no (unknown) (unknown) gallbladder wall (units (unknown) date) is not thick and unknown) measures 3 mm or less, sonographic [place] sign (unknown) (no (unknown) (unknown) gallbladder were (units (unknown) date) all normal and unknown) this is good news, I hope that you start feeling (unknown) (no (unknown) (unknown) gallstones or (units (u nknown) date) sludge are seen.? unknown) The gallbladder wall is not thickened, measuring (unknown) (no (unknown) (unknown) gastritis versus (units (unknown) date) heartburn related unknown) to reflux or peptic ulcer disease. Recommend (unknown) (no (unknown) (unknown) has been informed (units (unknown) date) of results. unknown) Patient has been given strict return to ER (unknown) (no (unknown) (unknown) help treat your (units (unknown) date) symptoms. Please unknown) follow-up with BLAYNE cabrera, consider having (unknown) (no (unknown) (unknown) hepatic (units (unkno wn) date) unknown) (unknown) (no (unknown) (unknown) her symptoms have (units (unknown) date) resolved, unknown) following up with her primary care provider for (unknown) (no (unknown) (unknown) home. Vital signs (units (unknown) date) are stable on unknown) repeat examination is unremarkable. Patient (unknown) (no (unknown) (unknown) idea is to coat (units (unknown) date) your stomach an unknown) prevent painful burning. (unknown) (no (unknown) (unknown) increased (units (unkn own) date) echogenicity. This unknown) decreases ultrasound sensitivity for detection of (unknown) (no (unknown) (unknown) inspiration, mild (units (unknown) date) tenderness over unknown) epigastrium, nondistended, without masses, (unknown) (no (unknown) (unknown) is (units (unkno wn) date) unknown) (unknown) (no (unknown) (unknown) it is (units (unkno wn) date) unknown) (unknown) (no (unknown) (unknown) less.? No (units (unkn own) date) specific unknown) pericholecystic fluid is seen.? The sonographic [place] sign (unknown) (no (unknown) (unknown) lies down and is (units (unknown) date) not associated unknown) with food in his most common with an empty (unknown) (no (unknown) (unknown) masses.? (units (unkno wn) date) unknown) (unknown) (no (unknown) (unknown) moderately (units (unk nown) date) unknown) (unknown) (no (unknown) (unknown) monohydrate/macro (units (unknown) date) crystals 100 mg unknown) (unknown) (no (unknown) (unknown) most commonly (units ( unknown) date) attributed to unknown) fatty infiltration.? (unknown) (no (unknown) (unknown) must administer (units (unknown) date) with a meal/food unknown) (unknown) (no (unknown) (unknown) negative, common (units (unknown) date) bile duct measures unknown) 3-4 mm her lab work overall is unremarkable (unknown) (no (unknown) (unknown) negative. (units (unkn own) date) unknown) (unknown) (no (unknown) (unknown) nitrofurantoin (units (unknown) date) 100 mg PO BID #[id number] unknown) caps 01/27/21 (unknown) (no (unknown) (unknown) nitrofurantoin (units (unknown) date) monohyd/m-cryst unknown) [Macrobid] 100 mg capsule (unknown) (no (unknown) (unknown) no elevation to (units (unknown) date) her liver enzymes, unknown) lipase is normal, no elevation to her (unknown) (no (unknown) (unknown) of her right (units (u nknown) date) upper quadrant was unknown) obtained tender to the right upper quadrant (unknown) (no (unknown) (unknown) of today's note (units (unknown) date) if your PCP is in unknown) our system (unknown) (no (unknown) (unknown) omeprazole 20 mg (units (unknown) date) capsule,delayed 20 unknown) mg PO BID #[id number] caps 01/06/22 (unknown) (no (unknown) (unknown) omeprazole 20 mg (units (unknown) date) capsule,delayed unknown) release(DR/EC) (unknown) (no (unknown) (unknown) ondansetron HCl 4 (units (unknown) date) mg tablet 4 mg PO unknown) Q6-8H nausea #7 tabs 11/08/20 (unknown) (no (unknown) (unknown) ondansetron HCl (units (unknown) date) [Zofran] 4 mg unknown) tablet (unknown) (no (unknown) (unknown) other abdominal (units (unknown) date) pain. unknown) (unknown) (no (unknown) (unknown) persistent (units (unk nown) date) vomiting or other unknown) bothersome symptoms]. (unknown) (no (unknown) (unknown) precautions for (units (unknown) date) any new or unknown) worsening symptoms. Patient understands to follow up (unknown) (no (unknown) (unknown) process, such as (units (unknown) date) acute unknown) cholecystitis, pancreatitis, perforated viscus, atypical (unknown) (no (unknown) (unknown) provider is (units (unknown) date) Cristiano in [place]. unknown) Patient states that her periods have been (unknown) (no (unknown) (unknown) rebound (units (unkno wn) date) tenderness or unknown) exquisite tenderness with exam. (unknown) (no (unknown) (unknown) regular, she has (units (unknown) date) not had any fever, unknown) chills, changes to her stool, urination or (unknown) (no (unknown) (unknown) release (units (unkno wn) date) unknown) (unknown) (no (unknown) (unknown) shoulder and (units (u nknown) date) back. She denies unknown) any history of abdominal surgery, denies taking (unknown) (no (unknown) (unknown) starting (units (unkno wn) date) omeprazole b.i.d. unknown) for the next 2 weeks and reducing to once a day if (unknown) (no (unknown) (unknown) stomach ulcer or (units (unknown) date) gastritis. Please unknown) take omeprazole each morning and you can (unknown) (no (unknown) (unknown) stomach. She is (units (unknown) date) not taken PPIs in unknown) the past, today she was given a GI cocktail (unknown) (no (unknown) (unknown) stool, and (units (unk nown) date) without vomiting. unknown) Patient is appropriate and amenable to discharge (unknown) (no (unknown) (unknown) sucralfate 1 gram (units (unknown) date) tablet (Carafate) unknown) 1 g PO TID PRN heart burn #60 tabs 01/06/22 (unknown) (no (unknown) (unknown) sucralfate (units (unk nown) date) [Carafate] 1 gram unknown) tablet (unknown) (no (unknown) (unknown) take each night (units (unknown) date) as well for as unknown) long as you are having these symptoms. Please (unknown) (no (unknown) (unknown) testing for H (units ( unknown) date) pylori if her unknown) symptoms persist. She is not had any blood in her (unknown) (no (unknown) (unknown) testing for H (units ( unknown) date) pylori if your unknown) symptoms do not improve. Avoid smoking and (unknown) (no (unknown) (unknown) tobacco type: (units ( unknown) date) cigarettes and unknown) vaping (unknown) (no (unknown) (unknown) troponin, (units (unkn own) date) leukocytosis or unknown) other, her you a is negative for bacteria, rbc's and (unknown) (no (unknown) (unknown) unremarkable.? (units (unknown) date) unknown) (unknown) (no (unknown) (unknown) wbc's. Wet mount (units (unknown) date) obtained as unknown) patient endorsed having abnormal vaginal discharge (unknown) (no (unknown) (unknown) wheezing, (units (unkn own) date) stridor, or unknown) abnormal breath sounds. No retractions or tachypnea. (unknown) (no (unknown) (unknown) with palpation, (units (unknown) date) this was negative unknown) for gallstones, pericholecystic fluid, Result panel 438 (unknown) (no (unknown) (unknown) (no value) (units (unk nown) date) unknown) (unknown) (no (unknown) (unknown) #8.5 grams (units (unk nown) date) unknown) (unknown) (no (unknown) (unknown) <Electronically (units (unknown) date) signed by Leesa Gonzales> (unknown) (no (unknown) (unknown) <Electronically (units (unknown) date) signed by Manjit Dale D.O.> (unknown) (no (unknown) (unknown) <Leesa Gonzales, (units (unknown) date) [facility] - Last Filed: unknown) 01/06/22 14:28> (unknown) (no (unknown) (unknown) <Manjit Dale, (units (unknown) date) DO - Last Filed: unknown) 01/06/22 14:34> (unknown) (no (unknown) (unknown) (Zofran) (units (unkno wn) date) unknown) (unknown) (no (unknown) (unknown) *If you do not (units (unknown) date) have a primary unknown) care provider please contact [phone] to (unknown) (no (unknown) (unknown) *Please continue (units (unknown) date) to take your unknown) regular medications as directed. (unknown) (no (unknown) (unknown) *Please follow up (units (unknown) date) with your primary unknown) care provider in 2-3 days, call for an (unknown) (no (unknown) (unknown) *Return to (units (unk nown) date) Emergency unknown) Department if you should have any new, worsening, or (unknown) (no (unknown) (unknown) *What to do: (units (u nknown) date) unknown) (unknown) (no (unknown) (unknown) *You have been (units ( unknown) date) diagnosed with unknown) heartburn and epigastric pain, likely related to a (unknown) (no (unknown) (unknown) 0RF (units (unkno wn) date) unknown) (unknown) (no (unknown) (unknown) 1 g PO TID PRN (units (unknown) date) (Reason: heart unknown) burn) Qty: 60 0RF (unknown) (no (unknown) (unknown) 100 mg PO BID (units ( unknown) date) Qty: 14 0RF unknown) (unknown) (no (unknown) (unknown) 01/06/22 01/06/22 (units (unknown) date) 01/06/22 unknown) Range/Units (unknown) (no (unknown) (unknown) 01/06/22 01/06/22 (units (unknown) date) Range/Units unknown) (unknown) (no (unknown) (unknown) 01/06/22 12:32 (units (unknown) date) unknown) (unknown) (no (unknown) (unknown) 01/06/22 12:41 (units (unknown) date) unknown) (unknown) (no (unknown) (unknown) 01/06/22 12:43 (units (unknown) date) unknown) (unknown) (no (unknown) (unknown) 01/06/22 12:52 (units (unknown) date) unknown) (unknown) (no (unknown) (unknown) 01/06/22 12:55 (units (unknown) date) unknown) (unknown) (no (unknown) (unknown) 01/06/22 13:50 (units (unknown) date) unknown) (unknown) (no (unknown) (unknown) 01/06/22 13:56 (units (unknown) date) unknown) (unknown) (no (unknown) (unknown) 01/06/22 1428 (units ( unknown) date) unknown) (unknown) (no (unknown) (unknown) 01/06/22 1434 (units ( unknown) date) unknown) (unknown) (no (unknown) (unknown) 01/06/22 (units (unkno wn) date) unknown) (unknown) (no (unknown) (unknown) 12:23 (units (unkno wn) date) unknown) (unknown) (no (unknown) (unknown) 12:43 12:52 12:52 (units (unknown) date) unknown) (unknown) (no (unknown) (unknown) 12:52 13:50 (units (un known) date) unknown) (unknown) (no (unknown) (unknown) 2 inh inhalation (units (unknown) date) Q4-6H PRN (Reason: unknown) shortness of breath or wheezing) Qty: 1 (unknown) (no (unknown) (unknown) 2 puff INHALATION (units (unknown) date) Q4-6H PRN (Reason: unknown) shortness of breath or wheezing) Qty: (unknown) (no (unknown) (unknown) 20 mg PO BID Qty: (units (unknown) date) 60 0RF unknown) (unknown) (no (unknown) (unknown) 3 mm or (units (unkno wn) date) unknown) (unknown) (no (unknown) (unknown) [id number] (units (unkno wn) date) unknown) (unknown) (no (unknown) (unknown) 4 mg PO Q6-8H (units ( unknown) date) Qty: 7 0RF unknown) (unknown) (no (unknown) (unknown) 8.5 0RF (units (unkno wn) date) unknown) (unknown) (no (unknown) (unknown) ? (units (unkno wn) date) unknown) (unknown) (no (unknown) (unknown) ALT (<35) IU/L (units (unknown) date) unknown) (unknown) (no (unknown) (unknown) ALT 20 (<35) IU/L (units (unknown) date) unknown) (unknown) (no (unknown) (unknown) APTT (26-36) (units (u nknown) date) SECONDS unknown) (unknown) (no (unknown) (unknown) APTT 33 (26-36) (units (unknown) date) SECONDS unknown) (unknown) (no (unknown) (unknown) AST (14-36) IU/L (units (unknown) date) unknown) (unknown) (no (unknown) (unknown) AST 24 (14-36) (units (unknown) date) IU/L unknown) (unknown) (no (unknown) (unknown) Activity (units (unkno wn) date) Restrictions/Addit unknown) ional Instructions: (unknown) (no (unknown) (unknown) Acute epigastric (units (unknown) date) pain unknown) (unknown) (no (unknown) (unknown) Age/Sex: 21 / F (units (unknown) date) unknown) (unknown) (no (unknown) (unknown) Albumin (3.5-5.0) (units (unknown) date) g/dL unknown) (unknown) (no (unknown) (unknown) Albumin 4.9 (units (un known) date) (3.5-5.0) g/dL unknown) (unknown) (no (unknown) (unknown) Albumin/Globulin (units (unknown) date) Ratio (1.0-2.8) unknown) (unknown) (no (unknown) (unknown) Albumin/Globulin (units (unknown) date) Ratio 1.1 unknown) (1.0-2.8) (unknown) (no (unknown) (unknown) Alkaline (units (unkno wn) date) Phosphatase unknown) (38-126) U/L (unknown) (no (unknown) (unknown) Alkaline (units (unkno wn) date) Phosphatase 107 unknown) (38-126) U/L (unknown) (no (unknown) (unknown) Allergies (units (unkn own) date) unknown) (unknown) (no (unknown) (unknown) Allergy/AdvReac (units (unknown) date) Type Severity unknown) Reaction Status Date / Time (unknown) (no (unknown) (unknown) Approved by: (units (u nknown) date) александр Alegre M.D. on 01/06/2022 at 12:32 ? (unknown) (no (unknown) (unknown) Approved by: Megha (units (unknown) date) Marbella Oneil on unknown) 01/06/2022 at 13:47 ? (unknown) (no (unknown) (unknown) BUN (7-17) mg/dL (units (unknown) date) unknown) (unknown) (no (unknown) (unknown) BUN 8 (7-17) (units (u nknown) date) mg/dL unknown) (unknown) (no (unknown) (unknown) BUN/Creatinine (units (unknown) date) Ratio (6-22) unknown) (unknown) (no (unknown) (unknown) BUN/Creatinine (units (unknown) date) Ratio 10.5 (6-22) unknown) (unknown) (no (unknown) (unknown) Baso # (Auto) (units ( unknown) date) (0-100) /uL unknown) (unknown) (no (unknown) (unknown) Baso # (Auto) 100 (units (unknown) date) (0-100) /uL unknown) (unknown) (no (unknown) (unknown) Baso % (Auto) (units ( unknown) date) (0-2) % unknown) (unknown) (no (unknown) (unknown) Baso % (Auto) 0.8 (units (unknown) date) (0-2) % unknown) (unknown) (no (unknown) (unknown) Bedside Urine (units ( unknown) date) Bilirubin - unknown) Negative (unknown) (no (unknown) (unknown) Bedside Urine (units ( unknown) date) Glucose Negative unknown) (unknown) (no (unknown) (unknown) Bedside Urine (units ( unknown) date) Ketone - Negative unknown) (unknown) (no (unknown) (unknown) Bedside Urine (units ( unknown) date) Leukocytes - unknown) Negative (unknown) (no (unknown) (unknown) Bedside Urine (units ( unknown) date) Nitrite - Negative unknown) (unknown) (no (unknown) (unknown) Bedside Urine (units ( unknown) date) Occult Blood - unknown) Negative (unknown) (no (unknown) (unknown) Bedside Urine (units ( unknown) date) Protein - Negative unknown) (unknown) (no (unknown) (unknown) Bedside Urine (units ( unknown) date) Urobilinogen - unknown) Negative (unknown) (no (unknown) (unknown) Bedside Urine pH (units (unknown) date) 6.0 unknown) (unknown) (no (unknown) (unknown) Blood Pressure (units (unknown) date) 160/80 H 01/06/22 unknown) 12:23 (unknown) (no (unknown) (unknown) Blood Pressure (units (unknown) date) 160/80 H unknown) (unknown) (no (unknown) (unknown) Bones and chest (units (unknown) date) wall:? No unknown) suspicious bony lesions.? Overlying soft tissues (unknown) (no (unknown) (unknown) CK-MB (CK-2) Rel (units (unknown) date) Index TNP unknown) (unknown) (no (unknown) (unknown) CK-MB (CK-2) Rel (units (unknown) date) Index unknown) (unknown) (no (unknown) (unknown) CK-MB (CK-2) TNP (units (unknown) date) unknown) (unknown) (no (unknown) (unknown) CK-MB (CK-2) (units (u nknown) date) unknown) (unknown) (no (unknown) (unknown) COMPARISON:? (units (u nknown) date) [facility], unknown) CR, XR CHEST 1V, 07/28/2021, 13:34. (unknown) (no (unknown) (unknown) COMPARISON:? (units (u nknown) date) [facility], unknown) CT, CT ABDOMEN PELVIS W CON, 02/08/2021, 22:36. (unknown) (no (unknown) (unknown) COVID19 -Nasal (units (unknown) date) RAPID/Pre-Proc unknown) Stat (unknown) (no (unknown) (unknown) Calcium (units (unkno wn) date) (8.4-10.2) mg/dL unknown) (unknown) (no (unknown) (unknown) Calcium 9.2 (units (un known) date) (8.4-10.2) mg/dL unknown) (unknown) (no (unknown) (unknown) Carbon Dioxide (units (unknown) date) (22-32) mmol/L unknown) (unknown) (no (unknown) (unknown) Carbon Dioxide 25 (units (unknown) date) (22-32) mmol/L unknown) (unknown) (no (unknown) (unknown) Cardiovascular: (units (unknown) date) regular rate and unknown) rhythm, no peripheral edema, warm extremities (unknown) (no (unknown) (unknown) Chest x-ray: (units (u nknown) date) unknown) (unknown) (no (unknown) (unknown) Chief Complaint: (units (unknown) date) Chest Pain unknown) (unknown) (no (unknown) (unknown) Chloride (98-107) (units (unknown) date) mmol/L unknown) (unknown) (no (unknown) (unknown) Chloride 104 (units (u nknown) date) (98-107) mmol/L unknown) (unknown) (no (unknown) (unknown) Clinical (units (unkno wn) date) Impression: unknown) (unknown) (no (unknown) (unknown) Complete Blood (units (unknown) date) Count AUTO DIFF unknown) Stat (unknown) (no (unknown) (unknown) Comprehensive (units ( unknown) date) Metabolic Panel unknown) Stat (unknown) (no (unknown) (unknown) Cosign (units (unkno wn) date) unknown) (unknown) (no (unknown) (unknown) Course Narrative: (units (unknown) date) unknown) (unknown) (no (unknown) (unknown) Course (units (unkno wn) date) unknown) (unknown) (no (unknown) (unknown) Creatinine (units (unk nown) date) (0.52-1.04) mg/dL unknown) (unknown) (no (unknown) (unknown) Creatinine 0.76 (units (unknown) date) (0.52-1.04) mg/dL unknown) (unknown) (no (unknown) (unknown) : 2000 (units (unknown) date) Acct:[id number] unknown) (unknown) (no (unknown) (unknown) Date of Service: (units (unknown) date) 01/06/22 unknown) (unknown) (no (unknown) (unknown) Departure (units (unkn own) date) unknown) (unknown) (no (unknown) (unknown) Dictated by: (units (u nknown) date) александр Alegre M.D. on 01/06/2022 at 12:27 ? ? (unknown) (no (unknown) (unknown) Dictated by: Megha (units (unknown) date) Marbella Oneil on unknown) 01/06/2022 at 13:47 ? ? (unknown) (no (unknown) (unknown) Diet (units (unkno wn) date) unknown) (unknown) (no (unknown) (unknown) Discharge Plan (units (unknown) date) unknown) (unknown) (no (unknown) (unknown) Discontinued (units (u nknown) date) Medications unknown) (unknown) (no (unknown) (unknown) Documented By: DANILO (units (unknown) date) unknown) (unknown) (no (unknown) (unknown) Dr Dale Co-Sign (units (unknown) date) Statement: I was unknown) available for consultation during this (unknown) (no (unknown) (unknown) ED Attending (units (u nknown) date) Cosignature unknown) Attestation: (unknown) (no (unknown) (unknown) ED Orders (units (unkn own) date) unknown) (unknown) (no (unknown) (unknown) EKG-12 Lead Stat (units (unknown) date) unknown) (unknown) (no (unknown) (unknown) ER Physician: (units ( unknown) date) Leesa Gonzales unknown) PRIVATE DUTY RN (unknown) (no (unknown) (unknown) ER return (units (unkn own) date) precautions and unknown) need for close follow-up. This is most likely (unknown) (no (unknown) (unknown) Emergency Report (units (unknown) date) unknown) (unknown) (no (unknown) (unknown) Eos # (Auto) (units (u nknown) date) (0-450) /uL unknown) (unknown) (no (unknown) (unknown) Eos # (Auto) 200 (units (unknown) date) (0-450) /uL unknown) (unknown) (no (unknown) (unknown) Eos % (Auto) (units (u nknown) date) (2-4) % unknown) (unknown) (no (unknown) (unknown) Eos % (Auto) 2.2 (units (unknown) date) (2-4) % unknown) (unknown) (no (unknown) (unknown) Esterase (units (unkno wn) date) unknown) (unknown) (no (unknown) (unknown) Estimated GFR > (units (unknown) date) 60 (>60) mL/min unknown) (unknown) (no (unknown) (unknown) Estimated GFR (units ( unknown) date) (>60) mL/min unknown) (unknown) (no (unknown) (unknown) Exam Narrative: (units (unknown) date) unknown) (unknown) (no (unknown) (unknown) Exam (units (unkno wn) date) unknown) (unknown) (no (unknown) (unknown) FINDINGS:? This (units (unknown) date) study is limited unknown) by body habitus. (unknown) (no (unknown) (unknown) FINDINGS:? (units (unk nown) date) unknown) (unknown) (no (unknown) (unknown) GI: abdomen soft, (units (unknown) date) tenderness to unknown) palpation to the right upper quadrant with deep (unknown) (no (unknown) (unknown) General (units (unkno wn) date) unknown) (unknown) (no (unknown) (unknown) General: (units (unkno wn) date) cooperative, unknown) comfortable, in no acute distress, well groomed (unknown) (no (unknown) (unknown) Globulin (units (unkno wn) date) (1.7-4.1) g/dL unknown) (unknown) (no (unknown) (unknown) Globulin 4.4 H (units (unknown) date) (1.7-4.1) g/dL unknown) (unknown) (no (unknown) (unknown) Glucose (70-100) (units (unknown) date) mg/dL unknown) (unknown) (no (unknown) (unknown) Glucose 92 (units (unk n) date) (70-100) mg/dL unknown) (unknown) (no (unknown) (unknown) Almaz Quinonez A, (units (unknown) date) PA-C [Non-Staff] unknown) (unknown) (no (unknown) (unknown) HEENT: (units (unkno wn) date) symmetrical facial unknown) expressions, moist mucous membranes (unknown) (no (unknown) (unknown) HPI - Chest Pain (units (unknown) date) unknown) (unknown) (no (unknown) (unknown) HPI narrative: (units (unknown) date) unknown) (unknown) (no (unknown) (unknown) HPI (units (unkno wn) date) unknown) (unknown) (no (unknown) (unknown) [place]] (units (unkno wn) date) unknown) (unknown) (no (unknown) (unknown) Hct (36-46) % (units ( unknown) date) unknown) (unknown) (no (unknown) (unknown) Hct 43.2 (36-46) (units (unknown) date) % unknown) (unknown) (no (unknown) (unknown) Healthy (units (unkno wn) date) adolescent unknown) (unknown) (no (unknown) (unknown) Hgb (12.0-16.0) (units (unknown) date) g/dL unknown) (unknown) (no (unknown) (unknown) Hgb 14.4 (units (unkno wn) date) (12.0-16.0) g/dL unknown) (unknown) (no (unknown) (unknown) History of (units (unk nown) date) Present Illness unknown) (unknown) (no (unknown) (unknown) I hope you feel (units (unknown) date) better soon, I unknown) have sent your medications to the pharmacy. (unknown) (no (unknown) (unknown) IMPRESSION:? (units (un known) date) Limited study unknown) demonstrating no significant gallbladder abnormality. (unknown) (no (unknown) (unknown) IMPRESSION:? No (units (unknown) date) acute unknown) cardiopulmonary findings. (unknown) (no (unknown) (unknown) INDICATIONS:? (units ( unknown) date) chest pain unknown) (unknown) (no (unknown) (unknown) INDICATIONS:? ruq (units (unknown) date) pain, rickie? unknown) (unknown) (no (unknown) (unknown) INR (0.9-1.3) (units ( unknown) date) unknown) (unknown) (no (unknown) (unknown) INR 1.2 (0.9-1.3) (units (unknown) date) unknown) (unknown) (no (unknown) (unknown) Imaging Data (units (u nknown) date) unknown) (unknown) (no (unknown) (unknown) Initial Vital (units ( unknown) date) Signs unknown) (unknown) (no (unknown) (unknown) Initial Vital (units ( unknown) date) Signs: unknown) (unknown) (no (unknown) (unknown) Instructions: (units ( unknown) date) Avoiding Foods unknown) That Cause Heartburn, Heartburn -- Overview, GERD (unknown) (no (unknown) (unknown) [facility] (units (unknown) date) [address] unknown) [place] [address] (unknown) (no (unknown) (unknown) Ketorolac (units (unkn own) date) Tromethamine unknown) (Ketorolac 30 Mg/Ml Vial) 15 mg IV NOW ONE (unknown) (no (unknown) (unknown) Lab Data (units (unkno wn) date) unknown) (unknown) (no (unknown) (unknown) Lab Results (units (un known) date) unknown) (unknown) (no (unknown) (unknown) Labs: (units (unkno wn) date) unknown) (unknown) (no (unknown) (unknown) Last Admin: (units (un known) date) 01/06/22 13:18 unknown) Dose: 15 mg (unknown) (no (unknown) (unknown) Last Admin: (units (un known) date) 01/06/22 13:18 unknown) Dose: 4 mg (unknown) (no (unknown) (unknown) Last Admin: (units (un known) date) 01/06/22 13:18 unknown) Dose: 40 mg (unknown) (no (unknown) (unknown) Limitations: no (units (unknown) date) limitations unknown) (unknown) (no (unknown) (unknown) Lipase (23-300) (units (unknown) date) U/L unknown) (unknown) (no (unknown) (unknown) Lipase 197 (units (unk nown) date) (23-300) U/L unknown) (unknown) (no (unknown) (unknown) Lipase Stat (units (un known) date) unknown) (unknown) (no (unknown) (unknown) Lungs and (units (unkn own) date) pleura:? Lungs are unknown) clear.? No pleural effusions or pneumothorax.? (unknown) (no (unknown) (unknown) Lymph # (Auto) (units (unknown) date) (1381-6607) /uL unknown) (unknown) (no (unknown) (unknown) Lymph # (Auto) (units (unknown) date) 2200 ([id number]) unknown) /uL (unknown) (no (unknown) (unknown) Lymph % (Auto) (units (unknown) date) (25-40) % unknown) (unknown) (no (unknown) (unknown) Lymph % (Auto) (units (unknown) date) 23.0 L (25-40) % unknown) (unknown) (no (unknown) (unknown) MCH (26-34) PG (units (unknown) date) unknown) (unknown) (no (unknown) (unknown) MCH 26.8 (26-34) (units (unknown) date) PG unknown) (unknown) (no (unknown) (unknown) MCHC (30-36) % (units (unknown) date) unknown) (unknown) (no (unknown) (unknown) MCHC 33.5 (30-36) (units (unknown) date) % unknown) (unknown) (no (unknown) (unknown) MCV (80-100) fL (units (unknown) date) unknown) (unknown) (no (unknown) (unknown) MCV 80.2 (80-100) (units (unknown) date) fL unknown) (unknown) (no (unknown) (unknown) MDM - Chest Pain (units (unknown) date) unknown) (unknown) (no (unknown) (unknown) MDM Narrative (units ( unknown) date) unknown) (unknown) (no (unknown) (unknown) MSK: moves all (units (unknown) date) extremities, unknown) neurovascularly intact, no weakness, normal tone (unknown) (no (unknown) (unknown) Magnesium (units (unkn own) date) (1.6-2.3) mg/dL unknown) (unknown) (no (unknown) (unknown) Magnesium 1.8 (units ( unknown) date) (1.6-2.3) mg/dL unknown) (unknown) (no (unknown) (unknown) Magnesium Stat (units (unknown) date) unknown) (unknown) (no (unknown) (unknown) Mediastinum:? (units ( unknown) date) Mediastinal unknown) contours appear normal.? Heart size is normal.? (unknown) (no (unknown) (unknown) Medical History (units (unknown) date) (Updated 01/06/22 unknown) @ 14:17 by Leesa Gonzales [facility]) (unknown) (no (unknown) (unknown) Medical decision (units (unknown) date) making narrative: unknown) (unknown) (no (unknown) (unknown) Medication (units (unk nown) date) Instructions unknown) Recorded (unknown) (no (unknown) (unknown) Micro UA Comment (units (unknown) date) Microscopic normal unknown) (unknown) (no (unknown) (unknown) Micro UA Comment (units (unknown) date) unknown) (unknown) (no (unknown) (unknown) Mode of arrival: (units (unknown) date) Ambulatory unknown) (unknown) (no (unknown) (unknown) [place] # (Auto) (units ( unknown) date) (0-900) /uL unknown) (unknown) (no (unknown) (unknown) [place] # (Auto) 500 (units (unknown) date) (0-900) /uL unknown) (unknown) (no (unknown) (unknown) [place] % (Auto) (units ( unknown) date) (3-14) % unknown) (unknown) (no (unknown) (unknown) [place] % (Auto) 5.0 (units (unknown) date) (3-14) % unknown) (unknown) (no (unknown) (unknown) Narrative (units (unkn own) date) unknown) (unknown) (no (unknown) (unknown) Narrative: (units (unk nown) date) unknown) (unknown) (no (unknown) (unknown) Nephrolithiasis (units (unknown) date) unknown) (unknown) (no (unknown) (unknown) Neuro: normal (units ( unknown) date) speech and unknown) cognition, A+O x3, ambulatory, clear speech (unknown) (no (unknown) (unknown) Neut # (Auto) (units ( unknown) date) (6754-3177) /uL unknown) (unknown) (no (unknown) (unknown) Neut # (Auto) (units ( unknown) date) 6600 (2063-0970) unknown) /uL (unknown) (no (unknown) (unknown) Neut % (Auto) (units ( unknown) date) (50-75) % unknown) (unknown) (no (unknown) (unknown) Neut % (Auto) (units ( unknown) date) 69.0 (50-75) % unknown) (unknown) (no (unknown) (unknown) New (units [...] (unknown) Oxygen Delivery (units (unknown) date) Method 01/06/22 unknown) 12:23 (unknown) (no (unknown) (unknown) Oxygen Delivery (units (unknown) date) Method Room Air unknown) (unknown) (no (unknown) (unknown) PROCEDURE: US (units ( unknown) date) ABDOMEN LIMITED unknown) (unknown) (no (unknown) (unknown) PROCEDURE:? XR (units (unknown) date) CHEST 1V unknown) (unknown) (no (unknown) (unknown) PT (10.1-12.7) (units (unknown) date) SECONDS unknown) (unknown) (no (unknown) (unknown) PT 13.4 H (units (unkn own) date) (10.1-12.7) unknown) SECONDS (unknown) (no (unknown) (unknown) Pantoprazole (units (u nknown) date) Sodium unknown) (Pantoprazole 40 Mg Vial) 40 mg IV NOW ONE (unknown) (no (unknown) (unknown) Partial (units (unkno wn) date) Thromboplastin unknown) Time Stat (unknown) (no (unknown) (unknown) Patient (units (unkno wn) date) Disposition: Home unknown) (unknown) (no (unknown) (unknown) Patient History (units (unknown) date) unknown) (unknown) (no (unknown) (unknown) Patient is seen. (units (unknown) date) unknown) (unknown) (no (unknown) (unknown) Patient remains (units (unknown) date) p.o. tolerant. unknown) Serial abdominal exam without increase in (unknown) (no (unknown) (unknown) Patient reports (units (unknown) date) good relief after unknown) her GI cocktail (unknown) (no (unknown) (unknown) Patient: (units (unkno wn) date) Delmy Cobb E unknown) MR#: [id number] (unknown) (no (unknown) (unknown) Penicillins (units (un known) date) [PENICILLINS] unknown) Allergy Unknown Anaphylaxis Verified 08/22/21 18:46 (unknown) (no (unknown) (unknown) Plt Count (units (unkn own) date) (150-400) X103/uL unknown) (unknown) (no (unknown) (unknown) Plt Count 334 (units ( unknown) date) (150-400) X103/uL unknown) (unknown) (no (unknown) (unknown) Point of Care (units ( unknown) date) Testing unknown) (unknown) (no (unknown) (unknown) Potassium (units (unkn own) date) (3.4-5.1) mmol/L unknown) (unknown) (no (unknown) (unknown) Potassium 4.0 (units ( unknown) date) (3.4-5.1) mmol/L unknown) (unknown) (no (unknown) (unknown) Test (units (unknown) date) Results Negative unknown) (unknown) (no (unknown) (unknown) Prescriptions: (units (unknown) date) unknown) (unknown) (no (unknown) (unknown) Previous Rx's (units ( unknown) date) unknown) (unknown) (no (unknown) (unknown) Prothrombin Time (units (unknown) date) INR Stat unknown) (unknown) (no (unknown) (unknown) Psych: mental (units ( unknown) date) status is grossly unknown) normal, congruent mood, normal affect, pleasant (unknown) (no (unknown) (unknown) Pulse Oximetry (units (unknown) date) 100 01/06/22 12:23 unknown) (unknown) (no (unknown) (unknown) Pulse Oximetry (units (unknown) date) 100 unknown) (unknown) (no (unknown) (unknown) Pulse Rate 81 (units ( unknown) date) 01/06/22 12:23 unknown) (unknown) (no (unknown) (unknown) Pulse Rate 81 (units ( unknown) date) unknown) (unknown) (no (unknown) (unknown) RBC (4.0-5.2) (units ( unknown) date) X106/uL unknown) (unknown) (no (unknown) (unknown) RBC 5.38 H (units (unk nown) date) (4.0-5.2) X106/uL unknown) (unknown) (no (unknown) (unknown) RDW (11.6-14.8) % (units (unknown) date) unknown) (unknown) (no (unknown) (unknown) RDW 14.0 (units (unkno wn) date) (11.6-14.8) % unknown) (unknown) (no (unknown) (unknown) Radiologist's (units ( unknown) date) Impression: unknown) (unknown) (no (unknown) (unknown) Real-time focused (units (unknown) date) scanning was unknown) performed of the abdomen, with image (unknown) (no (unknown) (unknown) Referrals: (units (unk nown) date) unknown) (unknown) (no (unknown) (unknown) Related Data (units (u nknown) date) unknown) (unknown) (no (unknown) (unknown) Respiratory Rate (units (unknown) date) 16 01/06/22 12:23 unknown) (unknown) (no (unknown) (unknown) Respiratory Rate (units (unknown) date) 16 unknown) (unknown) (no (unknown) (unknown) Respiratory: (units (u nknown) date) normal effort, unknown) able to speak in complete sentences, without (unknown) (no (unknown) (unknown) Result diagrams: (units (unknown) date) unknown) (unknown) (no (unknown) (unknown) Review of Systems (units (unknown) date) unknown) (unknown) (no (unknown) (unknown) Review of systems (units (unknown) date) is negative for unknown) acute abnormalities unless otherwise noted in (unknown) (no (unknown) (unknown) Reviewed vitals (units (unknown) date) signs and nursing unknown) notes. (unknown) (no (unknown) (unknown) Rx Instructions: (units (unknown) date) unknown) (unknown) (no (unknown) (unknown) SARS-CoV-2 (PCR) (units (unknown) date) (Negative) unknown) (unknown) (no (unknown) (unknown) SARS-CoV-2 (PCR) (units (unknown) date) Negative unknown) (Negative) (unknown) (no (unknown) (unknown) Signed By: (units (unk nown) date) unknown) (unknown) (no (unknown) (unknown) Skin: brisk (units (un known) date) capillary refill, unknown) without pallor or erythema (unknown) (no (unknown) (unknown) Smoking Status: (units (unknown) date) Former smoker unknown) (unknown) (no (unknown) (unknown) Social History (units (unknown) date) (Reviewed 01/06/22 unknown) @ 13:[address]) (unknown) (no (unknown) (unknown) Sodium (137-145) (units (unknown) date) mmol/L unknown) (unknown) (no (unknown) (unknown) Sodium 140 (units (unk nown) date) (137-145) mmol/L unknown) (unknown) (no (unknown) (unknown) Source: patient (units (unknown) date) unknown) (unknown) (no (unknown) (unknown) Stated Complaint: (units (unknown) date) Chest pain, SOB unknown) (unknown) (no (unknown) (unknown) Stop: 01/06/22 (units (unknown) date) 12:57 unknown) (unknown) (no (unknown) (unknown) Stop: 01/06/22 (units (unknown) date) 13:02 unknown) (unknown) (no (unknown) (unknown) Substance Use (units ( unknown) date) Type: does not use unknown) (unknown) (no (unknown) (unknown) Surgical History (units (unknown) date) (Reviewed 01/06/22 unknown) @ 13:[address]) (unknown) (no (unknown) (unknown) Surgical changes (units (unknown) date) and devices:? unknown) None.? (unknown) (no (unknown) (unknown) TECHNIQUE:? One (units (unknown) date) view of the chest unknown) was acquired.? (unknown) (no (unknown) (unknown) TECHNIQUE:? (units (un known) date) unknown) (unknown) (no (unknown) (unknown) Temperature 98.8 (units (unknown) date) F 01/06/22 12:23 unknown) (unknown) (no (unknown) (unknown) Temperature 98.8 (units (unknown) date) F unknown) (unknown) (no (unknown) (unknown) The liver (units (unkno wn) date) demonstrates unknown) increased echogenicity.? This finding is nonspecific, yet (unknown) (no (unknown) (unknown) The liver (units (unkn own) date) demonstrates unknown) normal size. The liver demonstrates generalized (unknown) (no (unknown) (unknown) The medicine (units (u nknown) date) called Carafate unknown) that is below is similar to Tums or Maalox, the (unknown) (no (unknown) (unknown) The pancreas is (units (unknown) date) not well seen, unknown) secondary to overlying bowel gas. (unknown) (no (unknown) (unknown) The patient is (units (unknown) date) not NPO and the unknown) gallbladder is partially decompressed.? No (unknown) (no (unknown) (unknown) There is no (units (un known) date) biliary unknown) dilatation, the common bile duct measures 3-4 mm.? (unknown) (no (unknown) (unknown) This is a (units (unkno wn) date) 21-year-old female unknown) presents to the emergency department complaining of (unknown) (no (unknown) (unknown) Time Seen by (units (u nknown) date) Provider: 01/06/22 unknown) 12:43 (unknown) (no (unknown) (unknown) Total Bilirubin (units (unknown) date) (0.2-1.3) mg/dL unknown) (unknown) (no (unknown) (unknown) Total Bilirubin (units (unknown) date) 0.4 (0.2-1.3) unknown) mg/dL (unknown) (no (unknown) (unknown) Total Creatine (units (unknown) date) Kinase (30-135) unknown) U/L (unknown) (no (unknown) (unknown) Total Creatine (units (unknown) date) Kinase 69 (30-135) unknown) U/L (unknown) (no (unknown) (unknown) Total Protein (units ( unknown) date) (6.3-8.2) g/dL unknown) (unknown) (no (unknown) (unknown) Total Protein 9.3 (units (unknown) date) H (6.3-8.2) g/dL unknown) (unknown) (no (unknown) (unknown) Troponin + CK (units ( unknown) date) Cardiac Panel Stat unknown) (unknown) (no (unknown) (unknown) Troponin I < (units (u nknown) date) 0.012 (0.01-0.034) unknown) ng/mL (unknown) (no (unknown) (unknown) Troponin I (units (unk nown) date) (0.01-0.034) ng/mL unknown) (unknown) (no (unknown) (unknown) US - abdomen: (units ( unknown) date) unknown) (unknown) (no (unknown) (unknown) US abdomen (units (unk nown) date) limited Stat unknown) (unknown) (no (unknown) (unknown) Ur Culture (units (unk nown) date) Indicated? Cult unknown) not indicated (unknown) (no (unknown) (unknown) Ur Culture (units (unk nown) date) Indicated? unknown) (unknown) (no (unknown) (unknown) Urine Bacteria (units (unknown) date) (None) unknown) (unknown) (no (unknown) (unknown) Urine Bacteria (units (unknown) date) None seen (None) unknown) (unknown) (no (unknown) (unknown) Urine Dip (units (unkn own) date) unknown) (unknown) (no (unknown) (unknown) Urine Microscopic (units (unknown) date) Stat unknown) (unknown) (no (unknown) (unknown) Urine RBC (units (unkn own) date) (0-5/HPF) unknown) (unknown) (no (unknown) (unknown) Urine RBC None (units (unknown) date) seen (0-5/HPF) unknown) (unknown) (no (unknown) (unknown) Urine Specific (units (unknown) date) [place] 1.015 unknown) (unknown) (no (unknown) (unknown) Urine WBC (units (unkn own) date) (0-5/HPF) unknown) (unknown) (no (unknown) (unknown) Urine WBC None (units (unknown) date) seen (0-5/HPF) unknown) (unknown) (no (unknown) (unknown) Visit Report (units (u nknown) date) Forms: Patient unknown) Portal/API (unknown) (no (unknown) (unknown) Vital Signs - 8 (units (unknown) date) hr unknown) (unknown) (no (unknown) (unknown) Vital Signs (units (un known) date) unknown) (unknown) (no (unknown) (unknown) Vital signs: (units (u nknown) date) unknown) (unknown) (no (unknown) (unknown) WBC (4.5-11.0) (units (unknown) date) X103/uL unknown) (unknown) (no (unknown) (unknown) WBC 9.6 (units (unkno wn) date) (4.5-11.0) X103/uL unknown) (unknown) (no (unknown) (unknown) Wet Prep Tric BV (units (unknown) date) [place] Stat unknown) (unknown) (no (unknown) (unknown) XR chest 1V Stat (units (unknown) date) unknown) (unknown) (no (unknown) (unknown) Your urine, blood (units (unknown) date) work, vaginal unknown) discharge past, and ultrasound test of your (unknown) (no (unknown) (unknown) [ ] New (units (unkno wn) date) medication written unknown) as a paper prescription (unknown) (no (unknown) (unknown) [ ] No new (units (unk nown) date) medications given unknown) (unknown) (no (unknown) (unknown) [ x] New (units (unkno wn) date) medication unknown) prescriptions sent to your pharmacy: [ [facility] (unknown) (no (unknown) (unknown) [Embedded Image (units (unknown) date) Not Available] unknown) (unknown) (no (unknown) (unknown) abdominal pain. (units (unknown) date) Given history and unknown) exam, low suspicion for acute abdominal (unknown) (no (unknown) (unknown) administrative (units (unknown) date) purposes only. I unknown) did not have direct contact with this patient (unknown) (no (unknown) (unknown) aerosol inhaler (units (unknown) date) shortness of unknown) breath or wheezing (unknown) (no (unknown) (unknown) agrees to (units (unkn own) date) discharge home. unknown) All questions and concerns answered at this time. (unknown) (no (unknown) (unknown) albuterol sulfate (units (unknown) date) 90 mcg/actuation 2 unknown) inh inhalation Q4-6H PRN 07/24/21 (unknown) (no (unknown) (unknown) albuterol sulfate (units (unknown) date) 90 mcg/actuation 2 unknown) puff inhalation Q4-6H PRN 06/21/21 (unknown) (no (unknown) (unknown) albuterol sulfate (units (unknown) date) 90 mcg/actuation unknown) HFA aerosol inhaler (unknown) (no (unknown) (unknown) albuterol sulfate (units (unknown) date) 90 mcg/actuation unknown) aerosol powdr breath activated (unknown) (no (unknown) (unknown) alcohol intake (units (unknown) date) frequency: unknown) holidays/special occasions only (unknown) (no (unknown) (unknown) and Protonix, (units ( unknown) date) states that she unknown) felt much better afterwards. Abdominal ultrasound (unknown) (no (unknown) (unknown) and cooperative (units (unknown) date) unknown) (unknown) (no (unknown) (unknown) and states that (units (unknown) date) she had blood in unknown) it a few days ago. This is negative for clue (unknown) (no (unknown) (unknown) any PPI, denies (units (unknown) date) vomiting or blood unknown) in her urine or vomit. Her primary care (unknown) (no (unknown) (unknown) appear (units (unkno wn) date) unknown) (unknown) (no (unknown) (unknown) appendicitis, (units ( unknown) date) colitis, unknown) diverticulitis or torsion. Extensive conversation about (unknown) (no (unknown) (unknown) appointment. Let (units (unknown) date) them know you were unknown) seen in the Emergency Department and that we (unknown) (no (unknown) (unknown) asked that you be (units (unknown) date) seen for unknown) follow-up. We will electronically transmit a record (unknown) (no (unknown) (unknown) better soon. (units (u nknown) date) unknown) (unknown) (no (unknown) (unknown) breath activated (units (unknown) date) powder inhaler unknown) shortness of breath or wheezing #1 (unknown) (no (unknown) (unknown) caffeine with (units ( unknown) date) high doses of unknown) ibuprofen, these can all increase chances of ulcer. (unknown) (no (unknown) (unknown) capsule (units (unkno wn) date) (Macrobid) unknown) (unknown) (no (unknown) (unknown) cells, (units (unkno wn) date) Trichomonas, unknown) yeast, or WBCs. No peritoneal signs on abdominal exam. (unknown) (no (unknown) (unknown) chest, she states (units (unknown) date) it does radiate to unknown) the right lateral upper quadrant into her (unknown) (no (unknown) (unknown) closely with (units (u nknown) date) outpatient unknown) providers as instructed. Patient understands plan and (unknown) (no (unknown) (unknown) concerning (units (unk nown) date) symptoms, such as unknown) [fever greater than 101F, chills, worsening pain, (unknown) (no (unknown) (unknown) continue taking (units (unknown) date) 20 mg of unknown) omeprazole in the morning if you would like to prevent (unknown) (no (unknown) (unknown) documentation.? (units (unknown) date) unknown) (unknown) (no (unknown) (unknown) during this (units (un known) date) visit. They were unknown) seen independently by the [facility]. (unknown) (no (unknown) (unknown) ea (units (unkno wn) date) unknown) (unknown) (no (unknown) (unknown) epigastric pain (units (unknown) date) over the last 3-4 unknown) days worse when she lays down and states it (unknown) (no (unknown) (unknown) epigastric pain (units (unknown) date) which she thinks unknown) is like reflux because it exacerbates when she (unknown) (no (unknown) (unknown) establish care (units (unknown) date) with one of the unknown) [facility] primary care providers. (unknown) (no (unknown) (unknown) excess acid (units (un known) date) buildup. It is unknown) okay to use Maalox or Tums throughout the day to (unknown) (no (unknown) (unknown) feels like reflux (units (unknown) date) in her epigastrium unknown) with heartburn and pressure in her mid (unknown) (no (unknown) (unknown) findings of (units (un known) date) unknown) (unknown) (no (unknown) (unknown) gallbladder were (units (unknown) date) all normal and unknown) this is good news, I hope that you start feeling (unknown) (no (unknown) (unknown) gallstones or (units (u nknown) date) sludge are seen.? unknown) The gallbladder wall is not thickened, measuring (unknown) (no (unknown) (unknown) gastritis versus (units (unknown) date) heartburn related unknown) to reflux or peptic ulcer disease. Recommend (unknown) (no (unknown) (unknown) has been informed (units (unknown) date) of results. unknown) Patient has been given strict return to ER (unknown) (no (unknown) (unknown) help treat your (units (unknown) date) symptoms. Please unknown) follow-up with BLAYNE cabrera, consider having (unknown) (no (unknown) (unknown) hepatic (units (unkno wn) date) unknown) (unknown) (no (unknown) (unknown) her symptoms have (units (unknown) date) resolved, unknown) following up with her primary care provider for (unknown) (no (unknown) (unknown) home. Vital signs (units (unknown) date) are stable on unknown) repeat examination is unremarkable. Patient (unknown) (no (unknown) (unknown) idea is to coat (units (unknown) date) your stomach an unknown) prevent painful burning. (unknown) (no (unknown) (unknown) increased (units (unkn own) date) echogenicity. This unknown) decreases ultrasound sensitivity for detection of (unknown) (no (unknown) (unknown) inspiration, mild (units (unknown) date) tenderness over unknown) epigastrium, nondistended, without masses, (unknown) (no (unknown) (unknown) is (units (unkno wn) date) unknown) (unknown) (no (unknown) (unknown) it is (units (unkno wn) date) unknown) (unknown) (no (unknown) (unknown) lbladder wall is (units (unknown) date) not thick and unknown) measures 3 mm or less, sonographic [place] sign (unknown) (no (unknown) (unknown) less.? No (units (unkn own) date) specific unknown) pericholecystic fluid is seen.? The sonographic [place] sign (unknown) (no (unknown) (unknown) lies down and is (units (unknown) date) not associated unknown) with food in his most common with an empty (unknown) (no (unknown) (unknown) masses.? (units (unkno wn) date) unknown) (unknown) (no (unknown) (unknown) moderately (units (unk nown) date) unknown) (unknown) (no (unknown) (unknown) monohydrate/macro (units (unknown) date) crystals 100 mg unknown) (unknown) (no (unknown) (unknown) most commonly (units ( unknown) date) attributed to unknown) fatty infiltration.? (unknown) (no (unknown) (unknown) must administer (units (unknown) date) with a meal/food unknown) (unknown) (no (unknown) (unknown) negative, common (units (unknown) date) bile duct measures unknown) 3-4 mm her lab work overall is unremarkable (unknown) (no (unknown) (unknown) negative. (units (unkn own) date) unknown) (unknown) (no (unknown) (unknown) nitrofurantoin (units (unknown) date) 100 mg PO BID #14 unknown) caps 01/27/21 (unknown) (no (unknown) (unknown) nitrofurantoin (units (unknown) date) monohyd/m-cryst unknown) [Macrobid] 100 mg capsule (unknown) (no (unknown) (unknown) no elevation to (units (unknown) date) her liver enzymes, unknown) lipase is normal, no elevation to her (unknown) (no (unknown) (unknown) of her right (units (u nknown) date) upper quadrant was unknown) obtained tender to the right upper quadrant (unknown) (no (unknown) (unknown) of today's note (units (unknown) date) if your PCP is in unknown) our system (unknown) (no (unknown) (unknown) omeprazole 20 mg (units (unknown) date) capsule,delayed 20 unknown) mg PO BID #60 caps 01/06/22 (unknown) (no (unknown) (unknown) omeprazole 20 mg (units (unknown) date) capsule,delayed unknown) release(DR/EC) (unknown) (no (unknown) (unknown) ondansetron HCl 4 (units (unknown) date) mg tablet 4 mg PO unknown) Q6-8H nausea #7 tabs 11/08/20 (unknown) (no (unknown) (unknown) ondansetron HCl (units (unknown) date) [Zofran] 4 mg unknown) tablet (unknown) (no (unknown) (unknown) other abdominal (units (unknown) date) pain. unknown) (unknown) (no (unknown) (unknown) patient's (units (unkn own) date) emergency unknown) department visit. This chart is signed by myself for (unknown) (no (unknown) (unknown) persistent (units (unk nown) date) vomiting or other unknown) bothersome symptoms]. (unknown) (no (unknown) (unknown) precautions for (units (unknown) date) any new or unknown) worsening symptoms. Patient understands to follow up (unknown) (no (unknown) (unknown) process, such as (units (unknown) date) acute unknown) cholecystitis, pancreatitis, perforated viscus, atypical (unknown) (no (unknown) (unknown) provider is (units (unknown) date) Cristiano in [place]. unknown) Patient states that her periods have been (unknown) (no (unknown) (unknown) rebound (units (unkno wn) date) tenderness or unknown) exquisite tenderness with exam. (unknown) (no (unknown) (unknown) regular, she has (units (unknown) date) not had any fever, unknown) chills, changes to her stool, urination or (unknown) (no (unknown) (unknown) release (units (unkno wn) date) unknown) (unknown) (no (unknown) (unknown) shoulder and (units (u nknown) date) back. She denies unknown) any history of abdominal surgery, denies taking (unknown) (no (unknown) (unknown) starting (units (unkno wn) date) omeprazole b.i.d. unknown) for the next 2 weeks and reducing to once a day if (unknown) (no (unknown) (unknown) stomach ulcer or (units (unknown) date) gastritis. Please unknown) take omeprazole each morning and you can (unknown) (no (unknown) (unknown) stomach. She is (units (unknown) date) not taken PPIs in unknown) the past, today she was given a GI cocktail (unknown) (no (unknown) (unknown) stool, and (units (unk nown) date) without vomiting. unknown) Patient is appropriate and amenable to discharge (unknown) (no (unknown) (unknown) sucralfate 1 gram (units (unknown) date) tablet (Carafate) unknown) 1 g PO TID PRN heart burn #60 tabs 01/06/22 (unknown) (no (unknown) (unknown) sucralfate (units (unk nown) date) [Carafate] 1 gram unknown) tablet (unknown) (no (unknown) (unknown) take each night (units (unknown) date) as well for as unknown) long as you are having these symptoms. Please (unknown) (no (unknown) (unknown) testing for H (units ( unknown) date) pylori if her unknown) symptoms persist. She is not had any blood in her (unknown) (no (unknown) (unknown) testing for H (units ( unknown) date) pylori if your unknown) symptoms do not improve. Avoid smoking and (unknown) (no (unknown) (unknown) tobacco type: (units ( unknown) date) cigarettes and unknown) vaping (unknown) (no (unknown) (unknown) troponin, (units (unkn own) date) leukocytosis or unknown) other, her you a is negative for bacteria, rbc's and (unknown) (no (unknown) (unknown) unremarkable.? (units (unknown) date) unknown) (unknown) (no (unknown) (unknown) wbc's. Wet mount (units (unknown) date) obtained as unknown) patient endorsed having abnormal vaginal discharge (unknown) (no (unknown) (unknown) wheezing, (units (unkn own) date) stridor, or unknown) abnormal breath sounds. No retractions or tachypnea. (unknown) (no (unknown) (unknown) with palpation, (units (unknown) date) this was negative unknown) for gallstones, pericholecystic fluid, gal Result panel 439 (unknown) (no date) (unknown) (unknown) Flu A (units (unkn own) POSITIVE unknown) (unknown) (no date) (unknown) (unknown) Flu B (units (unkn own) NEGATIVE unknown) (unknown) (no date) (unknown) (unknown) Negative (units (unkn own) unknown) (unknown) (no date) (unknown) (unknown) Negative (units (unkn own) unknown) Result panel 440 (unknown) (no (unknown) (unknown) (no value) (units (unk nown) date) unknown) (unknown) (no (unknown) (unknown) [id number] (units (unkno wn) date) unknown) (unknown) (no (unknown) (unknown) 1. No acute (units (un known) date) cardiopulmonary unknown) disease. (unknown) (no (unknown) (unknown) 01/11/22 (units (unkno wn) date) unknown) (unknown) (no (unknown) (unknown) [address] [place] [address] (units (unknown) date) unknown) (unknown) (no (unknown) (unknown) Accession Number: (units (unknown) date) [id number] unknown) (unknown) (no (unknown) (unknown) Age/Sex: 21 / F (units (unknown) date) Date of Service: unknown) (unknown) (no (unknown) (unknown) [place], [place] (units ( unknown) date) [id number] unknown) (unknown) (no (unknown) (unknown) Approved by: (units (u nknown) date) Michael Gonzalez, unknown) [place] on 01/12/2022 at 1:20 (unknown) (no (unknown) (unknown) Bones and chest (units (unknown) date) wall: No unknown) suspicious bony lesions. Overlying soft tissues (unknown) (no (unknown) (unknown) COMPARISON: (units (un known) date) [facility], unknown) CR, XR CHEST 1V, 01/06/2022, 13:18. (unknown) (no (unknown) (unknown) : 2000 (units (unknown) date) Acct:[id number] unknown) (unknown) (no (unknown) (unknown) Dictated by: (units (u nknown) date) александр Correia M.D. on 01/12/2022 at 1:20 (unknown) (no (unknown) (unknown) FINDINGS: (units (unkn own) date) unknown) (unknown) (no (unknown) (unknown) IMPRESSION: (units (un known) date) unknown) (unknown) (no (unknown) (unknown) INDICATIONS: (units (u nknown) date) suspected sepsis unknown) (unknown) (no (unknown) (unknown) [facility] (units (unknown) date) unknown) (unknown) (no (unknown) (unknown) Loc: ED (units (unkno wn) date) unknown) (unknown) (no (unknown) (unknown) Lungs and pleura: (units (unknown) date) Lungs are clear. unknown) No pleural effusions or pneumothorax. (unknown) (no (unknown) (unknown) Mediastinum: (units (u nknown) date) Mediastinal unknown) contours appear normal. Heart size is normal. (unknown) (no (unknown) (unknown) Ordering (units (unkno wn) date) Provider: unknown) Rafael Trujillo D.O. (unknown) (no (unknown) (unknown) PROCEDURE: XR (units ( unknown) date) CHEST 1V unknown) (unknown) (no (unknown) (unknown) Patient: (units (unkno wn) date) Delmy Cobb E unknown) MR#: [id number] (unknown) (no (unknown) (unknown) Procedure: XR (units ( unknown) date) chest 1V unknown) (unknown) (no (unknown) (unknown) Signed (units (unkno wn) date) unknown) (unknown) (no (unknown) (unknown) Surgical changes (units (unknown) date) and devices: None. unknown) (unknown) (no (unknown) (unknown) TECHNIQUE: One (units (unknown) date) view of the chest unknown) was acquired. (unknown) (no (unknown) (unknown) XRay Report (units (un known) date) unknown) (unknown) (no (unknown) (unknown) appear (units (unkno wn) date) unknown) (unknown) (no (unknown) (unknown) unremarkable. (units ( unknown) date) unknown) Social History date description facility 2022-01-06 00:00 Ex-smoker (finding) [facility] 2022-01-11 00:00 Ex-smoker (finding) [facility] Vital Signs date measurement value units 2022-01-06 00:00 BMI 41.9 kg/m2 2022-01-06 00:00 BP_diastolic 78 mmHg 2022-01-06 00:00 BP_systolic 149 mmHg 2022-01-06 00:00 heart_rate 75 /min 2022-01-06 00:00 height_metric 167.64 cm 2022-01-06 00:00 height_standard 66 in 2022-01-06 00:00 o2_saturation 100 % 2022-01-06 00:00 respiration_rate 16 /min 2022-01-06 00:00 temperature_metric 37.11 C 2022-01-06 00:00 temperature_standard 98.8 F 2022-01-06 00:00 weight_metric 117.93 kg 2022-01-06 00:00 weight_standard 259.99 lb 2022-01-11 00:00 BMI 40.3 kg/m2 2022-01-11 00:00 BP_diastolic 107 mmHg 2022-01-11 00:00 BP_systolic 176 mmHg 2022-01-11 00:00 heart_rate 130 /min 2022-01-11 00:00 height_metric 167.64 cm 2022-01-11 00:00 height_standard 66 in 2022-01-11 00:00 o2_saturation 100 % 2022-01-11 00:00 respiration_rate 26 /min 2022-01-11 00:00 temperature_metric 37.28 C 2022-01-11 00:00 temperature_standard 99.1 F 2022-01-11 00:00 weight_metric 113.39 kg 2022-01-11 00:00 weight_standard 249.98 lb
--- NOTE | 2022-02-17 16:31 | XRAY Report ---
PROCEDURE: Foot 3 View RT INDICATIONS: Trauma TECHNIQUE: 3 views of the foot were acquired. COMPARISON: None FINDINGS: Bones: No fractures or dislocations. No suspicious bony lesions. Soft tissues: No tibiotalar joint effusion. Achilles tendon appears normal. IMPRESSION: No acute fracture. No osseous lesion. If symptoms and/or clinical suspicion for pathology continue, f urther assessment with repeat plain films, or advanced imaging (e.g., CT, MRI, or bone scan) is recom mended for further assessment. Reviewed by: Roxy Causey MD on 02/17/2022 4:30 PM PST Approved by: Roxy Causey MD on 02/17/2022 4:30 PM PST Station ID: [id number]
--- NOTE | 2022-02-17 17:12 | ED Physician Documentation ---
PD HPI LOWER EXT INJURY - Stated complaint Stated Complaint: RT FOOT TOE PAIN - Chief complaint Chief Complaint: Trauma Ext - History obtained from History obtained from: Patient (She dropped a vacuum on her foot and has pain at the DIP of the right second toe for the last 3 days. No other injuries.) PD PAST MEDICAL HISTORY - Past Medical History Cardiovascular: None Respiratory: Asthma Neuro: None Psych: Anxiety - Past Surgical History Past Surgical History: No - Present Medications Home Medications: Ambulatory Orders Medication Instructions Recorded Confirmed Albuterol Sulfate [Proair Hfa 1 - 2 puffs INH Q4H PRN 07/06/21 02/17/22 Inhaler] Ibuprofen [Motrin] 800 mg PO DAILY 07/11/21 02/17/22 - Allergies Allergies/Adverse Reactions: Allergies Allergy/AdvReac Type Severity Reaction Status Date / Time Penicillins Allergy Respiratory Verified 02/17/22 16:17 - Social History Does the pt smoke?: No Smoking Status: Former smoker Does the pt drink ETOH?: No Does the pt have substance abuse?: No - Immunizations Immunizations are current?: Yes - POLST Patient has POLST: No PD ED PE NORMAL - Vitals Vital signs reviewed: Yes - General General: Alert and oriented X 3, No acute distress - Extremities Extremities: Other (Tender and swollen of the DIP of the right great toe without deformity. No subungual hematoma.) - Neuro Neuro: Alert and oriented X 3, Normal speech Results - Vitals Vitals: Vital Signs - 24 hr 02/17/22 16:05 Temperature 37.1 C Heart Rate 94 Respiratory 16 Rate Blood Pressure 151/104 H O2 Saturation 99 Oxygen O2 Source Room air - Rads (name of study) Three-view x-ray of the right foot is negative for fracture Radiology: Final report received, EMP read indepedently Departure - Departure Disposition: Home, Self Care Clinical Impression: Crushing injury of right lesser toe(s), initial encounter Condition: Good Record reviewed to determine appropriate education?: Yes Instructions: ED Crush Injury Toe No Fx Comments: Tylenol and or ibuprofen as needed for pain, ice and elevate. Follow-up with your doctor in a week if not better. Discharge Date/Time: 02/17/22 17:15
== END 2022-02-17 17:15 | disposition home or self-care (01) ==
LOC: ED 15:53
DX: S97.121A Crushing injury of right lesser toe(s), initial encounter (principal); W20.8XXA Other cause of strike by thrown, projected or falling object, initial encounter; Z87.891 Personal history of nicotine dependence
CPT/HCPCS: 99283

== ENCOUNTER 2022-03-20 10:48 | Emergency (ER) | payer MEDICAID ==
[2022-03-20 11:13] VITALS: BP 150/97
--- OUTSIDE RECORDS SUMMARY | 2022-03-20 11:15 | EXTERNAL MEDICAL SUMMARY RPT | Continuity of Care Document ---
:2000 Author Organization [place] Address [address] [place] [address] Phone Care Team Providers Name Role Phone Noris Edwards Unavailable Unavailable Allergies and Intolerances date description [facility] En[facility] No information. Functional Status No information. Immunizations No information. Medications date description facility 2022-01-06 00:00 Omeprazole [facility] 2022-01-06 00:00 Sucralfate [facility] Problems date description facility 2022-01-06 00:00 Acute epigastric pain [facility] 2022-01-12 00:00 Patient left before evaluation by [facility] Procedures date description facility 2022-01-06 00:00 X-ray of chest, single view [facility] 2022-01-11 00:00 X-ray of chest, single view [facility] 2022-01-06 00:00 Wet [facility] 2022-01-12 00:00 [facility] 2022-01-06 00:00 US Abdomen limited [facility] Results/Labs test date author facility value [...] Result panel 422 (unknown) (no date) (unknown) [place] (no value) (units (unk nown[facility] Hospital unknown) Result panel 423 (unknown) (no date) (unknown[place] [facility] unknown) Result panel 424 (unknown) (no date) (unknown) [place] [facility] unknown) Result panel 425 (unknown) (no (unknown) (unknown) (no value) (units (unk nown) date) unknown) (unknown) (no (unknown) (unknown) [id number] (units (unkno wn) date) unknown) (unknown) (no (unknown) (unknown) 01/06/22 (units (unkno wn) date) unknown) (unknown) (no (unknown) (unknown) [address] [place] [address] (units (unknown) date) unknown) (unknown) (no (unknown) (unknown) Accession Number: (units (unknown) date) [id number] unknown) (unknown) (no (unknown) (unknown) Age/Sex: 21 / F (units (unknown) date) Date of Service: unknown) (unknown) (no (unknown) (unknown) [place] (units ( unknown) date) [id number] unknown) (unknown) (no (unknown) (unknown) Approved by: Megha (units (unknown) date) Marbella Oneil on unknown) 01/06/2022 at 13:47 (unknown) (no (unknown) (unknown) Bones and chest (units (unknown) date) wall: No unknown) suspicious bony lesions. Overlying soft tissues (unknown) (no (unknown) (unknown) COMPARISON: (units (un known) date) [facility], unknown) CR, XR CHEST 1V, 07/28/2021, 13:34. (unknown) (no (unknown) (unknown) : 2000 (units (unknown) date) Acct:[id number] unknown) (unknown) (no (unknown) (unknown) Dictated by: Megha (units (unknown) date) Marbella Oneil on unknown) 01/06/2022 at 13:47 (unknown) (no (unknown) (unknown) FINDINGS: (units (unkn own) date) unknown) (unknown) (no (unknown) (unknown) IMPRESSION: No (units (unknown) date) acute unknown) cardiopulmonary findings. (unknown) (no (unknown) (unknown) INDICATIONS: (units (u nknown) date) chest pain unknown) (unknown) (no (unknown) (unknown) [facility] (units (unknown) date) unknown) (unknown) (no [...] nown) date) unknown) (unknown) (no (unknown) (unknown) [id number] (units (unkno wn) date) unknown) (unknown) (no (unknown) (unknown) 01/06/22 (units (unkno wn) date) unknown) (unknown) (no (unknown) (unknown) [address] [place] [address] (units (unknown) date) unknown) (unknown) (no (unknown) (unknown) Accession Number: (units (unknown) date) [id number] unknown) (unknown) (no (unknown) (unknown) Age/Sex: 21 / F (units (unknown) date) Date of Service: unknown) (unknown) (no (unknown) (unknown) [place], [place] (units ( unknown) date) [id number] unknown) (unknown) (no (unknown) (unknown) Approved by: (units (u nknown) date) Tommy Hairston, unknown) Marbella on 01/06/2022 at 12:32 (unknown) (no (unknown) (unknown) COMPARISON: (units (un known) date) [facility], unknown) CT, CT ABDOMEN PELVIS W CON, 02/08/2021, 22:36. (unknown) (no (unknown) (unknown) : 2000 (units (unknown) date) Acct:[id number] unknown) (unknown) (no (unknown) (unknown) Dictated by: [...] pain, rickie? 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 (unknown) (no (unknown) (unknown) PROCEDURE: US (units [...] (unkno wn) date) (unknown) (no (unknown) (unknown) [id number] (units (unkno wn) date) unknown) (unknown) (no [...] (unknown) (unknown) : 2000 (units (unknown) date) Acct:[id number] unknown) (unknown) (no (unknown) (unknown) Date of [...] Physician: (units ( unknown) date) EusebiowLeesa unknown) LOOM CHANGEOVER OPERATOR (unknown) (no (unknown) (unknown) Emergency Report (units [...] date) Signs: unknown) (unknown) (no (unknown) (unknown) [facility] (units (unknown) date) [address] unknown) [place] [address] (unknown) (no (unknown) (unknown) Limitations: no (units [...] (unknown) (unknown) Patient: (units (unkno wn) date) RezaJenny Curtis unknown) MR#: [id number] (unknown) (no (unknown) [...] or wheezing) Qty: (unknown) (no (unknown) (unknown) [id number] (units (unkno wn) date) unknown) (unknown) (no [...] (unknown) (unknown) : 2000 (units (unknown) date) Acct:[id number] unknown) (unknown) (no (unknown) (unknown) Date of [...] (units ( unknown) date) Leesa Gonzales unknown) LOOM CHANGEOVER OPERATOR (unknown) (no (unknown) (unknown) Emergency Report (units [...] date) Signs: unknown) (unknown) (no (unknown) (unknown) [facility] (units (unknown) date) [address] unknown) [place] [address] (unknown) (no (unknown) (unknown) Limitations: no (units [...] 13:00 by Leesa Gonzales [facility]) (unknown) (no (unknown) (unknown) Medication (units [...] (unknown) (unknown) Patient: (units (unkno wn) date) RezaJenny E unknown) MR#: [id number] (unknown) (no (unknown) [...] provider is (units (unknown) date) Cristiano in [place]. unknown) Patient states that her periods have [...] or wheezing) Qty: (unknown) (no (unknown) (unknown) 110250 (units (unkno wn) date) unknown) (unknown) (no [...] (unknown) (unknown) : 2000 (units (unknown) date) Acct:[id number] unknown) (unknown) (no (unknown) (unknown) Date of [...] Physician: (units ( unknown) date) CrewLeesa unknown) LOOM CHANGEOVER OPERATOR (unknown) (no (unknown) (unknown) Emergency Report (units [...] date) Signs: unknown) (unknown) (no (unknown) (unknown) [facility] (units (unknown) date) [address] unknown) [place] [address] (unknown) (no (unknown) (unknown) Ketorolac (units (unkn [...] (unknown) Lymph # (Auto) (units (unknown) date) (1020-0069) /uL unknown) (unknown) (no (unknown) (unknown) Lymph # (Auto) (units (unknown) date) 2200 (9591-3765) unknown) /uL (unknown) (no (unknown) (unknown) Lymph [...] (Reviewed 01/06/22 unknown) @ 13:00 by Leesa oGnzales [facility]) (unknown) (no (unknown) (unknown) Medication (units (unk nown) date) Instructions unknown) Recorded (unknown) (no (unknown) (unknown) Mode of arrival: (units (unknown) date) Ambulatory unknown) (unknown) (no (unknown) (unknown) [place] # (Auto) (units ( unknown) date) (0-900) /uL unknown) (unknown) (no (unknown) (unknown) [place] # (Auto) 500 (units (unknown) date) (0-900) /uL unknown) (unknown) (no (unknown) (unknown) [place] % (Auto) (units ( unknown) date) (3-14) % unknown) (unknown) (no (unknown) (unknown) [place] % (Auto) 5.0 (units (unknown) date) (3-14) [...] Neut # (Auto) (units ( unknown) date) (4945-8210) /uL unknown) (unknown) (no (unknown) (unknown) Neut # (Auto) (units ( unknown) date) 6600 (0470-9623) unknown) /uL (unknown) (no (unknown) (unknown) Neut [...] provider is (units (unknown) date) Cristiano in [place]. unknown) Patient states that her periods have [...] a primary unknown) care provider please contact [phone] to (unknown) (no (unknown) (unknown) *Please continue [...] wn) date) unknown) (unknown) (no (unknown) (unknown) [id number] (units (unkno wn) date) unknown) (unknown) (no [...] (unknown) (unknown) COMPARISON:? (units (u nknown) date) [facility], unknown) CR, XR CHEST 1V, 07/28/2021, 13:34. (unknown) (no (unknown) (unknown) COMPARISON:? (units (u nknown) date) [facility], unknown) CT, CT ABDOMEN PELVIS W CON, [...] (unknown) (unknown) : 2000 (units (unknown) date) Acct:[id number] unknown) (unknown) (no (unknown) (unknown) Date of [...] Physician: (units ( unknown) date) EusebiowLeesa unknown) LOOM CHANGEOVER OPERATOR (unknown) (no (unknown) (unknown) ER return (units [...] wn) date) unknown) (unknown) (no (unknown) (unknown) [place]] (units (o wn) date) unknown) (unknown) (no [...] -- Overview, GERD (unknown) (no (unknown) (unknown) [facility] (units (unknown) date) [address] [place] [address] unknown) [place] [address] (unknown) (no (unknown) (unknown) Ketorolac (units (unkn [...] (unknown) Lymph # (Auto) (units (unknown) date) (9118-4670) /uL unknown) (unknown) (no (unknown) (unknown) Lymph # (Auto) (units (unknown) date) 2200 (6762-7127) unknown) /uL (unknown) (no (unknown) (unknown) Lymph [...] 14:17 by Leesa Gonzales [facility]) (unknown) (no (unknown) (unknown) Medical decision [...] date) Ambulatory unknown) (unknown) (no (unknown) (unknown) [place] # (Auto) (units ( unknown) date) (0-900) /uL unknown) (unknown) (no (unknown) (unknown) [place] # (Auto) 500 (units (unknown) date) (0-900) /uL unknown) (unknown) (no (unknown) (unknown) [place] % (Auto) (units ( unknown) date) (3-14) % unknown) (unknown) (no (unknown) (unknown) [place] % (Auto) 5.0 (units (unknown) date) (3-14) [...] Neut # (Auto) (units ( unknown) date) (6954-1816) /uL unknown) (unknown) (no (unknown) (unknown) Neut # (Auto) (units ( unknown) date) 6600 (3892-3098) unknown) /uL (unknown) (no (unknown) (unknown) Neut [...] 13:00 by Leesa Gonzales [facility]) (unknown) (no (unknown) (unknown) Sodium (137-145) [...] (Reviewed 01/06/22 unknown) @ 13:00 [facility] (unknown) (no (unknown) (unknown) Surgical changes [...] (unknown) (unknown) Urine Specific (units (unknown) date) [place] 1.015 unknown) (unknown) (no (unknown) (unknown) Urine [...] prescriptions sent to your pharmacy: [ [facility] (unknown) (no (unknown) (unknown) [Embedded Image (units [...] (unknown) date) with one of the unknown) [facility] primary care providers. (unknown) (no (unknown) (unknown) [...] provider is (units (unknown) date) Cristiano in [place]. unknown) Patient states that her periods have [...] Leesa HUDSONP Crew> (unknown) (no (unknown) (unknown) <Electronically (units (unknown) date) signed by Manjit amaya) April Dale> (unknown) (no (unknown) (unknown) <Leesa Gonzales, (units (unknown) date) [facility] - Last Filed: unknown) 01/06/22 14:28> (unknown) (no (unknown) (unknown) <Manjit Dale, (units (unknown) date) DO - Last Filed: unknown) 01/06/22 14:34> (unknown) (no (unknown) (unknown) (Zofran) (units (unkno wn) date) unknown) (unknown) (no (unknown) (unknown) *If you do not (units (unknown) date) have a primary unknown) care provider please contact [phone] to (unknown) (no (unknown) (unknown) *Please continue [...] wn) date) unknown) (unknown) (no (unknown) (unknown) [id number] (units (unkno wn) date) unknown) (unknown) (no [...] (unknown) (unknown) COMPARISON:? (units (u nknown) date) [facility], unknown) CR, XR CHEST 1V, 07/28/2021, 13:34. (unknown) (no (unknown) (unknown) COMPARISON:? (units (u nknown) date) [facility], unknown) CT, CT ABDOMEN PELVIS W CON, [...] (unknown) (unknown) : 2000 (units (unknown) date) Acct:[id number] unknown) (unknown) (no (unknown) (unknown) Date of [...] (units ( unknown) date) Leesa Gonzales unknown) LOOM CHANGEOVER OPERATOR (unknown) (no (unknown) (unknown) ER return (units [...] wn) date) unknown) (unknown) (no (unknown) (unknown) [place]] (units (unkno wn) date) unknown) (unknown) (no [...] -- Overview, GERD (unknown) (no (unknown) (unknown) [facility] (units (unknown) date) [address] unknown) [place] [address] (unknown) (no (unknown) (unknown) Ketorolac (units (unkn [...] (unknown) Lymph # (Auto) (units (unknown) date) (7507-2936) /uL unknown) (unknown) (no (unknown) (unknown) Lymph # (Auto) (units (unknown) date) 2200 (1038-0228) unknown) /uL (unknown) (no (unknown) (unknown) Lymph [...] 14:17 by Leesa Gonzales [facility]) (unknown) (no (unknown) (unknown) Medical decision [...] date) Ambulatory unknown) (unknown) (no (unknown) (unknown) [place] # (Auto) (units ( unknown) date) (0-900) /uL unknown) (unknown) (no (unknown) (unknown) [place] # (Auto) 500 (units (unknown) date) (0-900) /uL unknown) (unknown) (no (unknown) (unknown) [place] % (Auto) (units ( unknown) date) (3-14) % unknown) (unknown) (no (unknown) (unknown) [place] % (Auto) 5.0 (units (unknown) date) (3-14) [...] Neut # (Auto) (units ( unknown) date) (7512-1700) /uL unknown) (unknown) (no (unknown) (unknown) Neut # (Auto) (units ( unknown) date) 6600 (0679-7058) unknown) /uL (unknown) (no (unknown) (unknown) Neut [...] (unknown) (unknown) Urine Specific (units (unknown) date) [place] 1.015 unknown) (unknown) (no (unknown) (unknown) Urine [...] prescriptions sent to your pharmacy: [ [facility] (unknown) (no (unknown) (unknown) [Embedded Image (units [...] (unknown) date) with one of the unknown) [facility] primary care providers. (unknown) (no (unknown) (unknown) [...] provider is (units (unknown) date) Cristiano in [place]. unknown) Patient states that her periods have [...] nown) date) unknown) (unknown) (no (unknown) (unknown) [id number] (units (unkno wn) date) unknown) (unknown) (no (unknown) (unknown) 1. No acute (units (un known) date) cardiopulmonary unknown) disease. (unknown) (no (unknown) (unknown) 01/11/22 (units (unkno wn) date) unknown) (unknown) (no (unknown) (unknown) [address] [place] [address] (units (unknown) date) unknown) (unknown) (no (unknown) (unknown) Accession Number: (units (unknown) date) [id number] unknown) (unknown) (no (unknown) (unknown) Age/Sex: 21 / F (units (unknown) date) Date of Service: unknown) (unknown) (no (unknown) (unknown) [place], [place] (units ( unknown) date) [id number] unknown) (unknown) (no (unknown) (unknown) Approved by: (units (u nknown) date) Michael Gonzalez unknownJomar Tyson on 01/12/2022 at 1:20 (unknown) (no (unknown) (unknown) Bones and chest (units (unknown) date) wall: No unknown) suspicious bony lesions. Overlying soft tissues (unknown) (no (unknown) (unknown) COMPARISON: (units (un known) date) [facility], unknown) CR, XR CHEST 1V, 01/06/2022, 13:18. (unknown) (no (unknown) (unknown) : 2000 (units (unknown) date) Acct:[id number] unknown) (unknown) (no (unknown) (unknown) Dictated by: (units (u nknown) date) александр Correia M.D. on 01/12/2022 at 1:20 (unknown) (no (unknown) (unknown) FINDINGS: (units (unkn own) date) unknown) (unknown) (no (unknown) (unknown) IMPRESSION: (units (un known) date) unknown) (unknown) (no (unknown) (unknown) INDICATIONS: (units (u nknown) date) suspected sepsis unknown) (unknown) (no (unknown) (unknown) [facility] (units (unknown) date) unknown) (unknown) (no [...] date description facility 2022-01-06 00:00 Ex-smoker (finding) [facility] 2022-01-11 00:00 Ex-smoker (finding) [facility] Vital Signs date measurement value units 2022-01-06 [...]
--- NOTE | 2022-03-20 11:47 | XRAY Report ---
PROCEDURE: Chest 2 View X-Ray INDICATIONS: cough with shortness of breath TECHNIQUE: 2 views of the chest were acquired. COMPARISON: 01/03/2022, 08/31/2021 FINDINGS: Surgical changes and devices: None. Lungs and pleura: No pleural effusions or pneumothorax. Lungs are clear. Mediastinum: Mediastinal contours are normal. Heart size is normal. Bones and chest wall: No suspicious bony abnormalities. Soft tissues appear unremarkable. IMPRESSION: Normal chest. No infiltrates. Reviewed by: Tommy Hairston MD on 03/20/2022 10:45 AM [facility] Approved by: Tommy Hairston MD on 03/20/2022 10:45 AM [facility] Station ID: [id number]
[2022-03-20 13:51] LABS: B. PARAPERTUSSIS- RESP PCR PAN NOT DETECTED; B. PERTUSSIS- RESP PCR PANEL NOT DETECTED; C. PNEUMONIAE- RESP PCR PANEL NOT DETECTED; CORONAVIRUS 229E-RESP PCR NOT DETECTED; CORONAVIRUS HKU1-RESP PCR NOT DETECTED; CORONAVIRUS NL63-RESP PCR NOT DETECTED; CORONAVIRUS OC43-RESP PCR NOT DETECTED; HUMAN METAPNEUMOVIRUS DETECTED; INFLUENZA A- RESP PCR PANEL NOT DETECTED; INFLUENZA B - RESP PCR PANEL NOT DETECTED; M. PNEUMONIAE- RESP PCR PANEL NOT DETECTED; PARAINFLUENZA VIRUS 1 NOT DETECTED; PARAINFLUENZA VIRUS 2 NOT DETECTED; PARAINFLUENZA VIRUS 3 NOT DETECTED; PARAINFLUENZA VIRUS 4 NOT DETECTED; RHINOVIRUS/ENTEROVIRUS NOT DETECTED; RSV- RESP PCR PANEL NOT DETECTED; SARS-CoV-2 -RESP PCR PANEL NOT DETECTED
--- NOTE | 2022-03-20 14:14 | ED Physician Documentation ---
History of Present Illness - Stated complaint Stated Complaint: BLOOD ON MUCUS - Chief complaint Chief Complaint: Resp - History obtained from History obtained from: Patient - History of Present Illness Timing: Today Pain level max: 0 Pain level now: 0 - Additonal information Additional information: Patient is a 21-year-old female who presents to the emergency department with a cough, congestion for the past several days. She states that today she noticed blood in her sputum. Came in for evaluation for potential pneumonia. Denies any possibility of . She is also out of her albuterol and requesting a refill. No fevers. Review of Systems Constitutional: denies: Fever, Chills GI: denies: Vomiting, Diarrhea Skin: denies: Rash Musculoskeletal: denies: Neck pain, Back pain Neurologic: denies: Headache PD PAST MEDICAL HISTORY - Past Medical History Cardiovascular: None Respiratory: Asthma Neuro: None Psych: Anxiety - Past Surgical History Past Surgical History: No - Present Medications Home Medications: Ambulatory Orders Medication Instructions Recorded Confirmed Albuterol Sulfate [Proair Hfa 1 - 2 puffs INH Q4H PRN 07/06/21 02/17/22 Inhaler] Ibuprofen [Motrin] 800 mg PO DAILY 07/11/21 02/17/22 Albuterol Sulf [Ventolin Hfa 1 - 2 puffs INH Q4HR PRN #1 each 03/20/22 Inhaler] Benzonatate [Tessalon] 200 mg PO TID PRN #30 cap 03/20/22 Cetirizine HCl/Pseudoephedrine 1 each PO BID PRN #30 tab 03/20/22 [Zyrtec-D Tablet] - Allergies Allergies/Adverse Reactions: Allergies Allergy/AdvReac Type Severity Reaction Status Date / Time Penicillins Allergy Respiratory Verified 03/20/22 11:12 - Social History Does the pt smoke?: No Smoking Status: Former smoker Does the pt drink ETOH?: No Does the pt have substance abuse?: No - Immunizations Immunizations are current?: Yes - POLST Patient has POLST: No PD ED PE NORMAL - Vitals Vital signs reviewed: Yes - General General: Alert and oriented X 3, No acute distress, Well developed/nourished - HEENT HEENT: PERRL, Ears normal, Moist mucous membranes, Pharynx benign - Neck Neck: Supple, no meningeal sign - Cardiac Cardiac: RRR, Strong equal pulses - Respiratory Respiratory: No respiratory distress, Clear bilaterally - Abdomen Abdomen: Soft, Non tender, Non distended - Derm Derm: Warm and dry - Extremities Extremities: No edema - Neuro Neuro: Alert and oriented X 3 - Psych Psych: Normal mood, Normal affect Results - Vitals Vitals: Vital Signs - 24 hr 03/20/22 11:08 Temperature 36.9 C Heart Rate 100 Respiratory 18 Rate Blood Pressure 150/97 H O2 Saturation 100 Oxygen O2 Source Room air - Labs Labs: Laboratory Tests 03/20/22 11:14 Nasal Adenovirus (PCR) NOT DETECTED Nasal B. parapertussis DNA (PCR) NOT DETECTED Nasal Coronavir 229E PCR NOT DETECTED Nasal Coronavir HKU1 PCR NOT DETECTED Nasal Coronavir NL63 PCR NOT DETECTED Nasal Coronavir OC43 PCR NOT DETECTED Nasal Enterovir/Rhinovir PCR NOT DETECTED Nasal Influenza B PCR NOT DETECTED Nasal Influenza A PCR NOT DETECTED Nasal Parainfluen 1 PCR NOT DETECTED Nasal Parainfluen 2 PCR NOT DETECTED Nasal Parainfluen 3 PCR NOT DETECTED Nasal Parainfluen 4 PCR NOT DETECTED Nasal RSV (PCR) NOT DETECTED Nasal B.pertussis DNA PCR NOT DETECTED Nasal C.pneumoniae (PCR) NOT DETECTED Rufus Human Metapneumo PCR DETECTED A Nasal M.pneumoniae (PCR) NOT DETECTED Nasal SARS-CoV-2 (PCR) NOT DETECTED - Rads (name of study) cxr Radiology: Final report received, See rad report PD Medical Decision Making - ED course Complexity details: reviewed results, re-evaluated patient, considered differential, d/w patient ED course: Chest x-ray does not show any acute abnormalities. Respiratory PCR is positive for human metapneumovirus. We will treat as a viral illness. Will place on decongestants, cough medication and refill her albuterol. Patient is very well- appearing, nontoxic. Afebrile. No hypoxia. No respiratory distress. Patient counseled regarding signs and symptoms for which I believe and urgent re- evaluation would be necessary. Patient with good understanding of and agreement to plan and is comfortable going home at this time This document was made in part using voice recognition software. While efforts are made to proofread this document, sound alike and grammatical errors may occur. Departure - Departure Disposition: 01 Home, Self Care Clinical Impression: Viral URI, Hemoptysis Condition: Good Instructions: ED Viral Syndrome Follow-Up: Almaz Quinonez PA [Primary Care Provider] - Prescriptions: Albuterol Sulf [Ventolin Hfa Inhaler] 1 - 2 puffs INH Q4HR PRN #1 each PRN Reason: Shortness Of Air/Wheezing Benzonatate [Tessalon] 200 mg PO TID PRN #30 cap PRN Reason: Cough Cetirizine HCl/Pseudoephedrine [Zyrtec-D Tablet] 1 each PO BID PRN #30 tab PRN Reason: nasal congestion Comments: Your prescription was sent to [facility] in [place]. Please follow-up with your doctor for further care. Please return if you worsen. Your respiratory panel is positive for human metapneumovirus. This is a viral illness that will resolve on its own. Your chest x-ray does not show any significant abnormalities.
== END 2022-03-20 14:28 | disposition home or self-care (01) ==
LOC: ED 10:48
DX: J06.9 Acute upper respiratory infection, unspecified (principal); B97.81 Human metapneumovirus as the cause of diseases classified elsewhere; J45.909 Unspecified asthma, uncomplicated; Z20.822 Contact with and (suspected) exposure to COVID-19; Z87.891 Personal history of nicotine dependence
CPT/HCPCS: 87633; 99283; 99284

== ENCOUNTER 2022-08-19 15:07 | Emergency (ER) | payer MEDICAID ==
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
--- OUTSIDE RECORDS SUMMARY | 2022-08-19 15:58 | EXTERNAL MEDICAL SUMMARY RPT | Continuity of Care Document ---
Author Name Unknown Address [address] [place] [address] Phone Organization [facility] Address [address] [place] [address] Phone Care Team Providers Care Scout Leaser Name Role Phone Bongwill Pat Unavailable Unavailable Manjit Dale Unavailable Unavailable Allergies and Intolerances date description facility [facility] Medications date description facility 2022-05-26 00:00 [facility] 2022-05-26 00:00 [facility] Problems date description facility 2022-05-26 00:00 [facility] 2022-05-26 00:00 [facility] 2022-05-26 00:00 [facility] 2022-05-26 00:00 [facility] 2022-08-18 00:00 Patient left without being seen [facility] Procedures date description facility 2022-05-26 00:00 Computed tomography of head or brain without contrast [facility] 2022-05-26 00:00 Computed tomography of head or brain without contrast [facility] 2022-05-26 00:00 [facility]-ray of chest, [facility] 2022-05-26 00:00 X-ray of chest, single [facility] Results/Labs test date facility value unit notes Social History date description facility 2022-05-26 00:00 Ex-smoker (finding) [facility] 2022-08-18 00:00 Smokes tobacco daily (finding) [facility] Vital Signs date measurement value units 2022-05-26 00:00 BMI 40.3 kg/m2 2022-05-26 00:00 BP_diastolic 69 mmHg 2022-05-26 00:00 BP_systolic 122 mmHg 2022-05-26 00:00 heart_rate 79 /min 2022-05-26 00:00 height_metric 167.64 cm 2022-05-26 00:00 height_standard 66 in 2022-05-26 00:00 o2_saturation 98 % 2022-05-26 00:00 respiration_rate 15 /min 2022-05-26 00:00 temperature_metric 37 C 2022-05-26 00:00 temperature_standard 98.6 F 2022-05-26 00:00 weight_metric 113.39 kg 2022-05-26 00:00 weight_standard 249.98 lb 2022-08-18 00:00 BMI 41.9 kg/m2 2022-08-18 00:00 BP_diastolic 99 mmHg 2022-08-18 00:00 BP_systolic 162 mmHg 2022-08-18 00:00 heart_rate 92 /min 2022-08-18 00:00 height_metric 167.64 cm 2022-08-18 00:00 height_standard 66 in 2022-08-18 00:00 o2_saturation 97 % 2022-08-18 00:00 respiration_rate 15 /min 2022-08-18 00:00 temperature_metric 37.06 C 2022-08-18 00:00 temperature_standard 98.7 F 2022-08-18 00:00 weight_metric 117.93 kg 2022-08-18 00:00 weight_standard 259.99 lb
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
[2022-08-19 16:51] VITALS: BP 156/98
== END 2022-08-19 16:47 | disposition home or self-care (01) ==
LOC: ED 15:07
DX: S97.82XA Crushing injury of left foot, initial encounter (principal); Y03.0XXA Assault by being hit or run over by motor vehicle, initial encounter; Y93.89 Activity, other specified; Y92.481 Parking lot as the place of occurrence of the external cause; Z87.891 Personal history of nicotine dependence
CPT/HCPCS: 99283

== ENCOUNTER 2022-12-27 14:38 | Emergency (ER) | payer MEDICAID ==
--- NOTE | 2022-12-27 15:07 | ED Physician Documentation ---
History of Present Illness - Stated complaint Stated Complaint: SOA,HEAD PRESSURE,LIGHTHEADED - Chief complaint Chief Complaint: General - History obtained from History obtained from: Patient - Additonal information Additional information: 22-year-old female who has a history of hypertension presents with generalized weakness, feeling tired and intermittently short of breath over the course of the last several weeks to months. She also has had several periods of presyncope and had a presyncopal episode today. She dizzy shaky and that perhaps her blood sugar is low as she has had hypoglycemia in the past. She for like she was going to pass out and "took all that I could" to get into the ER. She states she is also had some viral URI type symptoms of the last several days and a mild cough congestion, and diarrhea. Diarrhea has been nonbloody, she has about 3 episodes a day, soft stools, and this has been going on for weeks or months. She states she does believe she may have a dairy intolerance.. She has not had a fever to her knowledge, no vomiting, no dysuria urgency or frequency. She denies any chance of . She has not followed up with her PCP for this issue. Patient does smoke cigarettes, no alcohol or drug use. She is not on any chronic medications. Family member states that a number of people have had viral URI type symptoms in the household recently and they would like her tested for "cold viruses." Review of Systems Constitutional: reports: Fatigue. denies: Fever, Chills, Weight Loss, Sweats Eyes: reports: Reviewed and negative Ears: reports: Reviewed and negative Nose: reports: Rhinorrhea / runny nose, Congestion. denies: Sinus pressure / pain Throat: reports: Reviewed and negative Cardiac: reports: Reviewed and negative Respiratory: reports: Dyspnea. denies: Cough, Hemoptysis, Wheezing GI: reports: Diarrhea, Hematemesis, Bloody / black stool. denies: Abdominal Pain, Nausea, Vomiting, Constipation : reports: Reviewed and negative Musculoskeletal: reports: Reviewed and negative Neurologic: reports: Generalized weakness, Near syncope. denies: Focal weakness, Numbness, Difficulty speaking, Syncope, Seizure, Confused, Altered mental status, Unresponsive, Headache, Head injury, LOC Psychiatric: reports: Reviewed and negative Endocrine: reports: Reviewed and negative PD PAST MEDICAL HISTORY - Past Medical History Past Medical History: Yes Cardiovascular: None Respiratory: Asthma Neuro: None Psych: Anxiety - Past Surgical History Past Surgical History: No - Present Medications Home Medications: Ambulatory Orders Medication Instructions Recorded Confirmed Albuterol Sulfate [Proair Hfa 1 - 2 puffs INH Q4H PRN 07/06/21 12/27/22 Inhaler] Ibuprofen [Motrin] 800 mg PO DAILY 07/11/21 12/27/22 - Allergies Allergies/Adverse Reactions: Allergies Allergy/AdvReac Type Severity Reaction Status Date / Time Penicillins Allergy Respiratory Verified 12/27/22 14:41 - Social History Does the pt smoke?: No Smoking Status: Never smoker Does the pt drink ETOH?: No Does the pt have substance abuse?: No - Immunizations Immunizations are current?: Yes - POLST Patient has POLST: No PD ED PE NORMAL - Vitals Vital signs reviewed: Yes - General General: Alert and oriented X 3, No acute distress, Well developed/nourished - HEENT HEENT: Atraumatic, Moist mucous membranes, Pharynx benign - Neck Neck: Supple, no meningeal sign, No adenopathy - Cardiac Cardiac: RRR, No murmur - Respiratory Respiratory: No respiratory distress, Clear bilaterally - Abdomen Abdomen: Normal bowel sounds, Soft, Non tender, Non distended - Derm Derm: Normal color, Warm and dry, No rash - Extremities Extremities: No deformity, No tenderness to palpate, Normal ROM s pain, No edema, No calf tenderness / cord - Neuro Neuro: Alert and oriented X 3, shipping and receiving associate 2-12 intact, No motor deficit, No sensory deficit, Normal speech Eye Opening: Spontaneous Motor: Obeys Commands Verbal: Oriented GCS Score: 15 - Psych Psych: Normal mood, Normal affect Results - Vitals Vitals: Vital Signs - 24 hr 12/27/22 12/27/22 12/27/22 14:41 15:57 17:12 Temperature 36.5 C 36.1 C L Heart Rate 100 90 83 Respiratory 18 17 23 Rate Blood Pressure 164/99 H 150/100 H 132/87 H O2 Saturation 97 98 99 12/27/22 17:25 Temperature 36.8 C Heart Rate 81 Respiratory 13 Rate Blood Pressure 140/88 H O2 Saturation 100 Oxygen O2 Source Room air - EKG (time done) No standard instances EKG releavant findings:: EKG personally interpreted by author of this note. Relevant findings are: Rate: Rate (enter#) (77) Rhythm: NSR [place]: Normal Intervals: Normal AR QRS: Normal Ischemia: Normal ST segments Computer interpretation: Agree with computer - Labs Labs: Laboratory Tests 12/27/22 12/27/22 12/27/22 15:18 15:18 15:18 WBC 9.3 RBC 5.20 Hgb 14.3 Hct 42.9 MCV 82.5 MCH 27.5 MCHC 33.3 RDW 13.7 Plt Count 332 MPV 9.3 Neut # (Auto) 6.5 Lymph # (Auto) 2.0 Elk # (Auto) 0.5 Eos # (Auto) 0.2 Baso # (Auto) 0.1 Absolute Nucleated RBC 0.00 Nucleated RBC % 0.0 Sodium 138 Potassium 3.6 Chloride 106 Carbon Dioxide 27 Anion Gap 5.0 L BUN 8 Creatinine 1.3 Estimated GFR (MDRD) 52 L Glucose 96 Calcium 9.5 Total Bilirubin 0.3 AST 15 ALT 18 Alkaline Phosphatase 86 Troponin I High Sens 2.3 Total Protein 7.2 Albumin 4.4 Globulin 2.8 Albumin/Globulin Ratio 1.6 Lipase 50 TSH 1.24 Urine Color Urine Clarity Urine pH Ur Specific Ashley Urine Protein Urine Glucose (UA) Urine Ketones Urine Occult Blood Urine Nitrite Urine Bilirubin Urine Urobilinogen Ur Leukocyte Esterase Urine RBC Urine WBC Ur Squamous Epith Cells Urine Bacteria Ur Microscopic Review Urine Culture Comments Urine HCG, Qual Nasal Adenovirus (PCR) Nasal B. parapertussis DNA (PCR) Nasal Coronavir 229E PCR Nasal Coronavir HKU1 PCR Nasal Coronavir NL63 PCR Nasal Coronavir OC43 PCR Nasal Enterovir/Rhinovir PCR Nasal Influenza B PCR Nasal Influenza A PCR Nasal Parainfluen 1 PCR Nasal Parainfluen 2 PCR Nasal Parainfluen 3 PCR Nasal Parainfluen 4 PCR Nasal RSV (PCR) Nasal B.pertussis DNA PCR Nasal C.pneumoniae (PCR) Rufus Human Metapneumo PCR Nasal M.pneumoniae (PCR) Nasal SARS-CoV-2 (PCR) 12/27/22 12/27/22 15:40 17:00 WBC RBC Hgb Hct MCV MCH MCHC RDW Plt Count MPV Neut # (Auto) Lymph # (Auto) Elk # (Auto) Eos # (Auto) Baso # (Auto) Absolute Nucleated RBC Nucleated RBC % Sodium Potassium Chloride Carbon Dioxide Anion Gap BUN Creatinine Estimated GFR (MDRD) Glucose Calcium Total Bilirubin AST ALT Alkaline Phosphatase Troponin I High Sens Total Protein Albumin Globulin Albumin/Globulin Ratio Lipase TSH Urine Color RED/BLOODY Urine Clarity CLOUDY Urine pH 7.0 Ur Specific Ashley 1.010 Urine Protein TRACE Urine Glucose (UA) NEGATIVE Urine Ketones NEGATIVE Urine Occult Blood LARGE H Urine Nitrite NEGATIVE Urine Bilirubin NEGATIVE Urine Urobilinogen 0.2 (NORMAL) Ur Leukocyte Esterase TRACE H Urine RBC TNTC H Urine WBC 4-5 Ur Squamous Epith Cells FEW Squamous Urine Bacteria Few Ur Microscopic Review INDICATED Urine Culture Comments INDICATED Urine HCG, Qual NEGATIVE Nasal Adenovirus (PCR) NOT DETECTED Nasal B. parapertussis DNA (PCR) NOT DETECTED Nasal Coronavir 229E PCR NOT DETECTED Nasal Coronavir HKU1 PCR NOT DETECTED Nasal Coronavir NL63 PCR NOT DETECTED Nasal Coronavir OC43 PCR NOT DETECTED Nasal Enterovir/Rhinovir PCR NOT DETECTED Nasal Influenza B PCR NOT DETECTED Nasal Influenza A PCR NOT DETECTED Nasal Parainfluen 1 PCR NOT DETECTED Nasal Parainfluen 2 PCR NOT DETECTED Nasal Parainfluen 3 PCR NOT DETECTED Nasal Parainfluen 4 PCR NOT DETECTED Nasal RSV (PCR) NOT DETECTED Nasal B.pertussis DNA PCR NOT DETECTED Nasal C.pneumoniae (PCR) NOT DETECTED Rufus Human Metapneumo PCR NOT DETECTED Nasal M.pneumoniae (PCR) NOT DETECTED Nasal SARS-CoV-2 (PCR) NOT DETECTED PD Medical Decision Making - ED course Complexity details: reviewed results, re-evaluated patient, considered d ifferential, d/w patient ED course: 22-year-old female presents with multiple concerns including weakness, shortness of breath, diarrhea, and several presyncopal episodes over the last several months to more recently. On arrival here, the patient is well-appearing, no acute distress. Initially somewhat hypertensive though this improves on its own. She does remain above goal for her age and was current encouraged to follow-up with her primary doctor soon as possible for a visit and possible medical management of her hypertension. She has had several presyncopal ep isodes therefore I did obtain an EKG which shows no acute ischemic changes. Labs were also obtained is significant only for a decreased GFR at 50, creatinine is stable as is the rest of her CMP, and her CBC is reassuring. TSH wnl. Resp viral panel is negative. Urinalysis shows blood but no signs of infection patient is on her menses. I discussed these findings with the patient, encouraged her to follow-up with her PCP for management of her blood pressure and they may consider doing a Holter monitor or Zio patch to monitor these presyncopal episodes or refer her to cardiology. She does have a lower than normal GFR which is unexpected for her age and I have encouraged her to stay well-hydrated, and this should be rechecked within the next couple of weeks. Patient should avoid NSAIDs, and any other nephrotoxins I do not believe she needs hospitalization for this at this time but it should be followed closely as an outpatient. Patient was advised to get plenty of rest, and stay well-hydrated and to follow-up with PCP as soon as available for repeat labs and management of her hypertension. Departure - Departure Disposition: 01 Home, Self Care Clinical Impression: Viral syndrome, Pre-syncope Condition: Good Instructions: ED Near Syncope Unkn, ED Viral Syndrome Comments: Please follow-up with your primary care doctor to discuss your recurrent dizziness and near syncopal episodes. They may do a heart monitor or refer you for additional testing for this. Your work-up today however was reassuring Including a normal EKG. We do not have the results of your Viral panel yet but you can call in a few hours for results or check it on your online chart.Viral syndromes are often treated with rest, fluids, Tylenol and ibuprofen as needed and resolve on their own with time. Forms: PCP List Discharge Date/Time: 12/27/22 17:28
[2022-12-27 15:26] LABS: BASOPHILS # (AUTO) 0.1 10^3/uL (0.0-0.1); BASOPHILS % (AUTO) 0.8 %; EOSINOPHILS # (AUTO) 0.2 10^3/uL (0.0-0.7); EOSINOPHILS % (AUTO) 1.6 %; HCT - HEMATOCRIT 42.9 % (37.0-47.0); HGB - HEMOGLOBIN 14.3 g/dL (12.0-16.0); LYMPHOCYTES % (AUTO) 21.9 %; MEAN CORPUSCULAR HEMOGLOBIN 27.5 pg (27.0-31.0); MEAN CORPUSCULAR HGB CONC 33.3 g/dL (32.0-36.0); MEAN CORPUSCULAR VOLUME 82.5 fL (81.0-99.0); MEAN PLATELET VOLUME 9.3 fL (7.9-10.8); MONOCYTES # (AUTO) 0.5 10^3/uL (0.0-1.0); MONOCYTES % (AUTO) 5.6 %; NEUTROPHILS # (AUTO) 6.5 10^3/uL (1.5-6.6); NEUTROPHILS % (AUTO) 69.8 %; PLT - PLATELET COUNT 332 10^3/uL (130-450); RED CELL DISTRIBUTION WIDTH 13.7 % (12.0-15.0); WHITE BLOOD COUNT 9.3 x10^3/uL (4.8-10.8)
[2022-12-27 15:46] LABS: ALBUMIN 4.4 g/dL (3.2-5.5); ALBUMIN/GLOBULIN RATIO 1.6 (1.0-2.2); BILIRUBIN,TOTAL 0.3 mg/dL (0.2-1.0); CALCIUM 9.5 mg/dL (8.5-10.3); CREATININE 1.3 mg/dL (0.6-1.3); POTASSIUM 3.6 mmol/L (3.5-4.5); TOTAL PROTEIN 7.2 g/dL (6.4-8.9)
[2022-12-27 16:07] LABS: BILIRUBIN,URINE NEGATIVE (NEGATIVE); GLUCOSE, URINE (UA) NEGATIVE (NEGATIVE); KETONES,URINE (UA) NEGATIVE (NEGATIVE); LEUKOCYTE ESTERASE, URINE TRACE (NEGATIVE); NITRITE,URINE NEGATIVE (NEGATIVE); OCCULT BLOOD,URINE LARGE (NEGATIVE); PROTEIN,URINE TRACE mg/dL (NEGATIVE); UROBILINOGEN,URINE 0.2 (NORMAL) E.U./dL (NORMAL)
[2022-12-27 16:10] LABS: CLARITY,URINE CLOUDY (CLEAR); HCG UR QUAL NEGATIVE
[2022-12-27 16:26] LABS: BACTERIA,URINE Few /HPF (None Seen); RBC,URINE TNTC /HPF (0-5); SQUAMOUS EPITHELIAL CELL,UR FEW Squamous (<= Few)
[2022-12-27 17:06] LABS: TROPONIN I HIGH SENSITIVITY 2.3 ng/L (2.3-14.8)
[2022-12-27 17:14] LABS: THYROID STIMULATING HORMONE 1.24 uIU/mL (0.34-5.60)
[2022-12-27 17:30] VITALS: BP 140/88; O2SAT 100
[2022-12-27 18:13] LABS: B. PARAPERTUSSIS- RESP PCR PAN NOT DETECTED; B. PERTUSSIS- RESP PCR PANEL NOT DETECTED; C. PNEUMONIAE- RESP PCR PANEL NOT DETECTED; CORONAVIRUS 229E-RESP PCR NOT DETECTED; CORONAVIRUS HKU1-RESP PCR NOT DETECTED; CORONAVIRUS NL63-RESP PCR NOT DETECTED; CORONAVIRUS OC43-RESP PCR NOT DETECTED; HUMAN METAPNEUMOVIRUS NOT DETECTED; INFLUENZA A- RESP PCR PANEL NOT DETECTED; INFLUENZA B - RESP PCR PANEL NOT DETECTED; M. PNEUMONIAE- RESP PCR PANEL NOT DETECTED; PARAINFLUENZA VIRUS 1 NOT DETECTED; PARAINFLUENZA VIRUS 2 NOT DETECTED; PARAINFLUENZA VIRUS 3 NOT DETECTED; PARAINFLUENZA VIRUS 4 NOT DETECTED; RHINOVIRUS/ENTEROVIRUS NOT DETECTED; RSV- RESP PCR PANEL NOT DETECTED; SARS-CoV-2 -RESP PCR PANEL NOT DETECTED
== END 2022-12-27 17:28 | disposition home or self-care (01) ==
LOC: ED 14:38
DX: B34.9 Viral infection, unspecified (principal); R55 Syncope and collapse; R94.4 Abnormal results of kidney function studies; R03.0 Elevated blood-pressure reading, without diagnosis of hypertension; F17.200 Nicotine dependence, unspecified, uncomplicated; Z20.822 Contact with and (suspected) exposure to COVID-19
CPT/HCPCS: 36415; 80053; 81001; 81003; 81025; 83690; 84443; 84484; 85025; 87086; 87633; 93005; 99283

== ENCOUNTER 2023-01-12 15:16 | Outpatient (CLI) | payer MEDICAID ==
[2023-01-12 17:52] LABS: CALCIUM 9.7 mg/dL (8.5-10.3); CREATININE 0.8 mg/dL (0.6-1.3); POTASSIUM 3.4 mmol/L (3.5-4.5)
[2023-01-12 18:05] LABS: BILIRUBIN,URINE NEGATIVE (NEGATIVE); GLUCOSE, URINE (UA) NEGATIVE (NEGATIVE); KETONES,URINE (UA) NEGATIVE (NEGATIVE); LEUKOCYTE ESTERASE, URINE NEGATIVE (NEGATIVE); NITRITE,URINE NEGATIVE (NEGATIVE); OCCULT BLOOD,URINE NEGATIVE (NEGATIVE); PROTEIN,URINE NEGATIVE (NEGATIVE); UROBILINOGEN,URINE 0.2 (NORMAL) E.U./dL (NORMAL)
[2023-01-12 18:07] LABS: CLARITY,URINE CLEAR (CLEAR); WBC,URINE 0-3 /HPF (0-5)
[2023-01-12 18:08] LABS: BACTERIA,URINE Few /HPF (None Seen); RBC,URINE 0-5 /HPF (0-5); SQUAMOUS EPITHELIAL CELL,UR FEW Squamous (<= Few)
== END 2023-01-12 15:17 | disposition home or self-care (01) ==
LOC: LAB.N 15:16
PROVIDERS: ATTEND Physician Assistant
DX: N28.9 Disorder of kidney and ureter, unspecified (principal)
CPT/HCPCS: 36415; 80048; 81001; 87086

== ENCOUNTER 2023-01-19 09:53 | Outpatient (CLI) | payer MEDICAID ==
--- NOTE | 2023-01-19 10:42 | Sleep Patient Instructions ---
Sleep Center Visit Summary - Patient Visit Information Reason for Visit: Initial consult for evaluation of sleep disordered breathing and other sleep issues. - Patient Instructions Instructions Attached: Sleep Study Home Monitor, Sleep Study Additional Instructions: You will be completing a sleep study, either an in-lab polysomnography (PSG) or home sleep study (HST). You will follow-up in the sleep care office after the sleep study is completed to hear the results and talk about therapy, if needed. You will be called by our office staff to schedule this appointment, but you may contact us with any questions. - Clinic Information Contact: [facility] [address] [place] [id number] [email or web address] T: [phone]
--- NOTE | 2023-01-19 10:48 | SLEEP CARE CONSULTATION ---
Information from patient questionnaire entered by Vivienne Slater. I have reviewed and concur with the information entered by Vivienne Slater. This document represents the service I personally performed and the decisions made by me, Marietta Jeff ARNP. History of Present Illness Service Date and Time: 01/19/2023 0953 Reason for Visit: New patient Chief Complaint: reports: Snoring, Excessive daytime sleepiness, Observed pauses in breathing, Fatigue, Frequent awakenings at night Date of Onset: COUPLE WEEKS Usual bedtime: 9-11PM Time it takes to fall asleep: 20-60 MINS DEPENDS Snores at night: Yes Observed to quit breathing while asleep: No Sleeps alone due to snoring: No Number of times waking at night: 4-9 Reasons for waking at night: reports: Gasping for air, Pain, Bathroom, Other (NOISE). denies: Choking Toss, Turn, or Twitch while sleeping: Yes Recalls having dreams: Yes (scary dreams/falling dreams) Usually gets out of bed at: 7-9AM Feels refreshed in the morning: Yes (sometimes; other times she is still tired) Morning headache: Yes (almost daily; last couple hours to all day) Sleepy or fatigued during the day: Yes Ever fallen asleep while driving: No Takes day naps: Yes (1 time a week on day off, 1-2 hours) Dreams during day naps: No Prior sleep studies: No Additional HPI information: I had the pleasure of seeing JENNY COLES today regarding the possibility of her having a sleep disorder. Her current complaints are excessive daytime sleepiness, fatigue, frequent night awakenings, observed pauses in breathing and snoring. She has hypoglycemia but when at work she noticed she was having an episode. She says she has been having headaches. She went to the ED due to an episode of lightheadedness/pre-syncope and was told she may need a sleep apnea test. She said it was because of the headaches she has been experiencing. She has had two concussions in the last year. The last one was in October and she still has some tenderness on her forehead where she was injured. She says she is waking up with headaches nearly every morning. She says stress does seem to increase the headache during the daytime. She wakes up frequently at night since December. She is getting up for bathroom or just trying to get comfortable. She has woke up with a fast heart rate. She has been told that she snores sometimes and will talk in her sleep a lot. She has woke up gasping for air. She has gained about 100 pounds in the last 5 years. - Parasomnia Symptoms Ever been unable to move upon waking from sleep: No Walks in sleep: No Talks in sleep: Yes Ever acted out dreams in sleep: Yes (sitting up and talking; has hit out too) Ever felt weak in the knees when startled or emotional: Yes (few times emotional; few times if startled; has not fallen down) Bothered by creepy, crawly, restless sensations in legs: Yes (only when stressing knees bent/crossed or kneeling) Problems with memory or concentration: Yes (concentration more, has ADHD; memory sometimes) Subjective Initial [place] Sleepiness Scale score: 13 (01/19/23) Past Medical History Past Medical History: reports: Hypertension, Anxiety, Asthma, Depression, Mood disorder (PTSD, Bipolar), Attention deficit, Other (Hypoglycemia) Social History 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 Patient is Single and lives in [place]. Have you smoked in the past 12 months: Yes Cigarettes per day (20/pack): 40 Years of smokin Smoking Pack Years: 6.0 Alcohol use: No Caffeine use: Yes Caffeine amount and frequency: 1 CUP EVERY OTHER DAY Family History Family history of sleep disordered breathing: No Allergies and Home Medications Known drug allergies: Yes (as listed) Drug allergies reviewed: Yes Home medication list reviewed: Yes Allergy and home medication list: Allergies Penicillins Allergy (Verified 01/18/23 11:35) Respiratory Home Medications Medication Instructions Recorded Confirmed Last Taken Type Albuterol Sulfate [Proair Hfa 1 - 2 puffs INH Q4H PRN 07/06/21 01/19/23 Unknown History Inhaler] Ibuprofen [Motrin] 800 mg PO DAILY 07/11/21 01/19/23 08/19/22 02:00 History Amlodipine Besylate [Norvasc] See Rx Instructions .ROUTE .COMPLEX 01/19/23 01/19/23 Unknown History Review of Systems Weight gain over past 5 years: 100 Cardiovascular: reports: high blood pressure, palpitations, chest pain, irregular heart rate or pulse Respiratory: reports: shortness of breath, wheeze Gastrointestinal: reports: heartburn, nausea, diarrhea, abdominal pain Urinary: reports: frequency, urgency Neurological: reports: headaches, head trauma, disorientation, fainting or unconsciousness Psychiatric: reports: Attention Deficit Hyperactivity, anxiety, depression, mood disorder Ear/Nose/Throat: reports: sinus problems, wisdom teeth removed. denies: tonsillectomy Endocrine: reports: sluggishness, too hot or cold, excessive thirst, increased appetite, increased urination Musculoskeletal: reports: joint pain, neck pain, back pain, muscle pain or cramping Immunologic: reports: itching, allergies to food or environment Physical Exam Vital signs obtained and entered by: VIVIENNE Dash MA Blood Pressure: 155/104 (RIGHT ARM) Cuff size: long Heart Rate: 96 O2 Saturation: 97 Height: 5 ft 7.5 in Weight: 295 lb 3.2 oz Body Mass Index: 45.5 BMI Classification: Morbidly Obese Neck circumference: 18.5 Mouth and throat: narrow oropharynx Soft palate: long Hard palate: normal Uvula: normal Uvula visualization: 0% Mallampati Class IV Tongue: enlarged in size with teeth morgan on lateral edges Tonsils: small Neck: normal w/o lymphadenopathy or thyromegaly Heart: regular rate and rhythm Lungs: clear bilaterally Impression and Plan 1. Suspected Obstructive Sleep Apnea-Hypopnea Syndrome, as suggested by a history of loud and irregular snoring, gasping or choking in sleep, morning headache, frequent awakening during the night, cognitive impairment, and excessive daytime sleepiness. Narrow oropharynx and obesity are common predisposing factors for obstructive sleep apnea-hypopnea syndrome. I recommend proceeding to polysomnography to confirm the diagnosis and to assess severity. If the patient has significant sleep disordered breathing, a manual CPAP titration study will also be performed to find the optimal treatment pressure. I informed the patient of what the sleep studies involve and after some discussion, obtained agreement to proceed. The pathophysiology of obstructive sleep apnea-hypopnea syndrome was discussed with the patient and health risks of cardiovascular and cerebrovascular disease if not treated. Risks of drowsy driving discussed in detail and patient advised to avoid long distance driving and to dross puller at the first sign of drowsiness. Patient agreed to plan. * Schedule polysomnography. * Avoid long distance driving or driving when feeling sleepy. * Avoid alcohol, sedative and muscle relaxant around bedtime. * Attempt to lose weight. * Review instructions provided by trained office staff on how to prepare for the sleep study. * Return for follow-up after sleep study completed. Counseling Topics: Weight loss health impact Plan: PSG Visit Type: In Office Time Spent with Patient (minutes): 30 Provider Statement: I spent 100% of the Face to Face Visit with the patient with greater than 50% spent counseling the patient and coordination of care.
[2023-01-19 10:54] VITALS: BP 155/104; O2SAT 97
== END 2023-01-19 09:54 | disposition home or self-care (01) ==
LOC: SC 09:53
PROVIDERS: ATTEND Nurse Practitioner Family
DX: G47.10 Hypersomnia, unspecified (principal); R06.83 Snoring; R06.81 Apnea, not elsewhere classified; R51.9 Headache, unspecified; G47.8 Other sleep disorders; R41.89 Other symptoms and signs involving cognitive functions and awareness; F17.210 Nicotine dependence, cigarettes, uncomplicated; E66.01 Morbid (severe) obesity due to excess calories; Z68.42 Body mass index [BMI] 45.0-49.9, adult
CPT/HCPCS: 99203; 99212

== ENCOUNTER 2023-02-10 12:24 | Outpatient (CLI) | payer MEDICAID | END 2023-02-10 12:25 | disposition home or self-care (01) | LOC: SC 12:24 | PROVIDERS: ATTEND Nurse Practitioner Family | DX: G47.10 Hypersomnia, unspecified (principal); R53.83 Other fatigue; G47.8 Other sleep disorders; R51.9 Headache, unspecified; R06.83 Snoring; F32.A Depression, unspecified; I10 Essential (primary) hypertension; E66.01 Morbid (severe) obesity due to excess calories | CPT/HCPCS: 95806 ==

== ENCOUNTER 2023-03-18 08:00 | Outpatient (CLI) | payer MEDICAID ==
--- NOTE | 2023-03-18 12:55 | XRAY Report ---
PROCEDURE: Chest 2V INDICATIONS: COUGH TECHNIQUE: 2 views of the chest were obtained. COMPARISON: None. FINDINGS: Surgical changes and devices: None. Lungs and pleura: No pleural effusions or pneumothorax. Lungs are clear. Mediastinum: Mediastinal contours appear normal. Heart size is normal. Bones and chest wall: No suspicious bony lesions. Overlying soft tissues appear unremarkable. IMPRESSION: Normal two-view chest x-ray Reviewed by: Conrado Rodarte MD on 03/18/2023 11:54 AM [facility] Approved by: Conrado Rodarte MD on 03/18/2023 11:54 AM [facility] Station ID: [id number]
== END 2023-03-18 23:59 | disposition home or self-care (01) ==
LOC: DI.N 08:00
PROVIDERS: ATTEND Family Medicine
DX: R05.9 Cough, unspecified (principal)

== ENCOUNTER 2023-06-15 12:04 | Outpatient (CLI) | payer MEDICAID | END 2023-06-15 23:59 | disposition EMS.NT | LOC: EMS 12:04 | DX: F41.9 Anxiety disorder, unspecified (principal); R20.0 Anesthesia of skin; R50.9 Fever, unspecified; R11.0 Nausea; R42 Dizziness and giddiness; I10 Essential (primary) hypertension ==

== ENCOUNTER 2023-07-13 10:50 | Emergency (ER) | payer MEDICAID ==
[2023-07-13] MEDS: CETIRIZINE 10 MG TABLET PO STA (13:41)
--- NOTE | 2023-07-13 13:41 | ED Physician Documentation ---
PD HPI HEADACHE - Stated complaint Stated Complaint: BOURNE,HEAD PRESSURE,LIGHTHEADED - Chief complaint Chief Complaint: Neuro - Additional information Additional information: 23-year-old female with history of hypertension, asthma, anxiety presents emergency department for head pressure that she has been experiencing on and off since February. Patient says that she also had a concussion this year and was worried that maybe this has something to do with that. She was seen at [facility] couple months ago for fluid behind her left ear noted decreased hearing no ear pain no recent illnesses. Patient says the head pain comes and goes with flexion back of her head and wraps up around both sides of her forehead. No nausea or vomiting no unilateral weakness no neurological deficits. PD PAST MEDICAL HISTORY - Past Medical History Past Medical History: Yes Cardiovascular: Hypertension Respiratory: Asthma Neuro: None Psych: Anxiety - Past Surgical History Past Surgical History: No - Present Medications Home Medications: Ambulatory Orders Medication Instructions Recorded Confirmed Albuterol Sulfate [Proair Hfa 1 - 2 puffs INH Q4H PRN 07/06/21 01/19/23 Inhaler] Ibuprofen [Motrin] 800 mg PO DAILY 07/11/21 01/19/23 Amlodipine Besylate [Norvasc] See Rx Instructions .ROUTE .COMPLEX 01/19/23 01/19/23 - Allergies Allergies/Adverse Reactions: Allergies Allergy/AdvReac Type Severity Reaction Status Date / Time Penicillins Allergy Respiratory Verified 07/13/23 11:02 - Social History Does the pt smoke?: No Smoking Status: Never smoker Does the pt drink ETOH?: No Does the pt have substance abuse?: No - Immunizations Immunizations are current?: Yes - POLST Patient has POLST: No PD ED PE NORMAL - Vitals Vital signs reviewed: Yes - General General: Alert and oriented X 3, No acute distress, Well developed/nourished - HEENT HEENT: Atraumatic, PERRL, EOMI, Ears normal, Moist mucous membranes - Cardiac Cardiac: RRR, No murmur - Respiratory Respiratory: No respiratory distress, Clear bilaterally - Derm Derm: Normal color, No rash - Neuro Neuro: Alert and oriented X 3, graduate nurse 2-12 intact, No motor deficit, No sensory deficit, Normal speech Eye Opening: Spontaneous Motor: Obeys Commands Verbal: Oriented GCS Score: 15 Results - Vitals Vitals: Vital Signs - 24 hr 06/06/3007/13/23 07/13/23 11:02 13:06 13:45 Temperature 36.4 C L Heart Rate 88 84 89 Respiratory 18 16 18 Rate Blood Pressure 164/94 H 155/94 H 157/116 H O2 Saturation 98 93 99 Oxygen O2 Source Room air PD Medical Decision Making - ED course ED course: 23-year-old female presents emergency department for complaints of head pressure. She is completely neurologically intact making me less suspicious or concerned of some sort of intracranial abnormality or hemorrhage that requires an emergent head CT. She has no vision changes no focal neurological deficits no recent fevers or chills. Patient does report that her head pressure has gotten worse a spring is gone on. I do believe that she could possibly be experiencing seasonal allergies she was started on Zyrtec here in the emergency department and patient was told to take this medication daily going home to see if this helps with her allergy symptoms and her head pressure. She is told to follow-up with her primary care provider outpatient for further evaluation. Return precautions given safer discharge all questions answered. Departure - Departure Disposition: 01 Home, Self Care Clinical Impression: Seasonal allergies, Pressure in head Instructions: ED Allergy Seasonal Comments: thank you for trusting us with your care. We have given you a medication for allergies here in the emergency department called Zyrtec also known as cetirizine you can pick this up [id number] at any pharmacy or drugstore. You could also pick and shovel man a medication called Flonase to also help to see if this alleviates any of your seasonal allergies or your head pressure symptoms that you are experiencing. This medication is okay to take with hypertension. Please follow-up with your primary care provider next week make sure that you do everything you can to not miss that appointment for further evaluation of your hypertension and possible neurology referral. If you start to notice any confusion serious vision changes worsening symptoms or any other concerning symptoms please present back to the emergency department for further evaluation. Forms: PCP List Discharge Date/Time: 07/13/23 13:45
[2023-07-13 13:47] VITALS: BP 157/116; O2SAT 99
== END 2023-07-13 13:45 | disposition home or self-care (01) ==
LOC: ED 10:50
DX: J30.2 Other seasonal allergic rhinitis (principal); I10 Essential (primary) hypertension
CPT/HCPCS: 99282; 99283; A9270

== ENCOUNTER 2023-08-02 15:04 | Outpatient (CLI) | payer MEDICAID ==
--- NOTE | 2023-08-02 16:55 | XRAY Report ---
PROCEDURE: Ankle 3+V LT INDICATIONS: SPRAIN OF UNSPECIFIED LIGAMENT OF LEFT ANKLE TECHNIQUE: 3 views of the ankle were acquired. COMPARISON: None. FINDINGS: Bones: No fractures or dislocations. Ankle mortise is normally aligned. No suspicious bony lesions . Soft tissues: No tibiotalar joint effusion. Achilles tendon appears normal. IMPRESSION: No displaced fracture or significant joint effusion. Reviewed by: Willam German MD on 08/02/2023 4:53 PM PDT Approved by: Willam German MD on 08/02/2023 4:53 PM PDT Station ID: [id number]
== END 2023-08-02 23:59 | disposition home or self-care (01) ==
LOC: DI.N 15:04
PROVIDERS: ATTEND Physician Assistant Medical
DX: S93.402A Sprain of unspecified ligament of left ankle, initial encounter (principal)

== ENCOUNTER 2023-08-31 09:39 | Emergency (ER) | payer MEDICAID ==
[2023-08-31 10:03] VITALS: O2SAT 100
--- NOTE | 2023-08-31 10:20 | ED Physician Documentation ---
PD HPI CHEST PAIN - Stated complaint Stated Complaint: BACK PX, CHEST PX - Chief complaint Chief Complaint: Back Pain - History obtained from History obtained from: Patient - History of Present Illness Timing - onset: How many weeks ago (1-2) Timing - onset during: Light activity Timing - details: Gradual onset, Still present (much worse the past 2-3 days), Waxing and waning Quality: Aching, Sharp, Pain. No: Pressure Location: Right chest, Upper back Radiation: No: Jaw, Neck, Right upper extremity Worsened by: Inspiration, Movement, Palpation. No: Eating Associated symptoms: Shortness of air. No: Nausea, Feeling faint / dizzy Similar symptoms before: Has not had sx before Review of Systems Constitutional: denies: Fever, Chills Nose: denies: Rhinorrhea / runny nose, Congestion Throat: denies: Sore throat Respiratory: reports: Cough (mild) PD PAST MEDICAL HISTORY - Past Medical History Past Medical History: Yes Cardiovascular: Hypertension Respiratory: Asthma Neuro: None Psych: Anxiety - Past Surgical History Past Surgical History: No - Present Medications Home Medications: Ambulatory Orders Medication Instructions Recorded Confirmed Albuterol Sulfate [Proair Hfa 1 - 2 puffs INH Q4H PRN 07/06/21 01/19/23 Inhaler] Ibuprofen [Motrin] 800 mg PO DAILY 07/11/21 01/19/23 Amlodipine Besylate [Norvasc] See Rx Instructions .ROUTE .COMPLEX 01/19/23 01/19/23 HYDROcod/ACETAM 5/325 [Decker 5/325] 1 ea PO Q6H PRN #18 tablet 08/31/23 Meloxicam [Mobic] 7.5 mg PO BID 10 Days #20 tablet 08/31/23 methocarbamoL [Robaxin] 500 mg PO Q6H PRN #30 tablet 08/31/23 - Allergies Allergies/Adverse Reactions: Allergies Allergy/AdvReac Type Severity Reaction Status Date / Time Penicillins Allergy Respiratory Verified 08/31/23 09:53 - Social History Does the pt smoke?: Yes Smoking Status: Current some day smoker Does the pt drink ETOH?: No Does the pt have substance abuse?: No - Immunizations Immunizations are current?: Yes - POLST Patient has POLST: No PD ED PE NORMAL - Vitals Vital signs reviewed: Yes - General General: Alert and oriented X 3, Well developed/nourished, Other (appears in pain right flani/lower to mid thoracic iwth tenderness in muscles. Not tender spine/midline itself. No rash nor sores. ) - Cardiac Cardiac: RRR, No murmur - Respiratory Respiratory: Clear bilaterally - Abdomen Abdomen: Soft, Non distended, Other (tender in RUQ without local guarding nor percussion tender. Does have tenderness in lower costal margin without crepitance. ) Results - Vitals Vitals: Vital Signs - 24 hr 08/31/23 08/31/23 09:49 12:47 Temperature 36.4 C L 36.2 C L Heart Rate 68 78 Respiratory 20 18 Rate Blood Pressure 184/120 H 150/93 H O2 Saturation 100 100 Oxygen O2 Source Room air - Labs Labs: Laboratory Tests 08/31/23 08/31/23 08/31/23 11:22 11:22 11:35 WBC 8.1 RBC 5.34 Hgb 14.3 Hct 44.2 MCV 82.8 MCH 26.8 L MCHC 32.4 RDW 13.3 Plt Count 345 MPV 9.4 Neut # (Auto) 5.7 Lymph # (Auto) 1.8 [place] # (Auto) 0.4 Eos # (Auto) 0.2 Baso # (Auto) 0.1 Absolute Nucleated RBC 0.00 Nucleated RBC % 0.0 Sodium 136 Potassium 4.0 Chloride 106 Carbon Dioxide 25 Anion Gap 5.0 L BUN 9 Creatinine 0.8 Estimated GFR (MDRD) 90 Glucose 91 Calcium 9.6 Total Bilirubin 0.5 AST 16 ALT 21 Alkaline Phosphatase 88 Total Protein 7.7 Albumin 4.4 Globulin 3.3 Albumin/Globulin Ratio 1.3 Lipase 44 Urine Color LT RED Urine Clarity SL. CLOUDY Urine pH 7.0 Ur Specific [place] 1.020 Urine Protein NEGATIVE Urine Glucose (UA) NEGATIVE Urine Ketones NEGATIVE Urine Occult Blood LARGE H Urine Nitrite NEGATIVE Urine Bilirubin NEGATIVE Urine Urobilinogen 0.2 (NORMAL) Ur Leukocyte Esterase NEGATIVE Urine RBC TNTC H Urine WBC 0-3 Ur Squamous Epith Cells FEW Squamous Urine Bacteria Few Ur Microscopic Review INDICATED Urine Culture Comments NOT INDICATED - Rads (name of study) RUQ US Relevant Findings:: Other (normal GB and kidney. Fatty liver, no acute. ) chest xray Relevant Findings:: Prelim report reviewed, EMP independent interpretation of test (no acute process. ) PD Medical Decision Making - ED course Complexity details: reviewed results (chest xray normal. UA with some blood but no infection. US showing normql GB and kidney, fatty liver but no acute process. Presume musculoskeletal then. ), considered differential (has had pain right lower thoracic area to right mainly, wrapping around to front of chest under the breast. Some pain up and down thoracic too. No rash, fever, redness. No change eating. Consider musculoskeletal. Is not exactly nerve path for shingles. Could be renal, GB or lower lung. ), d/w patient Departure - Departure Disposition: Home, Self Care Clinical Impression: Back pain, Chest wall pain Condition: Stable Record reviewed to determine appropriate education?: Yes Prescriptions: Meloxicam [Mobic] 7.5 mg PO BID 10 Days #20 tablet HYDROcod/ACETAM 5/325 [Decker 5/325] 1 ea PO Q6H PRN #18 tablet PRN Reason: Pain methocarbamoL [Robaxin] 500 mg PO Q6H PRN #30 tablet PRN Reason: Spasms Comments: Your ultrasound showed normal appearance to the gallbladder liver and kidney. They did comment on mild fatty liver which is normal appearance and does not cause pain. No signs of kidney infection based in your urine. Chest x-ray is clear without any signs of fluid around the lungs, pneumonia, collapsed lung. At this point we would assume a musculoskeletal pain. The distribution of the pain does fit for an nerve pathway around to the front but also has characteristics of muscular pain up and down the thoracic area. I would treat it with a combination of anti-inflammatories. We can try a different 1 than you had been with meloxicam twice daily for the next 7 to 10 days. Add methocarbamol muscle relaxant. To that add acetaminophen/Tylenol 500 to 650 mg 4 times daily regularly with added hydrocodone/acetaminophen every 4-6 hours if needed for worse pain. Off work today and tomorrow to allow for some improving time. I sent your prescriptions to your preferred pharmacy, [facility]. Recheck if not improving well over the next several days and resolved by 5 or 6 days. I am prescribing a short course of narcotic pain medication for you. These are potentially dangerous and addictive medications that should be used carefully. These medications may constipate you. Take an avzr-dlj-koqxgvy stool softener such as docusate twice daily with plenty of water while taking these medications. If you go 24 hours without a bowel movement, take afoa-qgs-blohpsk MiraLAX, per package instructions. Do not drink or drive while taking these medications. If you received narcotic or sedating medications while in the emergency department do not drive for 24 hours. Store this medication in a safe, secure place and out of reach of children. It is a violation of federal law to give or sell this medication to another person or to use in a manner other than prescribed. The ED will not refill narcotic prescriptions, including prescriptions lost or stolen. You can dispose of unwanted medications at the [facility]'s office or at several pharmacies such as [facility]. Forms: Activity restrictions Discharge Date/Time: 08/31/23 12:48
[2023-08-31] MEDS: KETOROLAC 30 MG/ML VIAL IM STA (11:22)
[2023-08-31] MEDS: ACETAMINOPHEN 500 MG TABLET PO STA (11:22)
--- NOTE | 2023-08-31 11:29 | XRAY Report ---
PROCEDURE: Chest 1V INDICATIONS: right chest to back pain TECHNIQUE: One view of the chest was acquired. COMPARISON: . FINDINGS: Surgical changes and devices: None. Lungs and pleura: No pleural effusions or pneumothorax. Lungs are clear. Mediastinum: Mediastinal contours appear normal. Heart size is normal. Bones and chest wall: No suspicious bony lesions. Overlying soft tissues appear unremarkable. IMPRESSION: No acute cardiopulmonary process. Reviewed by: Herman Roa MD on 08/31/2023 11:28 AM PDT Approved by: Herman Roa MD on 08/31/2023 11:28 AM PDT Station ID: [id number]
[2023-08-31 11:32] LABS: BASOPHILS # (AUTO) 0.1 10^3/uL (0.0-0.1); BASOPHILS % (AUTO) 0.9 %; EOSINOPHILS # (AUTO) 0.2 10^3/uL (0.0-0.7); HCT - HEMATOCRIT 44.2 % (37.0-47.0); HGB - HEMOGLOBIN 14.3 g/dL (12.0-16.0); LYMPHOCYTES # (AUTO) 1.8 10^3/uL (1.5-3.5); LYMPHOCYTES % (AUTO) 21.7 %; MEAN CORPUSCULAR HEMOGLOBIN 26.8 pg (27.0-31.0); MEAN CORPUSCULAR HGB CONC 32.4 g/dL (32.0-36.0); MEAN CORPUSCULAR VOLUME 82.8 fL (81.0-99.0); MEAN PLATELET VOLUME 9.4 fL (7.9-10.8); MONOCYTES # (AUTO) 0.4 10^3/uL (0.0-1.0); MONOCYTES % (AUTO) 4.9 %; NEUTROPHILS # (AUTO) 5.7 10^3/uL (1.5-6.6); NEUTROPHILS % (AUTO) 70.3 %; PLT - PLATELET COUNT 345 10^3/uL (130-450); RED BLOOD COUNT 5.34 10^6/uL (4.20-5.40); RED CELL DISTRIBUTION WIDTH 13.3 % (12.0-15.0); WHITE BLOOD COUNT 8.1 x10^3/uL (4.8-10.8)
[2023-08-31 11:41] LABS: ALBUMIN 4.4 g/dL (3.2-5.5); ALBUMIN/GLOBULIN RATIO 1.3 (1.0-2.2); BILIRUBIN,TOTAL 0.5 mg/dL (0.2-1.0); CALCIUM 9.6 mg/dL (8.5-10.3); CREATININE 0.8 mg/dL (0.6-1.3); TOTAL PROTEIN 7.7 g/dL (6.4-8.9)
[2023-08-31 11:54] LABS: BILIRUBIN,URINE NEGATIVE (NEGATIVE); GLUCOSE, URINE (UA) NEGATIVE (NEGATIVE); KETONES,URINE (UA) NEGATIVE (NEGATIVE); LEUKOCYTE ESTERASE, URINE NEGATIVE (NEGATIVE); NITRITE,URINE NEGATIVE (NEGATIVE); OCCULT BLOOD,URINE LARGE (NEGATIVE); PROTEIN,URINE NEGATIVE (NEGATIVE); UROBILINOGEN,URINE 0.2 (NORMAL) E.U./dL (NORMAL)
[2023-08-31 11:55] LABS: CLARITY,URINE SL. CLOUDY (CLEAR)
[2023-08-31 12:08] LABS: RBC,URINE TNTC /HPF (0-5); WBC,URINE 0-3 /HPF (0-5)
[2023-08-31 12:09] LABS: BACTERIA,URINE Few /HPF (None Seen); SQUAMOUS EPITHELIAL CELL,UR FEW Squamous (<= Few)
--- NOTE | 2023-08-31 12:25 | Ultrasound Report ---
PROCEDURE: Abdomen Limited INDICATIONS: RUQ to flank pain TECHNIQUE: Ultrasound of the abdominal right upper quadrant was obtained with image documentation. COMPARISONS: None. FINDINGS: Liver: Liver shows diffusely increased echogenicity without focal mass lesion. No intrahepatic duct al dilation. Gallbladder: Contracted. No cholelithiasis. Common Bile Duct: 4.3 mm. Pancreas: Unremarkable as visualized. Right Kidney: Appropriate in size and echotexture. No evidence of hydronephrosis. No shadowing calc alexy. No solid or cystic mass lesion. IMPRESSION: Hepatic fatty infiltration without focal mass lesion Reviewed by: Conrado Rodarte MD on 08/31/2023 11:23 AM [facility] Approved by: Conrado Rodarte MD on 08/31/2023 11:23 AM [email or web address] Station ID: [id number]
[2023-08-31 12:56] VITALS: BP 150/93
== END 2023-08-31 12:48 | disposition home or self-care (01) ==
LOC: ED 09:39
DX: M54.6 Pain in thoracic spine (principal); R07.9 Chest pain, unspecified; I10 Essential (primary) hypertension; J45.909 Unspecified asthma, uncomplicated; F17.200 Nicotine dependence, unspecified, uncomplicated
CPT/HCPCS: 36415; 71045; 76705; 80053; 81001; 83690; 85025; 99284; A9270; 81003; 87086

== ENCOUNTER 2023-09-19 11:30 | Outpatient (CLI) | payer MEDICAID ==
[2023-09-19 18:02] LABS: HCT - HEMATOCRIT 43.7 % (37.0-47.0); HGB - HEMOGLOBIN 14.4 g/dL (12.0-16.0); MEAN CORPUSCULAR HEMOGLOBIN 27.6 pg (27.0-31.0); MEAN CORPUSCULAR VOLUME 83.7 fL (81.0-99.0); MEAN PLATELET VOLUME 9.9 fL (7.9-10.8); RED BLOOD COUNT 5.22 10^6/uL (4.20-5.40); RED CELL DISTRIBUTION WIDTH 13.1 % (12.0-15.0); WHITE BLOOD COUNT 7.6 x10^3/uL (4.8-10.8)
[2023-09-19 18:22] LABS: ALBUMIN 4.1 g/dL (3.2-5.5); ALBUMIN/GLOBULIN RATIO 1.3 (1.0-2.2); ALKALINE PHOSPHATASE 81 IU/L (42-121); ALT ALANINE AMINOTRANSFERASE 38 IU/L (10-60); AST ASPARTATE AMINOTRANSFERASE 29 IU/L (10-42); BILIRUBIN,TOTAL 0.5 mg/dL (0.2-1.0); BUN - BLOOD UREA NITROGEN 8 mg/dL (6-20); CALCIUM 9.5 mg/dL (8.5-10.3); CARBON DIOXIDE - CO2 28 mmol/L (21-32); CHLORIDE 104 mmol/L (101-111); CHOL/HDL RATIO 3.6 (<4.4); CHOLESTEROL 138 mg/dL; CREATININE 0.8 mg/dL (0.6-1.3); GFR - MDRD 90 (>89); GLUCOSE 128 mg/dL (74-104); HDL CHOLESTEROL 38 mg/dL; LDL CHOLESTEROL,CALCULATED 66 mg/dL; LDL/HDL RATIO 1.7 (<4.4); POTASSIUM 3.8 mmol/L (3.5-4.5); SODIUM 136 mmol/L (135-145); TOTAL PROTEIN 7.3 g/dL (6.4-8.9); TRIGLYCERIDES 172 mg/dL; VLDL CHOLESTEROL 34 mg/dL
[2023-09-19 18:29] LABS: CREATININE,URINE 221.2 mg/dL; MICROALBUMIN,URINE 1.1 mg/dL
[2023-09-19 18:36] LABS: THYROID STIMULATING HORMONE 1.17 uIU/mL (0.34-5.60)
[2023-09-19 20:28] LABS: ESTIMATED AVERAGE GLUCOSE 85 mg/dL (70-100); HEMOGLOBIN A1c% 4.6 % (4.27-6.07)
[2023-09-19 20:47] LABS: CHLAMYDIA TRACHOMATIS DNA NEGATIVE (NEGATIVE); NEISSERIA GONORRHOEAE DNA NEGATIVE (NEGATIVE); TRICHOMONAS VAGINALIS DNA NEGATIVE (NEGATIVE)
== END 2023-09-19 11:31 | disposition home or self-care (01) ==
LOC: LAB.N 11:30
PROVIDERS: ATTEND Physician Assistant
DX: Z00.00 Encounter for general adult medical examination without abnormal findings (principal); F41.1 Generalized anxiety disorder; R00.0 Tachycardia, unspecified; K21.9 Gastro-esophageal reflux disease without esophagitis; Z11.8 Encounter for screening for other infectious and parasitic diseases
CPT/HCPCS: 36415; 80053; 80061; 82043; 82570; 83036; 83721; 84443; 85027; 87491; 87591; 87661

== ENCOUNTER 2023-10-08 08:51 | Emergency (ER) | payer MEDICAID ==
[2023-10-08 09:00] VITALS: BP 173/118; O2SAT 98
--- NOTE | 2023-10-08 09:15 | ED Physician Documentation ---
History of Present Illness - Stated complaint Stated Complaint: NAUSEA,BODY ON "FIRE", NEW MED - Chief complaint Chief Complaint: Abd Pain - History obtained from History obtained from: Patient - Additonal information Additional information: 23-year-old with recent diagnosis of inappropriate sinus tachycardia. She took a first dose of 120 mg diltiazem this morning. She notes that she cannot swallo w pills and so had to crush it and given the dose I presume this is a long- acting pill. Within 10 minutes she started to feel flushed and nauseous. More than anything else she is anxious. PD PAST MEDICAL HISTORY - Past Medical History Cardiovascular: Hypertension Respiratory: Asthma Neuro: None Psych: Anxiety - Past Surgical History Past Surgical History: No - Present Medications Home Medications: Ambulatory Orders Medication Instructions Recorded Confirmed Albuterol Sulfate [Proair Hfa 1 - 2 puffs INH Q4H PRN 07/06/21 01/19/23 Inhaler] Ibuprofen [Motrin] 800 mg PO DAILY 07/11/21 01/19/23 Amlodipine Besylate [Norvasc] See Rx Instructions .ROUTE .COMPLEX 01/19/23 01/19/23 HYDROcod/ACETAM 5/325 [[place] 5/325] 1 ea PO Q6H PRN #18 tablet 08/31/23 Meloxicam [Mobic] 7.5 mg PO BID 10 Days #20 tablet 08/31/23 methocarbamoL [Robaxin] 500 mg PO Q6H PRN #30 tablet 08/31/23 Propranolol [Inderal] 10 mg PO TID #90 tablet 10/08/23 - Allergies Allergies/Adverse Reactions: Allergies Allergy/AdvReac Type Severity Reaction Status Date / Time Penicillins Allergy Respiratory Verified 10/08/23 08:54 - Social History Does the pt smoke?: No Smoking Status: Never smoker Does the pt drink ETOH?: No Does the pt have substance abuse?: No - Immunizations Immunizations are current?: Yes - POLST Patient has POLST: No PD ED PE NORMAL - Vitals Vital signs reviewed: Yes - General General: Alert and oriented X 3, No acute distress - Cardiac Cardiac: RRR, No murmur - Respiratory Respiratory: No respiratory distress, Clear bilaterally - Abdomen Abdomen: Non tender - Extremities Extremities: No edema, No calf tenderness / cord - Neuro Neuro: Alert and oriented X 3, Normal speech Results - Vitals Vitals: Vital Signs - 24 hr 10/08/23 08:55 Temperature 36.5 C Heart Rate 101 H Respiratory 18 Rate Blood Pressure 173/118 H O2 Saturation 98 Oxygen O2 Source Room air PD Medical Decision Making - ED course ED course: Presume her symptomatology is from crushing a long-acting pill. I am not too worried about her obviously since she is actually tachycardic and hypertensive presuming related to anxiety. We discussed options including she could potentially restart diltiazem without crushing the pill but she says she absolutely cannot swallow pills and as such we will change her over to propranolol pending follow-up. Departure - Departure Disposition: 01 Home, Self Care Clinical Impression: Medication reaction Qualifiers: Encounter type: initial encounter Qualified Code(s): T50.905A - Adverse effect of unspecified drugs, medicaments and biological substances, initial encounter Condition: Good Record reviewed to determine appropriate education?: Yes Prescriptions: Propranolol [Inderal] 10 mg PO TID #90 tablet Comments: As discussed, not clear if you are reacting to the medication or if you just got too much at once from crushing a long-acting pill. Either way I am changing you over to propranolol which is a much smaller pill and because it is a short acting dose the pill could be crushed, but unfortunately that means you will have to take it 3 times a day. Follow-up with your advertising photographer as scheduled. Return for new or worsening symptoms.
== END 2023-10-08 09:21 | disposition home or self-care (01) ==
LOC: ED 08:51
DX: T46.1X5A Adverse effect of calcium-channel blockers, initial encounter (principal); I10 Essential (primary) hypertension; J45.909 Unspecified asthma, uncomplicated
CPT/HCPCS: 99282; 99283